=== PATIENT | female | born 1955 | race Caucasian/White ===

== ENCOUNTER 2017-05-26 16:30 | Day surgery (SDC) | payer MEDICARE, OTHER ==
[2017-05-26] VITALS (11 sets, daily range): BP systolic 144–189; BP diastolic 76–93
[~2017-05-26] VITALS: Ht 170.2 cm; Wt 135.2 kg
[~2017-05-26 16:30] MED LIST changes: -DOCU-143 PO; -HYDR-3812 PO; -HYDROmorphone (DILAUDID) 2 MG/ML VIAL ONE; -IOHEXOL 350 MG/ML 100 ML (OMNIPAQUE 350) VIAL IV ONE; -NS 100 ML (IVPB) BAG IV ONE
[2017-05-26] MEDS ORDERED: NS (IVPB) 100 ML ONE (16:41)
[2017-05-26] MEDS ORDERED: PIPERACILLIN/TAZO 4.5 GM VIAL (ZOSYN) IV ONE (16:41)
[2017-05-26] MEDS ORDERED: PIPERACILLIN SODIUM/TAZOBACTAM 4.5 GM in NS (IVPB) 100 ML IV ONE ×2 (17:00→17:15)
[2017-05-26] MEDS ORDERED: proPOfol 200 MG/20 ML (DIPRIVAN) VIAL IV ONE (17:18)
[2017-05-26] MEDS ORDERED: ONDANSETRON 4 MG/2 ML (SDV) Z0FRAN ONE ×2 (17:18→19:06)
[2017-05-26] MEDS ORDERED: SEVOFLURANE (ULTANE) 15 ML INHAL SOLN ONE ×7 (17:18→19:28)
[2017-05-26] MEDS ORDERED: MIDAZOLAM 2 MG/2 ML (VERSED) VIAL ONE (17:20)
[2017-05-26] MEDS ORDERED: fentaNYL INJECTION 250 MCG/5 ML AMP ONE (17:22)
[2017-05-26] MEDS: LACTATED RINGERS 1,000 ML IV PRN ×2 (17:41→18:20)
[2017-05-26] MEDS ORDERED: INFLUENZA TRIvalent 2017-2018 0.5 ML/45 MCG SYR IM ONE (17:45)
[2017-05-26] MEDS ORDERED: BUPIVACAINE 0.5% 30 ML (SENSORCAINE) VIAL ONE (17:55)
[2017-05-26] MEDS ORDERED: LIDOCAINE 1% INJ 20 ML (XYLOCAINE) VIAL ONE (17:56)
[2017-05-26] MEDS ORDERED: SUCCINYLCHOLINE INJ 100 MG/5 ML SYR ONE (18:35)
[2017-05-26] MEDS ORDERED: LIDOCAINE PF 2% 5 ML (XYLOCAINE) VIAL ONE (18:35)
[2017-05-26] MEDS ORDERED: ROCURONIUM 50 MG/5 ML (ZEMURON) VIAL IV ONE (18:35)
[2017-05-26] MEDS ORDERED: morphine INJ 10 MG/ML 1ML (SYR OR VIAL) ONE (19:06)
[2017-05-26] MEDS ORDERED: GLYCOPYRROLATE 0.2 MG/ML (ROBINUL) 2 ML VIAL ONE (19:28)
[2017-05-26] MEDS ORDERED: NEOSTIGMINE (BLOXIVERZ ) 1 MG/1ML 10 ML VIAL ONE (19:28)
[2017-05-26] MEDS ORDERED: LABETALOL HCL 20 MG/4 ML VIAL ONE (19:35)
--- NOTE | 2017-05-26 19:54 | Progress Note-Post Operative ---
Post-Operative Progess Note Surgeon (s)/Teacher Instrumental (s) Surgeon MARILUZ SANCHEZ DO Teacher Instrumental: Dr. Gamino Pre-Operative Diagnosis rlq abdominal pain possible appendicitis, dermoid cyst, incisional hernia Post-Operative Diagnosis torsion right ovary, strangulated incisional hernia, appendicits Procedure & Operative Findings Date of Procedure 05/26/17 Procedure Performed/Findings emergent diagnostic laparoscopy, primary open strangulated hernia repair, appendectomy, partial omentectomy Dr. Yousif- Right salpingo-oophorectomy Anesthesia Type general Estimated Blood Loss Estimated blood loss (mL): 100mL Specimens/Packing Specimens Removed right ovary/tube possible urachus remnant hernia sac appendix omentum MARILUZ SANCHEZ DO May 26, 2017 19:54
[2017-05-26] MEDS ORDERED: morphine INJ 4 MG/ML 1 ML (VIAL/SYRINGE) IVP PRN (20:00)
[2017-05-26] MEDS: LACTATED RINGERS 1,000 ML IV SCH (20:02)
[2017-05-26] MEDS: morphine INJ 10 MG/ML 1ML (SYR OR VIAL) IVP PRN ×2 (20:05→20:16)
[2017-05-26] MEDS ORDERED: ONDANSETRON 4 MG/2 ML (SDV) Z0FRAN IVP PRN (20:15)
[2017-05-26] MEDS ORDERED: HYDROmorphone (DILAUDID) 2 MG/ML VIAL IVP PRN (20:30)
[2017-05-26] MEDS ORDERED: lisINopril 10 MG (PRINIVIL) TAB ONE (22:23)
[2017-05-26] MEDS: ONDANSETRON 4 MG/2 ML (SDV) Z0FRAN IVP PRN (22:41)
[2017-05-26] MEDS: lisINopril 20 MG (ZESTRIL) TAB PO SCH (23:01)
[2017-05-27] VITALS (12 sets, daily range): BP systolic 103–150; BP diastolic 51–82
[2017-05-27] MEDS: PIPERACILLIN SODIUM/TAZOBACTAM 4.5 GM in NS (IVPB) 100 ML IV SCH ×2 (01:09→08:37)
[2017-05-27] MEDS: LACTATED RINGERS 1,000 ML IV SCH ×3 (02:01→23:25)
[2017-05-27] MEDS: HYDROcodone/APAP 5 MG/325 MG (LORTAB) TAB PO PRN ×2 (04:29→20:27)
[2017-05-27] MEDS: ONDANSETRON 4 MG/2 ML (SDV) Z0FRAN IVP PRN (04:29)
[2017-05-27 06:48] LABS: RED BLOOD COUNT 4.61 10^6/uL (4.35-5.85); RED CELL DISTRIBUTION WIDTH 12.7 % (10.0-14.5); WHITE BLOOD COUNT 20.5 10^3/uL (4.3-11.0)
[2017-05-27 07:02] LABS: ALANINE AMINOTRANSFERASE 13 U/L (0-55); ALBUMIN 2.9 GM/DL (3.2-4.5); ANION GAP 8 MMOL/L (5-14); ASPARTATE AMINO TRANSFERASE 15 U/L (5-34); BILIRUBIN,TOTAL 1.8 MG/DL (0.1-1.0); BLOOD UREA NITROGEN 10 MG/DL (7-18); BUN/CREATININE RATIO 13; CALCIUM 8.1 MG/DL (8.5-10.1); CARBON DIOXIDE 28 MMOL/L (21-32); CHLORIDE 102 MMOL/L (98-107); CREATININE SERUM 0.78 MG/DL (0.60-1.30); GFR ESTIMATED > 60; GLUCOSE 163 MG/DL (70-105); LIPASE 16 U/L (8-78); POTASSIUM 3.3 MMOL/L (3.6-5.0); SODIUM 138 MMOL/L (135-145); TOTAL PROTEIN 6.1 GM/DL (6.4-8.2)
--- NOTE | 2017-05-27 08:36 | Progress Note ---
Subjective Date Seen by Provider: May 27, 2017 Time Seen by Provider: 06:10 Subjective/Events-last exam Patient feeling better than yesterday. Pain controlled. Tolerating clear liquids. Denies any n/v fever sweats chills shortness of breath or chest pain. Blood pressure better controlled. WBC slightly down 20.5. T bili 1.8 Objective Exam Vital Signs Date Time Temp Pulse Resp B/P (MAP) Pulse Ox O2 Delivery O2 Flow Rate FiO2 05/27/17 06:00 98.8 80 16 123/62 97 Room Air 05/27/17 04:00 134/74 96 Room Air 05/27/17 03:13 72 14 139/67 97 Nasal Cannula 1.00 05/27/17 02:06 98.6 79 16 138/76 98 Nasal Cannula 2.00 05/27/17 01:09 82 16 144/82 98 Nasal Cannula 3.00 05/27/17 00:00 73 16 147/81 98 Nasal Cannula 3.00 05/26/17 23:18 71 16 144/81 98 Nasal Cannula 4.00 05/26/17 23:00 72 18 144/81 98 Nasal Cannula 4.00 05/26/17 22:30 70 18 148/78 97 Nasal Cannula 4.00 05/26/17 22:19 98.4 75 17 145/76 95 Nasal Cannula 4.00 05/26/17 22:15 68 17 147/81 95 Nasal Cannula 4.00 05/26/17 22:01 95 Nasal Cannula 3.00 05/26/17 22:00 79 17 162/93 96 Nasal Cannula 4.00 05/26/17 21:45 80 17 149/84 96 Nasal Cannula 4.00 05/26/17 21:30 80 17 160/92 96 Nasal Cannula 4.00 05/26/17 21:15 80 17 148/83 94 Nasal Cannula 4.00 05/26/17 21:15 95 Nasal Cannula 3.00 05/26/17 21:05 98.1 78 17 154/88 89 Nasal Cannula 4.00 05/26/17 17:05 98.5 108 18 189/82 97 Room Air Capillary Refill : General Appearance: No Apparent Distress HEENT: PERRL/EOMI, Normal ENT Inspection Neck: Supple Respiratory: No Accessory Muscle Use, No Respiratory Distress Cardiovascular: Regular Rate, Rhythm Gastrointestinal: soft (incisional tenderness, no drainage at this time, no signs of incisional infection.) Extremity: Non Tender Neurologic/Psychiatric: Alert, Oriented x3 Skin: Normal Color, Warm/Dry Lymphatic: No Adenopathy Results Lab Laboratory Tests 05/27/17 05:45: White Blood Count 20.5H, Red Blood Count 4.61, Hemoglobin 14.6, Hematocrit 43, Mean Corpuscular Volume 92, Mean Corpuscular Hemoglobin 32, Mean Corpuscular Hemoglobin Concent 34, Red Cell Distribution Width 12.7, Platelet Count 190, Mean Platelet Volume 11.0H, Sodium Level 138, Potassium Level 3.3L, Chloride Level 102, Carbon Dioxide Level 28, Anion Gap 8, Blood Urea Nitrogen 10, Creatinine 0.78, Estimat Glomerular Filtration Rate > 60, BUN/Creatinine Ratio 13, Glucose Level 163H, Calcium Level 8.1L, Total Bilirubin 1.8H, Aspartate Amino Transf (AST/SGOT) 15, Alanine Aminotransferase (ALT/SGPT) 13, Alkaline Phosphatase 42, Total Protein 6.1L, Albumin 2.9L, Lipase 16 Assessment/Plan Assessment/Plan Assessment/Plan s/p diagnostic laparoscopy right salpingo-oophorectomy, strangulated incisional hernia repair, partial omentectomy, appendectomy wbc coming down slightly will plan just two dose Zosyn postoperative mario barboza repeat labs in am if tolerates clears today will likely advance possibly home tomorrow. Clinical Quality Measures DVT/VTE Risk/Contraindication: Risk Factor Score Per Nursin RFS Level Per Nursing on Admit: 3=High MARILUZ SANCHEZ DO May 27, 2017 08:36
[2017-05-27] MEDS: HYDROCHLOROTHIAZIDE 25 MG (HCTZ) TAB PO SCH (08:38)
[2017-05-27] MEDS ORDERED: INFLUENZA TRIvalent 2017-2018 0.5 ML/45 MCG SYR IM ONE (08:43)
[2017-05-27] MEDS ORDERED: FAMOTIDINE 20 MG (PEPCID) TABLET PO ONE (09:00)
[2017-05-27] MEDS: lisINopril 20 MG (ZESTRIL) TAB PO SCH ×2 (09:32→20:26)
--- NOTE | 2017-05-27 09:36 | Anesthesia-General Post-Op ---
General Patient Condition Mental Status/LOC: Same as Preop Cardiovascular: Satisfactory Nausea/Vomiting: Absent Respiratory: Satisfactory Pain: Controlled Complications: Absent Post Op Complications Complications None Follow Up Care/Instructions Patient Instructions None needed. Anesthesia/Patient Condition Patient Condition Patient is doing well, no complaints, stable vital signs, no apparent adverse anesthesia problems. No complications reported per nursing. FELICIANO GIMENEZ CRNA May 27, 2017 09:36
--- NOTE | 2017-05-27 19:12 | OPERATIVE REPORT ---
DATE OF SERVICE: 05/26/2017 PREOPERATIVE DIAGNOSES: Right lower quadrant abdominal pain, possible appendicitis; dermoid cyst; and incisional hernia, incarcerated. POSTOPERATIVE DIAGNOSES: Torsion of the right ovary, strangulated incisional hernia, and appendicitis. PROCEDURE PERFORMED: Emergent diagnostic laparoscopy, primary open; strangulated hernia repair; appendectomy; and partial omentectomy with Dr. Yousif perform a right salpingo-oophorectomy. ANESTHESIA: General. SURGEON: Mariluz Arenas DO CROWN [employer] BRIDGE TECHNICIAN: Dr. Gamino, who assisted in retraction, dissection and closure. INDICATIONS: The patient is a 62-year-old female, who has been having 2 half days of right lower quadrant abdominal pain. She has been having nausea and vomiting. She has had severe pain. She had a lab work, which demonstrated white count of approximately 23,000, and a CT scan that demonstrated a possible dermoid cyst with possible ovarian torsion, questionable appendicitis and some free fluid in the abdomen, also with an incarcerated possible strangulated hernia. She was explained risks and benefits of procedure and wished to proceed with procedure. Consent was signed in the chart. DESCRIPTION OF PROCEDURE: The patient was taken to the operating suite. She was prepped and draped in sterile fashion. Surgical pause was performed. A 12 mm incision was made just above the umbilicus and taken down through the subcutaneous tissue. The hernia sac was entered and the fingers were able to be placed within the abdomen. A 12 mm balloon trocar was inserted into the abdomen. The balloon was insufflated and scope was inserted. A 5 mm trocar was then placed in the left lower quadrant. A large cystic mass with the right ovary was at midline. It appears to be containing blood with also some blood already within the abdomen, down in the pelvis and in the right gutter. A suprapubic 5 mm trocar was placed as well under direct visualization of the laparoscope. At this time, Dr. Yousif was called for intraoperative consult and performed a right salpingo-oophorectomy. The scope was changed to a 5 mm scope. The hernia was inspected. There was a strangulated omentum present through the hernia. At this time, at the umbilicus, the incision was extended inferiorly and the omentum was able to be reduced, grasped, and elevated out through the incision. A partial omentectomy was performed using the LigaSure removing the strangulated omentum. The hernia sac was then dissected around and also a portion of a possible urachal remnant that was removed as well. This was sent to pathology. We thought, this was a small stone. The hernia sac was dissected off and resected. The abdomen was irrigated with copious amounts of irrigation. The cecum was brought up through the incision. The appendix at the base along with the tip was dilated and inflamed. The base of the appendix was dissected around. An Endo-VEENA 2.5 stapler was then fired across the base of the appendix. LigaSure was used to go across the mesoappendix removing the appendix. At this time again, copious amounts of irrigation was used to irrigate the entire abdomen. The midline defect was then closed using 1-0 looped PDS. The wound was irrigated with copious amounts of irrigation and the skin was stapled. The abdomen was then reinsufflated and again irrigated with copious amounts of irrigation and suctioned. Hemostasis had been achieved. The gallbladder before closing was palpated, which was nice and soft and appeared to have no inflammation and also appeared in this way by laparoscopy. The left ovary had normal appearance. The abdomen was then desufflated, the trocars were removed. The incisions were closed with idalmis. The abdomen was then washed and dried, sterile bandage was applied. The patient tolerated the procedure well without any complications. She was taken to the recovery room in stable condition. Job ID: [id number] DocumentID: [id number] Dictated Date: 05/27/2017 08:45:54 Tactical Deception Plans Officer Date: 05/27/2017 19:11:52 Dictated By: MARILUZ ARENAS DO
--- NOTE | 2017-05-28 00:07 | OPERATIVE REPORT ---
DATE OF SERVICE: 05/27/2017 INTRAOPERATIVE CONSULT AND PROCEDURE REPORT This 62-year-old female was taken to the operating room by general surgeon, Dr. Arenas, for incarcerated hernia repair as well as suspicion for appendicitis and a pelvic mass noted on CT. Once intraoperative, I was consulted by him for evaluation of a pelvic mass, which appeared to be in a torsed ovary. When I presented to the operating room, the patient was in the supine position and adequate laparoscopic trocars were already in place for my dissection. I identified the patient's right infundibulopelvic ligament by untorsing in on it' s pedicle. Once it was identified, it was grasped with the LigaSure and bipolar cautery and transected using the LigaSure. The utero-ovarian ligament was identified as well and taken down. After that, the ovary itself was amputated from the lateral pelvic sidewall. During my dissection, I was careful to stay clear of the proximity of the ureter to the infundibulopelvic ligament. At that point, the remainder of the procedure was performed by Dr. Arenas and his treasury assistant, Dr. Gamino. I was no longer needed for further consultation. The ovary and its surrounding pelvic mass was then removed later in the procedure through the incarcerated hernia repair. Please see Dr. Arenas's note for complete details pertaining to the remainder of the procedure. Job ID: [id number] DocumentID: [id number] Dictated Date: 05/27/2017 10:45:09 Chainstitch Elastic Attacher Date: 05/27/2017 19:06:04 Dictated By: DO CARLEY POLANCO
[2017-05-28] MEDS ORDERED: KCL 20 MEQ TAB (K-DUR) PO SCH (07:00)
[2017-05-28 08:22] LABS: MEAN PLATELET VOLUME 10.8 FL (7.4-10.4); RED BLOOD COUNT 4.29 10^6/uL (4.35-5.85); RED CELL DISTRIBUTION WIDTH 12.7 % (10.0-14.5)
[2017-05-28 08:45] LABS: ALANINE AMINOTRANSFERASE 20 U/L (0-55); ALBUMIN 2.9 GM/DL (3.2-4.5); ANION GAP 8 MMOL/L (5-14); ASPARTATE AMINO TRANSFERASE 22 U/L (5-34); BILIRUBIN,TOTAL 1.1 MG/DL (0.1-1.0); BLOOD UREA NITROGEN 12 MG/DL (7-18); BUN/CREATININE RATIO 17; CALCIUM 8.5 MG/DL (8.5-10.1); CARBON DIOXIDE 29 MMOL/L (21-32); CHLORIDE 104 MMOL/L (98-107); CREATININE SERUM 0.69 MG/DL (0.60-1.30); GFR ESTIMATED > 60; GLUCOSE 85 MG/DL (70-105); SODIUM 141 MMOL/L (135-145); TOTAL PROTEIN 5.8 GM/DL (6.4-8.2)
[2017-05-28 09:30] VITALS: BP 161/79
[2017-05-28] MEDS: HYDROCHLOROTHIAZIDE 25 MG (HCTZ) TAB PO SCH (09:51)
[2017-05-28] MEDS: lisINopril 20 MG (ZESTRIL) TAB PO SCH (09:52)
[2017-05-28] MEDS ORDERED: KCL 20 MEQ TAB (K-DUR) PO NR (10:00)
[2017-05-28] MEDS: HYDROcodone/APAP 5 MG/325 MG (LORTAB) TAB PO PRN (10:06)
[2017-05-28] MEDS ORDERED: HYDR-3812 PO (10:07)
[2017-05-28] MEDS ORDERED: DOCU-143 PO (10:07)
--- NOTE | 2017-05-28 10:09 | Discharge Inst-Simple/Standard ---
Discharge Inst-Standard Discharge Medications New, Converted or Re-Newed RX: RX on Chart Patient Instructions/Follow Up Plan of Care/Instructions/FU: 2 weeks Deepa Activity as Tolerated: No Discharge Diet: Regular Diet Other Inst to Patient Follow up Appt: Make appointment for 2 week. Instructions: No lifting greater than 10 pounds. No strenuous activity. May shower in 24 hours, no tub bath or soaking. Use incentive spirometer at home as directed. No Smoking Skin/Wound Care: May remove bandages. Keep area clean and dry. Symptoms to Report: Appetite Changes, Extremity Discoloration, Numbness/Tingling, Swelling Increased , Bleeding Excessive, Eyesight Changes, Pain Increased, Urine Color Change, Constipation(Persistent), Fever over 101 degree F, Pain/Pressure in chest, Urinating Difficulty, Cough Up/Vomit Blood, Heart Beat Irreg/Pounding, Pain/ Pressure in jaw, Vaginal Bleeding Increase, Cramps in feet or legs, Lightheadedness, Pain/Pressure in shoulder, Diarrhea(Persistent), Memory Changes Suddenly, Questions/Concerns, Weight gain consecutive days, Dizziness/ Fainting, Nausea/Vomiting, Shortness of Breath, Weight gain over 2 pounds If questions or concerns contact your physician Or seek help at emergency department. MARILUZ SANCHEZ DO May 28, 2017 10:08
[2017-05-28] MEDS ORDERED: SIMETHICONE 80 MG (MYLICON) CHEW PO NR (10:15)
[2017-05-28 12:00] VITALS: BP 169/84
--- NOTE | 2017-05-28 14:23 | Progress Note ---
Subjective Date Seen by Provider: May 28, 2017 Time Seen by Provider: 09:52 Subjective/Events-last exam Continues to feel better. Passing flatus. No nausea or emesis. Pain controlled. Ambulating. Denies n/v fever sweats chills shortness of breath or chest pain. Objective Exam Vital Signs Date Time Temp Pulse Resp B/P (MAP) Pulse Ox O2 Delivery O2 Flow Rate FiO2 05/28/17 12:00 98.2 70 18 169/84 97 Room Air 05/28/17 09:30 99.1 49 18 161/79 95 Room Air 05/27/17 23:25 98.3 72 16 103/61 Room Air 05/27/17 20:20 99.2 78 18 150/82 Room Air 05/27/17 15:40 99.3 71 18 127/66 99 Room Air Capillary Refill : General Appearance: No Apparent Distress HEENT: PERRL/EOMI, Normal ENT Inspection Neck: Supple Respiratory: No Accessory Muscle Use, No Respiratory Distress Cardiovascular: Regular Rate, Rhythm Gastrointestinal: soft (incisional tenderness, no drainage at this time, no signs of incisional infection, incisions c/d/i) Extremity: Non Tender Neurologic/Psychiatric: Alert, Oriented x3 Skin: Normal Color, Warm/Dry Lymphatic: No Adenopathy Results Lab Laboratory Tests 05/28/17 08:12: White Blood Count 16.0H, Red Blood Count 4.29L, Hemoglobin 13.4, Hematocrit 40, Mean Corpuscular Volume 93, Mean Corpuscular Hemoglobin 31, Mean Corpuscular Hemoglobin Concent 34, Red Cell Distribution Width 12.7, Platelet Count 202, Mean Platelet Volume 10.8H, Sodium Level 141, Potassium Level 3.0L, Chloride Level 104, Carbon Dioxide Level 29, Anion Gap 8, Blood Urea Nitrogen 12, Creatinine 0.69, Estimat Glomerular Filtration Rate > 60, BUN/Creatinine Ratio 17, Glucose Level 85, Calcium Level 8.5, Total Bilirubin 1.1H, Aspartate Amino Transf (AST/SGOT) 22, Alanine Aminotransferase (ALT/SGPT) 20, Alkaline Phosphatase 43, Total Protein 5.8L, Albumin 2.9L Microbiology 05/26/17 MRSA Screen - Final, Complete MRSA not isolated Assessment/Plan Assessment/Plan Assessment/Plan s/p diagnostic laparoscopy right salpingo-oophorectomy, strangulated incisional hernia repair, partial omentectomy, appendectomy wbc coming down potassium orally replaced okay with dc home today. Final Diagnosis right lower quadrant abdominal pain. s/p diagnostic laparoscopy right salpingo-oophorectomy, strangulated incisional hernia repair, partial omentectomy, appendectomy Clinical Quality Measures DVT/VTE Risk/Contraindication: Risk Factor Score Per Nursin RFS Level Per Nursing on Admit: 3=High MARILUZ SANCHEZ DO May 28, 2017 14:23
== END 2017-05-28 13:35 | disposition home or self-care (01) ==
LOC: UNDOADMIN 16:30 → 4TH 16:30 → SDC 16:30 → WS 21:00 → 4TH 21:00 → WS 21:00 → UNDODISIN 05-28 13:35 → SDC 05-28 13:35 → EDSTATUS 05-29 08:15
PROVIDERS: ATTEND Surgery
DX: N83.511 Torsion of right ovary and ovarian pedicle (principal); D27.0 Benign neoplasm of right ovary; K43.0 Incisional hernia with obstruction, without gangrene; K37 Unspecified appendicitis; I10 Essential (primary) hypertension; E66.01 Morbid (severe) obesity due to excess calories; Z68.42 Body mass index [BMI] 45.0-49.9, adult; Z79.899 Other long term (current) drug therapy; Z23 Encounter for immunization
CPT/HCPCS: 36415; 80053; 83690; 85027; 87081; 88302; 88304; 88305; 88307; 94664

== ENCOUNTER → 2017-05-26 | Outpatient (CLI) | payer MEDICARE, OTHER ==
[~2017-05-26] MED LIST: DOCU-143 PO; HYDR-3812 PO; HYDR25TA4 PO; HYDROmorphone (DILAUDID) 2 MG/ML VIAL ONE; IOHEXOL 350 MG/ML 100 ML (OMNIPAQUE 350) VIAL IV ONE; LISI-552 PO; NS 100 ML (IVPB) BAG IV ONE; OXYC-197 PO
--- NOTE | 2017-05-26 16:54 | Diagnostic Imaging Report ---
PROCEDURE: CT abdomen and pelvis with and without contrast. TECHNIQUE: Precontrast acquisitions were acquired through the abdomen and pelvis. Multiple contiguous axial images were obtained through the abdomen and pelvis after the administration of intravenous contrast. INDICATION: Abdominal pain. Nausea and vomiting. 100 mL of Omnipaque 350 is administered intravenously. FINDINGS: The lung bases appear clear. The liver demonstrates no focal lesion. Minimal amount of perihepatic fluid is seen. The gallbladder demonstrates no calcified stone. The pancreas, the spleen and the adrenal glands appear unremarkable. The kidneys have symmetric enhancement and contrast excretion. There is no hydronephrosis. The abdominal aorta is normal in caliber. No para-aortic significantly enlarged lymph nodes seen. There is moderate amount of free fluid seen in the pelvis. There is a mass containing fat density seen in the upper pelvis measuring 13 x 9.7 x 9.3 cm. It appears to be arising from the right adnexa. The right adnexa demonstrates thickening and surrounding stranding. This is concerning for ovarian torsion. The cecum is displaced laterally and appears to be rotated with the appendix normal in caliber with no significant inflammation seen around it. It is projecting lateral to the cecum. There is no bowel obstruction. There is a prominent supraumbilical ventral hernia with a defect measuring 3.7 x 3 cm. There is a fatty stranding within the hernia and thickening of the omentum and the vascular pedicle directed into the hernia. This is concerning for strangulation. The osseous structures demonstrate mild degenerative changes and vacuum phenomenon in the SI joints. There is bridging syndesmophytes in the lower thoracic spine. Prominent degenerative changes in the lower lumbar spine facet joints are noted. IMPRESSION: 1. 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 The right adnexa is thickened with surrounding stranding concerning for ovarian torsion. 2. Supraumbilical ventral hernia containing omental fat with stranding and thickening of the vascular pedicle in the omentum leading to the hernia is concerning for strangulation. 3. Moderate amount of free fluid in the pelvis. The findings were discussed with Dr. Arenas and Dr. Gamino at time of dictation. Dictated by: Dictated on workstation # [id number]
== END ==
LOC: RAD 14:53
PROVIDERS: ATTEND Nurse Practitioner
DX: D27.0 Benign neoplasm of right ovary (principal); K43.9 Ventral hernia without obstruction or gangrene; R11.10 Vomiting, unspecified
CPT/HCPCS: 74178

== ENCOUNTER 2022-11-04 03:13 | Inpatient (IN) | payer MEDICARE, OTHER ==
[~2022-11-04] VITALS: Ht 170.1 cm; Wt 123.5 kg
[~2022-11-04 03:13] MED LIST changes: +ACHD5005 PO; +DOCU-143 PO; -LISI-552 PO; +LISI20TA26 PO; -OXYC-197 PO; +OXYC1TAB87 PO
[2022-11-04] MEDS ORDERED: ADENOSINE 6 MG/2 ML (ADENOCARD) VIAL IV ONE ×2 (03:26→03:27)
[2022-11-04] MEDS ORDERED: ONDANSETRON 4 MG/2 ML (SDV) Z0FRAN IVP ONE (03:30)
[2022-11-04] MEDS ORDERED: LACTATED RINGERS 1,000 ML IV ONE ×2 (03:30→03:34)
[2022-11-04] MEDS ORDERED: NORMAL SALINE 250 ML ONE (03:32)
[2022-11-04] MEDS ORDERED: AMIODARONE 150 MG/3 ML (CORDARONE) VIAL IV ONE (03:32)
[2022-11-04] MEDS ORDERED: AMIODARONE 450 MG/9 ML (CORDARONE) VIAL IV ONE (03:33)
[2022-11-04 03:37] LABS: BASOPHILS # (AUTO) 0.1 10^3/uL (0.0-0.1); BASOPHILS % (AUTO) 0 % (0-10); EOSINOPHILS # (AUTO) 0.1 10^3/uL (0.0-0.3); EOSINOPHILS % (AUTO) 0 % (0-10); HEMATOCRIT 55 % (35-52); HEMOGLOBIN 19.4 g/dL (11.5-16.0); LYMPHOCYTES # (AUTO) 4.1 10^3/uL (1.0-4.0); LYMPHOCYTES % (AUTO) 22 % (12-44); MEAN CORPUSCULAR HEMOGLOBIN 31 pg (25-34); MEAN CORPUSCULAR HGB CONC 36 g/dL (32-36); MEAN CORPUSCULAR VOLUME 87 fL (80-99); MEAN PLATELET VOLUME 10.3 fL (9.0-12.2); MONOCYTES # (AUTO) 1.4 10^3/uL (0.0-1.0); MONOCYTES % (AUTO) 8 % (0-12); NEUTROPHILS # (AUTO) 12.7 10^3/uL (1.8-7.8); NEUTROPHILS % (AUTO) 69 % (42-75); PLATELET COUNT 293 10^3/uL (130-400); WHITE BLOOD COUNT 18.4 10^3/uL (4.3-11.0)
[2022-11-04] MEDS ORDERED: ENOXAPARIN 80 MG/0.8 ML (LOVENOX) SYR SC ONE (03:45)
[2022-11-04] MEDS ORDERED: ENOXAPARIN 60 MG/0.6 ML (LOVENOX) SYR SC ONE (03:45)
[2022-11-04 03:48] LABS: ALBUMIN 3.6 GM/DL (3.2-4.5); POTASSIUM 4.9 MMOL/L (3.6-5.0)
[2022-11-04] MEDS ORDERED: METOCLOPRAMIDE INJ 10 MG/2 ML (REGLAN) ONE (03:48)
[2022-11-04 03:50] LABS: CALCIUM 9.6 MG/DL (8.5-10.1)
[2022-11-04 03:51] LABS: TOTAL PROTEIN 8.4 GM/DL (6.4-8.2)
[2022-11-04 03:52] LABS: BILIRUBIN,TOTAL 3.3 MG/DL (0.1-1.0)
[2022-11-04 03:55] LABS: CREATININE SERUM 1.19 MG/DL (0.60-1.30)
[2022-11-04 03:57] LABS: MAGNESIUM 2.2 MG/DL (1.6-2.4)
[2022-11-04] MEDS ORDERED: LIDOCAINE UROJET 2% GEL 10 ML PKG TOP ONE (04:00)
[2022-11-04] MEDS ORDERED: dilTIAZem DRIP PRE-MIX 125 ML IV SCH (04:00)
[2022-11-04] MEDS ORDERED: ASPIRIN 81 MG CHEW (CHILDREN'S ASA) PO ONE (04:00)
[2022-11-04] MEDS ORDERED: METOCLOPRAMIDE INJ 10 MG/2 ML (REGLAN) IVP ONE (04:00)
[2022-11-04] MEDS ORDERED: DIGOXIN 0.25 MG/ML (LANOXIN) 2 ML AMP IV ONE (04:00)
[2022-11-04 04:08] LABS: CREATINE KINASE MB 4.3 NG/ML (<6.6)
[2022-11-04 04:10] LABS: FIBRIN DEGRADATION PRODUCTS 3.96 UG/ML (0.00-0.49); INR 1.1 (0.8-1.4); PROTHROMBIN TIME PATIENT 14.9 SEC (12.2-14.7)
[2022-11-04 04:17] LABS: EOSINOPHILS % (MANUAL) 1 %; LYMPHOCYTES % (MANUAL) 21 %; MONOCYTES % (MANUAL) 10 %; NEUTROPHILS % (MANUAL) 68 %; RBC MORPH NORMAL
[2022-11-04] MEDS ORDERED: proPOfol 200 MG/20 ML (DIPRIVAN) VIAL IV ONE (04:32)
--- NOTE | 2022-11-04 04:32 | Consultation-Cardiology ---
HPI-Cardiology Cardiology Consultation: Date of Consultation 11/04/22 Time Seen by a Provider: 16:15 Date of Admission Attending Physician Lashawn Whiting MD Admitting Physician Admitting Physician: Attending Physician: Consulting Physician MYRTLE MORALES MD, MA, FACP, FACC, FSCAI, CCDS physician requesting consult: Dr Cooper HPI: Chief Complaint: Reason for consultation: A Fib w/ RVR and hypotension 67 yo woman with 3 days of intermittent nausea and vomiting and gen malaise and weakness and gen discomfort. Symptoms worse today. Does not specifically report chest pain. Does not report other symptoms Review of Systems-Cardiology Review of Systems Constitutional: As described under HPI Eyes: No vision change Ears/Nose/Throat: No ear discharge, No nasal drainage, No recent hearing loss Respiratory: As described under HPI Cardiovascular: As described under HPI Gastrointestinal: As described under HPI Genitourinary: No dysuria, No hematuria, No urine frequency changes Musculoskeletal: No back pain, No joint pain Skin: No rash, No ulcerations Psychiatric/Neurological: No seizure, No focal weakness, No syncope Hematologic: No bleeding abnormalities [id number] Hx Patient Social History 2nd Hand Smoke Exposure: No Have you traveled recently?: No Immunizations Up To Date Tetanus Booster (TDap): Unknown Date of Pneumonia Vaccine: Apr 23, 2015 Past Medical History PMH As described under Assessment. Family Medical History Family History: Arthritis 19 MOTHER Cardiovascular disease 19 FATHER Cataracts 19 FATHER Dementia 19 FATHER 19 MOTHER Diabetes mellitus 19 FATHER (hypoglycmia) Hypertension 19 MOTHER Allergies and Home Medications Allergies Coded Allergies: No Known Drug Allergies (Unverified , 04/23/16) Patient Home Medication List Home Medication List Reviewed: Yes Docusate Sodium (Colace) 100 Mg Capsule, 100 MG PO BID Prescribed by: MARILUZ SANCHEZ on 05/28/17 1007 Hydrochlorothiazide (Hydrochlorothiazide) 25 Mg Tablet, 25 MG PO DAILY, (Reported) Entered as Reported by: KELLI PALUMBO on 04/23/16 1030 Hydrocodone Bit/Acetaminophen (Lortab 5 Mg Tablet) 1 Each Tablet, 1 TAB PO Q4H PRN Prescribed by: MARILUZ SANCHEZ on 05/28/17 1007 Lisinopril (Lisinopril) 20 Mg Tablet, 20 MG PO BID, (Reported) Entered as Reported by: KELLI PALUMBO on 04/23/16 1030 Physical Exam-Cardiology Physical Exam Vital Signs/I&O 11/04/22 11/04/22 11/04/22 03:21 03:47 04:11 Temp 36.8 Pulse 210 196 174 Resp 14 B/P (MAP) 99/76 (84) 113/89 123/85 Pulse Ox 96 O2 Delivery Room Air Capillary Refill : Less Than 3 Seconds Constitutional: AAO x 3, well-developed, well-nourished, other (appeared unwell and diaphoretic prior to elec cardioversion) HEENT: PERRL, hearing is well preserved; No xanthelasmas are seen Neck: carotid pulses are 2 + bilaterally, with good upstrokes Respiratory: No accessory muscle use; chest expansion is symmetric, chest is bilaterally symmetric, other (fair to good air entry) Cardiovascular: irregularly irregular, S1 and S2, systolic murmur (soft CAMILA cardiac base) Gastrointestinal: No tender; soft; No guarding, No rebound; audible bowel sounds Extremities: No clubbing, No cyanosis, No significant edema Neurologic/Psychiatric: oriented x 3, other (moves all limbs) Skin: No rash on exposed areas, No ulcerations on exposed areas Data Review Labs Laboratory Tests 11/04/22 03:25: White Blood Count 18.4H, Red Blood Count 6.25H, Hemoglobin 19.4H, Hematocrit 55H , Mean Corpuscular Volume 87, Mean Corpuscular Hemoglobin 31, Mean Corpuscular Hemoglobin Concent 36, Red Cell Distribution Width 12.1, Platelet Count 293, Mean Platelet Volume 10.3, Immature Granulocyte % (Auto) 0, Neutrophils (%) (Auto) 69, Lymphocytes (%) (Auto) 22, Monocytes (%) (Auto) 8, Eosinophils (%) (Auto) 0, Basophils (%) (Auto) 0, Neutrophils # (Auto) 12.7H, Lymphocytes # (Auto) 4.1H, Monocytes # (Auto) 1.4H, Eosinophils # (Auto) 0.1, Basophils # (Auto) 0.1, Immature Granulocyte # (Auto) 0.1, Neutrophils % (Manual) 68, Lymphocytes % (Manual) 21, Monocytes % (Manual) 10, Eosinophils % (Manual) 1, Blood Morphology Comment NORMAL, Prothrombin Time 14.9H, INR Comment 1.1, Activated Partial Thromboplast Time 30, D-Dimer 3.96H, Sodium Level 132L, Potassium Level 4.9, Chloride Level 95L, Carbon Dioxide Level 18L, Anion Gap 19H , Blood Urea Nitrogen 25H, Creatinine 1.19, Estimat Glomerular Filtration Rate 51, BUN/Creatinine Ratio 21, Glucose Level 164H, Calcium Level 9.6, Corrected Calcium 9.9, Magnesium Level 2.2, Total Bilirubin 3.3H, Aspartate Amino Transf (AST/SGOT) 52H, Alanine Aminotransferase (ALT/SGPT) 34, Alkaline Phosphatase 58, Total Creatine Kinase 69, Creatine Kinase MB 4.3, Troponin I 0.069H, C-Reactive Protein High Sensitivity 2.06H, B-Type Natriuretic Peptide 73.4, Total Protein 8.4H, Albumin 3.6, Amylase Level 48, Lipase 108H Laboratory Tests 11/04/22 03:25 A/P-Cardiology Assessment/Admission Diagnosis PAF, hemodynamically unstable - greated with iv amio and ext elec cv after discussing with the patient and her son ( Benja) H/o hypertension Leucocytosis and elevated lipase and n/v -? pancreatitis Mildly elevated troponin, suspect type 2 GA due to RVR Discussion and Recomendations * Elec CV (done) * iv amio * iv dilt * Wgt-based enoxaparin * iv beta-david if tolerated * Management of n/v and leucocytosis and abnormal labs is with the Med sv[facility] * Monitor labs * MYRTLE Odell MD FACP [facility] CCDS Nov 04, 2022 04:32
[2022-11-04] MEDS ORDERED: meTOprolol 5 MG/5 ML (LOPRESSOR) VIAL ONE (04:39)
[2022-11-04] MEDS ORDERED: meTOprolol 5 MG/5 ML (LOPRESSOR) VIAL IV ONE (04:45)
[2022-11-04 05:11] LABS: BILIRUBIN,URINE NEGATIVE (NEGATIVE); CLARITY,URINE CLEAR; COLOR,URINE YELLOW; GLUCOSE, URINE (UA) NEGATIVE (NEGATIVE); KETONES,URINE NEGATIVE (NEGATIVE); LEUKOCYTE ESTERASE ,URINE NEGATIVE (NEGATIVE); NITRITE,URINE NEGATIVE (NEGATIVE); PROTEIN,URINE 1+ (NEGATIVE)
[2022-11-04] MEDS ORDERED: CALCIUM CARBONATE 500 MG (TUMS) TAB.CHEW PO PRN (06:00)
[2022-11-04] MEDS ORDERED: LORazepam INJ 2 MG/ML (ATIVAN) VIAL IVP PRN (06:00)
[2022-11-04] MEDS ORDERED: polyethylene glycoL POWDER 17 GM (MIRALAX) PACK PO PRN (06:00)
[2022-11-04] MEDS ORDERED: ACETAMINOPHEN 325 MG TABLET PO PRN (06:00)
[2022-11-04] MEDS ORDERED: diphenhydrAMINE 25 MG TAB (BENADRYL) PO PRN (06:00)
[2022-11-04] MEDS ORDERED: diphenhydrAMINE 50 MG/ML INJ (BENADRYL) IVP PRN (06:00)
[2022-11-04] MEDS ORDERED: LORazepam 0.5 MG (ATIVAN) TABLET PO PRN (06:00)
[2022-11-04] MEDS ORDERED: DexMEDEtomidine 250 ML DRIP 250 ML IV SCH (06:00)
[2022-11-04] MEDS ORDERED: HYDROmorphone 2 MG/ML VIAL (DILAUDID) IV PRN (06:00)
[2022-11-04] MEDS ORDERED: MILK OF MAGNESIA 400 MG/5 ML 30 ML UDC PO PRN (06:00)
[2022-11-04] MEDS ORDERED: MELATONIN 3 MG TABLET PO PRN (06:00)
[2022-11-04] MEDS ORDERED: BISACODYL 10 MG SUPP (DULCOLAX) PR PRN (06:00)
[2022-11-04] MEDS ORDERED: ANTACID SUSP 30 ML UDC (MYLANTA) PO PRN (06:00)
[2022-11-04] MEDS ORDERED: LACTULOSE SYRUP 10GM/15ML (ENULOSE) 30ML UDC PO PRN (06:00)
[2022-11-04] MEDS ORDERED: NS IV 500 ML 500 ML IV PRN (06:00)
[2022-11-04 06:17] LABS: BACTERIA,URINE NEGATIVE /HPF; HYALINE CASTS, URINE 0-2 /LPF
--- NOTE | 2022-11-04 06:20 | Diagnostic Imaging Report ---
INDICATION: 67-year-old female with supra-ventricular tachycardia COMPARISONS: None FINDINGS: Single view of the chest shows the cardiac contour to be normal. There is moderate central venous congestion with few scattered 5 lobe alveolar infiltrates but no confluent consolidations. There is no effusion or pneumothorax. Soft tissues and bony thorax are unremarkable. IMPRESSION: Crmw-zy-onhigyhn congestive heart failure accentuated by the portable technique and low lung volumes and underpenetrated film. Few scattered 5 lobe alveolar infiltrates are seen but no confluent consolidations. If warranted, departmental PA and lateral films of the chest may be of further value as followup. Dictated by: Dictated on workstation # [id number]
[2022-11-04] MEDS: NS IV 1000 ML 1,000 ML IV SCH ×3 (06:24→23:20)
[2022-11-04] MEDS: KCL 20 MEQ TAB (K-DUR) PO SCH (06:27)
[2022-11-04] MEDS: POTASSIUM CL 10MEQ/50ML IVPB 50 ML IV SCH (06:27)
[2022-11-04] MEDS: MAGNESIUM 1 GM/100 ML IVPB 100 ML IV SCH (06:27)
[2022-11-04] MEDS: dilTIAZem DRIP PRE-MIX 125 ML IV SCH (07:00)
[2022-11-04] MEDS: inSUlin ASPART (NovoLOG) 1 UNIT/0.01 ML (CHARGE PER UNIT) SC SCH ×4 (07:07→21:15)
[2022-11-04] MEDS ORDERED: CATHETER FLUSH 10 ML SYR IVP PRN (07:45)
--- NOTE | 2022-11-04 08:40 | Tele-ICU Consult ---
History of Present Illness History of Present Illness Date Seen by Provider: Nov 04, 2022 Time Seen by Provider: 08:39 Date of Admission (Tele-ICU Physician , consultation as per request of PCP Service provided via interactive audio and video telecommunications E-CARE system to a patient admitted to ICU bed in [facility]. Available chart/ vitals / labs / Images reviewed H&P is from ER notes Patient's information available about PMH, Shx, Fhx allergy reviewed inEMR. ROS as per chart and RN report Now in ICU, hemodynamically stable Video assessment done using teleICU camera, rest of exam as per RN Discussed with RN. Hospital course: (11/04) 67F admitted for rapid afib and hypotension, s/p iv amio and cardioversion in ER A/P A -fib , RVR - new onset, was hemodynamically unstable - > s/p iv amio and cardioversion in ER - sinus now - amio gtt - echo ordered -TSH pending - AC with lovenox Leucocytosis - UA neg - cxr neg Elevated lipase and n/v - viral infection - vs GI symptoms were results of A fib ? - to follow ? Met acidosis with AG 19 - possible due to vonit/diarrhea Lines : , (Central Line Necessity Reviewed) Naqvi: 11/04 OG: Nutrition: Analgesia: Anxiety/ delirium VTE Prophylaxis: amisha full Stress Ulcer Prophylaxis: Plans in collaboration with bedside consultants and IM MDs. Discussed with RN to reach out if any questions or concerns A total of 15 minutes of critical care time was devoted to this patient today, required to treat and/or prevent further deterioration of critical care condition ( as above ) . I am remotely monitoring this patient from another state. I am unable to do the bedside exam, and history/physical and pertinent information is taken from other notes in the computer and bedside staff. . Allergies and Home Medications Allergies Coded Allergies: No Known Drug Allergies (Unverified , 04/23/16) Home Medications Docusate Sodium 100 Mg Capsule, 100 MG PO BID Prescribed by: MARILUZ SANCHEZ on 05/28/17 1007 Hydrochlorothiazide 25 Mg Tablet, 25 MG PO DAILY, (Reported) Hydrocodone Bit/Acetaminophen 1 Each Tablet, 1 TAB PO Q4H PRN Prescribed by: MARILUZ SANCHEZ on 05/28/17 1007 Lisinopril 20 Mg Tablet, 20 MG PO BID, (Reported) Past Medical/Social/Family Hx Patient Social History Tobacco Use?: No Smoking Status: Never a Smoker Use of E-Cig and/or Vaping dev: No Substance use?: No Alcohol Use?: Yes Alcohol type: Wine Alcohol Frequency: Rarely Pt stated abuse/neglect: No Immunizations Up To Date Influenza Vaccine Up-to-Date: No; Not Current Tetanus Booster (TDap): Unknown Date of Pneumonia Vaccine: Apr 23, 2015 Current Status status: No status: No Advance Directives: No Communicates: Verbally Primary Language: Cymro Preferred Spoken Language: Cymro Is interpretation needed?: No Implanted or Applied Medical D: Orthopedic hardware Review of Systems Constitutional: see HPI Focused Exam Height, Weight, BMI Height: 5'7.00" Weight: 298lbs. 0.0oz. 135.817046pb; 42.94 BMI Method: Exam Exam Patient acknowledged, consented, and participated in this virtual visit which was conducted using real time audio/video Vital Signs Date Time Temp Pulse Resp B/P (MAP) Pulse Ox O2 Delivery O2 Flow Rate FiO2 11/04/22 07:57 36.5 11/04/22 07:50 Room Air 11/04/22 07:00 65 16 139/75 (98) 97 Room Air 11/04/22 06:45 64 14 95 Room Air 11/04/22 06:30 36.2 62 16 129/73 (91) 94 Room Air 11/04/22 06:15 65 9 132/78 (96) Room Air 11/04/22 06:00 64 14 140/78 (95) 93 Room Air 11/04/22 06:00 Room Air 11/04/22 05:54 75 11/04/22 05:46 62 122/73 (88) 91 Room Air 11/04/22 05:45 Room Air 11/04/22 05:35 75 16 116/81 97 Nasal Cannula 2.00 11/04/22 05:00 99 Nasal Cannula 2.00 11/04/22 05:00 87 16 113/64 (80) 98 OxyMask 6.00 11/04/22 04:50 156 11/04/22 04:29 100 OxyMask 6.00 11/04/22 04:11 174 123/85 11/04/22 04:00 165 9 126/116 (119) 98 Room Air 2.00 11/04/22 04:00 100 OxyMask 6.00 11/04/22 03:47 196 113/89 11/04/22 03:21 36.8 210 14 99/76 (84) 96 Room Air I & O 11/04/22 07:00 Intake Total 2000 ml Output Total 100 ml Balance 1900 ml Height & Weight Height: 5'7.00" Weight: 298lbs. 0.0oz. 135.065470it; 42.94 BMI Method: General Appearance: Other Capillary Refill: Less Than 3 Seconds Results Lab Laboratory Tests 11/04/22 03:25 Assessment/Plan Assessment/Plan 1 BUDDY DELA CRUZ MD Nov 04, 2022 08:40
[2022-11-04] MEDS ORDERED: fentaNYL INJ 100 MCG/2 ML AMP IV ONE (08:49)
[2022-11-04] MEDS ORDERED: MIDAZOLAM 5 MG/5 ML (VERSED) VIAL IJ ONE (08:49)
[2022-11-04 08:54] LABS: TSH (THYROID ANALYZER) 1.74 UIU/ML (0.35-4.94)
[2022-11-04] MEDS: ENOXAPARIN 150 MG/ML (LOVENOX) SYR SQ SCH ×2 (08:57→21:14)
[2022-11-04] MEDS: DOCUSATE SODIUM 100 MG (COLACE) CAP PO SCH ×2 (08:58→21:14)
[2022-11-04] MEDS: SENNOSIDES 8.6 MG (SENOKOT) TAB PO SCH ×2 (08:58→21:14)
--- NOTE | 2022-11-04 10:24 | History & Physical-Hospitalist ---
ARIANA WIGGINS 11/04/22 1024: History of Present Illness HPI/Chief Complaint Patient is a 67 year old female with a history of hypertension who was admitted for Afib w/ RVR. She reports intermittent N/V, malaise, and weakness for the past 3 days at home. Upon arrival she was in afib with a HR of 210 and hypotensive at 99/76. Her labs were remarkable for the following: Troponin1: 0.069, WBC 18.4, Hgb 19.4, AST 52, Lipase 108, D-dimer 3.96. She was admittted and cardiology was consulted who started the patient on amiodarone, diltiazem, metoprolol, and digoxin and did an elective CV. Since the CV and medications she has returned to sinus rhythm, her HR is within normal limits, and her BP has improved. CXR on admission showed mild to moderate pulmonary congestion and scattered alveolar infiltrates w/out consolidation. Her When seen this morning she was awake in bed and her only complaint at that time was fatigue. She has a barboza in place with clear yellow urine present. Source: patient Date Seen 11/04/22 Time Seen by a Provider: 08:00 Attending Physician Lashawn Whiting MD PCP Admitting Physician: Maggy Patricia DO Attending Physician: Maggy Patricia DO Referring Physician Date of Admission Nov 04, 2022 at 05:32 Home Medications & Allergies Home Medications Reviewed patient Home Medication Reconciliation performed by pharmacy medication reconciliations photographic reproduction technician and/or nursing. Patients Allergies have been reviewed. Allergies Allergies Coded Allergies No Known Drug Allergies (Unverified04/23/16) Past Hhlrtxp-Ibtnny-Gluekt Hx Patient Social History Tobacco Use?: No Smoking Status: Never a Smoker Use of E-Cig and/or Vaping dev: No Substance use?: No Alcohol Use?: Yes Alcohol type: Wine Alcohol Frequency: Rarely Pt feels they are or have been: No Immunizations Up To Date Tetanus Booster (TDap): Unknown Date of Pneumonia Vaccine: Apr 23, 2015 Seasonal Allergies Seasonal Allergies: No (some) Current Status status: No status: No Advance Directives: No Communicates: Verbally Primary Language: Zimbabwean Preferred Spoken Language: Zimbabwean Is interpretation needed?: No Implanted or Applied Medical D: Orthopedic hardware Past Medical History Hypertension Arthritis Blood Disorders: No Family Medical History Arthritis 19 MOTHER Cardiovascular disease 19 FATHER Cataracts 19 FATHER Dementia 19 FATHER 19 MOTHER Diabetes mellitus 19 FATHER (hypoglycmia) Hypertension 19 MOTHER Heart Disease, Diabetes, Hypertension, Other Conditions/Hx Review of Systems Constitutional: No fever; malaise EENTM: No hearing loss, No vision loss Respiratory: No cough, No short of breath Cardiovascular: No chest pain, No palpitations Gastrointestinal: No abdominal pain; other (N/V has resolved since admission) Genitourinary: No dysuria, No hematuria Musculoskeletal: no symptoms reported Skin: no symptoms reported Psychiatric/Neurological: No Symptoms Reported Physical Exam Physical Exam Vital Signs Vital Signs - First Documented 11/04/22 03:21 Temp 36.8 Pulse 210 Resp 14 B/P (MAP) 99/76 (84) Pulse Ox 96 O2 Delivery Room Air Capillary Refill : Less Than 3 Seconds Height, Weight, BMI Height: 5'7.00" Weight: 298lbs. 0.0oz. 135.174850zh; 42.94 BMI Method: General Appearance: No Apparent Distress, WD/WN Eyes: Bilateral Eye PERRL, Bilateral Eye EOMI HEENT: PERRL/EOMI, Moist Mucous Membranes Neck: Non Tender, Supple Respiratory: Chest Non Tender, Lungs Clear, Normal Breath Sounds, No Accessory Muscle Use, No Respiratory Distress Cardiovascular: Regular Rate, Rhythm, No Murmur, Normal Peripheral Pulses Gastrointestinal: Normal Bowel Sounds, Non Tender, Soft Extremity: Normal Capillary Refill, Non Tender, No Calf Tenderness, No Pedal Edema Neurologic/Psychiatric: Alert, Oriented x3, No Motor/Sensory Deficits Skin: Normal Color, Warm/Dry Lymphatic: No Adenopathy Results Results/Procedures Labs Laboratory Tests 11/04/22 03:25 Patient resulted labs reviewed. Assessment/Plan Admission Diagnosis Afib w/ RVR Assessment and Plan 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 with RVR -Sinus rhythm currently S/P elective CV and IV amiodarone, Digoxin, metoprolol, and diltiazem. -Therapeutic Lovenox 130mg IV BID. -Cardiology consulted and recommendations are appreciated Elevated Troponin -Per cardiology, thought to be Type 2 NSTEMI second to RVR. HTN -Will consider restarting home medications (lisinopril 20mg PO BID & HCTZ 25 mg Q4 PRN). Leukocytosis, elevated lipase -WBC elevated at 18.4. Thought to be an acute stress response. No consolidation on CXR. Patient is tolerating RA and physical exam was unremarkable. Elevated Lipase -Lipase 108. When paired with leukocytosis could indicate pancreatitits? abd exam normal however and lipase elevation is mild, so unlikely. will monitor. Metabolic Acidosis -AG 19. Likely secondary to N/V. Will monitor post IVF and resolvement of afib w/ rvr Polycythemia -Hgb 19.4 on admission. Likely due to dehydration given N/V the last few days. DVT Proph: Lovenox & SCDs Diet: will increase diet as tolerated MAGGY PATRICIA DO 11/05/22 0452: Past Waelplf-Chczac-Epgkov Hx Patient Social History Marrital Status: single Employed/Student: retired Smoking Status: Former Smoker Past Medical History Hypertension Family Medical History Arthritis 19 MOTHER Cardiovascular disease 19 FATHER Cataracts 19 FATHER Dementia 19 FATHER 19 MOTHER Diabetes mellitus 19 FATHER (hypoglycmia) Hypertension 19 MOTHER Review of Systems Constitutional: see HPI Gastrointestinal: nausea, vomiting Physical Exam Physical Exam General Appearance: No Apparent Distress, Chronically ill, Obese Respiratory: Lungs Clear, Normal Breath Sounds Cardiovascular: Regular Rate, Rhythm Neurologic/Psychiatric: Alert, Oriented x3, No Motor/Sensory Deficits, Normal Mood/Affect Assessment/Plan Admission Diagnosis AF RVR HTN N/V Elevated troponin Elevated d-dimer Admission Status: Inpatient Order (span 2 midnights) Reason for Inpatient Admission: af rvr w/elevated trpoponin Supervisory-Addendum Brief Verification & Attestation Participated in pt care: history, MDM, physical Personally performed: exam, history, MDM, supervision of care Care discussed with: Medical Student Procedures: n/a Results interpretation: Verified all documentation Verification and Attestation of Medical Student E/M Service A medical student performed and documented this service in my presence. I reviewed and verified all information documented by the medical student and made modifications to such information, when appropriate. I personally performed the physical exam and medical decision making. Maggy Patricia, Nov 05, 2022,04:52 ARIANA WIGGINS Nov 04, 2022 10:24 MAGGY PATRICIA DO Nov 05, 2022 04:52
[2022-11-04] MEDS: AMIODARONE INJECTION 450 MG in NORMAL SALINE 250 ML IV SCH ×2 (12:42→12:46)
[2022-11-04 13:59] VITALS: BP 116/81
[2022-11-04] MEDS: CATHETER FLUSH 10 ML SYR IVP SCH ×2 (14:03→21:14)
[2022-11-04] MEDS: ONDANSETRON 4 MG/2 ML (SDV) Z0FRAN IV PRN (14:03)
[2022-11-04] MEDS ORDERED: RT-ALBUTEROL SULF 2.5 MG/3 ML PRE-MIX VIAL INH PRN (14:15)
--- NOTE | 2022-11-04 15:22 | Diagnostic Imaging Report ---
INDICATION: Abdominal pain TECHNIQUE: Multiple real-time caraballo scale sonographic images of the abdomen. CORRELATION STUDY: None FINDINGS: LIVER: Normal echotexture within the visualized portions of the liver. There is normal, hepatopedal direction of flow within the main portal vein. Liver size normal at 17 cm GALLBLADDER: Borderline gallbladder wall thickening at 0.4 cm. No shadowing gallstones. COMMON BILE DUCT: Not visualized, largely obscured by overlying bowel gas. Overt bile duct dilatation however is not suggested. PANCREAS: Obscured by overlying bowel gas. SPLEEN: Normal in size, 10.9 cm. ABDOMINAL AORTA: Unremarkable. INFERIOR VENA CAVA: Limited in visualization. RIGHT KIDNEY: 11.6 x 5 x 5 cm. Unremarkable. LEFT KIDNEY: 10 x 5.3 x 5.1 cm. Unremarkable. OTHER: No significant right upper quadrant ascites. Examination is limited and compromised by patient's increased body habitus, overlying bowel gas as well as actively vomiting during this examination. IMPRESSION: 1. Limited abdominal ultrasound imaging demonstrates no acute abnormality. Dictated by: Dictated on workstation # [id number]
[2022-11-04 16:04] LABS: BASOPHILS % (AUTO) 0 % (0-10); EOSINOPHILS % (AUTO) 0 % (0-10); HEMATOCRIT 48 % (35-52); HEMOGLOBIN 16.5 g/dL (11.5-16.0); LYMPHOCYTES # (AUTO) 1.9 X 10^3 (1.0-4.0); LYMPHOCYTES % (AUTO) 12 % (12-44); MEAN CORPUSCULAR HEMOGLOBIN 31 pg (25-34); MEAN CORPUSCULAR HGB CONC 35 g/dL (32-36); MEAN CORPUSCULAR VOLUME 89 fL (80-99); MONOCYTES # (AUTO) 1.2 X 10^3 (0.0-1.0); MONOCYTES % (AUTO) 7 % (0-12); NEUTROPHILS # (AUTO) 12.8 X 10^3 (1.8-7.8); NEUTROPHILS % (AUTO) 80 % (42-75); PLATELET COUNT 228 10^3/uL (130-400)
[2022-11-04 16:15] LABS: POTASSIUM 3.4 MMOL/L (3.6-5.0)
[2022-11-04 16:16] LABS: CALCIUM 8.4 MG/DL (8.5-10.1)
[2022-11-04 16:17] LABS: TOTAL PROTEIN 5.9 GM/DL (6.4-8.2)
[2022-11-04 16:19] LABS: BILIRUBIN,TOTAL 2.6 MG/DL (0.1-1.0)
[2022-11-04 16:21] LABS: CREATININE SERUM 0.77 MG/DL (0.60-1.30)
[2022-11-04] MEDS: METOCLOPRAMIDE INJ 10 MG/2 ML (REGLAN) IVP PRN ×2 (17:20→23:01)
--- NOTE | 2022-11-04 17:29 | History & Physical-Surgical ---
History of Present Illness History of Present Illness Patient Consulted On(shivani/time) 11/04/22 17:23 Date Seen by Provider: Nov 04, 2022 Time Seen by Provider: 17:24 History of Present Illness This is a 67y F who presented with 3 days of nausea and vomiting as well as generalized weakness and malaise admitted for Afib w/ RVR. On arrival she was in afib with tachycardia, 210, and hypotension, 99/76. Labs showed elevated troponin, d-dimer and she was suspected to have type 2 NSTEMI. Cardioversion was performed and she is being managed by cardiology. Labs also remarkable for elevated WBC 18.4, AST 52 and lipase 108. Abdominal U/S demonstrated no acute abnormality though did have borderline gallbladder wall thickening at 0.4 cm, no shadowing gallstones. It was noted that patient was not fully NPO prior to u/s and performing scan was limited by patient actively vomiting. Today she reports she started to feel poorly with nausea and vomiting after eating out in [place] on Thursday (10/31). She has intermittently had nausea and vomiting since, worsened by eating. Reports feeling like food gets stuck in her throat when she has tried to eat ice starting yesterday. Last BM was 10/31 and she does not feel she is passing much flatus. Denies CP, SOB, abdominal pain or bloating, sick contacts. CONSULT requested by Dr. Ojeda 67 year old female with 3 days n/v. Over that time continued to have increased weakness and fatigue. Not having any abdominal pain. Was in afib and had cardioversion. Has continued to have nausea and emesis. Began after eating in [place] on Thursday. Feels like things are getting stuck. Passing some but not much flatus. Not having any bloating. U/s unremarkable. Allergies and Home Medications Allergies Coded Allergies: No Known Drug Allergies (Unverified , 04/23/16) Patient Home Medication List Home Medication List Reviewed: Yes No Active Prescriptions or Reported Meds Past Nccsjsm-Iijnfn-Pjjhzk Hx Patient Social History Smoking Status: Never a Smoker 2nd Hand Smoke Exposure: No Recent Hopitalizations: No Alcohol Use?: Yes Have you traveled recently?: No Immunizations Up To Date Tetanus Booster (TDap): Unknown Date of Pneumonia Vaccine: Apr 23, 2015 Seasonal Allergies Seasonal Allergies: No (some) Surgeries History of Surgeries: Yes (left TKR, cyst removed from tailbone, ) Surgeries: Abdominal (hernia), Orthopedic Respiratory History of Respiratory Disorde: No (recent sleep study-normal) Cardiovascular History of Cardiac Disorders: Yes Cardiac Disorders: Hypertension Neurological History of Neurological Disord: No Genitourinary History of Genitourinary Disor: No Gastrointestinal History of Gastrointestinal Di: No Musculoskeletal History of Musculoskeletal Dis: Yes Musculoskeletal Disorders: Arthritis Endocrine History of Endocrine Disorders: No HEENT History of HEENT Disorders: No Cancer History of Cancer: No Psychosocial History of Psychiatric Problem: No Integumentary History of Skin or Integumenta: No Blood Transfusions History of Blood Disorders: No Reviewed Nursing Assessment Reviewed/Agree w Nursing PMH: Yes Family Medical History Significant Family History: Heart Disease, Diabetes, Hypertension Family Medial History: Arthritis 19 MOTHER Cardiovascular disease 19 FATHER Cataracts 19 FATHER Dementia 19 FATHER 19 MOTHER Diabetes mellitus 19 FATHER (hypoglycmia) Hypertension 19 MOTHER Review of Systems-General Constitutional: No dizziness, No fever; malaise, weakness EENTM: No hearing loss, No blurred vision, No double vision, No vision loss Respiratory: No cough, No short of breath Cardiovascular: No chest pain, No edema Gastrointestinal: No abdominal pain; nausea, vomiting Genitourinary: No frequency, No pain Musculoskeletal: No gout, No neck pain Skin: No change in color, No lesions Psychiatric/Neurological: Denies Anxiety, Denies Headache All Other Systems Reviewed Negative Unless Noted: Yes (Negative excepted noted.) Physical Exam-General Problems Physical Exam Vital Signs Vital Signs - First Documented 11/04/22 11/04/22 03:21 13:59 Temp 36.8 Pulse 210 Resp 14 B/P (MAP) 99/76 (84) Pulse Ox 96 O2 Delivery Room Air FiO2 28 Capillary Refill : Less Than 3 Seconds General Appearance: WD/WN, no apparent distress (laying in bed appears fatigued) HEENT: PERRL/EOMI, pharynx normal Neck: non-tender, full range of motion Respiratory: chest non-tender, no respiratory distress, no accessory muscle use Cardiovascular: normal peripheral pulses, no edema Peripheral Pulses: 2+ Radial Pulses (R), 2+ Radial Pulses (L) Gastrointestinal: non tender, soft Rectal: deferred Back: no CVA tenderness, no vertebral tenderness Extremities: non-tender, no pedal edema Neurologic/Psychiatric: alert, normal mood/affect, oriented x 3 Skin: normal color, warm/dry Lymphatic: no adenopathy Data Review Labs Laboratory Tests 11/04/22 03:25: White Blood Count 18.4H, Red Blood Count 6.25H, Hemoglobin 19.4H, Hematocrit 55H , Mean Corpuscular Volume 87, Mean Corpuscular Hemoglobin 31, Mean Corpuscular Hemoglobin Concent 36, Red Cell Distribution Width 12.1, Platelet Count 293, Mean Platelet Volume 10.3, Immature Granulocyte % (Auto) 0, Neutrophils (%) (Auto) 69, Lymphocytes (%) (Auto) 22, Monocytes (%) (Auto) 8, Eosinophils (%) (Auto) 0, Basophils (%) (Auto) 0, Neutrophils # (Auto) 12.7H, Lymphocytes # (Auto) 4.1H, Monocytes # (Auto) 1.4H, Eosinophils # (Auto) 0.1, Basophils # (Auto) 0.1, Immature Granulocyte # (Auto) 0.1, Neutrophils % (Manual) 68, Lymphocytes % (Manual) 21, Monocytes % (Manual) 10, Eosinophils % (Manual) 1, Blood Morphology Comment NORMAL, Prothrombin Time 14.9H, INR Comment 1.1, Activated Partial Thromboplast Time 30, D-Dimer 3.96H, Sodium Level 132L, Potassium Level 4.9, Chloride Level 95L, Carbon Dioxide Level 18L, Anion Gap 19H , Blood Urea Nitrogen 25H, Creatinine 1.19, Estimat Glomerular Filtration Rate 51, BUN/Creatinine Ratio 21, Glucose Level 164H, Calcium Level 9.6, Corrected Calcium 9.9, Magnesium Level 2.2, Total Bilirubin 3.3H, Aspartate Amino Transf (AST/SGOT) 52H, Alanine Aminotransferase (ALT/SGPT) 34, Alkaline Phosphatase 58, Total Creatine Kinase 69, Creatine Kinase MB 4.3, Myoglobin 304.4H, Troponin I 0.069H, C-Reactive Protein High Sensitivity 2.06H, B-Type Natriuretic Peptide 73.4, Total Protein 8.4H, Albumin 3.6, Amylase Level 48, Lipase 108H, TSH [place] Testing 1.74 11/04/22 05:05: Urine Color YELLOW, Urine Clarity CLEAR, Urine pH 6.0, Urine Specific [place] <=1.005, Urine Protein 1+H, Urine Glucose (UA) NEGATIVE, Urine Ketones NEGATIVE, Urine Nitrite NEGATIVE, Urine Bilirubin NEGATIVE, Urine Urobilinogen 2.0, Urine Leukocyte Esterase NEGATIVE, Urine RBC (Auto) 2+H, Urine RBC NONE, Urine WBC NONE, Urine Crystals NONE, Urine Bacteria NEGATIVE, Urine Casts PRESENT, Urine Hyaline Casts 0-2H, Urine Mucus NEGATIVE, Urine Culture Indicated NO 11/04/22 06:57: Glucometer 111H 11/04/22 10:51: Glucometer 102 11/04/22 15:19: Glucometer 114H 11/04/22 15:50: White Blood Count 16.0H, Red Blood Count 5.37H, Hemoglobin 16.5H, Hematocrit 48, Mean Corpuscular Volume 89, Mean Corpuscular Hemoglobin 31, Mean Corpuscular Hemoglobin Concent 35, Red Cell Distribution Width 12.5, Platelet Count 228, Mean Platelet Volume 10.0, Immature Granulocyte % (Auto) 0, Neutrophils (%) (Auto) 80H, Lymphocytes (%) (Auto) 12, Monocytes (%) (Auto) 7, Eosinophils (%) (Auto) 0, Basophils (%) (Auto) 0, Neutrophils # (Auto) 12.8H, Lymphocytes # (Auto) 1.9, Monocytes # (Auto) 1.2H, Eosinophils # (Auto) 0.0, Basophils # (Auto) 0.0, Immature Granulocyte # (Auto) 0.0, Sodium Level 135, Potassium Level 3.4L, Chloride Level 99, Carbon Dioxide Level 24, Anion Gap 12, Blood Urea Nitrogen 23H, Creatinine 0.77, Estimat Glomerular Filtration Rate 86, BUN/Creatinine Ratio 30, Glucose Level 108H, Calcium Level 8.4L, Corrected Calcium 9.2, Total Bilirubin 2.6H, Aspartate Amino Transf (AST/SGOT) 88H, Alanine Aminotransferase (ALT/SGPT) 31, Alkaline Phosphatase 46, Total Protein 5.9L, Albumin 3.0L, Lipase 118H Assessment/Plan Assessment/Plan Admission Diagonsis Nausea/vomiting Afib w/RVR Admission Status: Inpatient Order (span 2 midnights) Reason for Inpatient Admission: Nausea/vomiting Afib w/RVR Assessment/Plan Nausea/vomiting, Malaise Leukocytosis Elevated lipase, AST Elevated bilirubin- likely 2/2 vomiting/nausea Afib w/RVR Elevated troponin- suspected NSTEMI type 2 HTN Abdominal u/s without acute findings, borderline GB wall thickening at 0.4cm and no stones - not likely to be source n/v Lipase only mildly elevated, not likely pancreatitis given no abdominal pain Continue to monitor labs as hydration continues Cardiology managing Repeat labs in am Supervisory-Addendum Brief Verification & Attestation Participated in pt care: history, MDM, physical Personally performed: exam, history, MDM, supervision of care Care discussed with: Medical Student Procedures: n/a Results interpretation: Verified all documentation Verification and Attestation of Medical Student E/M Service A medical student performed and documented this service in my presence. I reviewed and verified all information documented by the medical student and made modifications to such information, when appropriate. I personally performed the physical exam and medical decision making. Mariluz Arenas, Nov 04, 2022,20:55 CAROLYNN ISAACS Nov 04, 2022 17:29 MARILUZ ARENAS DO Nov 04, 2022 20:55
--- NOTE | 2022-11-04 21:08 | OPERATIVE REPORT ---
DATE OF SERVICE: 11/04/2022 PREOPERATIVE DIAGNOSIS: Atrial fibrillation with a very rapid ventricular response, uncontrolled with medications and associated with hypotension. POSTOPERATIVE DIAGNOSIS: Sinus rhythm. PROCEDURE: External electrical cardioversion. Before carrying out the procedure, we spoke with the patient and her son (Dr. Yousif) and obtained consent. The procedure was done because the patient was exhibiting atrial fibrillation that was hemodynamically unstable. The emergency room physician provided conscious sedation. External electrical cardioversion was carried out using 150 joule synchronized biphasic shock, which restored sinus rhythm and the patient tolerated the procedure well. Job ID: [id number] DocumentID: [id number] Dictated Date: 11/04/2022 13:17:57 [employer] Date: 11/04/2022 21:06:00 Dictated By: MYRTLE MORALES MD; RAMESH; FACP; KANCHANC; CARLEY
[2022-11-05] MEDS: ONDANSETRON 4 MG/2 ML (SDV) Z0FRAN IV PRN ×2 (04:00→12:55)
[2022-11-05 05:09] LABS: BASOPHILS % (AUTO) 0 % (0-10); EOSINOPHILS % (AUTO) 0 % (0-10); HEMATOCRIT 45 % (35-52); HEMOGLOBIN 15.8 g/dL (11.5-16.0); LYMPHOCYTES # (AUTO) 1.8 10^3/uL (1.0-4.0); LYMPHOCYTES % (AUTO) 14 % (12-44); MEAN CORPUSCULAR HEMOGLOBIN 31 pg (25-34); MEAN CORPUSCULAR HGB CONC 35 g/dL (32-36); MEAN CORPUSCULAR VOLUME 89 fL (80-99); MEAN PLATELET VOLUME 10.3 fL (9.0-12.2); MONOCYTES % (AUTO) 8 % (0-12); NEUTROPHILS # (AUTO) 9.9 10^3/uL (1.8-7.8); NEUTROPHILS % (AUTO) 77 % (42-75); PLATELET COUNT 220 10^3/uL (130-400); WHITE BLOOD COUNT 12.8 10^3/uL (4.3-11.0)
[2022-11-05] MEDS: METOCLOPRAMIDE INJ 10 MG/2 ML (REGLAN) IVP PRN ×3 (05:21→19:59)
[2022-11-05 05:28] LABS: ALBUMIN 2.9 GM/DL (3.2-4.5); POTASSIUM 3.5 MMOL/L (3.6-5.0)
[2022-11-05 05:29] LABS: CALCIUM 8.1 MG/DL (8.5-10.1)
[2022-11-05 05:30] LABS: TOTAL PROTEIN 5.6 GM/DL (6.4-8.2)
[2022-11-05 05:33] LABS: PHOSPHORUS 3.3 MG/DL (2.3-4.7)
[2022-11-05 05:34] LABS: CREATININE SERUM 0.72 MG/DL (0.60-1.30)
[2022-11-05 05:36] LABS: MAGNESIUM 1.9 MG/DL (1.6-2.4)
[2022-11-05] MEDS: POTASSIUM CL 10MEQ/50ML IVPB 50 ML IV SCH ×5 (05:49→08:53)
[2022-11-05] MEDS: dilTIAZem DRIP PRE-MIX 125 ML IV SCH (05:55)
[2022-11-05] MEDS: inSUlin ASPART (NovoLOG) 1 UNIT/0.01 ML (CHARGE PER UNIT) SC SCH ×2 (05:56→10:33)
[2022-11-05] MEDS: MAGNESIUM 1 GM/100 ML IVPB 100 ML IV SCH ×2 (05:56→06:45)
[2022-11-05] MEDS: KCL 20 MEQ TAB (K-DUR) PO SCH (05:56)
[2022-11-05] MEDS: CATHETER FLUSH 10 ML SYR IVP SCH ×3 (05:58→22:45)
[2022-11-05] MEDS ORDERED: MAGNESIUM 1 GM/100 ML IVPB 100 ML IV ONE (06:00)
--- NOTE | 2022-11-05 07:18 | Progress Note - Surgery ---
FAUSTO WELSH 11/05/22 0718: Subjective Date Seen by a Provider: Nov 05, 2022 Time Seen by a Provider: 06:50 Subjective/Events-last exam Patient says she is feeling better today. She still has the feeling that things are getting stuck in her throat but that is improving. Her nausea is improving, she is still vomiting, her last episode was 30 minutes prior to me being in the room. She claims she is having no pain. She has a barboza catheter placed and has no complaints. She believes her last BM was this past thursday. She has no urge to have a BM and is having no flatus. Review of Systems General: Fatigue, Malaise HEENT: No Head Aches, No Visual Changes Pulmonary: No Dyspnea, No Cough Cardiovascular: No: Chest Pain, Palpitations Gastrointestinal: Nausea (improved), Vomiting, Constipation; No: Abdominal Pain Genitourinary: No Hematuria; Other (barboza catheter in place, no complaints) Musculoskeletal: No: shoulder pain, back pain Neurological: No: Weakness, Numbness, Confusion Objective Exam Vital Signs Date Time Temp Pulse Resp B/P (MAP) Pulse Ox O2 Delivery O2 Flow Rate FiO2 11/05/22 06:00 64 18 168/89 (115) 94 Room Air 11/05/22 05:55 61 11/05/22 05:00 73 15 167/79 (121) 93 11/05/22 04:50 Room Air 11/05/22 04:00 36.2 72 16 178/86 (116) 93 Room Air 11/05/22 03:00 77 16 186/75 (111) 94 11/05/22 02:00 78 16 172/71 (102) 92 Room Air 11/05/22 01:00 72 11/05/22 01:00 76 15 174/80 (98) 92 11/05/22 00:00 36.9 68 16 166/78 (111) 92 11/05/22 00:00 Room Air 11/04/22 23:00 77 15 173/87 (120) 93 11/04/22 22:30 84 16 92 11/04/22 22:00 78 17 175/86 (114) 92 Room Air 11/04/22 21:30 75 16 91 11/04/22 21:00 67 16 170/82 (108) 92 11/04/22 20:40 Room Air 11/04/22 20:30 81 17 160/87 (116) 92 11/04/22 20:00 89 14 170/87 (110) 93 11/04/22 19:45 37.0 11/04/22 19:30 77 16 176/74 (110) 92 11/04/22 19:14 Room Air 21 11/04/22 19:00 77 11/04/22 19:00 77 16 160/83 (108) 91 Room Air 11/04/22 18:00 92 11 153/92 (112) 94 Room Air 11/04/22 17:00 85 15 163/79 (107) 93 Room Air 11/04/22 16:00 Room Air 11/04/22 16:00 75 19 164/79 (107) 91 Room Air 11/04/22 15:53 36.7 11/04/22 15:52 36.7 11/04/22 15:00 73 18 165/77 (106) 92 Room Air 11/04/22 14:00 75 20 154/93 (113) 94 Room Air 11/04/22 13:59 75 97 28 11/04/22 13:00 66 16 148/74 (98) 93 Room Air 11/04/22 12:29 73 11/04/22 12:05 36.2 11/04/22 12:00 71 13 150/80 (103) 93 Room Air 11/04/22 12:00 Room Air 11/04/22 11:00 73 15 146/70 (95) 96 Room Air 11/04/22 10:00 73 24 125/95 (105) 96 Room Air 11/04/22 09:00 67 11 139/80 (99) 98 Room Air 11/04/22 08:00 69 16 140/75 (96) 97 Room Air 11/04/22 07:57 36.5 11/04/22 07:50 Room Air I & O 11/05/22 07:00 Intake Total 2868 ml Output Total 1225 ml Balance 1643 ml Capillary Refill : Less Than 3 Seconds General Appearance: No Apparent Distress, Obese HEENT: PERRL/EOMI, Moist Mucous Membranes Neck: Non Tender, Supple Respiratory: Lungs Clear, Normal Breath Sounds, No Accessory Muscle Use, No Respiratory Distress Cardiovascular: Regular Rate, Rhythm, Normal Peripheral Pulses Peripheral Pulses: 2+ Radial Pulses (R), 2+ Radial Pulses (L) Gastrointestinal: non tender, soft Extremity: Non Tender, No Calf Tenderness Neurologic/Psychiatric: Alert, Oriented x3 Skin: Normal Color, Warm/Dry Lymphatic: No Adenopathy Results Lab Laboratory Tests 11/04/22 10:51: Glucometer 102 11/04/22 15:19: Glucometer 114H 11/04/22 15:50: White Blood Count 16.0H, Red Blood Count 5.37H, Hemoglobin 16.5H, Hematocrit 48, Mean Corpuscular Volume 89, Mean Corpuscular Hemoglobin 31, Mean Corpuscular Hemoglobin Concent 35, Red Cell Distribution Width 12.5, Platelet Count 228, Mean Platelet Volume 10.0, Immature Granulocyte % (Auto) 0, Neutrophils (%) (Auto) 80H, Lymphocytes (%) (Auto) 12, Monocytes (%) (Auto) 7, Eosinophils (%) (Auto) 0, Basophils (%) (Auto) 0, Neutrophils # (Auto) 12.8H, Lymphocytes # (Auto) 1.9, Monocytes # (Auto) 1.2H, Eosinophils # (Auto) 0.0, Basophils # (Auto) 0.0, Immature Granulocyte # (Auto) 0.0, Sodium Level 135, Potassium Level 3.4L, Chloride Level 99, Carbon Dioxide Level 24, Anion Gap 12, Blood Urea Nitrogen 23H, Creatinine 0.77, Estimat Glomerular Filtration Rate 86, BUN/Cre atinine Ratio 30, Glucose Level 108H, Calcium Level 8.4L, Corrected Calcium 9.2, Total Bilirubin 2.6H, Aspartate Amino Transf (AST/SGOT) 88H, Alanine Aminotransferase (ALT/SGPT) 31, Alkaline Phosphatase 46, Total Protein 5.9L, Albumin 3.0L, Lipase 118H 11/04/22 20:17: Glucometer 115H 11/05/22 04:47: White Blood Count 12.8H, Red Blood Count 5.09, Hemoglobin 15.8, Hematocrit 45, Mean Corpuscular Volume 89, Mean Corpuscular Hemoglobin 31, Mean Corpuscular Hemoglobin Concent 35, Red Cell Distribution Width 12.4, Platelet Count 220, Mean Platelet Volume 10.3, Immature Granulocyte % (Auto) 0, Neutrophils (%) (Au to) 77H, Lymphocytes (%) (Auto) 14, Monocytes (%) (Auto) 8, Eosinophils (%) (Auto) 0, Basophils (%) (Auto) 0, Neutrophils # (Auto) 9.9H, Lymphocytes # (Auto) 1.8, Monocytes # (Auto) 1.0, Eosinophils # (Auto) 0.0, Basophils # (Auto) 0.0, Immature Granulocyte # (Auto) 0.1, Sodium Level 137, Potassium Level 3.5L, Chloride Level 103, Carbon Dioxide Level 23, Anion Gap 11, Blood Urea Nitrogen 22H, Creatinine 0.72, Estimat Glomerular Filtration Rate 93, BUN/Creatinine Ratio 31, Glucose Level 106H, Calcium Level 8.1L, Corrected Calcium 9.0, Phosphorus Level 3.3, Magnesium Level 1.9, Total Bilirubin 2.0H, Aspartate Amino Transf (AST/SGOT) 65H, Alanine Aminotransferase (ALT/SGPT) 21, Alkaline Phosphatase 44, Total Protein 5.6L, Albumin 2.9L, Lipase 100H Assessment/Plan Assessment/Plan Assessment/Plan Nausea/vomiting, Malaise Leukocytosis Elevated lipase, AST Elevated bilirubin- likely 2/2 vomiting/nausea Afib w/RVR Elevated troponin- suspected NSTEMI type 2 HTN Abdominal u/s without acute findings, borderline GB wall thickening at 0.4cm and no stones - not likely to be source n/v Zofran and reglan for nausea MoM for constipation Lipase only mildly elevated, not likely pancreatitis given no abdominal pain Advance diet as tolerated due to improving nausea Continue to monitor labs as hydration continues Cardiology managing Repeat labs in am MARILUZ ARENAS DO 11/05/221953: Subjective Subjective/Events-last exam Feeling better today. Still with nausea and vomiting. Feels like gets something stuck in esophagus at times. No abdominal or chest pain. Leukocytosis and bili improving. Denies fever sweats chills shortness of breath or chest pain at this time. Objective Exam General Appearance: No Apparent Distress, Obese HEENT: PERRL/EOMI, Normal ENT Inspection Neck: Non Tender, Supple Respiratory: Chest Non Tender, No Accessory Muscle Use, No Respiratory Distress Cardiovascular: Regular Rate, Rhythm, No JVD Gastrointestinal: non tender, soft Extremity: Non Tender, No Calf Tenderness Neurologic/Psychiatric: Alert, Oriented x3 Skin: Normal Color, Warm/Dry Lymphatic: No Adenopathy Assessment/Plan Assessment/Plan Assessment/Plan Nausea/vomiting, Malaise Leukocytosis Elevated lipase, AST Elevated bilirubin- likely 2/2 vomiting/nausea Afib w/RVR Elevated troponin- suspected NSTEMI type 2 HTN Abdominal u/s without acute findings, borderline GB wall thickening at 0.4cm and no stones - not likely to be source n/v Zofran and reglan for nausea MoM for constipation Lipase only mildly elevated, not likely pancreatitis given no abdominal pain Advance diet as tolerated due to improving nausea Continue to monitor labs as hydration continues Cardiology managing Repeat labs in am Chest x ray reviewed adn will get CT chest with constrast and with elevated bili/lipase and nausea/vomiting will get ct abd/pelvis c as well to further evaluate to see if can find cause of symptoms. Supervisory-Addendum Brief Verification & Attestation Participated in pt care: history, MDM, physical Personally performed: exam, history, MDM, supervision of care Care discussed with: Medical Student Procedures: n/a Results interpretation: Verified all documentation Verification and Attestation of Medical Student E/M Service A medical student performed and documented this service in my presence. I reviewed and verified all information documented by the medical student and made modifications to such information, when appropriate. I personally performed the physical exam and medical decision making. Mariluz Arenas, Nov 05, 2022,19:54 FAUSTO WELSH Nov 05, 2022 07:18 MARILUZ ARENAS DO Nov 05, 2022 19:54
[2022-11-05] MEDS: ONDANSETRON 4 MG (ZOFRAN) ORAL DISSOLVE TAB PO PRN ×3 (07:49→21:22)
[2022-11-05] MEDS: ENOXAPARIN 150 MG/ML (LOVENOX) SYR SQ SCH (07:49)
[2022-11-05] MEDS: NS IV 1000 ML 1,000 ML IV SCH ×3 (07:51→22:50)
--- NOTE | 2022-11-05 08:58 | Tele-ICU Progress Note ---
Subjective Date Seen by a Provider: Nov 05, 2022 Subjective/Events-last exam This virtual visit was conducted using real time audio/video. Thank you for asking us to see this patient for critical care services due to Afib/RVR, NSTEMI. Elio vaz in ER. Recent events: nauseated overnight. PE: VSS. HR 80, NSR. O2 sat 92% on RA. HEENT: No obvious masses, adenopathy or JVD. Chest: clear to auscultation. CV: RRR S1 S2 No murmur or added sounds. Abd: Non-tender. Bowel sounds Y. : Unremarkable. Naqvi Y. [employer]ED [employer]/psychiatric: Grossly intact. No obvious focal findings. Extremities: Trace edema. Capillary refill < 3 seconds. Skin: unremarkable. Results: Elevated WCC 12.8, decreased, BG 106. Lipase 100, decreased. CXR: Congested, imprved. Available chart/ vitals / labs / images reviewed. Video assessment done using teleICU camera, rest of exam as per RN. A/P: Critical Care: critically ill patient. Cont. oni., SSI, PO amiod. Replace K. Discussed with RN Pushpa. Asked RN to reach out to eICU if any questions or concerns later. Time spent with patient/coordination of care with other health professionals (mins): 15 Sepsis Event Evaluation Height, Weight, BMI Height: 5'7.00" Weight: 298lbs. 0.0oz. 135.616723lh; 42.94 BMI Method: Exam Exam Patient acknowledged, consented, and participated in this virtual visit which was conducted using real time audio/video Vital Signs Date Time Temp Pulse Resp B/P (MAP) Pulse Ox O2 Delivery O2 Flow Rate FiO2 11/05/22 08:00 76 15 160/74 (102) 92 Room Air 11/05/22 07:40 Room Air 11/05/22 07:38 74 11/05/22 07:00 77 16 171/80 (110) 91 Room Air 11/05/22 06:00 64 18 168/89 (115) 94 Room Air 11/05/22 05:55 61 11/05/22 05:00 73 15 167/79 (121) 93 11/05/22 04:50 Room Air 11/05/22 04:00 36.2 72 16 178/86 (116) 93 Room Air 11/05/22 03:00 77 16 186/75 (111) 94 11/05/22 02:00 78 16 172/71 (102) 92 Room Air 11/05/22 01:00 72 11/05/22 01:00 76 15 174/80 (98) 92 11/05/22 00:00 36.9 68 16 166/78 (111) 92 11/05/22 00:00 Room Air 11/04/22 23:00 77 15 173/87 (120) 93 11/04/22 22:30 84 16 92 11/04/22 22:00 78 17 175/86 (114) 92 Room Air 11/04/22 21:30 75 16 91 11/04/22 21:00 67 16 170/82 (108) 92 11/04/22 20:40 Room Air 11/04/22 20:30 81 17 160/87 (116) 92 11/04/22 20:00 89 14 170/87 (110) 93 11/04/22 19:45 37.0 11/04/22 19:30 77 16 176/74 (110) 92 11/04/22 19:14 Room Air 21 11/04/22 19:00 77 11/04/22 19:00 77 16 160/83 (108) 91 Room Air 11/04/22 18:00 92 11 153/92 (112) 94 Room Air 11/04/22 17:00 85 15 163/79 (107) 93 Room Air 11/04/22 16:00 Room Air 11/04/22 16:00 75 19 164/79 (107) 91 Room Air 11/04/22 15:53 36.7 11/04/22 15:52 36.7 11/04/22 15:00 73 18 165/77 (106) 92 Room Air 11/04/22 14:00 75 20 154/93 (113) 94 Room Air 11/04/22 13:59 75 97 28 11/04/22 13:00 66 16 148/74 (98) 93 Room Air 11/04/22 12:29 73 11/04/22 12:05 36.2 11/04/22 12:00 71 13 150/80 (103) 93 Room Air 11/04/22 12:00 Room Air 11/04/22 11:00 73 15 146/70 (95) 96 Room Air 11/04/22 10:00 73 24 125/95 (105) 96 Room Air 11/04/22 09:00 67 11 139/80 (99) 98 Room Air I & O 11/05/22 07:00 Intake Total 2868 ml Output Total 1225 ml Balance 1643 ml Height & Weight Height: 5'7.00" Weight: 298lbs. 0.0oz. 135.779023tj; 42.94 BMI Method: General Appearance: No Apparent Distress, Obese HEENT: PERRL/EOMI, Moist Mucous Membranes Neck: Non Tender, Supple Respiratory: Lungs Clear, Normal Breath Sounds, No Accessory Muscle Use, No Respiratory Distress Cardiovascular: Regular Rate, Rhythm, Normal Peripheral Pulses Capillary Refill: Less Than 3 Seconds Peripheral Pulses: 2+ Radial Pulses (R), 2+ Radial Pulses (L) Gastrointestinal: non tender, soft Extremity: Non Tender, No Calf Tenderness Neurologic/Psychiatric: Alert, Oriented x3 Skin: Normal Color, Warm/Dry Lymphatic: No Adenopathy Results Lab Laboratory Tests 11/04/22 03:25 11/04/22 15:50 11/05/22 04:47 Assessment/Plan Assessment/Plan See free text. Critical Care: Critically Ill Patient MESHA CANDELARIO MD Nov 05, 2022 08:58
--- NOTE | 2022-11-05 09:04 | Diagnostic Imaging Report ---
INDICATION: Hypoxia COMPARISON: 11/04/2022 and 04/23/2016 TECHNIQUE: Single radiograph of the chest dated 11/05/2022. FINDINGS: The cardiac silhouette is enlarged. Mild central pulmonary vascular congestion. There is prominence of the right suprahilar location, which is increased since 2016. Interval improvement of previously noted patchy opacities within the lungs bilaterally. No new focal pulmonary opacity. No significant pleural effusion. No pneumothorax. No acute osseous abnormality. IMPRESSION: Increased prominence of the right suprahilar location/superior mediastinum. This of uncertain etiology. This could relate to tortuosity versus aneurysm of the ascending thoracic aorta. Alternatively, adenopathy could be considered. A CT of the chest, preferably with contrast is recommended for further evaluation. Persistent cardiomegaly with slightly improved central pulmonary vascular congestion. Slightly improved bilateral pulmonary opacities, likely related to improving edema versus infiltrate. Dictated by: Dictated on workstation # [id number]
[2022-11-05] MEDS: DOCUSATE SODIUM 100 MG (COLACE) CAP PO SCH ×2 (09:19→21:46)
[2022-11-05] MEDS: SENNOSIDES 8.6 MG (SENOKOT) TAB PO SCH ×2 (09:19→21:46)
[2022-11-05] MEDS: AMIODARONE 200 MG (CORDARONE) TAB PO SCH ×2 (09:24→21:39)
[2022-11-05] MEDS ORDERED: amLODIPine 5 MG (NORVASC) TAB PO NR ×2 (11:30→19:30)
[2022-11-05] MEDS ORDERED: SCOPOLAMINE 1.5 MG (TRANSDERM-SCOP) PATCH TD NR (11:30)
[2022-11-05 12:00] VITALS: BP 189/84
--- NOTE | 2022-11-05 13:21 | Progress Note - Hospitalist ---
ARIANA WIGGINS 11/05/22 1320: Subjective HPI/CC On Admission Date Seen by Provider: Nov 05, 2022 Time Seen by Provider: 08:00 Patient is a 67 year old female with a history of hypertension who was admitted for Afib w/ RVR. She reports intermittent N/V, malaise, and weakness for the past 3 days at home. Upon arrival she was in afib with a HR of 210 and hypotensive at 99/76. Her labs were remarkable for the following: Troponin1: 0.069, WBC 18.4, Hgb 19.4, AST 52, Lipase 108, D-dimer 3.96. She was admittted and cardiology was consulted who started the patient on amiodarone, diltiazem, metoprolol, and digoxin and did an elective CV. Since the CV and medications she has returned to sinus rhythm, her HR is within normal limits, and her BP has improved. CXR on admission showed mild to moderate pulmonary congestion and scattered alveolar infiltrates w/out consolidation. Her When seen this morning she was awake in bed and her only complaint at that time was fatigue. She has a barboza in place with clear yellow urine present. Subjective/Events-last exam Patient was awake and oreinted lying in bed when seen this morning. She has remained in sinus rhythm since elective CV yesterday but has had continued Nausea and vomiting despite zofran and reglan. This has been ongoing since eating dinner Thursday night. He last BM was 10/31. Surgery was consulted yesterday who saw her and was not markedly concerned for obstruction, pancreatitis, or need for intervention. abd ultrasound yesterday was unremarkable for acute findings although could not adequetly visualize the pancreas due to bowel gas obstructing view. Pt. denies LH, dizziness, CP, palpitations, AOB, abd pain, dysuria, hematuria, numbness/weakness of arms or legs. Review of Systems General: No Chills; Fatigue HEENT: No Visual Changes Pulmonary: No Dyspnea, No Cough Cardiovascular: No: Chest Pain, Palpitations Gastrointestinal: Nausea, Vomiting, Constipation; No: Abdominal Pain Genitourinary: No Dysuria; Hematuria Neurological: No: Weakness, Numbness Objective Exam Vital Signs Vital Signs Date Time Temp Pulse Resp B/P (MAP) Pulse Ox O2 Delivery O2 Flow Rate FiO2 11/05/22 12:00 78 12 189/84 (119) 94 Room Air 11/05/22 08:00 36.6 11/04/22 19:14 21 11/04/22 06:15 Capillary Refill : Less Than 3 Seconds General Appearance: No Apparent Distress, WD/WN, Obese HEENT: PERRL/EOMI, Pharynx Normal Neck: Non Tender, Supple Respiratory: Chest Non Tender, Lungs Clear, Normal Breath Sounds, No Accessory Muscle Use Cardiovascular: Regular Rate, Rhythm, No Murmur, Normal Peripheral Pulses Gastrointestinal: Normal Bowel Sounds, No Organomegaly, Non Tender, Soft Extremity: Normal Capillary Refill, Normal Inspection, Non Tender, No Calf Tenderness, No Pedal Edema Neurologic/Psychiatric: Alert, Oriented x3, No Motor/Sensory Deficits, Normal Mood/Affect Skin: Normal Color, Warm/Dry Lymphatic: No Adenopathy Results/Procedures Lab Laboratory Tests 11/04/22 15:50 11/05/22 04:47 Patient resulted labs reviewed. Imaging: Reviewed Imaging Films, Reviewed Imaging Report Radiology NAME: MACEY CRESPO [facility] REC#: [id number] PT STATUS: ADM IN : 1955 PHYSICIAN: MAGGY PATRICIA DO ADMIT DATE: 11/04/22/ICU Signed Date of Exam:11/04/22 US ABDOMEN COMPLETE [id number] INDICATION: Abdominal pain TECHNIQUE: Multiple real-time caraballo scale sonographic images of the abdomen. CORRELATION STUDY: None FINDINGS: LIVER: Normal echotexture within the visualized portions of the liver. There is normal, hepatopedal direction of flow within the main portal vein. Liver size normal at 17 cm GALLBLADDER: Borderline gallbladder wall thickening at 0.4 cm. No shadowing gallstones. COMMON BILE DUCT: Not visualized, largely obscured by overlying bowel gas. Overt bile duct dilatation however is not suggested. PANCREAS: Obscured by overlying bowel gas. SPLEEN: Normal in size, 10.9 cm. ABDOMINAL AORTA: Unremarkable. INFERIOR VENA CAVA: Limited in visualization. RIGHT KIDNEY: 11.6 x 5 x 5 cm. Unremarkable. LEFT KIDNEY: 10 x 5.3 x 5.1 cm. Unremarkable. OTHER: No significant right upper quadrant ascites. Examination is limited and compromised by patient's increased body habitus, overlying bowel gas as well as actively vomiting during this examination. IMPRESSION: 1. Limited abdominal ultrasound imaging demonstrates no acute abnormality. Dictated by: Dictated on workstation # [id number] Dict: 11/04/22 1456 Trans: 11/04/22 165 DO [id number] Interpreted by: MARICEL GRAHAM DO Electronically signed by: MARICEL GRAHAM DO 11/04/22 1654 NAME: MACEY CRESPO REC#: [id number] PT STATUS: ADM IN : 1955 PHYSICIAN: MAGGY PATRICIA DO ADMIT DATE: 11/04/22/ICU Signed Date of Exam:11/05/22 CHEST 1 VIEW, AP/PA ONLY INDICATION: Hypoxia COMPARISON: 11/04/2022 and 04/23/2016 TECHNIQUE: Single radiograph of the chest dated 11/05/2022. FINDINGS: The cardiac silhouette is enlarged. Mild central pulmonary vascular congestion. There is prominence of the right suprahilar location, which is increased since 2016. Interval improvement of previously noted patchy opacities within the lungs bilaterally. No new focal pulmonary opacity. No significant pleural effusion. No pneumothorax. No acute osseous abnormality. IMPRESSION: Increased prominence of the right suprahilar location/superior mediastinum. This of uncertain etiology. This could relate to tortuosity versus aneurysm of the ascending thoracic aorta. Alternatively, adenopathy could be considered. A CT of the chest, preferably with contrast is recommended for further evaluation. Persistent cardiomegaly with slightly improved central pulmonary vascular congestion. Slightly improved bilateral pulmonary opacities, likely related to improving edema versus infiltrate. Dictated by: Dictated on workstation # [id number] Dict: 11/05/22 08 Trans: 11/05/22 1206 CVB [id number] Interpreted by: JANET BLOOM MD Electronically signed by: JANET BLOOM MD 11/05/22 1206 Assessment/Plan Assessment and Plan Assess & Plan/Chief Complaint 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 with RVR -Sinus rhythm currently S/P elective CV and IV amiodarone, Digoxin, metoprolol, and diltiazem. -Currently receiving amiodarone 400mg PO BID. Therapeutic Lovenox 130mg IV BID. -Cardiology consulted and recommendations are appreciated Elevated Troponin -Per cardiology, thought to be Type 2 NSTEMI second to RVR. HTN -(11/05) Will consider restarting home medications (lisinopril 20mg PO BID & HCTZ 25mg Q4 PRN) due to Systolic 170's Leukocytosis, elevated lipase -(11/04): WBC elevated at 18.4. Thought to be an acute stress response. No consolidation on CXR. Patient is tolerating RA and physical exam was unremarkable. -(11/05) WBC improved to 12.8 w/out abx. Acute stress reponse seems most likely . Nausea/Vomiting -Gastritis vs. viral GI vs pancreatitis vs obstruction -Viral GI seems most likely at this time given lack of abd pain, particularly on exam. Zofran and Reglan not adequately covering. Will start scopalamine patch. IVF. Symptomatic treatment and monitor. Elevated Lipase -(11/04):Lipase trending down. When paired with leukocytosis could indicate pancreatitits? -(11/05): ultrasound yesterday inconclusive. abd exam continues to be unremarkable. Leukocytosis improving. Could consider Abd CT although feels like may be Viral GI bug Metabolic Acidosis -(11/04): AG 19. Likely secondary to N/V. Will monitor post IVF and resolvement of afib w/ rvr -(11/05): AG 11. Improved at this time. Polycythemia -(11/04): Hgb 19.4 on admission. Likely due to dehydration given N/V the last f ew days. -(11/05): Hgb 15.8 after IVF confirming likely dehydration upon admission as cause. DVT Proph: Lovenox & SCDs Diet: will advance diet as tolerated MAGGY PATRICIA DO 11/06/22 0534: Supervisory-Addendum Brief Verification & Attestation Participated in pt care: history, MDM, physical Personally performed: exam, history, MDM, supervision of care Care discussed with: Medical Student Procedures: n/a Results interpretation: Verified all documentation Verification and Attestation of Medical Student E/M Service A medical student performed and documented this service in my presence. I reviewed and verified all information documented by the medical student and made modifications to such information, when appropriate. I personally performed the physical exam and medical decision making. Maggy Patricia Nov 06, 2022,05:34 ARIANA WIGGINS Nov 05, 2022 13:20 MAGGY PATRICIA DO Nov 06, 2022 05:34
--- NOTE | 2022-11-05 16:02 | Occ Therapy Progress Note ---
Therapy Progress Note OTR recommends ST for patient report of difficulty completing full swallow and something is stuck in her throat. C/o nausea and vomiting and unable to dislodge pressure MARCO A RAINEY OT Nov 05, 2022 16:02
--- NOTE | 2022-11-05 16:03 | Occupational Therapy Eval ---
OT Evaluation-General/PLF Medical Diagnosis Admission Date Nov 04, 2022 at 05:32 Medical Diagnosis: a fib, RVR Onset Date: Nov 04, 2022 Therapy Diagnosis Therapy Diagnosis: weakness, N/V Height/Weight Height (Feet): 5 Height (Inches): 7.00 Weight (Pounds): 298 Weight (Ounces): 0.0 Precautions Precautions/Isolations: Fall Prevention, Standard Precautions Weight Bear Status Weight Bearing Restriction: Full Weight Bearing Referral Referral Reason: Activity Tolerance, Self Care, Evaluation/Treatment, Strengthening/ROM Medical History Pertinent Medical History: Atrial Fib, HTN, OA Current History Patient is a 67 year old female with a history of hypertension who was admitted for Afib w/ RVR. She reports intermittent N/V, malaise, and weakness for the past 3 days at home. Upon arrival she was in afib with a HR of 210 and hypotensive Reviewed History: Yes Social History Home: Single Level Current Living Status: Alone Entry Into Home: Stairs With Railing Steps Into Home: 3 Steps Inside Home: 13 (basement uses in emergancy only) occasionally watches grandchildren, youngest 18 months and others are elementary age ADL-Prior Level of Function SCALE: Activities may be completed with or without assistive devices. 3-Bwsafbweee-iragrvt completes the activity by him/herself with no assistance from a helper. 5-Set-up or Clean-up Assistance-helper sets up or cleans up; patient completes activity. Jackson assists only prior to or following the activity. 4-Supervision or Touching Assistance-helper provides verbal cues and/or touching/steadying and/or contact guard assistance as patient completes activity. Assistance may be provided throughout the activity or intermittently. 3-Partial/Moderate Assistance-helper does LESS THAN HALF the effort. Jackson lifts, holds or supports trunk or limbs, but provides less than half the effort. 2-Substantial/Maximal Assistance-helper does MORE THAN HALF the effort. Jackson lifts or holds trunk or limbs and provides more than half the effort. 5-Uhvcqcpnj-jmjlzu does ALL the effort. Patient does none of the effort to complete the activity. Or, the assistance of 2 or more helpers is required for the patient to complete the activity. If activity was not attempted, code reason: 7-Patient Refused. 9-Not Applicable-not attempted and the patient did not perform the activity before the current illness, exacerbation or injury. 10-Not Attempted due to Environmental Limitations-(lack of equipment, weather restraints, etc.). 88-Not Attempted due to Medical Conditions or Safety Concerns. Functional Cognition: Independent DME/Equipment: Grab Bars, Shower, Shower Hose [employer], Toilet/Riser Drive Self: Yes OT Current Status Subjective Reclined [id number] in bed, agrees to OT Pain Numeric Pain Scale: 4 Location Body Site: Abdomen Pain Description: Cramping Mental Status/Objective Patient Orientation: Person, Place, Time, Situation Attachments: Naqvi Catheter, IV Current Glasses/Contacts: Yes Upper Extremity ROM BUE ROM WFLS Upper Extremity Strength +4/5 MMT BUEs ADL-Treatment ADL-Current Recommend ST d/t patient report of pressure like feeling in thorat and discomfort w/./ swallow, patient reports inability to dislodge obstacle from throat or decrease pressure. Drinks water w/o notable concerns Eating (QC): 88 (REC ST) Oral Hygiene (QC): 5 Shower/Bathe Self (QC): 7 (not feeling llike it today) Upper Body Dressing (QC): 4 Lower Body Dressing (QC): 4 On/Off Footwear (QC): 4 Toileting Hygiene (QC): 4 Fatigues quickly and required several rest periods Education OT Patient Education: Correct positioning, Energy conservation, Exercise program, Modified ADL techniques, Progress toward Goal/Update tx plan, Purpose of tx/functional activities, Reviewed precautions, Rehab process, Safety issues, Transfer techniques, Use of adapted equipment Teaching Recipient: Patient Teaching Methods: Demonstration, Discussion Response to Teaching: Reinforcement Needed OT Carpet Binder Goals Carpet Binder Goals Eating (QC): 6 Oral Hygiene (QC): 6 Toileting Hygiene (QC): 6 Shower/Bathe Self (QC): 6 Upper Body Dressing (QC): 6 Lower Body Dressing (QC): 6 On/Off Footwear (QC): 6 1=Demonstrate adherence to instructed precautions during ADL tasks. 2=Patient will verbalize/demonstrate understanding of assistive devices/modifications for ADL. 3=Patient will improve strength/tolerance for activity to enable patient to perform ADL's. OT Education/Plan Problem List/Assessment Assessment: Decreased Activ Tolerance, Impaired Self-Care Skills Discharge Recommendations Plan/Recommendations: Continue POC Treatment Plan/Plan of Care Treatment,Training & Education: Yes Patient would benefit from OT for education, treatment and training to promote independence in ADL's, mobility, safety and/or upper extremity function for ADL's. Plan of Care: ADL Retraining, Functional Mobility, Group Exercise/Act as Ind, UE Funct Exercise/Act Treatment Duration: Nov 15, 2022 Frequency: 3 times per week (3-5 times per week) Estimated Hrs Per Day: .25 hour per day Agreement: Yes Rehab Potential: Fair Time Start Time: 13:50 Stop Time: 14:15 DATE: Nov 05, 2022 Total Time Billed (hr/min): 25 Billed Treatment Time EVM, ADL 25 min MARCO A RAINEY OT Nov 05, 2022 16:03
--- NOTE | 2022-11-05 16:04 | Physical Therapy Progress Note ---
Therapy Progress Note Attempted to see patient for PT evaluation. Patient politely refused as she states she is still very nauseous. Will attempt PT evaluation again tomorrow. LISSETH GRANADOS PT Nov 05, 2022 16:04
[2022-11-05 16:17] VITALS: BP 196/94
--- NOTE | 2022-11-05 16:54 | Progress Note - Cardiology ---
Cardiology SOAP Progress Note Subjective: Notes a feeling of dysphagia for several days Nausea has improved but not resolved No focal weakness No cp No palp or syncope No shortness of breath at rest Gen weakness Objective: I&O/Vital Signs 11/05/22 11/05/22 11/05/22 11/05/22 04:50 05:00 05:55 06:00 Pulse 73 61 64 Resp 15 18 B/P (MAP) 167/79 (121) 168/89 (115) Pulse Ox 93 94 O2 Delivery Room Air Room Air 11/05/22 11/05/22 11/05/22 11/05/22 07:00 07:38 07:40 08:00 Pulse 77 74 76 Resp 16 15 B/P (MAP) 171/80 (110) 160/74 (102) Pulse Ox 91 92 O2 Delivery Room Air Room Air Room Air 11/05/22 11/05/22 11/05/22 11/05/22 08:00 09:00 10:00 11:00 Temp 36.6 Pulse 78 64 78 Resp 15 16 17 B/P (MAP) 166/80 (108) 165/76 (105) 169/83 (111) Pulse Ox 92 94 93 O2 Delivery Room Air Room Air Room Air Room Air 11/05/22 11/05/22 11/05/22 11/05/22 12:00 12:00 13:29 16:17 Temp 37.2 Pulse 78 78 77 77 Resp 12 12 17 B/P (MAP) 189/84 (119) 189/84 (119) 196/94 (128) Pulse Ox 94 94 92 O2 Delivery Room Air Room Air Room Air 11/05/22 00:00 Intake Total 2409 ml Output Total 725 ml Balance 1684 ml Weight (Pounds): 298 Weight (Ounces): 0.0 Weight (Calculated Kilograms): 135.671891 Constitutional: AAO x 3, well-developed, well-nourished, other (appeared unwell and diaphoretic prior to elec cardioversion) Respiratory: No accessory muscle use; chest expansion is symmetric, chest is bilaterally symmetric, other (fair to good air entry) Cardiovascular: irregularly irregular, S1 and S2, systolic murmur (soft CAMILA cardiac base) Gastrointestional: No tender; soft; No guarding, No rebound; audible bowel sounds Extremities: No clubbing, No cyanosis, No significant edema Neurologic/Psychiatric: oriented x 3, other (moves all limbs) Skin: No rash on exposed areas, No ulcerations on exposed areas Results/Procedures: Labs Laboratory Tests 11/04/22 20:17: Glucometer 115H 11/05/22 04:47: White Blood Count 12.8H, Red Blood Count 5.09, Hemoglobin 15.8, Hematocrit 45, Mean Corpuscular Volume 89, Mean Corpuscular Hemoglobin 31, Mean Corpuscular Hemoglobin Concent 35, Red Cell Distribution Width 12.4, Platelet Count 220, Mean Platelet Volume 10.3, Immature Granulocyte % (Auto) 0, Neutrophils (%) (Auto) 77H, Lymphocytes (%) (Auto) 14, Monocytes (%) (Auto) 8, Eosinophils (%) (Auto) 0, Basophils (%) (Auto) 0, Neutrophils # (Auto) 9.9H, Lymphocytes # (Auto) 1.8, Monocytes # (Auto) 1.0, Eosinophils # (Auto) 0.0, Basophils # (Auto) 0.0, Immature Granulocyte # (Auto) 0.1, Sodium Level 137, Potassium Level 3.5L, Chloride Level 103, Carbon Dioxide Level 23, Anion Gap 11, Blood Urea Nitrogen 22H, Creatinine 0.72, Estimat Glomerular Filtration Rate 93, BUN/Creatinine Ratio 31, Glucose Level 106H, Calcium Level 8.1L, Corrected Calcium 9.0, Phosphorus Level 3.3, Magnesium Level 1.9, Total Bilirubin 2.0H, Aspartate Amino Transf (AST/SGOT) 65H, Alanine Aminotransferase (ALT/SGPT) 21, Alkaline Phosphatase 44, Total Protein 5.6L, Albumin 2.9L, Lipase 100H 11/05/22 10:31: Glucometer 111H Microbiology 11/04/22 MRSA Screen - Final, Complete MRSA not isolated Laboratory Tests 11/04/22 03:25 11/04/22 15:50 11/05/22 04:47 A/P: Assessment: PAF, hemodynamically unstable - greated with iv amio and ext elec cv after discussing with the patient and her son ( Anhdm) Leucocytosis, elevated lipase and bilirubin, n/v and dysphagia - indicate GI issues, etiology undetermined, [facility] Mildly elevated troponin, type 2 IN due to RVR Hypertension with hypertensive CVD (LVH) - ECG: NSR, LVH - Echo on 11/04/22: LVEF 55-60%, mod conc LVH, grade 1 diastolic dysfunction, moderately dilated LA, PASP could not be determined Plan: * Elec CV (done) * Change iv amio to oral amio * D/c iv dilt * Oral beta-david and amlodipine for control of bp * Change enoxaparin to oral apixaban * Management of n/v and leucocytosis and abnormal labs is with the [facility] * Monitor labs * I discussed her CV issues with her and with her son MYRTLE Redding MD FACP FAC CCDS Nov 05, 2022 16:54
[2022-11-05] MEDS ORDERED: meTOproloL SUCCINATE 50 MG (TOPROL XL) TAB PO NR (17:15)
[2022-11-05] MEDS ORDERED: NITROGLYCERIN 2% OINT 1 GM UNIT DOSE PACKET TOP PRN (19:30)
[2022-11-05] MEDS ORDERED: cloNIDine 0.1 MG (CATAPRES) TAB PO PRN (20:00)
[2022-11-05] MEDS ORDERED: IOHEXOL 350 MG/ML 100 ML (OMNIPAQUE 350) VIAL IV ONE (20:00)
[2022-11-05] MEDS ORDERED: NS 100 ML (IVPB) BAG IV ONE (20:00)
[2022-11-05] MEDS ORDERED: HOLD METFORMIN - RECEIVED CONTRAST 20 ML VIAL IV SCH (20:00)
[2022-11-05 20:06] VITALS: BP 191/87
[2022-11-05] MEDS: APIXABAN 5 MG (ELIQUIS) TABLET PO SCH (21:38)
--- NOTE | 2022-11-05 22:05 | Diagnostic Imaging Report ---
EXAMINATION: CT chest, abdomen and pelvis with intravenous contrast. TECHNIQUE: Multiple contiguous axial images were obtained through the chest, abdomen and pelvis after the uneventful administration of intravenous contrast. All CT scans use one or more of the following dose optimizing techniques: automated exposure control, MA and/or KvP adjustment based on patient size and exam type or iterative reconstruction. HISTORY: Abnormal chest radiograph, possible lung mass. COMPARISON: None available. FINDINGS: There is no edema or pneumonia. There are small bilateral pleural effusions and overlying atelectasis. No pneumothorax. No suspicious nodule. There is no axillary or supraclavicular lymphadenopathy. There is no mediastinal lymphadenopathy. There is a skin associated cyst in the right chest wall. The esophagus is dilated. Heart size is normal. There are mild coronary artery calcifications. No pericardial effusion. Aorta is normal in caliber. The liver is normal without focal lesion. There is no biliary ductal dilation. Gallbladder is normal. Pancreas is normal. Spleen is normal. Adrenal glands are normal. The kidneys are normal. There is no hydronephrosis. Bladder is decompressed by Naqvi catheter. There is a bowel containing ventral abdominal hernia. There is a second bowel containing hernia more inferiorly. The stomach and esophagus are distended in the proximal small bowel are distended. There is a transition in the lower hernia in keeping with an obstruction. Small amount of free fluid is trapped within the hernia sac. No free air. No abdominal or pelvic lymphadenopathy. Aorta is normal in caliber without aneurysm. There is no suspicious osseus lesion. IMPRESSION: 1. Small bowel obstruction with a transition point in a lower abdominal ventral hernia. 2. No acute abnormality in the chest. Dictated by: Dictated on workstation # [id number]
[2022-11-05 22:45] VITALS: BP 173/85
[2022-11-05] MEDS: hydrALAZINE (APESOLINE) 20 MG/ML VIAL IV PRN (22:49)
[2022-11-06] VITALS (8 sets, daily range): BP systolic 127–174; BP diastolic 60–83
[2022-11-06] MEDS: ONDANSETRON 4 MG/2 ML (SDV) Z0FRAN IV PRN (01:17)
[2022-11-06] MEDS: ONDANSETRON 4 MG (ZOFRAN) ORAL DISSOLVE TAB PO PRN (04:35)
[2022-11-06] MEDS: hydrALAZINE (APESOLINE) 20 MG/ML VIAL IV PRN (04:35)
[2022-11-06] MEDS: ENALAPRILAT 2.5 MG/2 ML (VASOTEC) VIAL IV SCH ×3 (05:35→18:15)
[2022-11-06] MEDS: CATHETER FLUSH 10 ML SYR IVP SCH ×3 (06:03→20:48)
[2022-11-06] MEDS: NS IV 1000 ML 1,000 ML IV SCH ×2 (06:03→14:05)
--- NOTE | 2022-11-06 07:23 | Progress Note - Surgery ---
FAUSTO WELSH 11/06/22722: Subjective Date Seen by a Provider: Nov 06, 2022 Time Seen by a Provider: 07:05 Subjective/Events-last exam Patient says she is feeling a little better today. Her nausea is about the same as yesterday, she feels the amount she is vomiting is decreasing. We advanced to liquid diet yesterday and she said that went okay sometimes and bad at other times. She does not endorse any abdominal pain. She ambulated with PT yesterday, got tired quickly and stopped. She has not had a BM, but she claims she has been passing gas. Barboza catheter in place. Review of Systems General: No Chills, No Night Sweats; Fatigue, Malaise HEENT: No Head Aches; Dysphasia Pulmonary: No Dyspnea, No Cough Cardiovascular: No: Chest Pain, Lt Headedness Gastrointestinal: Nausea, Vomiting, Constipation Genitourinary: No Dysuria, No Frequency; Other (barboza in place draining yellow urine) Musculoskeletal: back pain (chronic) Neurological: No: Change in speech, Confusion Objective Exam Vital Signs Date Time Temp Pulse Resp B/P (MAP) Pulse Ox O2 Delivery O2 Flow Rate FiO2 11/06/22 06:35 73 127/72 (90) 11/06/22 05:35 89 157/82 (107) 11/06/22 04:28 36.9 83 16 174/78 (110) 95 Room Air 11/06/22 01:00 70 11/06/22 00:00 37.1 70 18 143/83 (103) 93 Room Air 11/05/22 22:45 173/85 (114) 11/05/22 20:06 37.2 73 17 191/87 (121) 93 Room Air 11/05/22 20:00 92 Room Air 11/05/22 19:00 75 11/05/22 16:17 37.2 77 17 196/94 (128) 92 Room Air 11/05/22 13:29 77 11/05/22 12:00 78 12 189/84 (119) 94 Room Air 11/05/22 12:00 78 12 189/84 (119) 94 Room Air 11/05/22 11:00 78 17 169/83 (111) 93 Room Air 11/05/22 10:00 64 16 165/76 (105) 94 Room Air 11/05/22 09:00 78 15 166/80 (108) 92 Room Air 11/05/22 08:00 36.6 Room Air 11/05/22 08:00 76 15 160/74 (102) 92 Room Air 11/05/22 07:40 Room Air 11/05/22 07:38 74 I & O 11/06/22 07:00 Intake Total 4665 ml Output Total 925 ml Balance 3740 ml Capillary Refill : Less Than 3 Seconds General Appearance: No Apparent Distress, Obese HEENT: PERRL/EOMI, Pharynx Normal Neck: Non Tender, Supple Respiratory: No Accessory Muscle Use, No Respiratory Distress Cardiovascular: Regular Rate, Rhythm, Normal Peripheral Pulses Peripheral Pulses: 2+ Radial Pulses (R), 2+ Radial Pulses (L) Gastrointestinal: non tender, soft, hernia (supraumbilical, not able to reduce, no pain, no erythema, no discoloration) Extremity: Non Tender, No Calf Tenderness, Pedal Edema (2+ b/l) Neurologic/Psychiatric: Alert, Oriented x3 Skin: Normal Color, Warm/Dry Lymphatic: No Adenopathy Results Lab Laboratory Tests 11/05/22 10:31: Glucometer 111H Microbiology 11/04/22 MRSA Screen - Final, Complete MRSA not isolated Assessment/Plan Assessment/Plan Assessment/Plan Nausea/vomiting, Malaise SBO Ventral hernia Leukocytosis Elevated lipase, AST Elevated bilirubin- likely 2/2 vomiting/nausea Afib w/RVR Elevated troponin- suspected NSTEMI type 2 HTN Abdominal u/s without acute findings, borderline GB wall thickening at 0.4cm and no stones - not likely to be source n/v Zofran and reglan for nausea MoM for constipation Lipase only mildly elevated, not likely pancreatitis given no abdominal pain Keep patient NPO NG tube for gastric decompression Order small bowel study Continue to monitor labs as hydration continues Cardiology managing Repeat labs in am Chest x ray reviewed adn will get CT chest with constrast and with elevated bili/lipase and nausea/vomiting will get ct abd/pelvis c as well to further evaluate to see if can find cause of symptoms CT abdomen showed SBO with transition point at the site of a ventral hernia MARILUZ SANCHEZ DO 11/06/22 1113: Subjective Subjective/Events-last exam Feeling better today. Nausea same. NG tube placed this morning, 3 L out when placed. No abdominal pain. Passing a little flatus. Tolerating NG tube. Denies fever sweats chills shortness of breath or chest pain at this time. Had ct scan consistent with small bowel obstruction in ventral hernia. Objective Exam General Appearance: No Apparent Distress, Obese HEENT: PERRL/EOMI, Normal ENT Inspection, Other (NG tube) Neck: Non Tender, Supple Respiratory: Chest Non Tender, No Accessory Muscle Use Cardiovascular: Regular Rate, Rhythm, No JVD Gastrointestinal: non tender, soft, hernia (supraumbilical, not able to reduce, no pain, no erythema, no discoloration) Extremity: Non Tender, No Calf Tenderness, Pedal Edema (2+ b/l) Neurologic/Psychiatric: Alert, Oriented x3 Skin: Normal Color, Warm/Dry Lymphatic: No Adenopathy Assessment/Plan Assessment/Plan Assessment/Plan Nausea/vomiting, Malaise SBO Ventral hernia Leukocytosis Elevated lipase, AST Elevated bilirubin- likely 2/2 vomiting/nausea Afib w/RVR Elevated troponin- suspected NSTEMI type 2 HTN Anticoagulation Abdominal u/s without acute findings, borderline GB wall thickening at 0.4cm and no stones - not likely to be source n/v Zofran and reglan for nausea MoM for constipation Lipase only mildly elevated, not likely pancreatitis given no abdominal pain Keep patient NPO NG tube for gastric decompression Order small bowel follow through study Continue to monitor labs as hydration continues Cardiology managing Repeat labs in am Ct abd/pelvis c showed SBO with transition point at the site of a ventral hernia- ng tube place and get sbft Supervisory-Addendum Brief Verification & Attestation Participated in pt care: history, MDM, physical Personally performed: exam, history, MDM, supervision of care Care discussed with: Medical Student Procedures: n/a Results interpretation: Verified all documentation Verification and Attestation of Medical Student E/M Service A medical student performed and documented this service in my presence. I reviewed and verified all information documented by the medical student and made modifications to such information, when appropriate. I personally performed the physical exam and medical decision making. Mariluz Sanchez, Nov 06, 2022,11:12 FAUSTO WELSH Nov 06, 2022 07:23 MARILUZ SANCHEZ DO Nov 06, 2022 11:13
[2022-11-06 08:41] LABS: BASOPHILS % (AUTO) 0 % (0-10); EOSINOPHILS # (AUTO) 0.1 10^3/uL (0.0-0.3); EOSINOPHILS % (AUTO) 0 % (0-10); HEMATOCRIT 47 % (35-52); HEMOGLOBIN 16.3 g/dL (11.5-16.0); LYMPHOCYTES # (AUTO) 0.9 10^3/uL (1.0-4.0); LYMPHOCYTES % (AUTO) 5 % (12-44); MEAN CORPUSCULAR HEMOGLOBIN 31 pg (25-34); MEAN CORPUSCULAR HGB CONC 35 g/dL (32-36); MEAN CORPUSCULAR VOLUME 89 fL (80-99); MONOCYTES # (AUTO) 2.2 10^3/uL (0.0-1.0); MONOCYTES % (AUTO) 13 % (0-12); NEUTROPHILS # (AUTO) 13.6 10^3/uL (1.8-7.8); NEUTROPHILS % (AUTO) 81 % (42-75); PLATELET COUNT 223 10^3/uL (130-400); WHITE BLOOD COUNT 16.8 10^3/uL (4.3-11.0)
--- NOTE | 2022-11-06 08:54 | Diagnostic Imaging Report ---
Indication: NG tube placement Portable chest 3:47 AM NG tube enters the stomach. Heart size and pulmonary vascularity are normal. Lungs are clear. There are no effusions or pneumothoraces. IMPRESSION: No acute abnormalities in the chest Dictated by: Dictated on workstation # [id number]
[2022-11-06 08:57] LABS: ALBUMIN 2.9 GM/DL (3.2-4.5); POTASSIUM 3.6 MMOL/L (3.6-5.0)
[2022-11-06 08:59] LABS: CALCIUM 8.1 MG/DL (8.5-10.1)
[2022-11-06 09:00] LABS: TOTAL PROTEIN 5.7 GM/DL (6.4-8.2)
[2022-11-06] MEDS ORDERED: amLODIPine 5 MG (NORVASC) TAB PO SCH ×2 (09:00)
[2022-11-06 09:02] LABS: BAND NEUTROPHILS 3 %; BASOPHILS % (MANUAL) 0 %; BILIRUBIN,TOTAL 1.7 MG/DL (0.1-1.0); EOSINOPHILS % (MANUAL) 0 %; LYMPHOCYTES % (MANUAL) 3 %; MONOCYTES % (MANUAL) 13 %; NEUTROPHILS % (MANUAL) 81 %; RBC MORPH NORMAL
[2022-11-06 09:03] LABS: CREATININE SERUM 0.78 MG/DL (0.60-1.30)
[2022-11-06 09:06] LABS: MAGNESIUM 2.1 MG/DL (1.6-2.4)
[2022-11-06] MEDS: DOCUSATE SODIUM 100 MG (COLACE) CAP PO SCH ×2 (09:12→21:54)
[2022-11-06] MEDS: AMIODARONE 200 MG (CORDARONE) TAB PO SCH ×2 (09:12→20:47)
[2022-11-06] MEDS: SENNOSIDES 8.6 MG (SENOKOT) TAB PO SCH ×2 (09:12→21:54)
[2022-11-06] MEDS: amLODIPine 10 MG (NORVASC) TAB PO SCH (09:12)
[2022-11-06] MEDS: meTOproloL SUCCINATE 50 MG (TOPROL XL) TAB PO SCH (09:13)
[2022-11-06] MEDS: APIXABAN 5 MG (ELIQUIS) TABLET PO SCH ×2 (09:44→20:47)
[2022-11-06] MEDS ORDERED: DIATRIZOATE MEGLUM/SODIUM 37% 120 ML (GASTROGRAFIN) NG ONE ×2 (09:45→15:45)
--- NOTE | 2022-11-06 10:29 | Progress Note - Hospitalist ---
ARIANA WIGGINS 11/06/22 1029: Subjective HPI/CC On Admission Date Seen by Provider: Nov 06, 2022 Time Seen by Provider: 08:15 Patient is a 67 year old female with a history of hypertension who was admitted for Afib w/ RVR. She reports intermittent N/V, malaise, and weakness for the past 3 days at home. Upon arrival she was in afib with a HR of 210 and hypotensive at 99/76. Her labs were remarkable for the following: Troponin1: 0.069, WBC 18.4, Hgb 19.4, AST 52, Lipase 108, D-dimer 3.96. She was admittted and cardiology was consulted who started the patient on amiodarone, diltiazem, metoprolol, and digoxin and did an elective CV. Since the CV and medications she has returned to sinus rhythm, her HR is within normal limits, and her BP has improved. CXR on admission showed mild to moderate pulmonary congestion and scattered alveolar infiltrates w/out consolidation. Her When seen this morning she was awake in bed and her only complaint at that time was fatigue. She has a barboza in place with clear yellow urine present. Subjective/Events-last exam Patient was awake lying in bed when seen this morning. Yesteray she continued to have Nausea and vomiting and hat a CT abd/pelvis which showed a SBo and a lower abdominal ventral hernia w/ bowels present. An NG tube was placed for GI suction and patient has had an improvement in Symptoms since it's placement. She denies N/V this morning. She is being seen by Dr. Sanchez who has ordered small bowel study for today with the possibility of going to the OR, which patient is agreeable to if need be. She denies LH, CP, palpitations, N/V, abd pain at this time. She has a barboza catheter in place. She was able to get up this morning for nursing to change her sheets. Review of Systems General: No Chills HEENT: No Visual Changes Pulmonary: No Dyspnea, No Cough, No Pleuritic Chest Pain Cardiovascular: No: Chest Pain, Palpitations Gastrointestinal: Nausea (improved since NG placement), Vomiting (Improed since NG placement) Genitourinary: No Dysuria, No Hematuria Neurological: No: Weakness, Numbness Objective Exam Vital Signs Vital Signs Date Time Temp Pulse Resp B/P (MAP) Pulse Ox O2 Delivery O2 Flow Rate FiO2 11/06/22 07:45 78 11/06/22 07:39 36.6 18 141/63 (89) 93 Room Air 11/04/22 19:14 21 11/04/22 06:15 Capillary Refill : Less Than 3 Seconds General Appearance: No Apparent Distress, WD/WN, Obese HEENT: Pharynx Normal, Moist Mucous Membranes Neck: Non Tender, Supple Respiratory: Chest Non Tender, Lungs Clear, Normal Breath Sounds, No Accessory Muscle Use, No Respiratory Distress Cardiovascular: Regular Rate, Rhythm, No Edema, No Murmur, Normal Peripheral Pulses Gastrointestinal: Non Tender, Soft, Abnormal Bowel Sounds (slightly diminished); No Distended; Hernia (small ventral hernia appreciated on exam. ); No Rebound, No Tenderness Extremity: Normal Capillary Refill, Non Tender, No Calf Tenderness, No Pedal Edema Neurologic/Psychiatric: Alert, Oriented x3, No Motor/Sensory Deficits, Normal Mood/Affect Skin: Normal Color, Warm/Dry Lymphatic: No Adenopathy Results/Procedures Lab Laboratory Tests 11/06/22 08:33 Patient resulted labs reviewed. Imaging: Reviewed Imaging Films, Reviewed Imaging Report Radiology NAME: MACEY CRESPO [facility] REC#: [id number] PT STATUS: ADM IN : 1955 PHYSICIAN: MARILUZ SANCHEZ DO ADMIT DATE: 11/04/22 Signed Date of Exam:11/05/22 CT CHEST/ABDOMEN/PELVIS W EXAMINATION: CT chest, abdomen and pelvis with intravenous contrast. TECHNIQUE: Multiple contiguous axial images were obtained through the chest, abdomen and pelvis after the uneventful administration of intravenous contrast. All CT scans use one or more of the following dose optimizing techniques: automated exposure control, MA and/or KvP adjustment based on patient size and exam type or iterative reconstruction. HISTORY: Abnormal chest radiograph, possible lung mass. COMPARISON: None available. FINDINGS: There is no edema or pneumonia. There are small bilateral pleural effusions and overlying atelectasis. No pneumothorax. No suspicious nodule. There is no axillary or supraclavicular lymphadenopathy. There is no mediastinal lymphadenopathy. There is a skin associated cyst in the right chest wall. The esophagus is dilated. Heart size is normal. There are mild coronary artery calcifications. No pericardial effusion. Aorta is normal in caliber. The liver is normal without focal lesion. There is no biliary ductal dilation. Gallbladder is normal. Pancreas is normal. Spleen is normal. Adrenal glands are normal. The kidneys are normal. There is no hydronephrosis. Bladder is decompressed by Barboza catheter. There is a bowel containing ventral abdominal hernia. There is a second bowel containing hernia more inferiorly. The stomach and esophagus are distended in the proximal small bowel are distended. There is a transition in the lower hernia in keeping with an obstruction. Small amount of free fluid is trapped within the hernia sac. No free air. No abdominal or pelvic lymphadenopathy. Aorta is normal in caliber without aneurysm. There is no suspicious osseus lesion. IMPRESSION: 1. Small bowel obstruction with a transition point in a lower abdominal ventral hernia. 2. No acute abnormality in the chest. Dictated by: Dictated on workstation # [id number] Dict: 11/05/222117 Trans: 11/05/222218 PJE [id number] Interpreted by: LISSETH AL MD Electronically signed by: LISSETH AL MD 11/05/221 Assessment/Plan Assessment and Plan Assess & Plan/Chief Complaint 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 with RVR -Sinus rhythm currently S/P elective CV and IV amiodarone, Digoxin, metoprolol, and diltiazem. -Currently receiving amiodarone 400mg PO BID. Therapeutic Lovenox 130mg IV BID. Metprolol 50mg PO QD. -Cardiology consulted and recommendations are appreciated Elevated Troponin -Per cardiology, thought to be Type 2 NSTEMI second to RVR. SBO -SBO and lower abd ventral hernia with bowel present identified on Ct yes terday. NG tube in place. Bowel rest. Management per surgery. HTN -(11/05) Amlodipine 10mg PO QD, enalapril 2.5mg IV Q6, Hydralazine 10mg Q4 PRN for systolic >160 Leukocytosis, elevated lipase -(/): WBC elevated at 18.4. Thought to be an acute stress response. No consolidation on CXR. Patient is tolerating RA and physical exam was unremarkable. -(11/05) WBC improved to 12.8 w/out abx. Acute stress reponse seems most likely. -(11/06) WBC 16.8. CXR unremarkable today. Elevated Lipase -(11/04):Lipase trending down. When paired with leukocytosis could indicate pancreatitits? -(11/05): ultrasound yesterday inconclusive. abd exam continues to be unremarkable. Leukocytosis improving. Could consider Abd CT although feels like may be Viral GI bug Metabolic Acidosis -(11/04): AG 19. Likely secondary to N/V. Will monitor post IVF and resolvement of afib w/ rvr -(11/05): AG 11. Improved at this time. Polycythemia -(11/04): Hgb 19.4 on admission. Likely due to dehydration given N/V the last few days. -(11/05): Hgb 15.8 after IVF confirming likely dehydration upon admission as cause. DVT Proph: Lovenox & SCDs Diet: will advance diet as tolerated MAGGY PATRICIA DO 11/07/22 0504: Supervisory-Addendum Brief Verification & Attestation Participated in pt care: history, MDM, physical Personally performed: exam, history, MDM, supervision of care Care discussed with: Medical Student Procedures: n/a Results interpretation: Verified all documentation Verification and Attestation of Medical Student E/M Service A medical student performed and documented this service in my presence. I reviewed and verified all information documented by the medical student and made modifications to such information, when appropriate. I personally performed the physical exam and medical decision making. Maggy Patricia, Nov 07, 2022,05:04 ARIANA WIGGINS Nov 06, 2022 10:29 MAGGY PATRICIA DO Nov 07, 2022 05:04
--- NOTE | 2022-11-06 10:57 | Physical Therapy Progress Note ---
Therapy Progress Note Patient to have surgery on this date per RN. PT visited with patient and both agreed to begin in a.m. MARILEE PARR PT Nov 06, 2022 10:57
--- NOTE | 2022-11-06 15:18 | Occupational Ther Daily Note ---
OT Current Status-Daily Note Subjective NG tube placed agreeable to session Mental Status/Objective Patient Orientation: Person, Place, Time, Situation Attachments: Naqvi Catheter, IV, NG Tube ADL-Treatment Therapy Code Descriptions/Definitions Functional [place] Measure: 0=Not Assessed/NA 4=Minimal Assistance 1=Total Assistance 5=Supervision or Setup 2=Maximal Assistance 6=Modified [place] 3=Moderate Assistance 7=Complete IndependenceSCALE: Activities may be completed with or without assistive devices. 1-Ljasdledot-atakrwk completes the activity by him/herself with no assistance from a helper. 5-Set-up or Clean-up Assistance-helper sets up or cleans up; patient completes activity. [place] assists only prior to or following the activity. 4-Supervision or Touching Assistance-helper provides verbal cues and/or touching/steadying and/or contact guard assistance as patient completes activity. Assistance may be provided throughout the activity or intermittently. 3-Partial/Moderate Assistance-helper does LESS THAN HALF the effort. [place] lifts, holds or supports trunk or limbs, but provides less than half the effort. 2-Substantial/Maximal Assistance-helper does MORE THAN HALF the effort. [place] lifts or holds trunk or limbs and provides more than half the effort. 3-Pxgznbllz-yintvl does ALL the effort. Patient does none of the effort to complete the activity. Or, the assistance of 2 or more helpers is required for the patient to complete the activity. If activity was not attempted, code reason: 7-Patient Refused. 9-Not Applicable-not attempted and the patient did not perform the activity before the current illness, exacerbation or injury. 10-Not Attempted due to Environmental Limitations-(lack of equipment, weather restraints, etc.). 88-Not Attempted due to Medical Conditions or Safety Concerns. Eating (QC): 88 Oral Hygiene (QC): 88 Shower/Bathe Self (QC): 7 Upper Body Dressing (QC): 7 Lower Body Dressing (QC): 7 On/Off Footwear: 7 Toileting Hygiene (QC): 7 Toilet Transfer (QC): 7 Other Treatment Dynamic balance and functional reach in siting. Sit/stands and reposition in bed, side laying on right side Education OT Patient Education: Correct positioning, Energy conservation, Exercise program, Safety issues Teaching Recipient: Patient Response to Teaching: Reinforcement Needed OT [facility] Goals [facility] Goals Eating (QC): 6 Oral Hygiene (QC): 6 Toileting Hygiene (QC): 6 Shower/Bathe Self (QC): 6 Upper Body Dressing (QC): 6 Lower Body Dressing (QC): 6 On/Off Footwear (QC): 6 1=Demonstrate adherence to instructed precautions during ADL tasks. 2=Patient will verbalize/demonstrate understanding of assistive devices/modifications for ADL. 3=Patient will improve strength/tolerance for activity to enable patient to perform ADL's. OT Education/Plan Problem List/Assessment Assessment: Decreased Activ Tolerance, Impaired Self-Care Skills Discharge Recommendations Plan/Recommendations: Continue POC Treatment Plan/Plan of Care Patient would benefit from OT for education, treatment and training to promote independence in ADL's, mobility, safety and/or upper extremity function for ADL's. Plan of Care: ADL Retraining, Functional Mobility, Group Exercise/Act as Ind, UE Funct Exercise/Act Treatment Duration: Nov 15, 2022 Frequency: 3 times per week (3-5 times per week) Estimated Hrs Per Day: .25 hour per day Agreement: Yes Rehab Potential: Fair Time Start Time: 14:15 Stop Time: 14:30 DATE: Nov 06, 2022 Total Time Billed (hr/min): 15 Billed Treatment Time FA 15 min MARCO A RAINEY OT Nov 06, 2022 15:18
--- NOTE | 2022-11-06 17:13 | Diagnostic Imaging Report ---
INDICATION: Bowel obstruction. Through the indwelling nasogastric catheter, water-soluble Gastrografin 120 mL and 120 mL water were administered with serial overhead radiographs performed. FINDINGS: Preliminary radiographs showed some mild nonspecific dilatation of air-containing small bowel in the mid abdomen. With contrast administration, there was rapid advancement through the stomach, duodenum, and into the proximal jejunum. At 1 hour, the contrast had reached probably the mid jejunal level. At 2 hours, contrast was still within dilated jejunal segments. At 3 hours, there was contrast within some nondilated distal small bowel loops, and at 5 hours, contrast had reached the nondistended colon. IMPRESSION: Proximally, there was some delayed transit through some dilated small bowel; however, no complete obstruction with contrast reaching the colon 5 hours after administration. No extravasation. Findings suggest a partial obstruction. Dictated by: Dictated on workstation # [id number]
--- NOTE | 2022-11-06 18:21 | Progress Note - Cardiology ---
Cardiology SOAP Progress Note Subjective: Has been diagnosed with SBO and treated with NGT. Feels much better now Less nausea, less dysphagia feeling No cp or palp or syncope No focal weakness Objective: I&O/Vital Signs 11/06/22 11/06/22 11/06/22 11/06/22 06:35 07:39 07:45 08:00 Temp 36.6 Pulse 73 67 78 Resp 18 B/P (MAP) 127/72 (90) 141/63 (89) Pulse Ox 93 O2 Delivery Room Air Room Air 11/06/22 11/06/22 11/06/22 14:02 14:52 15:00 Temp 36.9 36.9 Pulse 76 57 67 Resp 18 18 B/P (MAP) 130/60 (83) 130/60 (83) Pulse Ox 93 93 O2 Delivery Room Air Room Air 11/06/22 00:00 Intake Total 3240 ml Output Total 450 ml Balance 2790 ml Weight (Pounds): 298 Weight (Ounces): 0.0 Weight (Calculated Kilograms): 135.172266 Constitutional: AAO x 3, well-developed, well-nourished, other (appeared unwell and diaphoretic prior to elec cardioversion) Respiratory: No accessory muscle use; chest expansion is symmetric, chest is bilaterally symmetric, other (fair to good air entry) Cardiovascular: irregularly irregular, S1 and S2, systolic murmur (soft [place] cardiac base) Gastrointestional: No tender; soft; No guarding, No rebound; audible bowel sounds Extremities: No clubbing, No cyanosis, No significant edema Neurologic/Psychiatric: oriented x 3, other (moves all limbs) Skin: No rash on exposed areas, No ulcerations on exposed areas Results/Procedures: Labs Laboratory Tests 11/06/22 08:33: White Blood Count 16.8H, Red Blood Count 5.24H, Hemoglobin 16.3H, Hematocrit 47, Mean Corpuscular Volume 89, Mean Corpuscular Hemoglobin 31, Mean Corpuscular Hemoglobin Concent 35, Red Cell Distribution Width 12.6, Platelet Count 223, Mean Platelet Volume 10.0, Immature Granulocyte % (Auto) 0, Neutrophils (%) (Auto) 81H, Lymphocytes (%) (Auto) 5L, Monocytes (%) (Auto) 13H, Eosinophils (%) (Auto) 0, Basophils (%) (Auto) 0, Neutrophils # (Auto) 13.6H, Lymphocytes # (Auto) 0.9L, Monocytes # (Auto) 2.2H, Eosinophils # (Auto) 0.1, Basophils # (Auto) 0.0, Immature Granulocyte # (Auto) 0.1, Neutrophils % (Manual) 81, Lymphocytes % (Manual) 3, Monocytes % (Manual) 13, Eosinophils % (Manual) 0, Basophils % (Manual) 0, Band Neutrophils 3, Blood Morphology Comment NORMAL, Sodium Level 137, Potassium Level 3.6, Chloride Level 104, Carbon Dioxide Level 22, Anion Gap 11, Blood Urea Nitrogen 21H, Creatinine 0.78, Estimat Glomerular Filtration Rate 84, BUN/Creatinine Ratio 27, Glucose Level 119H, Calcium Level 8.1L, Corrected Calcium 9.0, Magnesium Level 2.1, Total Bilirubin 1.7H, Aspartate Amino Transf (AST/SGOT) 29, Alanine Aminotransferase (ALT/SGPT) 19, Alkaline Phosphatase 43, Total Protein 5.7L, Albumin 2.9L Microbiology 11/04/22 MRSA Screen - Final, Complete MRSA not isolated Laboratory Tests 11/05/22 04:47 11/06/22 08:33 A/P: Assessment: PAF, hemodynamically unstable at presentation - treated with iv amio and ext elec cv and she is since maintaining NSR SBO - managed by Med and Surg svces Mildly elevated troponin, type 2 MS due to RVR Hypertension with hypertensive CVD (LVH) - ECG: NSR, LVH - Echo on 11/04/22: LVEF 55-60%, mod conc LVH, grade 1 diastolic dysfunction, moderately dilated LA, PASP could not be determined Plan: * Oral beta-david and amlodipine for control of bp; oral amio for rhythm maintenance * Oral apixaban for stroke prophylaxis * Management of n/v and leucocytosis and abnormal labs is with the Med svce * Monitor labs MYRTLE MORALES MD [facility] Nov 06, 2022 18:21
[2022-11-07] VITALS (9 sets, daily range): BP systolic 111–141; BP diastolic 56–78
[2022-11-07] MEDS: ENALAPRILAT 2.5 MG/2 ML (VASOTEC) VIAL IV SCH ×4 (00:42→18:35)
[2022-11-07] MEDS: NS IV 1000 ML 1,000 ML IV SCH ×3 (00:45→14:11)
[2022-11-07 06:21] LABS: BASOPHILS % (AUTO) 0 % (0-10); EOSINOPHILS # (AUTO) 0.2 10^3/uL (0.0-0.3); EOSINOPHILS % (AUTO) 2 % (0-10); HEMATOCRIT 44 % (35-52); HEMOGLOBIN 15.2 g/dL (11.5-16.0); LYMPHOCYTES # (AUTO) 1.8 10^3/uL (1.0-4.0); LYMPHOCYTES % (AUTO) 20 % (12-44); MEAN CORPUSCULAR HEMOGLOBIN 31 pg (25-34); MEAN CORPUSCULAR HGB CONC 34 g/dL (32-36); MEAN CORPUSCULAR VOLUME 90 fL (80-99); MEAN PLATELET VOLUME 10.6 fL (9.0-12.2); MONOCYTES # (AUTO) 1.3 10^3/uL (0.0-1.0); MONOCYTES % (AUTO) 15 % (0-12); NEUTROPHILS # (AUTO) 5.7 10^3/uL (1.8-7.8); NEUTROPHILS % (AUTO) 63 % (42-75); PLATELET COUNT 200 10^3/uL (130-400)
[2022-11-07] MEDS: CATHETER FLUSH 10 ML SYR IVP SCH ×3 (06:31→22:14)
[2022-11-07 06:43] LABS: ALBUMIN 2.6 GM/DL (3.2-4.5); CALCIUM 8.2 MG/DL (8.5-10.1); CREATININE SERUM 0.7 MG/DL (0.60-1.30); MAGNESIUM 1.9 MG/DL (1.6-2.4); POTASSIUM 3.3 MMOL/L (3.6-5.0); TOTAL PROTEIN 5.4 GM/DL (6.4-8.2)
--- NOTE | 2022-11-07 07:39 | Progress Note - Surgery ---
FAUSTO WELSH 11/07/22 0739: Subjective Date Seen by a Provider: Nov 07, 2022 Time Seen by a Provider: 07:25 Subjective/Events-last exam Patient is feeling much better today. She is not experiencing any nausea or abdominal pain. She is ambulating more, mainly to use the restroom. She has had four BMs since the NG tube was placed. She is feeling hungry and is ready to try to eat. Review of Systems General: No Chills, No Night Sweats HEENT: No Head Aches; Sore Throat (from NG tube) Pulmonary: No Dyspnea, No Cough Cardiovascular: No: Chest Pain, Palpitations Gastrointestinal: No: Nausea, Vomiting, Abdominal Pain Genitourinary: Other (barboza in, no complaints) Musculoskeletal: No: neck pain, back pain Neurological: No: Weakness, Numbness Objective Exam Vital Signs Date Time Temp Pulse Resp B/P (MAP) Pulse Ox O2 Delivery O2 Flow Rate FiO2 11/07/22 03:54 36.6 66 16 120/76 (91) 96 Room Air 11/07/22 01:00 70 11/07/22 00:08 37.0 71 16 130/75 (93) 96 Room Air 11/06/22 20:45 95 Room Air 11/06/22 19:59 36.7 60 18 145/74 (97) 95 Room Air 11/06/22 19:00 80 11/06/22 15:00 36.9 67 18 130/60 (83) 93 Room Air 11/06/22 14:52 36.9 57 18 130/60 (83) 93 Room Air 11/06/22 14:02 76 11/06/22 08:00 Room Air 11/06/22 07:45 78 11/06/22 07:39 36.6 67 18 141/63 (89) 93 Room Air I & O 11/07/22 07:00 Intake Total 0 ml Output Total 6330 ml Balance -6330 ml Capillary Refill : Less Than 3 Seconds General Appearance: No Apparent Distress, Obese HEENT: PERRL/EOMI, Moist Mucous Membranes Neck: Non Tender, Supple Respiratory: Lungs Clear, Normal Breath Sounds, No Accessory Muscle Use, No Respiratory Distress Cardiovascular: Regular Rate, Rhythm, No Murmur, Normal Peripheral Pulses Peripheral Pulses: 2+ Radial Pulses (R), 2+ Radial Pulses (L) Gastrointestinal: non tender, soft, hernia (supraumbilical, no tenderness or erythema, non-reducible) Extremity: Normal Capillary Refill, No Calf Tenderness, Pedal Edema Neurologic/Psychiatric: Alert, Oriented x3 Skin: Normal Color, Warm/Dry Lymphatic: No Adenopathy Results Lab Laboratory Tests 11/06/22 08:33: White Blood Count 16.8H, Red Blood Count 5.24H, Hemoglobin 16.3H, Hematocrit 47, Mean Corpuscular Volume 89, Mean Corpuscular Hemoglobin 31, Mean Corpuscular Hemoglobin Concent 35, Red Cell Distribution Width 12.6, Platelet Count 223, Mean Platelet Volume 10.0, Immature Granulocyte % (Auto) 0, Neutrophils (%) (Auto) 81H, Lymphocytes (%) (Auto) 5L, Monocytes (%) (Auto) 13H, Eosinophils (%) (Auto) 0, Basophils (%) (Auto) 0, Neutrophils # (Auto) 13.6H, Lymphocytes # (Auto) 0.9L, Monocytes # (Auto) 2.2H, Eosinophils # (Auto) 0.1, Basophils # (Auto) 0.0, Immature Granulocyte # (Auto) 0.1, Neutrophils % (Manual) 81, Lymphocytes % (Manual) 3, Monocytes % (Manual) 13, Eosinophils % (Manual) 0, Basophils % (Manual) 0, Band Neutrophils 3, Blood Morphology Comment NORMAL, Sodium Level 137, Potassium Level 3.6, Chloride Level 104, Carbon Dioxide Level 22, Anion Gap 11, Blood Urea Nitrogen 21H, Creatinine 0.78, Estimat Glomerular Filtration Rate 84, BUN/Creatinine Ratio 27, Glucose Level 119H, Calcium Level 8.1L, Corrected Calcium 9.0, Magnesium Level 2.1, Total Bilirubin 1.7H, Asp artate Amino Transf (AST/SGOT) 29, Alanine Aminotransferase (ALT/SGPT) 19, Alkaline Phosphatase 43, Total Protein 5.7L, Albumin 2.9L 11/07/22 05:41: White Blood Count 9.0, Red Blood Count 4.89, Hemoglobin 15.2, Hematocrit 44, Mean Corpuscular Volume 90, Mean Corpuscular Hemoglobin 31, Mean Corpuscular Hemoglobin Concent 34, Red Cell Distribution Width 12.8, Platelet Count 200, Mean Platelet Volume 10.6, Immature Granulocyte % (Auto) 0, Neutrophils (%) (Auto) 63, Lymphocytes (%) (Auto) 20, Monocytes (%) (Auto) 15H, Eosinophils (%) (Auto) 2, Basophils (%) (Auto) 0, Neutrophils # (Auto) 5.7, Lymphocytes # (Auto) 1.8, Monocytes # (Auto) 1.3H, Eosinophils # (Auto) 0.2, Basophils # (Auto) 0.0, Immature Granulocyte # (Auto) 0.0, Sodium Level 140, Potassium Level 3.3L, Chloride Level 106, Carbon Dioxide Level 25, Anion Gap 9, Blood Urea Nitrogen 19H, Creatinine 0.70, Estimat Glomerular Filtration Rate 96, BUN/Creatinine Ratio 27, Glucose Level 93, Calcium Level 8.2L, Corrected Calcium 9.3, Magnesium Level 1.9, Total Bilirubin 1.0, Aspartate Amino Transf (AST/SGOT) 25, Alanine Aminotransferase (ALT/SGPT) 19, Alkaline Phosphatase 36L, Total Protein 5.4L, Albumin 2.6L Microbiology 11/04/22 MRSA Screen - Final, Complete MRSA not isolated Assessment/Plan Assessment/Plan Assessment/Plan Nausea/vomiting, Malaise Partial SBO Ventral hernia Leukocytosis- improved Elevated lipase, AST- improved Elevated bilirubin- improved, likely 2/2 vomiting/nausea Afib w/RVR Elevated troponin- suspected NSTEMI type 2 HTN Anticoagulation Abdominal u/s without acute findings, borderline GB wall thickening at 0.4cm and no stones - not likely to be source n/v Zofran and reglan for nausea MoM for constipation Lipase only mildly elevated, not likely pancreatitis given no abdominal pain Advance diet to liquids NG tube for gastric decompression Continue to monitor labs as hydration continues Cardiology managing Repeat labs in am Ct abd/pelvis c showed SBO with transition point at the site of a ventral hernia Small bowel follow through showed partial obstruction MARILUZ ARENAS DO 11/07/222124: Subjective Subjective/Events-last exam Feeling better today. Ng tube in place. Having flatus and bowel movements. Small bowel follow through reviewed and suggestive of partial obstruction. Contrast did make it to colon at 5 hrous. Wanting NG out and food. D Labs improving. Deneis n/v fever sweats chills shortness of breath or chest pain. Objective Exam General Appearance: No Apparent Distress, Obese, Other (ng) HEENT: PERRL/EOMI, Moist Mucous Membranes Neck: Non Tender, Supple Respiratory: Chest Non Tender, No Accessory Muscle Use, No Respiratory Distress Cardiovascular: Regular Rate, Rhythm, No JVD Gastrointestinal: non tender, soft, hernia (supraumbilical, no tenderness or erythema, non-reducible) Extremity: Normal Capillary Refill, Pedal Edema Neurologic/Psychiatric: Alert, Oriented x3 Skin: Normal Color, Warm/Dry Lymphatic: No Adenopathy Assessment/Plan Assessment/Plan Assessment/Plan Nausea/vomiting, Malaise Partial SBO Ventral hernia Leukocytosis- improved Elevated lipase, AST- improved Elevated bilirubin- improved, likely 2/2 vomiting/nausea Afib w/RVR Elevated troponin- suspected NSTEMI type 2 HTN Anticoagulation Abdominal u/s without acute findings, borderline GB wall thickening at 0.4cm and no stones - not likely to be source n/v Zofran and reglan for nausea MoM for constipation Lipase only mildly elevated, not likely pancreatitis given no abdominal pain Advance diet to liquids NG tube for gastric decompression Continue to monitor labs as hydration continues Cardiology managing Repeat labs in am Ct abd/pelvis c showed SBO with transition point at the site of a ventral hernia Small bowel follow through showed partial obstruction now with bowel function pull ng tube and start on clears Supervisory-Addendum Brief Verification & Attestation Participated in pt care: history, MDM, physical Personally performed: exam, history, MDM, supervision of care Care discussed with: Medical Student Procedures: n/a Results interpretation: Verified all documentation Verification and Attestation of Medical Student E/M Service A medical student performed and documented this service in my presence. I reviewed and verified all information documented by the medical student and made modifications to such information, when appropriate. I personally performed the physical exam and medical decision making. Mariluz Arenas, Nov 07, 2022,21:32 FAUSTO WELSH Nov 07, 2022 07:39 MARILUZ ARENAS DO Nov 07, 2022 21:25
[2022-11-07] MEDS: meTOproloL SUCCINATE 50 MG (TOPROL XL) TAB PO SCH (08:47)
[2022-11-07] MEDS: amLODIPine 10 MG (NORVASC) TAB PO SCH (08:47)
[2022-11-07] MEDS: APIXABAN 5 MG (ELIQUIS) TABLET PO SCH ×2 (08:47→20:54)
[2022-11-07] MEDS: DOCUSATE SODIUM 100 MG (COLACE) CAP PO SCH ×2 (08:47→20:54)
[2022-11-07] MEDS: AMIODARONE 200 MG (CORDARONE) TAB PO SCH ×2 (08:47→20:54)
[2022-11-07] MEDS: SENNOSIDES 8.6 MG (SENOKOT) TAB PO SCH ×2 (08:49→20:54)
--- NOTE | 2022-11-07 10:25 | Progress Note - Hospitalist ---
ARIANA WIGGINS 11/07/22 1025: Subjective HPI/CC On Admission Date Seen by Provider: Nov 07, 2022 Time Seen by Provider: 09:15 Patient is a 67 year old female with a history of hypertension who was admitted for Afib w/ RVR. She reports intermittent N/V, malaise, and weakness for the past 3 days at home. Upon arrival she was in afib with a HR of 210 and hypotensive at 99/76. Her labs were remarkable for the following: Troponin1: 0.069, WBC 18.4, Hgb 19.4, AST 52, Lipase 108, D-dimer 3.96. She was admittted and cardiology was consulted who started the patient on amiodarone, diltiazem, metoprolol, and digoxin and did an elective CV. Since the CV and medications she has returned to sinus rhythm, her HR is within normal limits, and her BP has improved. CXR on admission showed mild to moderate pulmonary congestion and scattered alveolar infiltrates w/out consolidation. Her When seen this morning she was awake in bed and her only complaint at that time was fatigue. She has a barboza in place with clear yellow urine present. Subjective/Events-last exam Patient was awake sitting up in bed when seen this morning. She had a small bowel study yesterday which revealed pt had a partial SBO rather than complete. She has since had 4 BM's and has been passing gas. She had a NG tube yesterday which suctioned 5.4L gastric fluids. Her NG tube has since been removed and patient reports feeling much better. She has been seen by surgery who is allowing her to try a liquid diet today. She still has barboza catheter in place with clear yellow urine present. She denies LH, CP, SOB, abd pain, N/V. Review of Systems General: No Chills HEENT: No Head Aches, No Visual Changes Pulmonary: No Dyspnea, No Cough Cardiovascular: No: Chest Pain, Palpitations Gastrointestinal: No: Nausea, Vomiting, Abdominal Pain Genitourinary: No Dysuria, No Hematuria Neurological: No: Weakness, Numbness Objective Exam Vital Signs Vital Signs Date Time Temp Pulse Resp B/P (MAP) Pulse Ox O2 Delivery O2 Flow Rate FiO2 11/07/22 08:00 36.0 62 16 141/65 (90) 95 Room Air 11/04/22 19:14 21 4/4/23 06:15 Capillary Refill : Less Than 3 Seconds General Appearance: No Apparent Distress, WD/WN, Obese HEENT: PERRL/EOMI, Pharynx Normal, Moist Mucous Membranes Neck: Non Tender, Supple Respiratory: Lungs Clear, Normal Breath Sounds, No Accessory Muscle Use, No Respiratory Distress Cardiovascular: Regular Rate, Rhythm, No Murmur, Normal Peripheral Pulses Gastrointestinal: Normal Bowel Sounds, Non Tender, Soft, Hernia Extremity: Normal Capillary Refill, Non Tender, No Calf Tenderness Neurologic/Psychiatric: Alert, Oriented x3, No Motor/Sensory Deficits Skin: Normal Color, Warm/Dry Lymphatic: No Adenopathy Results/Procedures Lab Laboratory Tests 11/07/22 05:41 Patient resulted labs reviewed. Imaging: Reviewed Imaging Films, Reviewed Imaging Report Radiology NAME: MACEY CRESPO [facility] REC#: [id number] PT STATUS: ADM IN : 1955 PHYSICIAN: MARILUZ SANCHEZ DO ADMIT DATE: 11/04/22 Signed Date of Exam:11/06/22 SMALL BOWEL STUDY ONLY INDICATION: Bowel obstruction. Through the indwelling nasogastric catheter, water-soluble Gastrografin 120 mL and 120 mL water were administered with serial overhead radiographs performed. FINDINGS: Preliminary radiographs showed some mild nonspecific dilatation of air-containing small bowel in the mid abdomen. With contrast administration, there was rapid advancement through the stomach, duodenum, and into the proximal jejunum. At 1 hour, the contrast had reached probably the mid jejunal level. At 2 hours, contrast was still within dilated jejunal segments. At 3 hours, there was contrast within some nondilated distal small bowel loops, and at 5 hours, contrast had reached the nondistended colon. IMPRESSION: Proximally, there was some delayed transit through some dilated small bowel; however, no complete obstruction with contrast reaching the colon 5 hours after administration. No extravasation. Findings suggest a partial obstruction. Dictated by: Dictated on workstation # [id number] Dict: 11/06/22 1700 Trans: 11/06/22 172 [id number] Interpreted by: JOSE SANCHES Electronically signed by: JOSE SANCHES 11/06/22 172 Assessment/Plan Assessment and Plan Assess & Plan/Chief Complaint 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 with RVR -Sinus rhythm currently S/P elective CV and IV amiodarone, Digoxin, metoprolol, and diltiazem. -Currently receiving amiodarone 400mg PO BID. Therapeutic Lovenox 130mg IV BID. Metprolol 50mg PO QD. -Cardiology consulted and recommendations are appreciated Elevated Troponin -Per cardiology, thought to be Type 2 NSTEMI second to RVR. Partial SBO -(11/06) SBO and lower abd ventral hernia with bowel present identified on Ct yesterday. NG tube in place. Bowel rest. Management per surgery. -(11/07) small bowel study revealed partial occlusion. Passing BM's. NG tube removed. Trial liquid diet per surgery. HTN -(11/05) Amlodipine 10mg PO QD, enalapril 2.5mg IV Q6, Hydralazine 10mg Q4 PRN for systolic >160 -(11/07) appear well controlled on above regimen. will monitor. Leukocytosis, elevated lipase -(11/04): WBC elevated at 18.4. Thought to be an acute stress response. No co nsolidation on CXR. Patient is tolerating RA and physical exam was unremarkable. -(11/05) WBC improved to 12.8 w/out abx. Acute stress reponse seems most likely. -(11/06) WBC 16.8. CXR unremarkable today. -(11/07) WBC 9. Resolved. Elevated Lipase -(11/04):Lipase trending down. When paired with leukocytosis could indicate pancreatitits? -(11/05): ultrasound yesterday inconclusive. abd exam continues to be unremarkable. Leukocytosis improving. Could consider Abd CT although feels like may be Viral GI bug Metabolic Acidosis -(11/04): AG 19. Likely secondary to N/V. Will monitor post IVF and resolvement of afib w/ rvr -(11/05): AG 11. resolved. Polycythemia -(11/04): Hgb 19.4 on admission. Likely due to dehydration given N/V the last few days. -(11/05): Hgb 15.8 after IVF confirming likely dehydration upon admission as cause. DVT Proph: Lovenox & SCDs Diet: will advance diet as tolerated MAGGY PATRICIA DO 11/08/22 5100: Supervisory-Addendum Brief Verification & Attestation Participated in pt care: history, MDM, physical Personally performed: exam, history, MDM, supervision of care Care discussed with: Medical Student Procedures: n/a Results interpretation: Verified all documentation Verification and Attestation of Medical Student E/M Service A medical student performed and documented this service in my presence. I reviewed and verified all information documented by the medical student and made modifications to such information, when appropriate. I personally performed the physical exam and medical decision making. Maggy Patricia, Nov 08, 2022,06:23 ARIANA WIGGINS Nov 07, 2022 10:25 MAGGY PATRICIA DO Nov 08, 2022 06:23
--- NOTE | 2022-11-07 10:43 | Physical Therapy Evaluation ---
PT Evaluation-General Medical Diagnosis Admission Date Nov 04, 2022 at 05:32 Medical Diagnosis: a fib, RVR Onset Date: Nov 04, 2022 Therapy Diagnosis Therapy Diagnosis: debility Height/Weight Height (Feet): 5 Height (Inches): 7.00 Weight (Pounds): 298 Weight (Ounces): 0.0 Precautions Precautions/Isolations: Standard Precautions Referral Physician: Rusty Reason for Referral: Evaluation/Treatment Medical History Pertinent Medical History: Atrial Fib, HTN, OA Current History ER secondary to malaise and N/V x 3 days Reviewed History: Yes Social History Home: Single Level Current Living Status: Alone Entry Into Home: Stairs With Railing PT Steps Into Home: 3 PT Steps Inside Home: 13 (basement uses in emergancy only) Prior Prior Level of Function SCALE: Activities may be completed with or without assistive devices. 4-[place]fs[place] completes the activity by him/herself with no assistance from a helper. 5-Set-up or Clean-up Assistance-helper sets up or cleans up; patient completes activity. [place] assists only prior to or following the activity. 4-Supervision or Touching Assistance-helper provides verbal cues and/or touching/steadying and/or contact guard assistance as patient completes activity. Assistance may be provided throughout the activity or intermittently. 3-Partial/Moderate Assistance-helper does LESS THAN HALF the effort. [place] lifts, holds or supports trunk or limbs, but provides less than half the effort. 2-Substantial/Maximal Assistance-helper does MORE THAN HALF the effort. [place] lifts or holds trunk or limbs and provides more than half the effort. 3-Rqtxppttc-ldqlbl does ALL the effort. Patient does none of the effort to complete the activity. Or, the assistance of 2 or more helpers is required for the patient to complete the activity. If activity was not attempted, code reason: 7-Patient Refused. 9-Not Applicable-not attempted and the patient did not perform the activity before the current illness, exacerbation or injury. 10-Not Attempted due to Environmental Limitations-(lack of equipment, weather restraints, etc.). 88-Not Attempted due to Medical Conditions or Safety Concerns. Bed Mobility: 6 Transfers (B,C,W/C): 6 Gait: 6 Stairs: 6 Indoor Mobility (Ambulation): Independent Stairs: Independent Prior Devices Use: None PT Evaluation-Current Subjective Patient agrees to PT. Objective Patient Orientation: Normal For Age ROM/Strength ROM Lower Extremities bilateral LE WFL Strength Lower Extremities 4/5 grossly bilateral LE all planes Integumentary/Posture Integumentary refer to nursing notes Bowel Incontinence: No Bladder Incontinence: No Neuromuscular (Tone, Coordination, Reflexes) grossly intact Sensory Vision: Functional Hearing: Functional Transfers Lying to Sitting/Side of Bed(Q: 6 Sit to Stand (QC): 6 Chair/Pmh-ko-Fugdg Xfer(QC): 6 Gait Mode of Locomotion: Walk Anticipated Mode of Locomotion: Walk Walk 10 feet (QC): 6 Walk 50 ft with 2 Turns(QC): 6 Walk 150 ft (QC): 6 Distance: 300' Gait Assistive Device: FWW Comments/Gait Description safe and functional with no deviation Balance Sitting Static: Normal Sitting Dynamic: Normal Standing Static: Normal Standing Dynamic: Normal Assessment/Needs Patient is currently at independent OF with all gross motor skills and does require skilled PT intervention at this time. Rehab Potential: Fair PT Plan Treatment/Plan Treatment Plan: Discontinue PT, goals met Treatment Duration: Nov 07, 2022 Frequency: 1 time per week Estimated Hrs Per Day: .25 hour per day Patient and/or Family Agrees t: Yes Time Time In: 920 Time Out: 930 DATE: Nov 07, 2022 Total Billed Treatment Time: 10 Total Billed Treatment 1 visit EVModC 10 min MARILEE PARR PT Nov 07, 2022 10:43
--- NOTE | 2022-11-07 10:45 | Occupational Ther Daily Note ---
OT Current Status-Daily Note Subjective Feeling better, up in recliner drinking broth ADL-Treatment Therapy Code Descriptions/Definitions Functional [place] Measure: 0=Not Assessed/NA 4=Minimal Assistance 1=Total Assistance 5=Supervision or Setup 2=Maximal Assistance 6=Modified [place] 3=Moderate Assistance 7=Complete IndependenceSCALE: Activities may be completed with or without assistive devices. 3-Ofpcngygjr-bqxuqmz completes the activity by him/herself with no assistance from a helper. 5-Set-up or Clean-up Assistance-helper sets up or cleans up; patient completes activity. [place] assists only prior to or following the activity. 4-Supervision or Touching Assistance-helper provides verbal cues and/or touching/steadying and/or contact guard assistance as patient completes activity. Assistance may be provided throughout the activity or intermittently. 3-Partial/Moderate Assistance-helper does LESS THAN HALF the effort. [place] lifts, holds or supports trunk or limbs, but provides less than half the effort. 2-Substantial/Maximal Assistance-helper does MORE THAN HALF the effort. [place] lifts or holds trunk or limbs and provides more than half the effort. 4-Prehyomsx-vhwwva does ALL the effort. Patient does none of the effort to complete the activity. Or, the assistance of 2 or more helpers is required for the patient to complete the activity. If activity was not attempted, code reason: 7-Patient Refused. 9-Not Applicable-not attempted and the patient did not perform the activity before the current illness, exacerbation or injury. 10-Not Attempted due to Environmental Limitations-(lack of equipment, weather restraints, etc.). 88-Not Attempted due to Medical Conditions or Safety Concerns. Eating (QC): 5 Oral Hygiene (QC): 6 Shower/Bathe Self (QC): 4 Upper Body Dressing (QC): 6 Lower Body Dressing (QC): 6 On/Off Footwear: 6 Toileting Hygiene (QC): 6 Toilet Transfer (QC): 6 Education OT Patient Education: Energy conservation Teaching Recipient: Patient Teaching Methods: Demonstration, Discussion Response to Teaching: Reinforcement Needed OT Punch Out Crew Member Goals Punch Out Crew Member Goals Eating (QC): 6 Oral Hygiene (QC): 6 Toileting Hygiene (QC): 6 Shower/Bathe Self (QC): 6 Upper Body Dressing (QC): 6 Lower Body Dressing (QC): 6 On/Off Footwear (QC): 6 1=Demonstrate adherence to instructed precautions during ADL tasks. 2=Patient will verbalize/demonstrate understanding of assistive devices/modifications for ADL. 3=Patient will improve strength/tolerance for activity to enable patient to perform ADL's. OT Education/Plan Problem List/Assessment Assessment: Impaired Self-Care Skills Discharge Recommendations Plan/Recommendations: Continue POC Treatment Plan/Plan of Care Patient would benefit from OT for education, treatment and training to promote independence in ADL's, mobility, safety and/or upper extremity function for ADL's. Plan of Care: ADL Retraining, Functional Mobility, Group Exercise/Act as Ind, UE Funct Exercise/Act Treatment Duration: Nov 15, 2022 Frequency: 3 times per week (3-5 times per week) Estimated Hrs Per Day: .25 hour per day Agreement: Yes Rehab Potential: Fair Time Start Time: 10:00 Stop Time: 10:16 DATE: Nov 07, 2022 Total Time Billed (hr/min): 16 Billed Treatment Time ADL 16 min MARCO A RAINEY OT Nov 07, 2022 10:45
--- NOTE | 2022-11-07 13:15 | Progress Note - Cardiology ---
Cardiology SOAP Progress Note Subjective: Feels much better No dysphagia or n/v today No cp or palp or syncope or shortness of breath Malaise and weakness are improving No focal weakness Objective: I&O/Vital Signs 11/07/22 11/07/22 11/07/22 11/07/22 03:54 07:00 08:00 12:00 Temp 36.6 36.0 36.2 Pulse 66 72 62 104 Resp 16 16 21 B/P (MAP) 120/76 (91) 141/65 (90) 134/78 (96) Pulse Ox 96 95 92 O2 Delivery Room Air Room Air Nasal Cannula O2 Flow Rate 7.00 11/07/22 12:45 Temp 36.2 Pulse 63 Resp 21 B/P (MAP) 134/78 (96) Pulse Ox 92 O2 Delivery Room Air 11/06/22 23:59 Intake Total 0 ml Output Total 5330 ml Balance -5330 ml Weight (Pounds): 298 Weight (Ounces): 0.0 Weight (Calculated Kilograms): 135.954023 Constitutional: AAO x 3, well-developed, well-nourished, other (appeared unwell and diaphoretic prior to elec cardioversion) Respiratory: No accessory muscle use; chest expansion is symmetric, chest is bilaterally symmetric, other (fair to good air entry) Cardiovascular: irregularly irregular, S1 and S2, systolic murmur (soft [place] cardiac base) Gastrointestional: No tender; soft; No guarding, No rebound; audible bowel sounds Extremities: No clubbing, No cyanosis, No significant edema Neurologic/Psychiatric: oriented x 3, other (moves all limbs) Skin: No rash on exposed areas, No ulcerations on exposed areas Results/Procedures: Labs Laboratory Tests 11/07/22 05:41: White Blood Count 9.0, Red Blood Count 4.89, Hemoglobin 15.2, Hematocrit 44, Mean Corpuscular Volume 90, Mean Corpuscular Hemoglobin 31, Mean Corpuscular Hemoglobin Concent 34, Red Cell Distribution Width 12.8, Platelet Count 200, Mean Platelet Volume 10.6, Immature Granulocyte % (Auto) 0, Neutrophils (%) (Auto) 63, Lymphocytes (%) (Auto) 20, Monocytes (%) (Auto) 15H, Eosinophils (%) (Auto) 2, Basophils (%) (Auto) 0, Neutrophils # (Auto) 5.7, Lymphocytes # (Auto) 1.8, Monocytes # (Auto) 1.3H, Eosinophils # (Auto) 0.2, Basophils # (Auto) 0.0, Immature Granulocyte # (Auto) 0.0, Sodium Level 140, Potassium Level 3.3L, Chloride Level 106, Carbon Dioxide Level 25, Anion Gap 9, Blood Urea Nitrogen 19H, Creatinine 0.70, Estimat Glomerular Filtration Rate 96, BUN/Creatinine Ratio 27, Glucose Level 93, Calcium Level 8.2L, Corrected Calcium 9.3, Magnesium Level 1.9, Total Bilirubin 1.0, Aspartate Amino Transf (AST/SGOT) 25, Alanine Aminotransferase (ALT/SGPT) 19, Alkaline Phosphatase 36L, Total Protein 5.4L, Albumin 2.6L Microbiology 11/04/22 MRSA Screen - Final, Complete MRSA not isolated Laboratory Tests 11/06/22 08:33 11/07/22 05:41 A/P: Assessment: PAF, hemodynamically unstable at presentation - emergency treatment with iv amio and ext elec cv; she is since maintaining NSR SBO - managed by Med and Surg svces Mildly elevated troponin, type 2 PR due to RVR Hypertension with hypertensive CVD (LVH) - ECG: NSR, LVH - Echo on 11/04/22: LVEF 55-60%, mod conc LVH, grade 1 diastolic dysfunction, moderately dilated LA, PASP could not be determined Hypokalemia on 11/07/22 Plan: * Oral beta-david and amlodipine for control of bp; oral amio for rhythm maintenance * Oral apixaban for stroke prophylaxis * Replenish K * Monitor labs * Ok for d/c from cardiac standpoint * F/u at our office in 2 weeks MYRTLE MORALES MD FACP FAC CCDS Nov 07, 2022 13:15
[2022-11-07] MEDS ORDERED: KCL 20 MEQ TAB (K-DUR) PO NR (13:30)
[2022-11-08] VITALS (8 sets, daily range): BP systolic 117–157; BP diastolic 57–76
[2022-11-08] MEDS: ENALAPRILAT 2.5 MG/2 ML (VASOTEC) VIAL IV SCH ×5 (00:53→23:49)
[2022-11-08 06:10] LABS: BASOPHILS % (AUTO) 0 % (0-10); EOSINOPHILS # (AUTO) 0.3 10^3/uL (0.0-0.3); EOSINOPHILS % (AUTO) 4 % (0-10); HEMATOCRIT 43 % (35-52); LYMPHOCYTES # (AUTO) 2.5 10^3/uL (1.0-4.0); LYMPHOCYTES % (AUTO) 28 % (12-44); MEAN CORPUSCULAR HEMOGLOBIN 31 pg (25-34); MEAN CORPUSCULAR HGB CONC 35 g/dL (32-36); MEAN CORPUSCULAR VOLUME 89 fL (80-99); MEAN PLATELET VOLUME 10.5 fL (9.0-12.2); MONOCYTES # (AUTO) 1.1 10^3/uL (0.0-1.0); MONOCYTES % (AUTO) 13 % (0-12); NEUTROPHILS # (AUTO) 4.8 10^3/uL (1.8-7.8); NEUTROPHILS % (AUTO) 55 % (42-75); PLATELET COUNT 205 10^3/uL (130-400); WHITE BLOOD COUNT 8.7 10^3/uL (4.3-11.0)
[2022-11-08] MEDS: CATHETER FLUSH 10 ML SYR IVP SCH ×3 (06:11→20:13)
[2022-11-08 06:25] LABS: ALBUMIN 2.6 GM/DL (3.2-4.5); POTASSIUM 3.4 MMOL/L (3.6-5.0)
[2022-11-08 06:27] LABS: CALCIUM 7.9 MG/DL (8.5-10.1)
[2022-11-08 06:28] LABS: TOTAL PROTEIN 5.1 GM/DL (6.4-8.2)
[2022-11-08 06:30] LABS: BILIRUBIN,TOTAL 0.9 MG/DL (0.1-1.0)
[2022-11-08 06:31] LABS: CREATININE SERUM 0.67 MG/DL (0.60-1.30)
[2022-11-08 06:34] LABS: MAGNESIUM 1.8 MG/DL (1.6-2.4)
--- NOTE | 2022-11-08 07:29 | Progress Note - Surgery ---
FAUSTO WELSH 11/08/22 0729: Subjective Date Seen by a Provider: Nov 08, 2022 Time Seen by a Provider: 07:10 Subjective/Events-last exam Patient is doing better today. Her nausea has markedly improved even after taking the NG tube out. She had multiple BMs yesterday and has been passing gas this morning. She is ambulating in the halls multiple times a day, voiding with no difficulty. She has no pain. Tolerated clear diet well yesterday. Review of Systems General: No Chills, No Night Sweats HEENT: No Head Aches, No Dysphasia Pulmonary: No Dyspnea, No Cough Cardiovascular: No: Chest Pain, Lt Headedness Gastrointestinal: Nausea (improved); No: Vomiting, Abdominal Pain Genitourinary: No Dysuria, No Frequency Musculoskeletal: No: shoulder pain, back pain Neurological: No: Change in speech, Confusion Objective Exam Vital Signs Date Time Temp Pulse Resp B/P (MAP) Pulse Ox O2 Delivery O2 Flow Rate FiO2 11/08/22 06:10 58 117/73 (88) 11/08/22 03:48 36.4 61 16 120/57 (78) 94 Room Air 11/08/22 01:00 60 11/08/22 00:59 60 120/72 (88) 11/07/22 23:52 36.6 61 16 111/56 (74) 96 Room Air 11/07/22 20:00 Room Air 11/07/22 19:55 37.1 64 18 141/67 (91) 95 Room Air 11/07/22 19:16 36.4 64 96 21 11/07/22 19:15 Room Air 21 11/07/22 19:00 63 11/07/22 15:29 36.4 64 18 137/65 (89) 96 Room Air 11/07/22 13:00 69 11/07/22 12:45 36.2 63 21 134/78 (96) 92 Room Air 11/07/22 12:00 36.2 104 21 134/78 (96) 92 Nasal Cannula 7.00 11/07/22 08:00 36.0 62 16 141/65 (90) 95 Room Air 11/07/22 08:00 Room Air I & O 11/08/22 07:00 Intake Total 1700 ml Output Total 250 ml Balance 1450 ml Capillary Refill : Less Than 3 Seconds General Appearance: No Apparent Distress, Obese HEENT: PERRL/EOMI, Moist Mucous Membranes Neck: Non Tender, Supple Respiratory: Lungs Clear, Normal Breath Sounds, No Accessory Muscle Use, No Respiratory Distress Cardiovascular: Normal Peripheral Pulses, Bradycardia Peripheral Pulses: 2+ Radial Pulses (R), 2+ Radial Pulses (L) Gastrointestinal: non tender, soft, hernia (supraumbilical, no tenderness or erythema, non-reducible) Extremity: Normal Capillary Refill, Non Tender, No Calf Tenderness, Pedal Edema Neurologic/Psychiatric: Alert, Oriented x3 Skin: Normal Color, Warm/Dry Lymphatic: No Adenopathy Results Lab Laboratory Tests 11/08/22 05:48: White Blood Count 8.7, Red Blood Count 4.80, Hemoglobin 15.0, Hematocrit 43, Mean Corpuscular Volume 89, Mean Corpuscular Hemoglobin 31, Mean Corpuscular Hemoglobin Concent 35, Red Cell Distribution Width 12.6, Platelet Count 205, Mean Platelet Volume 10.5, Immature Granulocyte % (Auto) 0, Neutrophils (%) (Auto) 55, Lymphocytes (%) (Auto) 28, Monocytes (%) (Auto) 13H, Eosinophils (%) (Auto) 4, Basophils (%) (Auto) 0, Neutrophils # (Auto) 4.8, Lymphocytes # (Auto) 2.5, Monocytes # (Auto) 1.1H, Eosinophils # (Auto) 0.3, Basophils # (Auto) 0.0, Immature Granulocyte # (Auto) 0.0, Sodium Level 139, Potassium Level 3.4L, Chloride Level 105, Carbon Dioxide Level 26, Anion Gap 8, Blood Urea Nitrogen 12, Creatinine 0.67, Estimat Glomerular Filtration Rate 97, BUN/Creatinine Ratio 18, Glucose Level 107H, Calcium Level 7.9L, Corrected Calcium 9.0, Magnesium Level 1.8, Total Bilirubin 0.9, Aspartate Amino Transf (AST/SGOT) 28, Alanine Aminotransferase (ALT/SGPT) 27, Alkaline Phosphatase 41, Total Protein 5.1L, Albumin 2.6L Microbiology 11/04/22 MRSA Screen - Final, Complete MRSA not isolated Assessment/Plan Assessment/Plan Assessment/Plan Nausea/vomiting, Malaise Partial SBO Ventral hernia Leukocytosis- resolved Elevated lipase, AST- improved Elevated bilirubin- improved, likely 2/2 vomiting/nausea Afib w/RVR Elevated troponin- suspected NSTEMI type 2 HTN Anticoagulation Abdominal u/s without acute findings, borderline GB wall thickening at 0.4cm and no stones - not likely to be source n/v Zofran and reglan for nausea MoM for constipation Lipase only mildly elevated, not likely pancreatitis given no abdominal pain Tolerated clears well, Advance diet to pureed Discontinue NG tube, will place again if needed Continue to monitor labs as hydration continues Cardiology managing Repeat labs in am Ct abd/pelvis c showed SBO with transition point at the site of a ventral hernia Small bowel follow through showed partial obstruction now with bowel function MARILUZ ARENAS DO 11/08/22 1312: Subjective Subjective/Events-last exam Wanting food. Tolerating clears. Flatus and bm. No pain. Denies n/v fever sweats chills shortness of breath or chest pain. Objective Exam General Appearance: No Apparent Distress, Obese HEENT: PERRL/EOMI, Moist Mucous Membranes Neck: Non Tender, Supple Respiratory: Chest Non Tender, No Accessory Muscle Use, No Respiratory Distress Cardiovascular: Regular Rate, Rhythm, No JVD Gastrointestinal: non tender, soft, hernia (supraumbilical, no tenderness or erythema, non-reducible) Extremity: Normal Capillary Refill, Non Tender, Pedal Edema Neurologic/Psychiatric: Alert, Oriented x3 Skin: Normal Color, Warm/Dry Lymphatic: No Adenopathy Assessment/Plan Assessment/Plan Assessment/Plan Nausea/vomiting, Malaise Partial SBO Ventral hernia Leukocytosis- resolved Elevated lipase, AST- improved Elevated bilirubin- improved, likely 2/2 vomiting/nausea Afib w/RVR Elevated troponin- suspected NSTEMI type 2 HTN Anticoagulation Abdominal u/s without acute findings, borderline GB wall thickening at 0.4cm and no stones - not likely to be source n/v Zofran and reglan for nausea MoM for constipation Lipase only mildly elevated, not likely pancreatitis given no abdominal pain Tolerated clears well, Advance diet Cardiology managing Ct abd/pelvis c showed SBO with transition point at the site of a ventral hernia Small bowel follow through showed partial obstruction now with bowel function Advance diet, home soon. Supervisory-Addendum Brief Verification & Attestation Participated in pt care: history, MDM, physical Personally performed: exam, history, MDM, supervision of care Care discussed with: Medical Student Procedures: n/a Results interpretation: Verified all documentation Verification and Attestation of Medical Student E/M Service A medical student performed and documented this service in my presence. I reviewed and verified all information documented by the medical student and made modifications to such information, when appropriate. I personally performed the physical exam and medical decision making. Mariluz Arenas, Nov 08, 2022,13:12 FAUSTO WELSH Nov 08, 2022 07:29 MARILUZ ARENAS DO Nov 08, 2022 13:12
--- NOTE | 2022-11-08 07:40 | ED General ---
General Chief Complaint: Abdominal/GI Problems Stated Complaint: ATRIAL FIBRILLATION W/RAPID VENTRICULAR RESPONSE Nursing Triage Note: PT TO ED IN WC WITH SON WITH C/O N/V BEGINNING THURSDAY NIGHT. PT REPORTS DIZZINESS TONIGHT. SON REPORTS THEY THOUGHT PT HAD FOOD POISONING BECAUSE N/V BEGAN AFTER EATING AT A [employer]. PT WEAK, DIAPHORETIC, DIZZY, NAUSEOUS UPON ARRIVAL. Nursing Sepsis Screen: No Definite Risk Source of Information: Patient, Other (SON) History of Present Illness Date Seen by Provider: Nov 04, 2022 Time Seen by Provider: 03:17 Initial Comments PT ARRIVES VIA POV FROM HOME WITH SON PT STATES SHE STARTED FEELING ILL ON THURSDAY NIGHT 10/31/22 WITH: -NAUSEA/VOMITING -GENERALIZED ABDOMINAL PAIN/CRAMPING -SWEATS -GENERALIZED WEAKNESS -DIZZINESS THOUGHT SHE MIGHT HAVE FOOD POISONING --ATE AT A [employer] IN [place] ON THURSDAY NIGHT, AND BEGAN GETTING SICK LATER THAT EVENING NO DIARRHEA. NORMAL BM 10/31/22 URINATING NORMALLY FELT A LITTLE BIT BETTER ON THURSDAY AND THURSDAY, BUT STILL WITH SYMPTOMS--JUST NOT BACK SYMPTOMS WORSE TONIGHT. NO CHEST PAIN SOME SHORTNESS OF BREATH. NO PALPITATIONS NO HISTORY OF SIMILAR PT HAS HISTORY OF HTN AND KIDNEY STONES SHE HAS HAD PRIOR APPENDECTOMY, HERNIA REPAIR, OVARIAN TORSION / RIGHT OOPHORECTOMY, CATARACT SURGERY, PILONIDAL CYST, BILATERAL KNEE REPLACEMENT. PCP: DR. TORRES, [facility] Allergies and Home Medications Allergies Coded Allergies: No Known Drug Allergies (Unverified , 04/23/16) Patient Home Medication List Home Medication List Reviewed: Yes No Active Prescriptions or Reported Meds Review of Systems Review of Systems Constitutional: see HPI, diaphoresis, dizziness, malaise, weakness EENTM: no symptoms reported Respiratory: see HPI, short of breath Cardiovascular: no symptoms reported; No chest pain, No palpitations, No syncope Gastrointestinal: see HPI, abdominal pain; No diarrhea; loss of appetite, nausea, vomiting Genitourinary: no symptoms reported Musculoskeletal: no symptoms reported Skin: no symptoms reported Psychiatric/Neurological: No Symptoms Reported Hematologic/Lymphatic: No Symptoms Reported Immunological/Allergic: no symptoms reported Past Glfyukf-Wsufnl-Abccfu Hx Patient Social History Tobacco Use?: No Smoking Status: Former Smoker Use of E-Cig and/or Vaping dev: No Substance use?: No Alcohol Use?: Yes Alcohol type: Wine Alcohol Frequency: Rarely Pt feels they are or have been: No Immunizations Up To Date Tetanus Booster (TDap): Unknown Influenza Vaccine Up-to-Date: No; Not Current Seasonal Allergies Seasonal Allergies: No (some) Past Medical History Surgeries: Yes (SEE BELOW) Abdominal, Appendectomy, Eye Surgery, Joint Replacement, Oophorectomy, Orthopedic, Tubal Ligation Respiratory: No (recent sleep study-normal) Cardiac: Yes Hypertension Neurological: No 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) 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: 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 Genitourinary: Yes Kidney Stones Gastrointestinal: Yes (S/P HERNIA REPAIR AND APPENDECTOMY) Abdominal Hernia Musculoskeletal: Yes (BILATERAL KNEE REPLACEMENT) Arthritis Endocrine: No HEENT: Yes Cataract Cancer: No Psychosocial: No Integumentary: Yes (PILONIDAL CYST) Blood Disorders: No Family Medical History Arthritis 19 MOTHER Cardiovascular disease 19 FATHER Cataracts 19 FATHER Dementia 19 FATHER 19 MOTHER Diabetes mellitus 19 FATHER (hypoglycmia) Hypertension 19 MOTHER Heart Disease, Diabetes, Hypertension PAST SURGICAL HISTORY: -CATARACT SURGERY -BILATERAL KNEE REPLACEMENT -PILONIDAL CYST -BILATERAL TUBAL LIGATION -SURGERY 05/2017: ---APPENDECTOMY ---RIGHT OOPHORECTOMY FOR OVARIAN TORSION AND DERMOID CYST ---INCARCERATED HERNIA REPAIR Physical Exam Vital Signs Vital Signs - First Documented 11/04/22 03:21 Temp 36.8 Pulse 210 Resp 14 B/P (MAP) 99/76 (84) Pulse Ox 96 O2 Delivery Room Air Capillary Refill : Less Than 3 Seconds Height, Weight, BMI Height: 5'7.00" Weight: 298lbs. 0.0oz. 135.706103tv; 42.44 BMI Method: General Appearance: Moderate Distress, Obese, Other (VERY LETHARGIC, PALE, PROFUSELY DIAPHORETIC, SLIGHTLY DYSPNEIC ) HEENT: PERRL/EOMI Neck: Normal Inspection Respiratory: Normal Breath Sounds; No Rales, No Rhonci, No Wheezing; Other (SLIGHTLY DYSPNEIC) Cardiovascular: Tachycardia Gastrointestinal: Soft, Tenderness (MILD DIFFUSE TENDERNESS) Back: No CVA Tenderness Extremity: No Pedal Edema Neurologic/Psychiatric: Alert, Oriented x3, No Motor/Sensory Deficits, housefellow II-XII Norm as Tested Skin: Cool, Diaphoresis (PROFUSELY DIAPHORETIC) Procedures/Interventions Patient Education: Explained Benefits, Explained Risks, Pt. Ack. Understanding Agreement on procedure with pt: No Breath Sounds per Auscultation: Clear Heart Sounds per Auscultation: Irregular Airway Exam: Mouth opens >2 fingers SEE NURSING NOTES FOR DETAILS Additional Procedures: cardioversion/defib Progress SEE NURSING NOTES FOR DETAILS Progress/Results/Core Measures Suspected Sepsis Infection Criteria Present: None Sepsis Screen: No Definite Risk SIRS Temperature: Pulse: 55 Respiratory Rate: 18 Blood Pressure 126 /70 Mean: 88 Laboratory Tests 11/04/22 03:25: INR Comment 1.1 Results/Orders Lab Results Laboratory Tests Test 11/04/22 03:25 11/04/22 05:05 Range/Units White Blood Count 18.4 H 4.3-11.0 10^3/uL Red Blood Count 6.25 H 3.80-5.11 10^6/uL Hemoglobin 19.4 H 11.5-16.0 g/dL Hematocrit 55 H 35-52 % Mean Corpuscular Volume 87 80-99 fL Mean Corpuscular Hemoglobin 31 25-34 pg Mean Corpuscular Hemoglobin Concent 36 32-36 g/dL Red Cell Distribution Width 12.1 10.0-14.5 % Platelet Count 293 130-400 10^3/uL Mean Platelet Volume 10.3 9.0-12.2 fL Immature Granulocyte % (Auto) 0 % Neutrophils (%) (Auto) 69 42-75 % Lymphocytes (%) (Auto) 22 12-44 % Monocytes (%) (Auto) 8 0-12 % Eosinophils (%) (Auto) 0 0-10 % Basophils (%) (Auto) 0 0-10 % Neutrophils # (Auto) 12.7 H 1.8-7.8 10^3/uL Lymphocytes # (Auto) 4.1 H 1.0-4.0 10^3/uL Monocytes # (Auto) 1.4 H 0.0-1.0 10^3/uL Eosinophils # (Auto) 0.1 0.0-0.3 10^3/uL Basophils # (Auto) 0.1 0.0-0.1 10^3/uL Immature Granulocyte # (Auto) 0.1 0.0-0.1 10^3/uL Neutrophils % (Manual) 68 % Lymphocytes % (Manual) 21 % Monocytes % (Manual) 10 % Eosinophils % (Manual) 1 % Blood Morphology Comment NORMAL Prothrombin Time 14.9 H 12.2-14.7 SEC INR Comment 1.1 0.8-1.4 Activated Partial Thromboplast Time 30 24-35 SEC D-Dimer 3.96 H 0.00-0.49 UG/ML Sodium Level 132 L 135-145 MMOL/L Potassium Level 4.9 3.6-5.0 MMOL/L Chloride Level 95 L 98-107 MMOL/L Carbon Dioxide Level 18 L 21-32 MMOL/L Anion Gap 19 H 5-14 MMOL/L Blood Urea Nitrogen 25 H 7-18 MG/DL Creatinine 1.19 0.60-1.30 MG/DL Estimat Glomerular Filtration Rate 51 BUN/Creatinine Ratio 21 Glucose Level 164 H 70-105 MG/DL Calcium Level 9.6 8.5-10.1 MG/DL Corrected Calcium 9.9 8.5-10.1 MG/DL Magnesium Level 2.2 1.6-2.4 MG/DL Total Bilirubin 3.3 H 0.1-1.0 MG/DL Aspartate Amino Transf (AST/SGOT) 52 H 5-34 U/L Alanine Aminotransferase (ALT/SGPT) 34 0-55 U/L Alkaline Phosphatase 58 40-136 U/L Total Creatine Kinase 69 29-168 U/L Creatine Kinase MB 4.3 <6.6 NG/ML Myoglobin 304.4 H 10.0-92.0 NG/ML Troponin I 0.069 H <0.028 NG/ML C-Reactive Protein High Sensitivity 2.06 H 0.00-0.50 MG/DL B-Type Natriuretic Peptide 73.4 <100.0 PG/ML Total Protein 8.4 H 6.4-8.2 GM/DL Albumin 3.6 3.2-4.5 GM/DL Amylase Level 48 25-125 U/L Lipase 108 H 8-78 U/L TSH [place] Testing 1.74 0.35-4.94 UIU/ML Urine Color YELLOW Urine Clarity CLEAR Urine pH 6.0 5-9 Urine Specific Webb <=1.005 1.016-1.022 Urine Protein 1+ H NEGATIVE Urine Glucose (UA) NEGATIVE NEGATIVE Urine Ketones NEGATIVE NEGATIVE Urine Nitrite NEGATIVE NEGATIVE Urine Bilirubin NEGATIVE NEGATIVE Urine Urobilinogen 2.0 < = 1.0 MG/DL Urine Leukocyte Esterase NEGATIVE NEGATIVE Urine RBC (Auto) 2+ H NEGATIVE Urine RBC NONE /HPF Urine WBC NONE /HPF Urine Crystals NONE /LPF Urine Bacteria NEGATIVE /HPF Urine Casts PRESENT /LPF Urine Hyaline Casts 0-2 H /LPF Urine Mucus NEGATIVE /LPF Urine Culture Indicated NO My Orders Orders - DANIEL NOBLE DO Ed Iv/Invasive Line Start (11/04/22 03:18) Ekg Tracing (11/04/22 03:18) Monitor-Rhythm Ecg Trace Only (11/04/22 03:18) Amylase (11/04/22 03:18) Cbc With Automated Diff (11/04/22 03:18) Comprehensive Metabolic Panel (11/04/22 03:18) Creatine Kinase (11/04/22 03:18) Creatine Kinase Mb (11/04/22 03:18) Hs C Reactive Protein (11/04/22 03:18) Lipase (11/04/22 03:18) Magnesium (11/04/22 03:18) Ua Culture If Indicated (11/04/22 03:18) Troponin I [place]ran (11/04/22 03:18) Ed Iv/Invasive Line Start (11/04/22 03:18) Lactated Ringers (Lr 1000 Ml Iv Solution (11/04/22 03:30) Ondansetron Injection (Zofran Injectio (11/04/22 03:30) Adenosine Injection (Adenocard Injection (11/04/22 03:26) Adenosine Injection (Adenocard Injection (11/04/22 03:27) Amiodarone For Bolus (Cordarone Bolus) (11/04/22 03:32) Normal Saline (Ns (Mears Bag)) (11/04/22 03:32) Amiodarone Injection (Cordarone Injectio (11/04/22 03:33) Lactated Ringers (Lr 1000 Ml Iv Solution (11/04/22 03:34) Manual Differential (11/04/22 03:25) Bnp Zachery (11/04/22 03:43) Fibrin Degradation Products (11/04/22 03:43) Protime With Inr (11/04/22 03:43) Partial Thromboplastin Time (11/04/22 03:43) Thyroid Analyzer (11/04/22 03:43) Myoglobin Serum (11/04/22 03:43) Enoxaparin Injection (Lovenox Injection) (11/04/22 03:45) Enoxaparin Injection (Lovenox Injection) (11/04/22 03:45) Chest 1 View, Ap/Pa Only (11/04/22 03:46) Aspirin Chewable Tablet (Baby Aspirin Ch (11/04/22 04:00) Metoclopramide Injection (Reglan Injecti (11/04/22 04:00) Metoclopramide Injection (Reglan Injecti (11/04/22 03:48) Digoxin Injection (Lanoxin Injection) (11/04/22 04:00) Diltiazem Drip Pre-Mix (Cardizem Drip Pr (11/04/22 04:00) Catheter(Urinary) Insert & Ass 03,15 (11/04/22 04:00) Lidocaine 2% (Urojet) (Xylocaine Urojet) (11/04/22 04:00) Propofol Injection (Diprivan Injection) (11/04/22 04:32) Metoprolol Tartrate Injection (Lopressor (11/04/22 04:45) Metoprolol Tartrate Injection (Lopressor (11/04/22 04:39) Metoprolol Succinate (Xl) Tab (Toprol Xl (11/04/22 04:45) Ed Admission (Communication) (11/04/22 04:48) Vital Signs/I&O 11/04/22 11/04/22 11/04/22 11/04/22 03:21 03:47 04:00 04:00 Temp 36.8 Pulse 210 196 165 Resp 14 9 B/P (MAP) 99/76 (84) 113/89 126/116 (119) Pulse Ox 96 100 98 O2 Delivery Room Air OxyMask Room Air O2 Flow Rate 6.00 2.00 11/04/22 11/04/22 11/04/22 11/04/22 04:11 04:29 04:50 05:00 Pulse 174 156 87 Resp 16 B/P (MAP) 123/85 113/64 (80) Pulse Ox 100 98 O2 Delivery OxyMask OxyMask O2 Flow Rate 6.00 6.00 11/04/22 05:00 Pulse Ox 99 O2 Delivery Nasal Cannula O2 Flow Rate 2.00 Capillary Refill : Less Than 3 Seconds Blood Pressure Mean: 88 Point of Care Testing Finger Stick Blood Glucose: 111 Blood Glucose Action Taken: see mar, Lab glucose utilized Progress Note : Progress Note ON ARRIVAL, PT NOTED TO HAVE HR OF 220'S--SVT NOTED ON MONITOR. BP IN 90'S SYSTOLIC ON ARRIVAL. GIVEN: -IV FLUIDS -ASPIRIN -ZOFRAN -REGLAN -LOVENOX -ADENOSINE X 2 DOSES--NO IMPROVEMENT -AMIODARONE BOLUS AND DRIP--RATE DOWN TO 170-'S-180'S, STILL AFIB/RVR -DIGOXIN--NO IMPROVEMENT -CARDIZEM DRIP--NO IMPROVEMENT -ALSO GIVEN FENTANYL AND VERSED FOR CARDIOVERSION BP DROPPED LOW [address] MORALES ARRIVED AND PT CARDIOVERTED X 1 ATTEMPT TO NORMAL SINUS RHYTHM, RATE AROUND 100 BP UP TO >100 SYSTOLIC. VITALS STABLE AT TIME OF ADMIT. PT WILL LIKELY NEED CT CHEST ANGIOGRAM WITH ABDOMEN AND PELVIS, WILL DEFER TO ATTENDING PHYSICIAN AND NUMERICAL CONTROL OPERATOR WHEN PT IS MORE STABLE FROM CARDIAC STANDPOINT. DISCUSSED TEST RESULTS, NEED FOR ADMIT AND PT AND SON ( DR. CRESPO ) AGREE TO PLAN REVIEWED PRIOR RECORDS, ADMITS/H&P'S/CONSULTS/DISCHARGE SUMMARIES, TESTS/PROCEDURES. ECG Initial ECG Impression Date: Nov 04, 2022 Initial ECG Impression Time: 03:27 Initial ECG Rate: 205 Initial ECG Rhythm: SVT (POSSIBLE AFIB/RVR) Initial ECG Intervals OH--N/A QRS 234 QT/QTC 213/314 Initial ECG Comparisson: No Previous ECG Available EKG : EKG Time: 03:31 Rate: 138 Rhythm: A Fib/Flutter (WITH RVR) Intervals OH--N/A QRS 77 QT/QTC 225/306 ECG Impression: Nonspecific Changes Comment EKG #3 AT 0338--RATE 166, AFIB/RVR, NON-SPECIFIC ST SEGMENTS. OH--N/A QRS 96 QT/QTC 242/333 EKG #4 AT 0433--RATE 106, SINUS RHYTHM, WITH PREMATURE ATRIAL BEATS, NON- SPECIFIC ST SEGMENTS [place] 148 QRS 118 QT/QTC 335/397 EKG #5 AT 0436--RATE 110, SINUS TACH, NON-SPECIFIC ST SEGMENTS [place] 112 QRS 91 QT/QTC 342/407 ALL INTERPRETED BY ME Diagnostic Imaging Comments CXR--CHF, PENDING RADIOLOGIST REVIEW Reviewed: Reviewed by Me Critical Care Note Critical Care Start Time: 03:17 Stop Time: 05:30 Total Time (minutes) 133 Progress SEE NURSING NOTES FOR DETAILS. Departure Communication (Admissions) 0349--SPOKE WITH DR. MORALES, RECOMMENDATIONS NOTED, HE WILL BE IN TO SEE PT 0418--DR. MORALES HERE. 0440--SPOKE WITH DR. PATRICIA, HOSPITALIST FOR [facility], ACCEPTS PT FOR ADMIT. Impression Primary Impression: Atrial fibrillation with rapid ventricular response Additional Impressions: Nausea and vomiting Abdominal pain Cardiogenic shock Elevated troponin Leukocytosis Dehydration MILDLY ELEVATED LIPASE Hyperglycemia Disposition: ADMITTED INPATIENT Condition: Stable Admissions Decision to Admit Reason: Admit from ER (General) Decision to Admit/Date: Nov 04, 2022 Time/Decision to Admit Time: 04:40 Departure-Patient Inst. Referrals: MARTHA TORRES MD (PCP) Primary Care Physician Scripts No Active Prescriptions or Reported Meds DANIEL NOBLE DO Nov 08, 2022 07:40
[2022-11-08] MEDS: amLODIPine 10 MG (NORVASC) TAB PO SCH (08:20)
[2022-11-08] MEDS: APIXABAN 5 MG (ELIQUIS) TABLET PO SCH ×2 (08:20→20:13)
[2022-11-08] MEDS: DOCUSATE SODIUM 100 MG (COLACE) CAP PO SCH ×2 (08:20→20:13)
[2022-11-08] MEDS: SENNOSIDES 8.6 MG (SENOKOT) TAB PO SCH ×2 (08:20→20:13)
[2022-11-08] MEDS: AMIODARONE 200 MG (CORDARONE) TAB PO SCH ×2 (08:20→20:13)
[2022-11-08] MEDS: meTOproloL SUCCINATE 50 MG (TOPROL XL) TAB PO SCH (08:57)
--- NOTE | 2022-11-08 09:14 | Cardiology Progress Note ---
Subjective Date Seen by Provider: Nov 08, 2022 Time Seen by Provider: 09:10 Subjective/Events-last exam Patient was seen at bedside, sitting comfortably, feeling better. No new complaint. No chest pain. Review of Systems General: No Chills, No Night Sweats, No Fatigue, No Malaise, No Appetite, No Other HEENT: No Head Aches, No Visual Changes, No Eye Pain, No Ear Pain, No Dysphasia, No Sinus Congestion, No Post Nasal Drip, No Sore Throat, No Other Pulmonary: No Dyspnea, No Cough, No Pleuritic Chest Pain, No Other Cardiovascular: No: Chest Pain, Palpitations, Orthopnea, Paroxysmal Noc. Dyspnea, Edema, Lt Headedness, Other Objective-Cardiology Exam Last Set of Vital Signs Vital Signs 11/07/22 11/08/22 11/08/22 19:16 07:33 07:56 Temp 36.4 Pulse 55 Resp 18 B/P (MAP) 126/70 (88) Pulse Ox 97 O2 Delivery Room Air O2 Flow Rate 7.00 FiO2 21 I&O Intake and Output 11/08/22 00:00 Intake Total 1500 ml Output Total 1250 ml Balance 250 ml Intake Oral 1500 ml Output Urine Total 650 ml Gastric Drainage Total 600 ml # Voids 4 # Bowel Movements 2 General: Alert, Oriented X3, Cooperative HEENT: Atraumatic, PERRLA Neck: Supple, No JVD, No Thyromegaly Lungs: Clear to Auscultation, Normal Air Movement Heart: Regular Rate, Normal S1, Normal S2, No Murmurs Abdomen: Normal Bowel Sounds, Soft, No Tenderness, No Hepatosplenomegaly, No Masses Extremities: No Clubbing, No Cyanosis, No Edema, Normal Pulses, No Tenderness/Swelling Skin: No Rashes, No Breakdown, No Significant Lesion Neuro: Normal Gait, Normal Speech, Strength at 5/5 X4 Ext, Normal Tone, Sens ation Intact Psych/Mental Status: Mental Status NL, Mood NL Results Lab Laboratory Tests 11/08/22 05:48 A/P-Cardiology Admission Diagnosis Paroxysmal atrial fibrillation Type II myocardial infarction Small bowel obstruction Hypokalemia Assessment/Plan Paroxysmal atrial fibrillation, currently in sinus rhythm Underwent electrical cardioversion and loaded with amiodarone Currently in sinus bradycardia, hold metoprolol Continue on amiodarone and monitor CHADVASC score 2, maintained on Eliquis Small bowel obstruction, improving, tolerating liquid diet Managed by Dr. Arenas, continue to monitor Mild elevation in troponin, probably type II myocardial infarction secondary to tachycardia Underlying coronary artery disease cannot be excluded, consider stress test as an outpatient Hypertension with hypertensive heart disease Had LVH on EKG 2D echo was done on November 04, 2022 with ejection fraction 55 to 60%, moderate LVH, grade 1 diastolic dysfunction, dilated left atrium, PA pressure could not be evaluated Hypokalemia, persistent, being replaced Chronic pedal edema, using compression socks as an outpatient. MIA RAMIREZ MD Nov 08, 2022 09:14
[2022-11-08] MEDS ORDERED: KCL 20 MEQ TAB (K-DUR) PO NR (09:30)
[2022-11-08] MEDS ORDERED: SCOPOLAMINE PATCH REMOVAL TP ONE (11:30)
--- NOTE | 2022-11-08 12:37 | Progress Note - Hospitalist ---
Subjective HPI/CC On Admission Date Seen by Provider: Nov 08, 2022 Time Seen by Provider: 11:00 Patient is a 67 year old female with a history of hypertension who was admitted for Afib w/ RVR. She reports intermittent N/V, malaise, and weakness for the past 3 days at home. Upon arrival she was in afib with a HR of 210 and hypotensive at 99/76. Her labs were remarkable for the following: Troponin1: 0.069, WBC 18.4, Hgb 19.4, AST 52, Lipase 108, D-dimer 3.96. She was admittted and cardiology was consulted who started the patient on amiodarone, diltiazem, metoprolol, and digoxin and did an elective CV. Since the CV and medications she has returned to sinus rhythm, her HR is within normal limits, and her BP has improved. CXR on admission showed mild to moderate pulmonary congestion and scattered alveolar infiltrates w/out consolidation. Her When seen this morning she was awake in bed and her only complaint at that time was fatigue. She has a barboza in place with clear yellow urine present. Subjective/Events-last exam Much improved No falls Eating regular diet for lunch Family at bedside Review of Systems General: Fatigue, Malaise Objective Exam Vital Signs Vital Signs Date Time Temp Pulse Resp B/P (MAP) Pulse Ox O2 Delivery O2 Flow Rate FiO2 11/08/22 19:57 67 11/08/22 19:28 36.3 16 157/76 (103) 97 Room Air 11/08/22 09:12 0.00 11/07/22 19:16 21 Capillary Refill : Less Than 3 Seconds General Appearance: No Apparent Distress, WD/WN, Chronically ill Respiratory: Lungs Clear, Normal Breath Sounds Cardiovascular: Regular Rate, Rhythm Neurologic/Psychiatric: Alert, Oriented x3 Results/Procedures Lab Laboratory Tests 11/08/22 05:48 Patient resulted labs reviewed. Imaging: Reviewed Imaging Films, Reviewed Imaging Report Assessment/Plan Assessment and Plan Assess & Plan/Chief Complaint Assessment: New onset AF HTN OOC Partial SBO due to hernia HTN Plan: Advanced diet Critical Care Critically Ill Patient PATRICIADORA PADILLAFernando HAMMOND Nov 08, 2022 12:37
[2022-11-09 04:00] VITALS: BP 124/76
[2022-11-09 05:18] LABS: BASOPHILS % (AUTO) 1 % (0-10); EOSINOPHILS # (AUTO) 0.2 10^3/uL (0.0-0.3); EOSINOPHILS % (AUTO) 3 % (0-10); HEMATOCRIT 44 % (35-52); HEMOGLOBIN 15.3 g/dL (11.5-16.0); LYMPHOCYTES # (AUTO) 2.6 10^3/uL (1.0-4.0); LYMPHOCYTES % (AUTO) 33 % (12-44); MEAN CORPUSCULAR HEMOGLOBIN 31 pg (25-34); MEAN CORPUSCULAR HGB CONC 35 g/dL (32-36); MEAN CORPUSCULAR VOLUME 90 fL (80-99); MEAN PLATELET VOLUME 10.2 fL (9.0-12.2); MONOCYTES # (AUTO) 0.9 10^3/uL (0.0-1.0); MONOCYTES % (AUTO) 12 % (0-12); NEUTROPHILS # (AUTO) 4.1 10^3/uL (1.8-7.8); NEUTROPHILS % (AUTO) 52 % (42-75); PLATELET COUNT 204 10^3/uL (130-400); WHITE BLOOD COUNT 7.9 10^3/uL (4.3-11.0)
[2022-11-09 05:39] LABS: ALBUMIN 2.6 GM/DL (3.2-4.5); BILIRUBIN,TOTAL 0.7 MG/DL (0.1-1.0); CALCIUM 8.1 MG/DL (8.5-10.1); CREATININE SERUM 0.67 MG/DL (0.60-1.30); MAGNESIUM 1.7 MG/DL (1.6-2.4); POTASSIUM 3.8 MMOL/L (3.6-5.0); TOTAL PROTEIN 5.3 GM/DL (6.4-8.2)
[2022-11-09] MEDS: ENALAPRILAT 2.5 MG/2 ML (VASOTEC) VIAL IV SCH (06:19)
[2022-11-09] MEDS: CATHETER FLUSH 10 ML SYR IVP SCH (06:26)
--- NOTE | 2022-11-09 07:37 | Progress Note - Surgery ---
MONTSENIRALIDESIRE Ashby 11/09/22 0737: Subjective Date Seen by a Provider: Nov 09, 2022 Time Seen by a Provider: 07:20 Subjective/Events-last exam Pt is resting comfortably in bed. Pt states that she feels good today and reports no pain. Tolerated diet without issue and has been able to ambulate without issue. Continues to void, no BM today but does note lots of flatus.Notes multiple BMs yesterday. Pt has no complaints at this time and states that she would like to go home today if possible. Pt denies nausea, vomiting, CP, SOB, abd pain, chills, hematuria, dysuria, and cough. Review of Systems General: No Chills, No Night Sweats HEENT: No Head Aches, No Eye Pain Pulmonary: No Dyspnea, No Cough Cardiovascular: No: Chest Pain, Lt Headedness Gastrointestinal: No: Nausea, Vomiting, Abdominal Pain Genitourinary: No Dysuria, No Hematuria Musculoskeletal: No: neck pain, shoulder pain Neurological: No: Weakness, Numbness Objective Exam Vital Signs Date Time Temp Pulse Resp B/P (MAP) Pulse Ox O2 Delivery O2 Flow Rate FiO2 11/09/22 04:00 36.0 63 16 124/76 (92) 95 Room Air 11/09/22 01:19 64 11/08/22 23:49 36.0 60 16 130/72 (91) 97 Room Air 11/08/22 20:00 Room Air 11/08/22 19:57 67 11/08/22 19:28 36.3 63 16 157/76 (103) 97 Room Air 11/08/22 15:55 36.9 95 16 143/71 (95) 97 Room Air 11/08/22 13:00 63 11/08/22 11:05 36.6 58 16 129/66 (87) 97 Room Air 11/08/22 09:12 97 Room Air 0.00 11/08/22 07:56 97 Room Air 7.00 11/08/22 07:33 36.4 55 18 126/70 (88) 97 Room Air I & O 11/09/22 07:00 Intake Total 2050 ml Balance 2050 ml Capillary Refill : Less Than 3 Seconds General Appearance: No Apparent Distress, WD/WN HEENT: PERRL/EOMI, Moist Mucous Membranes Neck: Non Tender, Supple Respiratory: Lungs Clear, Normal Breath Sounds, No Accessory Muscle Use, No Respiratory Distress Cardiovascular: Regular Rate, Rhythm, No Gallop, No Murmur Peripheral Pulses: 2+ Radial Pulses (R), 2+ Radial Pulses (L) Gastrointestinal: non tender, soft, hernia (supraumbilical, no tenderness or erythema, non-reducible) Extremity: No Calf Tenderness, Pedal Edema (chronic) Neurologic/Psychiatric: Alert, Oriented x3 Skin: Normal Color, Warm/Dry Lymphatic: No Adenopathy Results Lab Laboratory Tests 11/09/22 05:03: White Blood Count 7.9, Red Blood Count 4.94, Hemoglobin 15.3, Hematocrit 44, Mean Corpuscular Volume 90, Mean Corpuscular Hemoglobin 31, Mean Corpuscular Hemoglobin Concent 35, Red Cell Distribution Width 12.5, Platelet Count 204, Mean Platelet Volume 10.2, Immature Granulocyte % (Auto) 1, Neutrophils (%) (Auto) 52, Lymphocytes (%) (Auto) 33, Monocytes (%) (Auto) 12, Eosinophils (%) (Auto) 3, Basophils (%) (Auto) 1, Neutrophils # (Auto) 4.1, Lymphocytes # (Auto) 2.6, Monocytes # (Auto) 0.9, Eosinophils # (Auto) 0.2, Basophils # (Auto) 0.0, Immature Granulocyte # (Auto) 0.0, Sodium Level 139, Potassium Level 3.8, Chloride Level 106, Carbon Dioxide Level 24, Anion Gap 9, Blood Urea Nitrogen 9, Creatinine 0.67, Estimat Glomerular Filtration Rate 97, BUN/Creatinine Ratio 13, Glucose Level 100, Calcium Level 8.1L, Corrected Calcium 9.2, Magnesium Level 1.7, Total Bilirubin 0.7, Aspartate Amino Transf (AST/SGOT) 33, Alanine Aminotransferase (ALT/SGPT) 32, Alkaline Phosphatase 46, Total Protein 5.3L, Albumin 2.6L Microbiology 11/04/22 MRSA Screen - Final, Complete MRSA not isolated Assessment/Plan Assessment/Plan Assessment/Plan Nausea/vomiting, Malaise Partial SBO Ventral hernia Leukocytosis- resolved Elevated lipase, AST- improved Elevated bilirubin- improved, likely 2/2 vomiting/nausea Afib w/RVR Elevated troponin- suspected NSTEMI type 2 HTN Anticoagulation Abdominal u/s without acute findings, borderline GB wall thickening at 0.4cm and no stones - not likely to be source n/v Lipase was only mildly elevated, not likely pancreatitis given no abdominal pain Cardiology managing afib with RvR Ct abd/pelvis c showed SBO with transition point at the site of a ventral hernia Small bowel follow through showed partial obstruction, now with bowel function Pt tolerated regular diet without issue and continues to have flatus. Abd soft, non-tender, and without distension on exam. No surgical indications at this time. Will defer to cardiology and medicine regarding when to DC Continue anti-emetics prn MARILUZ ARENAS DO 11/09/22 4024: Subjective Subjective/Events-last exam Feeling well. Having bowel function. No abdominal pain. No n/v. Tolerating diet. Denies n/v fever sweats chills shortness of breath or chest pain. Objective Exam General Appearance: No Apparent Distress, Obese HEENT: PERRL/EOMI, Normal ENT Inspection Neck: Non Tender, Supple Respiratory: Chest Non Tender, No Accessory Muscle Use, No Respiratory Distress Cardiovascular: Regular Rate, Rhythm, No JVD Gastrointestinal: non tender, soft, hernia (incisionall, no tenderness or erythema, non-reducible) Extremity: No Calf Tenderness, Pedal Edema (chronic) Neurologic/Psychiatric: Alert, Oriented x3 Skin: Normal Color, Warm/Dry Lymphatic: No Adenopathy Assessment/Plan Assessment/Plan Assessment/Plan Nausea/vomiting, Malaise Partial SBO Ventral Incisional hernia Leukocytosis- resolved Elevated lipase, AST- improved Elevated bilirubin- improved, likely 2/2 vomiting/nausea Afib w/RVR Elevated troponin- suspected NSTEMI type 2 HTN Anticoagulation Abdominal u/s without acute findings, borderline GB wall thickening at 0.4cm and no stones - not likely to be source n/v Lipase was only mildly elevated, not likely pancreatitis given no abdominal pain Cardiology managing afib with RvR Ct abd/pelvis c showed SBO with transition point at the site of a ventral hernia Small bowel follow through showed partial obstruction, now with bowel function Pt tolerated regular diet without issue and continues to have flatus. Abd soft, non-tender, and without distension on exam. No surgical indications at this time. Will defer to cardiology and medicine regarding when to DC Supervisory-Addendum Brief Verification & Attestation Participated in pt care: history, MDM, physical Personally performed: exam, history, MDM, supervision of care Care discussed with: Medical Student Procedures: n/a Results interpretation: Verified all documentation Verification and Attestation of Medical Student E/M Service A medical student performed and documented this service in my presence. I reviewed and verified all information documented by the medical student and made modifications to such information, when appropriate. I personally performed the physical exam and medical decision making. Mariluz Arenas, Nov 09, 2022,22:54 DESIRE KIMBLE Nov 09, 2022 07:37 MARILUZ ARENAS DO Nov 09, 2022 22:54
[2022-11-09 07:51] VITALS: BP 152/72
[2022-11-09] MEDS: amLODIPine 10 MG (NORVASC) TAB PO SCH (08:11)
[2022-11-09] MEDS: AMIODARONE 200 MG (CORDARONE) TAB PO SCH (08:11)
[2022-11-09] MEDS: APIXABAN 5 MG (ELIQUIS) TABLET PO SCH (08:12)
[2022-11-09] MEDS: SENNOSIDES 8.6 MG (SENOKOT) TAB PO SCH (08:12)
[2022-11-09] MEDS: DOCUSATE SODIUM 100 MG (COLACE) CAP PO SCH (08:12)
[2022-11-09] MEDS ORDERED: LOSARTAN 50 MG (COZAAR) TAB PO SCH (09:00)
[2022-11-09] MEDS ORDERED: AMIO200T65 PO (09:41)
[2022-11-09] MEDS ORDERED: APIX5TAB PO (09:41)
[2022-11-09] MEDS ORDERED: LOSA50TA63 PO (09:41)
[2022-11-09] MEDS ORDERED: AMLO-251 PO (09:41)
--- NOTE | 2022-11-09 09:44 | Discharge Summary ---
Discharge Summary Hospital Course Was the Problem List Reviewed?: Yes Problems/Dx: (1) Atrial fibrillation with rapid ventricular response (2) Elevated troponin Status: Acute (3) Incisional hernia Qualifiers: Qualified Codes: K43.2 - Incisional hernia without obstruction or gangrene (4) Nausea and vomiting Status: Acute (5) Abdominal pain Status: Acute (6) Leukocytosis Status: Acute (7) Dehydration Status: Acute Hospital Course Date of Admission: Nov 04, 2022 at 05:32 Admission Diagnosis : Family Physician/Provider: Lashawn Whiting MD Date of Discharge: 11/09/22 Discharge Diagnosis: [ ] Hospital Course: Lengthy course after she presented to the ER with severe refractory AF RVR requiring Amio and Cardizem infusions then required cardioversion under Dr Aly's supervision. ABd pain and N/V occurred requiring general surgery consult and CT revealed incisional hernia obstruction so that was managed conservatively and ultimately advanced diet and AF remained stable and was DC in improved condition. Labs and Pending Lab Test: Laboratory Tests 11/09/22 05:03: White Blood Count 7.9, Red Blood Count 4.94, Hemoglobin 15.3, Hematocrit 44, Me an Corpuscular Volume 90, Mean Corpuscular Hemoglobin 31, Mean Corpuscular Hemoglobin Concent 35, Red Cell Distribution Width 12.5, Platelet Count 204, Mean Platelet Volume 10.2, Immature Granulocyte % (Auto) 1, Neutrophils (%) (Auto) 52, Lymphocytes (%) (Auto) 33, Monocytes (%) (Auto) 12, Eosinophils (%) (Auto) 3, Basophils (%) (Auto) 1, Neutrophils # (Auto) 4.1, Lymphocytes # (Auto) 2.6, Monocytes # (Auto) 0.9, Eosinophils # (Auto) 0.2, Basophils # (Auto) 0.0, Immature Granulocyte # (Auto) 0.0, Sodium Level 139, Potassium Level 3.8, Chloride Level 106, Carbon Dioxide Level 24, Anion Gap 9, Blood Urea Nitrogen 9, Creatinine 0.67, Estimat Glomerular Filtration Rate 97, BUN/Creatinine Ratio 13, Glucose Level 100, Calcium Level 8.1L, Corrected Calcium 9.2, Magnesium Level 1.7, Total Bilirubin 0.7, Aspartate Amino Transf (AST/SGOT) 33, Alanine Aminotransferase (ALT/SGPT) 32, Alkaline Phosphatase 46, Total Protein 5.3L, Albumin 2.6L Microbiology 11/04/22 MRSA Screen - Final, Complete MRSA not isolated Home Meds Active Losartan Potassium 50 Mg Tablet 50 Mg PO DAILY Amlodipine Besylate 10 Mg Tablet 10 Mg PO DAILY Amiodarone HCl 200 Mg Tablet 400 Mg PO BID Eliquis (Apixaban) 5 Mg Tablet 5 Mg PO BID Assessment/Pt Instructions PCP this week Discharge Planning: <30 minutes discharge planning Discharge Instructions Discharge Diet: No Restrictions Discharge Physical Examination Vital Signs Vital Signs Date Time Temp Pulse Resp B/P (MAP) Pulse Ox O2 Delivery O2 Flow Rate FiO2 11/09/22 08:00 63 11/09/22 08:00 Room Air 11/09/22 07:51 36.4 20 152/72 (98) 95 11/08/22 09:12 0.00 11/07/22 19:16 21 General Appearance: No Apparent Distress, WD/WN Allergies: Coded Allergies: No Known Drug Allergies (Unverified , 04/23/16) Discharge Summary Date of Admission Nov 04, 2022 at 05:32 Date of Discharge Discharge Date: Nov 09, 2022 Admission Diagnosis AF RVR HTN N/V Elevated troponin Elevated d-dimer Discharge Diagnosis Assessment: New onset AF HTN OOC Partial SBO due to hernia HTN Plan: Advanced diet MISHA PATRICIA DO Nov 09, 2022 09:44
--- NOTE | 2022-11-09 10:16 | Cardiology Progress Note ---
Subjective Date Seen by Provider: Nov 09, 2022 Time Seen by Provider: 10:15 Subjective/Events-last exam Patient was seen at bedside, sitting comfortably Asking to go home No new complaint Review of Systems General: No Chills, No Night Sweats, No Fatigue, No Malaise, No Appetite, No Other HEENT: No Head Aches, No Visual Changes, No Eye Pain, No Ear Pain, No Dysphasia, No Sinus Congestion, No Post Nasal Drip, No Sore Throat, No Other Pulmonary: No Dyspnea, No Cough, No Pleuritic Chest Pain, No Other Cardiovascular: Edema; No: Chest Pain, Palpitations, Orthopnea, Paroxysmal Noc. Dyspnea, Lt Headedness, Other Objective-Cardiology Exam Last Set of Vital Signs Vital Signs 11/07/22 11/08/22 11/09/22 11/09/22 19:16 09:12 07:51 08:00 Temp 36.4 Pulse 63 Resp 20 B/P (MAP) 152/72 (98) Pulse Ox 95 O2 Delivery Room Air O2 Flow Rate 0.00 FiO2 21 I&O Intake and Output 11/09/22 00:00 Intake Total 1850 ml Balance 1850 ml Intake Oral 1850 ml # Voids 8 General: Alert, Oriented X3, Cooperative HEENT: Atraumatic, PERRLA Neck: Supple, No JVD, No Thyromegaly Lungs: Clear to Auscultation, Normal Air Movement Heart: Regular Rate, Normal S1, Normal S2, No Murmurs Abdomen: Normal Bowel Sounds, Soft, No Tenderness, No Hepatosplenomegaly, No Masses Extremities: No Clubbing, No Cyanosis, Normal Pulses, No Tenderness/Swelling, Other (Pedal edema) Skin: No Rashes, No Breakdown, No Significant Lesion Neuro: Normal Gait, Normal Speech, Strength at 5/5 X4 Ext, Normal Tone, Sensation Intact Psych/Mental Status: Mental Status NL, Mood NL Results Lab Laboratory Tests 11/09/22 05:03 A/P-Cardiology Admission Diagnosis Paroxysmal atrial fibrillation Type II myocardial infarction Small bowel obstruction Hypokalemia Assessment/Plan Paroxysmal atrial fibrillation, currently in sinus rhythm Underwent electrical cardioversion and loaded with amiodarone Currently in sinus bradycardia, hold metoprolol Continue on amiodarone loading oral dose. Educated about the dose of amiodarone CHADVASC score 2, maintained on Eliquis Small bowel obstruction, improving, tolerating liquid diet Managed by Dr. Arenas, continue to monitor Mild elevation in troponin, probably type II myocardial infarction secondary to tachycardia Underlying coronary artery disease cannot be excluded, consider stress test as an outpatient Hypertension with hypertensive heart disease Had LVH on EKG 2D echo was done on November 04, 2022 with ejection fraction 55 to 60%, moderate LVH, grade 1 diastolic dysfunction, dilated left atrium, PA pressure could not be evaluated Intolerant to beta-david due to bradycardia, adding losartan 50 mg daily and monitor Hypokalemia, persistent, being replaced Monitor potassium Chronic pedal edema, using compression socks as an outpatient. MIA RAMIREZ MD Nov 09, 2022 10:16
[2022-11-09 11:50] VITALS: BP 161/81
[2022-11-09 12:52] VITALS: BP 161/81
== END 2022-11-09 12:50 | disposition home or self-care (01) | DRG 281 ==
LOC: EDUNIT# 03:13 → ER 03:15 → ICU 05:32 → 4TH 11-05 12:58
PROVIDERS: ADMIT Internal Medicine; ATTEND Internal Medicine
PROC: 5A2204Z Restoration of Cardiac Rhythm, Single (ICD-10-PCS; principal; 2022-11-04)
PROC: 0D9670Z Drainage of Stomach with Drainage Device, Via Natural or Artificial Opening (ICD-10-PCS; 2022-11-06)
DX: I48.0 Paroxysmal atrial fibrillation (principal); I21.A1 Myocardial infarction type 2; E87.20 Acidosis, unspecified; K43.0 Incisional hernia with obstruction, without gangrene; I11.9 Hypertensive heart disease without heart failure; R73.9 Hyperglycemia, unspecified; R00.1 Bradycardia, unspecified; E86.0 Dehydration; D75.1 Secondary polycythemia; K59.00 Constipation, unspecified; E87.6 Hypokalemia; M19.90 Unspecified osteoarthritis, unspecified site; I95.9 Hypotension, unspecified; D72.829 Elevated white blood cell count, unspecified; Z87.891 Personal history of nicotine dependence; R53.81 Other malaise; R53.1 Weakness
CPT/HCPCS: 36415; 51702; 71045; 71260; 74177; 74250; 76700; 80053; 81000; 82150; 82550; 82553; 82947; 83690; 83735; 83874; 83880; 84100; 84443; 84484; 85007; 85025; 85027; 85379; 85610; 85730; 86141; 87081; 93005; 93041; 93306; 94760

== ENCOUNTER → 2022-12-04 | Outpatient (CLI) | payer MEDICARE, OTHER ==
[~2022-12-04] MED LIST changes: +AMIO200T65 PO; +AMLO-251 PO; +APIX5TAB PO; +LOSA50TA63 PO
[2022-12-04 08:31] LABS: HEMATOCRIT 41 % (35-52); HEMOGLOBIN 14.1 g/dL (11.5-16.0); MEAN CORPUSCULAR HEMOGLOBIN 31 pg (25-34); MEAN CORPUSCULAR HGB CONC 35 g/dL (32-36); MEAN CORPUSCULAR VOLUME 90 fL (80-99); PLATELET COUNT 346 10^3/uL (130-400); WHITE BLOOD COUNT 7.9 10^3/uL (4.3-11.0)
[2022-12-04 08:48] LABS: ALBUMIN 2.9 GM/DL (3.2-4.5); POTASSIUM 3.7 MMOL/L (3.6-5.0)
[2022-12-04 08:50] LABS: TOTAL PROTEIN 6.7 GM/DL (6.4-8.2)
[2022-12-04 08:52] LABS: BILIRUBIN,TOTAL 0.7 MG/DL (0.1-1.0)
[2022-12-04 08:54] LABS: CREATININE SERUM 0.87 MG/DL (0.60-1.30)
[2022-12-04 08:57] LABS: MAGNESIUM 1.8 MG/DL (1.6-2.4)
== END ==
LOC: LAB 08:19
PROVIDERS: ATTEND Internal Medicine Cardiovascular Disease
DX: I48.0 Paroxysmal atrial fibrillation (principal); I10 Essential (primary) hypertension; G47.33 Obstructive sleep apnea (adult) (pediatric)
CPT/HCPCS: 36415; 80053; 80061; 83735; 84443; 85027

== ENCOUNTER → 2022-12-16 | Outpatient (CLI) | payer MEDICARE, OTHER ==
[~2022-12-16] VITALS: Ht 170 cm; Wt 120.0 kg
[~2022-12-16] MED LIST changes: +CATHETER FLUSH 10 ML SYR IVP PRN; +REGADENOSON 0.4 MG/5 ML SYR (LEXISCAN) IV ONE
[2022-12-16 09:11] VITALS: BP 168/92
--- NOTE | 2022-12-17 11:04 | STRESS TEST ---
DATE OF SERVICE: 12/16/2022 RESTING AND POST REGADENOSON TECHNETIUM-99M TETROFOSMIN SPECT CT IMAGING ORDERING PHYSICIAN: Dr. Aly. PRIMARY PHYSICIAN: Dr. Javier. CLINICAL DIAGNOSIS: Paroxysmal atrial fibrillation. Baseline images were carried out after injection of 10.62 mCi of technetium-99m tetrofosmin. This was followed by 0.4 mg regadenoson and 30.7 mCi of technetium-99m tetrofosmin for stress imaging. The electrocardiogram showed sinus rhythm at baseline. There was a subtle, nonspecific ST-T abnormality. The electrocardiogram did not change significantly with the regadenoson infusion. Gated images show normal global left ventricular systolic function with normal regional wall motion. Left ventricular ejection fraction is calculated to be 71%. CONCLUSIONS: 1. No evidence of any significant myocardial ischemia or infarction on this study. 2. Normal regional wall motion. 3. Normal global left ventricular systolic function with a calculated ejection fraction of 71%. Job ID: [id number] DocumentID: [id number] Dictated Date: 12/17/2022 09:26:24 [employer] Clerk Date: 12/17/2022 11:02:00 Dictated By: MYRTLE ALY MD; MA; FACP; FACC;
== END ==
LOC: CARD 07:18
PROVIDERS: ATTEND Internal Medicine Cardiovascular Disease
DX: I48.0 Paroxysmal atrial fibrillation (principal)
CPT/HCPCS: 78452; 93017; A9502

== ENCOUNTER 2023-03-25 19:51 | Inpatient (IN) | payer MEDICARE, OTHER ==
[~2023-03-25] VITALS: Ht 170.1 cm; Wt 128.0 kg
[~2023-03-25 19:51] MED LIST changes: -CATHETER FLUSH 10 ML SYR IVP PRN; -REGADENOSON 0.4 MG/5 ML SYR (LEXISCAN) IV ONE
[2023-03-25] MEDS ORDERED: NS IV 1000 ML 1,000 ML IV STA ×2 (20:09→23:11)
--- NOTE | 2023-03-25 20:09 | ED Abdominal Pain ---
General Chief Complaint: Abdominal/GI Problems Stated Complaint: ABD PAIN/VOMITING Nursing Triage Note: PT TO ED WITH C/O UPPER ABD PAIN SINCE SHE WOKE UP THIS AFTERNOON, STARTED VOMITING AROUND 1730 Source of Information: Patient, Family (son) Exam Limitations: No Limitations History of Present Illness Date Seen by Provider: Mar 25, 2023 Time Seen by Provider: 20:00 Initial Comments Mrs. YOUSIF is a 68-year-old female who presents to the emergency department with a chief complaint of upper, diffuse abdominal pain onset around 430/5:00 PM after taking a nap. She states the pain was sudden in onset, it is sharp and severe. She subsequently developed nausea and vomiting. She has known large ventral hernias, and has previously had small bowel obstruction due to the hernias that were resolved by NG tube. She denies any recent fevers or chills. She has not had shortness of breath or productive cough. She has not really taken anything for the pain. She has been having normal bowel movements. Movement makes the pain worse but the pain is also spontaneous in nature as well. She has a history of hypertension. She is not a diabetic. Timing/Duration: 4-6 Hours Severity/Quality: Severe, Aching Location: Generalized Abdomen Radiation: No Radiation Activities at Onset: Other (just up from a nap) Associated Symptoms: Nausea/Vomiting Allergies and Home Medications Allergies Coded Allergies: No Known Drug Allergies (Unverified , 04/23/16) Patient Home Medication List Home Medication List Reviewed: Yes Docusate Sodium (Docusate Sodium) 100 Mg Capsule, 200 MG PO Q48H, (Reported) Entered as Reported by: DANNY GARCÍA on 03/26/23 1108 Last Action: Reviewed Discontinued Medications Amiodarone HCl (Amiodarone HCl) 200 Mg Tablet, 400 MG PO BID Discontinued Reason: No Longer Taking Prescribed by: MISHA PATRICIA on 11/09/22940 Last Action: Discontinued Amlodipine Besylate (Amlodipine Besylate) 10 Mg Tablet, 10 MG PO DAILY Discontinued Reason: No Longer Taking Prescribed by: MISHA PATRICIA on 11/09/22940 Last Action: Discontinued Apixaban (Eliquis) 5 Mg Tablet, 5 MG PO BID Discontinued Reason: No Longer Taking Prescribed by: MISHA PATRICIA on 11/09/22940 Last Action: Discontinued Apixaban (Eliquis) 5 Mg Tablet, 5 MG PO DAILY, (Reported) Discontinued Reason: No Longer Taking Entered as Reported by: DANNY GARCÍA on 03/26/23 1108 Last Action: Discontinued Losartan Potassium (Losartan Potassium) 50 Mg Tablet, 50 MG PO DAILY Discontinued Reason: No Longer Taking Prescribed by: MISHA PATRICIA on 11/09/22 0941 Last Action: Discontinued Review of Systems Review of Systems Constitutional: see HPI EENTM: No Symptoms Reported Respiratory: No Symptoms Reported Cardiovascular: No Symptoms Reported Gastrointestinal: Abdominal Pain, Nausea, Vomiting Genitourinary: No Symptoms Reported Musculoskeletal: no symptoms reported Skin: no symptoms reported Psychiatric/Neurological: Anxiety (anxious with belly pain) All Other Systems Reviewed Negative Unless Noted: Yes Past Lweqorl-Hmhjlg-Xwevqb Hx Patient Social History Tobacco Use?: No Substance use?: No Alcohol Use?: No Immunizations Up To Date Tetanus Booster (TDap): Unknown Seasonal Allergies Seasonal Allergies: No (some) Past Medical History Surgery/Hospitalization HX: hernia repair/appendectomy bilat knee replacement AFIB Surgeries: Yes (SEE BELOW) Abdominal, Appendectomy, Eye Surgery, Joint Replacement, Oophorectomy, Orthopedic, Tubal Ligation Respiratory: No (recent sleep study-normal) Cardiac: Yes Hypertension Neurological: No 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) B[employer]LE [employer]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 History: Menopausal Genitourinary: Yes Kidney Stones Gastrointestinal: Yes (S/P HERNIA REPAIR AND APPENDECTOMY) Abdominal Hernia Musculoskeletal: Yes (BILATERAL KNEE REPLACEMENT) Arthritis Endocrine: No HEENT: Yes Cataract Cancer: No Psychosocial: No Integumentary: Yes (PILONIDAL CYST) Blood Disorders: No Family Medical History Arthritis 19 MOTHER Cardiovascular disease 19 FATHER Cataracts 19 FATHER Dementia 19 FATHER 19 MOTHER Diabetes mellitus 19 FATHER (hypoglycmia) Hypertension 19 MOTHER Heart Disease, Diabetes, Hypertension PAST SURGICAL HISTORY: -CATARACT SURGERY -BILATERAL KNEE REPLACEMENT -PILONIDAL CYST -BILATERAL TUBAL LIGATION -SURGERY 05/2017: ---APPENDECTOMY ---RIGHT OOPHORECTOMY FOR OVARIAN TORSION AND DERMOID CYST ---INCARCERATED HERNIA REPAIR Physical Exam Vital Signs Vital Signs - First Documented 03/25/23 20:01 Temp 36.4 Pulse 62 Resp 18 B/P (MAP) 222/117 (152) Pulse Ox 98 Capillary Refill : Height/Weight/BMI Height: 5'7.00" Weight: 298lbs. 0.0oz. 135.388136lt; 40.00 BMI Method: General Appearance: WD/WN, moderate distress, obese HEENT: PERRL/EOMI Neck: full range of motion Respiratory: lungs clear, normal breath sounds, no respiratory distress, no accessory muscle use Cardiovascular: regular rate, rhythm Peripheral Pulses: 2+ Radial Pulses (R), 2+ Radial Pulses (L) Gastrointestinal: non tender, guarding, tenderness (Right mid abdomen, palpable ventral hernia - very indurate. quiet bowel sounds with occasional tinkling sounds, no rushes) Extremities: normal range of motion, non-tender, normal inspection, pedal edema (1+ bilateral) Neurologic/Psychiatric: alert, normal mood/affect, oriented x 3 Skin: normal color, warm/dry Focused Exam Lactic Acid Level Laboratory Tests Test 03/25/23 23:42 Lactic Acid Level 2.59 MMOL/L (0.50-2.00) *H Procedures/Interventions Patient Education: Explained Benefits, Explained Risks, Pt. Ack. Understanding Breath Sounds per Auscultation: Clear Heart Sounds per Auscultation: Irregular Airway Exam: Mouth opens >2 fingers Progress/Results/Core Measures Results/Orders Lab Results Laboratory Tests Test 03/25/23 20:07 03/25/23 23:42 Range/Units White Blood Count 12.7 H 4.3-11.0 10^3/uL Red Blood Count 5.65 H 3.80-5.11 10^6/uL Hemoglobin 17.2 H 11.5-16.0 g/dL Hematocrit 50 35-52 % Mean Corpuscular Volume 88 80-99 fL Mean Corpuscular Hemoglobin 30 25-34 pg Mean Corpuscular Hemoglobin Concent 35 32-36 g/dL Red Cell Distribution Width 11.9 10.0-14.5 % Platelet Count 226 130-400 10^3/uL Mean Platelet Volume 10.5 9.0-12.2 fL Immature Granulocyte % (Auto) 0 % Neutrophils (%) (Auto) 71 42-75 % Lymphocytes (%) (Auto) 24 12-44 % Monocytes (%) (Auto) 4 0-12 % Eosinophils (%) (Auto) 1 0-10 % Basophils (%) (Auto) 1 0-10 % Neutrophils # (Auto) 9.0 H 1.8-7.8 10^3/uL Lymphocytes # (Auto) 3.0 1.0-4.0 10^3/uL Monocytes # (Auto) 0.6 0.0-1.0 10^3/uL Eosinophils # (Auto) 0.1 0.0-0.3 10^3/uL Basophils # (Auto) 0.1 0.0-0.1 10^3/uL Immature Granulocyte # (Auto) 0.0 0.0-0.1 10^3/uL Sodium Level 142 135-145 MMOL/L Potassium Level 3.5 L 3.6-5.0 MMOL/L Chloride Level 104 98-107 MMOL/L Carbon Dioxide Level 24 21-32 MMOL/L Anion Gap 14 5-14 MMOL/L Blood Urea Nitrogen 16 7-18 MG/DL Creatinine 0.93 0.60-1.30 MG/DL Estimat Glomerular Filtration Rate 68 BUN/Creatinine Ratio 17 Glucose Level 168 H 70-105 MG/DL Calcium Level 9.7 8.5-10.1 MG/DL Corrected Calcium 9.7 8.5-10.1 MG/DL Total Bilirubin 0.8 0.1-1.0 MG/DL Aspartate Amino Transf (AST/SGOT) 26 5-34 U/L Alanine Aminotransferase (ALT/SGPT) 21 0-55 U/L Alkaline Phosphatase 64 40-136 U/L Total Protein 7.9 6.4-8.2 GM/DL Albumin 4.0 3.2-4.5 GM/DL Lactic Acid Level 2.59 *H 0.50-2.00 MMOL/L My Orders Orders - CARMELA BLANC MD Comprehensive Metabolic Panel (03/25/23 20:09) Cbc With Automated Diff (03/25/23 20:09) Morphine Injection (Morphine Injection (03/25/23 20:15) Ondansetron Injection (Ondansetron Inj (03/25/23 20:15) Ns Iv 1000 Ml (Ns Iv 1000 Ml) (03/25/23 20:09) Ondansetron Injection (Ondansetron Inj (03/25/23 20:10) Morphine Injection (Morphine Injection (03/25/23 20:10) Ns Iv 1000 Ml (Ns Iv 1000 Ml) (03/25/23 20:10) Ct Abdomen/Pelvis W (03/25/23 20:22) Morphine Injection (Morphine Injection (03/25/23 20:30) Ns Iv 500 Ml (Ns Iv 500 Ml) (03/25/23 21:00) Promethazine Injection (Phenergan Injec (03/25/23 21:00) Fentanyl Injection (Fentanyl Injection (03/25/23 21:55) Hydralazine Injection (Hydralazine Injec (03/25/23 22:00) Iohexol Injection (Omnipaque 350 Mg/Ml 1 (03/25/23 22:15) Ns (Ivpb) 100 Ml (Sodium Chloride 0.9% 1 (03/25/23 22:15) Hydromorphone Injection (Hydromorphone (03/25/23 23:00) Lactic Acid Analyzer (03/25/23 23:11) Ns (Ivpb) 250 Ml (S... W/Nicardipine Inj (03/25/23 23:15) Ns Iv 1000 Ml (Ns Iv 1000 Ml) (03/25/23 23:11) Normal Saline ([place]) 250 Ml (Ns 250 Ml (03/25/23 23:20) Medications Given in ED Vital Signs/I&O 03/25/23 03/25/23 03/26/23 03/26/23 20:01 23:40 00:10 00:40 Temp 36.4 Pulse 62 Resp 18 B/P (MAP) 222/117 (152) 208/94 195/102 167/117 Pulse Ox 98 03/26/23 03/26/23 00:40 00:40 Temp 36.9 B/P (MAP) Pulse Ox 92 O2 Delivery Room Air Room Air Blood Pressure Mean: 152 Progress Progress Note : Time: 23:16 Progress Note Patient seen and evaluated by me. Evaluation today includes physical exam, CBC, Chem-12, lactic acid, CT abdomen and pelvis with IV contrast. Pertinent physical exam findings well-developed well-nourished obese female in moderate distress due to anterior abdominal pain. Her vital signs reveal significant hypertension with a blood pressure in the 200s over 130s. She is not tachycardic, she is not hypoxic. She is afebrile. Heart is regular, lungs are clear. Abdomen is diffusely tender in the upper quadrants and over a ventral hernia that is just to the right and inferior of the umbilicus. It is quite tender. Hyperactive bowel sounds are present. Differential diagnosis based on history and physical exam, incarcerated ventral hernia, small bowel obstruction, hypertensive urgency versus emergency Labs and imaging independently reviewed and interpreted by me. Her CBC is reviewed and shows a total white blood count of 12.7 with no significant left shift. Hemoglobin is 17.2 hematocrit of 50. Platelet count of 226. Chem-12 is remarkable only for glucose of 168 otherwise normal. Lactic acid is elevated at 2.59. CT scan of the abdomen and pelvis shows 2 large ventral hernias. Radiologic interpretation confirms small bowel obstruction. Case was discussed with Dr. Sanchez at the request of Dr. Yousif the patient's son. Dr. Sanchez stated to place an NG tube for gastric decompression, keep the patient n.p.o., pain medications and nausea medications and he will evaluate her in the morning. Patient is provided multiple doses of IV pain medications. None of these were successful in bringing her blood pressure down. I discussed the case with Dr. Patricia who requested a nicardipine drip. This was started initially at a very low dose 2.5 mg as I did not want to overshoot bringing her blood pressure down with the pain medications on board. We ended up titrating upwards to 10 mg before she was placed in the ICU. The lactic acid was slightly elevated at 2.59 however I do not believe she has ischemic bowel. CT does not show any secondary findings of this. I believe the lactic is elevated more likely due to her dehydrated state from vomiting. Diagnostic Imaging Diagonstic Imaging: CT Comments [facility], [place] NAME: MACEY YOUSIF [facility] REC#: [id number] PT STATUS: ADM IN : 1955 PHYSICIAN: CARMELA BLANC MD ADMIT DATE: 03/26/23/ICU Signed Date of Exam:03/25/23 CT ABDOMEN/PELVIS W PROCEDURE: CT abdomen and pelvis with contrast. TECHNIQUE: Multiple contiguous axial images were obtained through the abdomen and pelvis after administration of intravenous contrast. Auto Exposure Controls were utilized during the CT exam to meet ALARA standards for radiation dose reduction. All CT scans use one or more of the following dose optimizing techniques: automated exposure control, MA and/or KvP adjustment based on patient size and exam type or iterative reconstruction. INDICATION: Abdominal pain, vomiting Study compared with exam 11/05/2022. Ventral supra and infraumbilical abdominal hernia is again identified. There is a proximal to mid small bowel mild dilatation with differential air-fluid levels and there appears to be a transition associated with the inferior hernia sac along its left lateral wall. There is some stranding of the subtending small bowel mesentery near the transition and some congestion which may reflect a component of mild mesenteric venous outflow impingement. Trace amount of fluid within the hernia sac. Superior-inferior components of the hernia showed both small and large bowel. The magnitude of the herniated bowel is unchanged from prior. No new abdominal wall defect. Lung bases clear. Liver, spleen, adrenals, pancreas, gallbladder and unobstructed kidneys unremarkable. IMPRESSION: Redemonstration ventral supra and infraumbilical abdominal wall hernias. The left lateral component of the caudal hernia appears to be the site of transition with at least partial small bowel obstruction. Subjacent mesenteric stranding and congestion may reflect some venous outflow impingement. No pneumatosis. No free air. No perforation. No visible arterial or venous thrombus. No other acute appearing abnormality. I agree with the preliminary. Dictated by: Dictated on workstation # [id number] Dict: 03/26/23 0750 Trans: 03/26/[address] [facility] [id number] Interpreted by: JOSE SANCHES Electronically signed by: JOSE SANCHES 03/26/23 1107 Departure Communication (Admissions) Time/Spoke to Admitting Phy: 23:[address] Sanchez Time/Spoke to Consulting Phy: 23:[address] Rusty stratton, ICU Impression Primary Impression: Abdominal pain Qualified Codes: R10.84 - Generalized abdominal pain Additional Impressions: Hypertensive urgency Small bowel obstruction Disposition: ADMITTED INPATIENT Condition: Critical Admissions Decision to Admit Reason: Admit from ER (General) Decision to Admit/Date: Mar 25, 2023 Time/Decision to Admit Time: 23:16 Departure-Patient Inst. Referrals: MARTHA TORRES MD (PCP/Family) Primary Care Physician Copy Copies To 1: MARTHA TORRES MD Copies To 2: MARILUZ SANCHEZ KATHRYN M MD Mar 25, 2023 20:09
[2023-03-25] MEDS ORDERED: ONDANSETRON INJECTION 4 MG/2 ML (SDV) ONE (20:10)
[2023-03-25] MEDS ORDERED: NS IV 1000 ML 1,000 ML ONE (20:10)
[2023-03-25] MEDS ORDERED: morphine INJ 4 MG/ML 1 ML (VIAL/SYRINGE) ONE (20:10)
[2023-03-25] MEDS ORDERED: morphine INJ 4 MG/ML 1 ML (VIAL/SYRINGE) IVP ONE ×2 (20:15→20:30)
[2023-03-25] MEDS ORDERED: ONDANSETRON INJECTION 4 MG/2 ML (SDV) IVP ONE (20:15)
[2023-03-25 20:29] LABS: BASOPHILS # (AUTO) 0.1 10^3/uL (0.0-0.1); BASOPHILS % (AUTO) 1 % (0-10); EOSINOPHILS # (AUTO) 0.1 10^3/uL (0.0-0.3); EOSINOPHILS % (AUTO) 1 % (0-10); HEMATOCRIT 50 % (35-52); HEMOGLOBIN 17.2 g/dL (11.5-16.0); LYMPHOCYTES % (AUTO) 24 % (12-44); MEAN CORPUSCULAR HEMOGLOBIN 30 pg (25-34); MEAN CORPUSCULAR HGB CONC 35 g/dL (32-36); MEAN CORPUSCULAR VOLUME 88 fL (80-99); MEAN PLATELET VOLUME 10.5 fL (9.0-12.2); MONOCYTES # (AUTO) 0.6 10^3/uL (0.0-1.0); MONOCYTES % (AUTO) 4 % (0-12); NEUTROPHILS % (AUTO) 71 % (42-75); PLATELET COUNT 226 10^3/uL (130-400); WHITE BLOOD COUNT 12.7 10^3/uL (4.3-11.0)
[2023-03-25 20:33] LABS: POTASSIUM 3.5 MMOL/L (3.6-5.0)
[2023-03-25 20:34] LABS: CALCIUM 9.7 MG/DL (8.5-10.1)
[2023-03-25 20:35] LABS: TOTAL PROTEIN 7.9 GM/DL (6.4-8.2)
[2023-03-25 20:37] LABS: BILIRUBIN,TOTAL 0.8 MG/DL (0.1-1.0)
[2023-03-25 20:38] LABS: CREATININE SERUM 0.93 MG/DL (0.60-1.30)
[2023-03-25] MEDS ORDERED: NS IV 500 ML 500 ML IV SCH (21:00)
[2023-03-25] MEDS ORDERED: PROMETHAZINE INJ 25 MG/ML VIAL IVP ONE (21:00)
[2023-03-25] MEDS ORDERED: fentaNYL INJECTION 100 MCG/2 ML VIAL IVP STA (21:55)
[2023-03-25] MEDS ORDERED: hydrALAZINE INJECTION 20 MG/ML VIAL IV ONE (22:00)
[2023-03-25] MEDS ORDERED: IOHEXOL 350 MG/ML 100 ML (OMNIPAQUE 350) VIAL IV ONE (22:15)
[2023-03-25] MEDS ORDERED: NS 100 ML (IVPB) BAG IV ONE (22:15)
[2023-03-25] MEDS ORDERED: HYDROmorphone INJECTION 2 MG/ML VIAL IV ONE (23:00)
[2023-03-25] MEDS ORDERED: niCARdipine IV PYXIS DRIP KIT = 50 MG X 2 VIALS ONE ×2 (23:17→23:29)
[2023-03-25] MEDS ORDERED: NORMAL SALINE (EXCEL) 250 ML 250 ML ONE (23:20)
[2023-03-25] MEDS: niCARdipine INJECTION 50 MG in NS (IVPB) 250 ML 230 ML IV SCH (23:40)
--- NOTE | 2023-03-26 01:53 | Tele-ICU Progress Note ---
Subjective Date Seen by a Provider: Mar 26, 2023 Subjective/Events-last exam This virtual visit was conducted using real time audio/video. Thank you for asking us to see this patient for critical care services due to SBO and hypertensive urgency (230/140). PE: VSS. Improving BP 207/89. O2 sat 97$ on 2 LPM HEENT: No obvious masses, adenopathy or JVD. Chest: clear to auscultation. CV: RRR S1 S2 No murmur or added sounds. Abd: tender. Bowel sounds Y. : Unremarkable. Naqvi N. EDITING INTERN/psychiatric: Grossly intact. No obvious focal findings. Extremities: 1+ edema. Capillary refill < 3 seconds. Skin: unremarkable. Results: Elevated WCC 12.7, Hb 17.2. Decreased K 3.5. Available chart/ vitals / labs / images reviewed. Video assessment done using teleICU camera, rest of exam as per RN. A/P: Critical Care: critically ill patient. Cont. IVF cardene. Discussed with VLADIMIR Melendez and ER MD Dr. Gooden. Asked RN to reach out to eICU if any questions or concerns later. Time spent with patient/coordination of care with other health professionals (mins): 22 Sepsis Event Evaluation Height, Weight, BMI Height: 5'7.00" Weight: 298lbs. 0.0oz. 135.487078fh; 40.00 BMI Method: Focused Exam Lactate Level 03/25/23 23:42: Lactic Acid Level 2.59*H Lactic Acid Level Laboratory Tests Test 03/25/23 23:42 Lactic Acid Level 2.59 MMOL/L (0.50-2.00) *H Exam Exam Patient acknowledged, consented, and participated in this virtual visit which was conducted using real time audio/video Vital Signs Date Time Temp Pulse Resp B/P (MAP) Pulse Ox O2 Delivery O2 Flow Rate FiO2 03/25/23 23:40 208/94 03/25/23 20:01 36.4 62 18 222/117 (152) 98 I & O 03/26/23 07:00 Intake Total 1000 ml Balance 1000 ml Height & Weight Height: 5'7.00" Weight: 298lbs. 0.0oz. 135.817020fq; 40.00 BMI Method: General Appearance: Anxious (See free text), Obese Peripheral Pulses: 2+ Radial Pulses (R), 2+ Radial Pulses (L) Gastrointestinal: non tender, guarding, tenderness (Right mid abdomen, palpable ventral hernia - very indurate. quiet bowel sounds with occasional tinkling sounds, no rushes) Results Lab Laboratory Tests 03/25/23 20:07 Assessment/Plan Assessment/Plan See free text Critical Care: Critically Ill Patient MESHA CANDELARIO MD Mar 26, 2023 01:53
[2023-03-26] MEDS ORDERED: ONDANSETRON INJECTION 4 MG/2 ML (SDV) IV PRN (02:15)
[2023-03-26] MEDS ORDERED: NS IV 500 ML 500 ML IV PRN (02:30)
[2023-03-26 02:33] VITALS: BP 222/117
[2023-03-26] MEDS: niCARdipine INJECTION 50 MG in NS (IVPB) 250 ML 230 ML IV SCH ×5 (02:43→18:55)
[2023-03-26] MEDS: NS IV 1000 ML 1,000 ML IV SCH ×3 (02:43→18:39)
[2023-03-26] MEDS ORDERED: LABETALOL 5 mg/ml 4 ML SINGLE DOSE SYRINGE IV PRN (03:30)
[2023-03-26] MEDS: morphine INJ 4 MG/ML 1 ML (VIAL/SYRINGE) IV PRN ×7 (03:57→23:11)
[2023-03-26 05:27] LABS: ALBUMIN 3.8 GM/DL (3.2-4.5)
[2023-03-26 05:28] LABS: CALCIUM 8.7 MG/DL (8.5-10.1)
[2023-03-26 05:30] LABS: TOTAL PROTEIN 7.5 GM/DL (6.4-8.2)
[2023-03-26 05:31] LABS: BILIRUBIN,TOTAL 0.8 MG/DL (0.1-1.0)
[2023-03-26 05:33] LABS: CREATININE SERUM 0.83 MG/DL (0.60-1.30); PHOSPHORUS 2.3 MG/DL (2.3-4.7)
[2023-03-26 05:36] LABS: MAGNESIUM 1.6 MG/DL (1.6-2.4)
[2023-03-26] MEDS ORDERED: niCARdipine IV PYXIS DRIP KIT = 50 MG X 2 VIALS ONE (05:45)
[2023-03-26] MEDS ORDERED: NORMAL SALINE (EXCEL) 250 ML 250 ML ONE (05:50)
[2023-03-26] MEDS: POTASSIUM CL 10MEQ/50ML IVPB 50 ML IV SCH ×10 (06:01→15:35)
[2023-03-26] MEDS: MAGNESIUM 1 GM/100 ML IVPB 100 ML IV SCH ×4 (06:03→13:31)
[2023-03-26] MEDS: POTASSIUM CHLORIDE 20 MEQ TABLET PO SCH (06:03)
[2023-03-26 06:11] LABS: BASOPHILS % (AUTO) 0 % (0-10); EOSINOPHILS % (AUTO) 0 % (0-10); HEMATOCRIT 50 % (35-52); HEMOGLOBIN 17.4 g/dL (11.5-16.0); LYMPHOCYTES # (AUTO) 0.8 10^3/uL (1.0-4.0); LYMPHOCYTES % (AUTO) 6 % (12-44); MEAN CORPUSCULAR HEMOGLOBIN 31 pg (25-34); MEAN CORPUSCULAR HGB CONC 35 g/dL (32-36); MEAN CORPUSCULAR VOLUME 90 fL (80-99); MEAN PLATELET VOLUME 10.4 fL (9.0-12.2); MONOCYTES # (AUTO) 0.4 10^3/uL (0.0-1.0); MONOCYTES % (AUTO) 3 % (0-12); NEUTROPHILS % (AUTO) 91 % (42-75); PLATELET COUNT 206 10^3/uL (130-400); WHITE BLOOD COUNT 14.3 10^3/uL (4.3-11.0)
[2023-03-26 06:43] LABS: BAND NEUTROPHILS 1 %; LYMPHOCYTES % (MANUAL) 2 %; MONOCYTES % (MANUAL) 3 %; NEUTROPHILS % (MANUAL) 94 %
[2023-03-26 06:44] LABS: RBC MORPH NORMAL
--- NOTE | 2023-03-26 07:36 | Consultation - Surgery ---
RODERICK HERNANDEZ 03/26/23 0736: History of Present Illness History of Present Illness Patient Consulted On(shivani/time) 03/26/23 07:25 Time Seen by Provider: 07:00 History of Present Illness Nena is a 68yo F who presented to the ED yesterday with 10/10 abdominal pain located the abdominal upper quadrants and epigastric regions. She states that it never goes away completely and currently is a 7/10. She was unable to describe the pain but denies radiations. She had non-bloody emesis 3-4x yesterday. Last bowel movement was ' a lot' and soft on Saturday 03/24. PT was admitted to ICU due to hypertensive episdoes that were refractory to nicardepine. Small bowel study was performed in november 2022 showing mildly delayed transit. Pt has hx of ovarian torsion & afib and PSH of hernia repair, appendectomy, & oophorectomy which, according to the ED were performed at the same time by Dr. Ross May 2017. Pt denies CP,SOB, fever Allergies and Home Medications Allergies Coded Allergies: No Known Drug Allergies (Unverified , 04/23/16) Patient Home Medication List Home Medication List Reviewed: No Docusate Sodium (Docusate Sodium) 100 Mg Capsule, 200 MG PO Q48H, (Reported) Entered as Reported by: DANNY GARCÍA on 03/26/231107 Last Action: Reviewed Discontinued Medications Amiodarone HCl (Amiodarone HCl) 200 Mg Tablet, 400 MG PO BID Discontinued Reason: No Longer Taking Prescribed by: MISHA PATRICIA on 11/09/22940 Last Action: Discontinued Amlodipine Besylate (Amlodipine Besylate) 10 Mg Tablet, 10 MG PO DAILY Discontinued Reason: No Longer Taking Prescribed by: MISHA PATRICIA on 11/09/22940 Last Action: Discontinued Apixaban (Eliquis) 5 Mg Tablet, 5 MG PO BID Discontinued Reason: No Longer Taking Prescribed by: MISHA PATRICIA on 11/09/22940 Last Action: Discontinued Apixaban (Eliquis) 5 Mg Tablet, 5 MG PO DAILY, (Reported) Discontinued Reason: No Longer Taking Entered as Reported by: DANNY GARCÍA on 03/26/231107 Last Action: Discontinued Losartan Potassium (Losartan Potassium) 50 Mg Tablet, 50 MG PO DAILY Discontinued Reason: No Longer Taking Prescribed by: MISHA PATRICIA on 11/09/22 0941 Last Action: Discontinued Past Cihgrqy-Dfixol-Thdakf Hx Patient Social History Smoking Status: Never a Smoker 2nd Hand Smoke Exposure: No Recent Hopitalizations: No Alcohol Use?: No Immunizations Up To Date Tetanus Booster (TDap): Unknown Date of Pneumonia Vaccine: Apr 23, 2015 Seasonal Allergies Seasonal Allergies: No (some) Surgeries History of Surgeries: Yes (SEE BELOW) Surgeries: Abdominal (hernia repair), Appendectomy, Eye Surgery, Joint Replacement (both knees), Oophorectomy, Orthopedic, Tubal Ligation Respiratory History of Respiratory Disorde: No (recent sleep study-normal) Cardiovascular History of Cardiac Disorders: Yes Cardiac Disorders: 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, Hypertension Neurological History of Neurological Disord: No Reproductive System Hx 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) [employer] 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[employer]IC History: Menopausal Genitourinary History of Genitourinary Disor: Yes Genitourinary Disorders: Kidney Stones Gastrointestinal History of Gastrointestinal Di: Yes (S/P HERNIA REPAIR AND APPENDECTOMY) Gastrointestinal Disorders: Abdominal Hernia Musculoskeletal History of Musculoskeletal Dis: Yes (BILATERAL KNEE REPLACEMENT) Musculoskeletal Disorders: Arthritis Endocrine History of Endocrine Disorders: No HEENT History of HEENT Disorders: Yes HEENT Disorders: Cataract Cancer History of Cancer: No Psychosocial History of Psychiatric Problem: No Integumentary History of Skin or Integumenta: Yes (PILONIDAL CYST) Blood Transfusions History of Blood Disorders: No Family Medical History Significant Family History: Heart Disease, Diabetes, Hypertension Family Medial History: Arthritis 19 MOTHER Cardiovascular disease 19 FATHER Cataracts 19 FATHER Dementia 19 FATHER 19 MOTHER Diabetes mellitus 19 FATHER (hypoglycmia) Hypertension 19 MOTHER Review of Systems-General Constitutional: No chills, No diaphoresis EENTM: No hearing loss, No ear pain Respiratory: No cough, No dyspnea on exertion Cardiovascular: No chest pain, No syncope Gastrointestinal: abdominal pain; No diarrhea, No hematemesis; vomiting Genitourinary: No dysuria; incontinence Musculoskeletal: No back pain, No gout Skin: No change in color, No change in hair/nails Psychiatric/Neurological: Denies Anxiety, Denies Depressed Physical Exam-General Problems Physical Exam Vital Signs Vital Signs - First Documented 03/25/23 03/26/23 20:01 02:33 Temp 36.4 Pulse 62 Resp 18 B/P (MAP) 222/117 (152) Pulse Ox 98 FiO2 21 Capillary Refill : General Appearance: WD/WN, no apparent distress HEENT: PERRL/EOMI, normal ENT inspection Neck: non-tender, full range of motion, supple Respiratory: chest non-tender, no respiratory distress, no accessory muscle use Cardiovascular: normal peripheral pulses, no gallop, no JVD Peripheral Pulses: 2+ Radial Pulses (R), 2+ Radial Pulses (L) Gastrointestinal: soft; No distended, No guarding, No rebound; tenderness (RUQ, LUQ, epigastric region) Rectal: deferred Back: no CVA tenderness, no vertebral tenderness Extremities: normal range of motion, non-tender, normal inspection Neurologic/Psychiatric: alert, normal mood/affect, oriented x 3 Skin: normal color, warm/dry Lymphatic: no adenopathy Data Review Labs Laboratory Tests 03/25/23 20:07: White Blood Count 12.7H, Red Blood Count 5.65H, Hemoglobin 17.2H, Hematocrit 50, Mean Corpuscular Volume 88, Mean Corpuscular Hemoglobin 30, Mean Corpuscular Hemoglobin Concent 35, Red Cell Distribution Width 11.9, Platelet Count 226, Mean Platelet Volume 10.5, Immature Granulocyte % (Auto) 0, Neutrophils (%) (Auto) 71, Lymphocytes (%) (Auto) 24, Monocytes (%) (Auto) 4, Eosinophils (%) (Auto) 1, Basophils (%) (Auto) 1, Neutrophils # (Auto) 9.0H, Lymphocytes # (Auto) 3.0, Monocytes # (Auto) 0.6, Eosinophils # (Auto) 0.1, Basophils # (Auto) 0.1, Immature Granulocyte # (Auto) 0.0, Sodium Level 142, Potassium Level 3.5L, Chloride Level 104, Carbon Dioxide Level 24, Anion Gap 14, Blood Urea Nitrogen 16, Creatinine 0.93, Estimat Glomerular Filtration Rate 68, BUN/Creatinine Ratio 17, Glucose Level 168H, Calcium Level 9.7, Corrected Calcium 9.7, Total Bilirubin 0.8, Aspartate Amino Transf (AST/SGOT) 26, Alanine Aminotransferase (ALT/SGPT) 21, Alkaline Phosphatase 64, Total Protein 7.9, Albumin 4.0 03/25/23 23:42: Lactic Acid Level 2.59*H 03/26/23 05:07: White Blood Count 14.3H, Red Blood Count 5.59H, Hemoglobin 17.4H, Hematocrit 50, Mean Corpuscular Volume 90, Mean Corpuscular Hemoglobin 31, Mean Corpuscular Hemoglobin Concent 35, Red Cell Distribution Width 12.1, Platelet Count 206, Delilah n Platelet Volume 10.4, Immature Granulocyte % (Auto) 0, Neutrophils (%) (Auto) 91H, Lymphocytes (%) (Auto) 6L, Monocytes (%) (Auto) 3, Eosinophils (%) (Auto) 0, Basophils (%) (Auto) 0, Neutrophils # (Auto) 13.0H, Lymphocytes # (Auto) 0.8L , Monocytes # (Auto) 0.4, Eosinophils # (Auto) 0.0, Basophils # (Auto) 0.0, Immature Granulocyte # (Auto) 0.1, Sodium Level 139, Potassium Level 3.0L, Chloride Level 105, Carbon Dioxide Level 18L, Anion Gap 16H, Blood Urea Nitrogen 12, Creatinine 0.83, Estimat Glomerular Filtration Rate 78, BUN/Creatinine Ratio 14, Glucose Level 235H, Calcium Level 8.7, Corrected Calcium 8.9, Total Bilirubin 0.8, Aspartate Amino Transf (AST/SGOT) 24, Alanine Aminotransferase (ALT/SGPT) 20, Alkaline Phosphatase 57, Total Protein 7.5, Albumin 3.8, Lactic Acid Level 4.48*H, Neutrophils % (Manual) 94, Lymphocytes % (Manual) 2, Monocytes % (Manual) 3, Band Neutrophils 1, Blood Morphology Comment NORMAL, Phosphorus Level 2.3, Magnesium Level 1.6 Assessment/Plan Assessment/Plan Assessment/Plan hx of abdominal surgeries hx of afib hypertensive urgency abdominal pain repeat lactic acid monitor BP pain control CT abdomen, thorax and pelvis IV fluids NPO NG tube MARILUZ SANCHEZ DO 03/26/231935: History of Present Illness History of Present Illness Date Seen by Provider: Mar 26, 2023 History of Present Illness CC: SBO, HTN urgency. Patient is a 68 year old female who woke up from [facility] [facility] with upper abdominal pain. This continued to worsen to where it was 10/10 pain. No radiation of pain. Was having episodes of nausea and vomiting and went to ED for further evaluation. Patient with known incisional hernias and has had episode of SBO previously that improved with conservative management She is passing some flatus, but not as much as she thought she should. Blood pressure elevated. Had CT scan Redemonstration ventral supra and infraumbilical abdominal wall hernias. The left lateral component of the caudal hernia appears to be the site of transition with at least partial small bowel obstruction. Subjacent mesenteric stranding and congestion may reflect some venous outflow impingement. No pneumatosis. No free air. No perforation. No visible arterial or venous thrombus. abd/pelvis: Allergies and Home Medications Allergies Coded Allergies: No Known Drug Allergies (Unverified , 04/23/16) Patient Home Medication List Home Medication List Reviewed: Yes Docusate Sodium (Docusate Sodium) 100 Mg Capsule, 200 MG PO Q48H, (Reported) Entered as Reported by: DANNY GARCÍA on 03/26/231107 Last Action: Reviewed Discontinued Medications Amiodarone HCl (Amiodarone HCl) 200 Mg Tablet, 400 MG PO BID Discontinued Reason: No Longer Taking Prescribed by: MISHA PATRICIA on 11/09/22940 Last Action: Discontinued Amlodipine Besylate (Amlodipine Besylate) 10 Mg Tablet, 10 MG PO DAILY Discontinued Reason: No Longer Taking Prescribed by: MISHA PATRICIA on 11/09/22940 Last Action: Discontinued Apixaban (Eliquis) 5 Mg Tablet, 5 MG PO BID Discontinued Reason: No Longer Taking Prescribed by: MISHA PATRICIA on 11/09/22940 Last Action: Discontinued Apixaban (Eliquis) 5 Mg Tablet, 5 MG PO DAILY, (Reported) Discontinued Reason: No Longer Taking Entered as Reported by: DANNY GARCÍA on 03/26/231107 Last Action: Discontinued Losartan Potassium (Losartan Potassium) 50 Mg Tablet, 50 MG PO DAILY Discontinued Reason: No Longer Taking Prescribed by: MISHA PATRICIA on 11/09/22940 Last Action: Discontinued Past Syeendh-Ipsjty-Ratbpt Hx Reviewed Nursing Assessment Reviewed/Agree w Nursing PMH: Yes Family Medical History Significant Family History: No Pertinent Family Hx Family Medial History: Arthritis 19 MOTHER Cardiovascular disease 19 FATHER Cataracts 19 FATHER Dementia 19 FATHER 19 MOTHER Diabetes mellitus 19 FATHER (hypoglycmia) Hypertension 19 MOTHER Review of Systems-General Constitutional: No chills, No diaphoresis EENTM: No hearing loss, No ear pain Respiratory: No cough, No dyspnea on exertion Cardiovascular: No chest pain, No syncope Gastrointestinal: abdominal pain; No hematemesis; nausea, vomiting Genitourinary: No decreased output, No discharge Musculoskeletal: No back pain, No gout Skin: No change in color, No change in hair/nails Psychiatric/Neurological: Denies Anxiety, Denies Depressed All Other Systems Reviewed Negative Unless Noted: Yes (Negative excepted noted.) Physical Exam-General Problems Physical Exam General Appearance: WD/WN, no apparent distress, other (ng tube) HEENT: PERRL/EOMI, normal ENT inspection Neck: non-tender, supple Respiratory: chest non-tender, no respiratory distress, no accessory muscle use Cardiovascular: regular rate, rhythm, no gallop, no JVD Gastrointestinal: soft; No rebound; tenderness (upper portion of abdomen, can palpate hernias, can not reduce, mild tenderness on exam.) Rectal: deferred Back: no CVA tenderness, no vertebral tenderness Extremities: non-tender, normal inspection Neurologic/Psychiatric: alert, normal mood/affect, oriented x 3 Skin: normal color, warm/dry Lymphatic: no adenopathy Assessment/Plan Assessment/Plan Assessment/Plan small bowel obstruction upper abdominal pain hypertensive urgency incisional hernia x 2 incarcerated [facility] anticoagulation hx afib. Patient with ct scan findings as listed as above. After ng tube placed her nausea and emesis has improved. She still has some pain and requiring pain medication. Based on CT I feel the hernias are causing the small bowel obstruction. Slight concern for ischemia, but based on current exam do not feel present at this time. With her on anticoagulation, will wait till off anticoagulation and will consider doing diagnostic laparoscopy tomorrow with all other indicated procedures with possible hernia repairs. NPO Iv hydration NG tube Follow urine output. Repeat labs in am. Pain control. Supervisory-Addendum Brief Verification & Attestation Participated in pt care: history, MDM, physical Personally performed: exam, history, MDM, supervision of care Care discussed with: Medical Student Procedures: n/a Results interpretation: Verified all documentation Verification and Attestation of Medical Student E/M Service A medical student performed and documented this service in my presence. I revi ewed and verified all information documented by the medical student and made modifications to such information, when appropriate. I personally performed the physical exam and medical decision making. Mariluz Sanchez, Mar 26, 2023,19:47 RODERICK HERNANDEZ Mar 26, 2023 07:36 MARILUZ SANCHEZ DO Mar 26, 2023 19:36
--- NOTE | 2023-03-26 08:02 | Diagnostic Imaging Report ---
PROCEDURE: CT abdomen and pelvis with contrast. TECHNIQUE: Multiple contiguous axial images were obtained through the abdomen and pelvis after administration of intravenous contrast. Auto Exposure Controls were utilized during the CT exam to meet ALARA standards for radiation dose reduction. All CT scans use one or more of the following dose optimizing techniques: automated exposure control, MA and/or KvP adjustment based on patient size and exam type or iterative reconstruction. INDICATION: Abdominal pain, vomiting Study compared with exam 11/05/2022. Ventral supra and infraumbilical abdominal hernia is again identified. There is a proximal to mid small bowel mild dilatation with differential air-fluid levels and there appears to be a transition associated with the inferior hernia sac along its left lateral wall. There is some stranding of the subtending small bowel mesentery near the transition and some congestion which may reflect a component of mild mesenteric venous outflow impingement. Trace amount of fluid within the hernia sac. Superior-inferior components of the hernia showed both small and large bowel. The magnitude of the herniated bowel is unchanged from prior. No new abdominal wall defect. Lung bases clear. Liver, spleen, adrenals, pancreas, gallbladder and unobstructed kidneys unremarkable. IMPRESSION: Redemonstration ventral supra and infraumbilical abdominal wall hernias. The left lateral component of the caudal hernia appears to be the site of transition with at least partial small bowel obstruction. Subjacent mesenteric stranding and congestion may reflect some venous outflow impingement. No pneumatosis. No free air. No perforation. No visible arterial or venous thrombus. No other acute appearing abnormality. I agree with the preliminary. Dictated by: Dictated on workstation # [id number]
[2023-03-26] MEDS ORDERED: NS IV 500 ML 500 ML IV ONE ×2 (08:15→18:30)
[2023-03-26] MEDS: PANTOPRAZOLE INJECTION 40 MG VIAL IV SCH (10:22)
--- NOTE | 2023-03-26 10:38 | Tele-ICU Progress Note ---
Subjective Date Seen by a Provider: Mar 26, 2023 Time Seen by a Provider: 10:37 Subjective/Events-last exam (Tele-ICU Physician , Progress Note ) Service provided via interactive audio and video telecommunications E-CARE system to a patient admitted to ICU bed in [facility]. Patient is seen today due to persistent need of ICU care Available chart/ vitals / labs / Images reviewed Video assessment done using teleICU camera, rest of exam as per RN Discussed with RN Events overnight : Afebrile hemodynamically stable Respiratory - ra I/O = Drips: ns 100 , cardene gtt Pressors- no Hospital course: 03/26- 68yo F- dx SBO, Hypertensive Urgency- cardene gtt A/P SBO, ventral supra and infraumbilical abdominal wall hernias. - as per sx -pain control Hypertensive Urgency - cardene gtt PAF - rate controlled , intermittent a fib ( amio po KAIAKO KURA TUARUA ) - eliquis KAIAKO KURA TUARUA - on hold Lines : midline Right 03/26 , (Central Line Necessity Reviewed) Naqvi: PW OG: Nutrition: NPO Analgesia: morphine Anxiety/ delirium VTE Prophylaxis: SCD , eliquis on hold Stress Ulcer Prophylaxis: ppi Plans in collaboration with bedside consultants and IM MDs. Discussed with RN to reach out if any questions or concerns Case and care daily discussed on multidisciplinary rounds ( RN, PharmD, Fence Erector Supervisor , Respiratory Therapy, cue worker ) A total of 25 minutes of critical care time was devoted to this patient today, required to treat and/or prevent further deterioration of critical care condition ( as above ) . I am remotely monitoring this patient from another state. I am unable to do the bedside exam, and history/physical and pertinent information is taken from other notes in the computer and bedside staff. Sepsis Event Evaluation Height, Weight, BMI Height: 5'7.00" Weight: 298lbs. 0.0oz. 135.998162cx; 43.72 BMI Method: Focused Exam Lactate Level 03/25/23 23:42: Lactic Acid Level 2.59*H 03/26/23 05:07: Lactic Acid Level 4.48*H 03/26/23 07:22: Lactic Acid Level 5.25*H Lactic Acid Level Laboratory Tests Test 03/26/23 07:22 Lactic Acid Level 5.25 MMOL/L (0.50-2.00) *H Exam Exam Patient acknowledged, consented, and participated in this virtual visit which was conducted using real time audio/video Vital Signs Date Time Temp Pulse Resp B/P (MAP) Pulse Ox O2 Delivery O2 Flow Rate FiO2 03/26/23 09:36 177/82 03/26/23 08:00 36.4 03/26/23 07:00 96 03/26/23 06:18 177/82 03/26/23 06:00 93 21 178/82 (114) 93 Room Air 03/26/23 05:48 160/80 03/26/23 05:00 97 18 167/83 (111) 93 Room Air 03/26/23 04:00 92 Room Air 03/26/23 04:00 92 21 180/89 (119) 93 Room Air 03/26/23 03:59 36.3 03/26/23 03:00 97 18 169/92 (117) 94 Room Air 03/26/23 02:33 36.4 64 98 21 03/26/23 02:30 193/84 03/26/23 02:30 84 18 193/84 (120) 93 Room Air 03/26/23 02:00 80 18 201/101 (134) 93 Room Air 03/26/23 01:45 190/100 03/26/23 01:30 80 22 197/97 (130) 93 Room Air 03/26/23 01:15 72 22 198/109 (138) 92 Room Air 03/26/23 01:00 73 18 195/102 (133) 94 Room Air 03/26/23 00:59 80 03/26/23 00:45 82 18 167/117 (134) 94 Room Air 03/26/23 00:40 92 Room Air 03/26/23 00:40 36.9 Room Air 03/26/23 00:40 167/117 03/26/23 00:10 195/102 03/25/23 23:40 208/94 03/25/23 20:01 36.4 62 18 222/117 (152) 98 I & O 03/26/23 07:00 Intake Total 1250 ml Balance 1250 ml Height & Weight Height: 5'7.00" Weight: 298lbs. 0.0oz. [id number]; 43.72 BMI Method: General Appearance: Anxious (See free text), Obese Peripheral Pulses: 2+ Radial Pulses (R), 2+ Radial Pulses (L) Gastrointestinal: soft; No distended, No guarding, No rebound; tenderness (RUQ, LUQ, epigastric region) Results Lab Laboratory Tests 03/25/23 20:07 03/26/23 05:07 Assessment/Plan Assessment/Plan 1 BUDDY DELA CRUZ MD Mar 26, 2023 10:38
[2023-03-26] MEDS ORDERED: APIX5TAB PO (11:08)
[2023-03-26] MEDS ORDERED: DOCU100C37 PO (11:08)
[2023-03-26 11:09] LABS: COLOR,URINE YELLOW
[2023-03-26 11:10] LABS: BACTERIA,URINE FEW /HPF; BILIRUBIN,URINE NEGATIVE (NEGATIVE); CLARITY,URINE CLEAR; GLUCOSE, URINE (UA) 2+ (NEGATIVE); KETONES,URINE 1+ (NEGATIVE); LEUKOCYTE ESTERASE ,URINE NEGATIVE (NEGATIVE); NITRITE,URINE NEGATIVE (NEGATIVE); PROTEIN,URINE 1+ (NEGATIVE)
--- NOTE | 2023-03-26 12:49 | Consultation - Hospitalist ---
ANTHONY BARNES 03/26/23 1249: HPI History of Present Illness: HPI/Chief Complaint CC: Abdominal/GI problems HPI: 68-year-old female presented to the ED yesterday w/ complaint of severe abdominal pain. Has a history of Afib, ovarian torsion, abdominal surgeries, and oophorectomy. She was sent to the ICU for HTN urgency. The pain is located in her upper quadrants and epigastric region & describes it as a 7/10. Denies radiation of pain. States she has back pain from laying down. She had vomited 3- 4x yesterday and reported no blood. Last BM was on Thursday and reported no blood. She is currently getting pain medication which has helped a bit. Cu rrently on NG tube and NPO status. Denies chest pain, cough, SOB, nausea, chills, fever. Source: patient, RN/MD Exam Limitations: clinical condition Date Seen 03/26/23 Attending Physician Lashawn Whiting MD PCP Admitting Physician: Terry Arenas DO Attending Physician: Terry Arenas DO Referring Physician Date of Admission Mar 26, 2023 at 00:40 Home Medications & Allergies Home Medications Reviewed patient Home Medication Reconciliation performed by pharmacy medication reconciliations electrician technician and/or nursing. Patients Allergies have been reviewed. Allergies Allergies Coded Allergies No Known Drug Allergies (Unverified04/23/16) Past Gesxzvv-Uztyep-Bsirte Hx Patient Social History Tobacco Use?: No Smoking Status: Never a Smoker Use of E-Cig and/or Vaping dev: No Substance use?: No Alcohol Use?: No Pt feels they are or have been: No Immunizations Up To Date Tetanus Booster (TDap): Unknown Date of Pneumonia Vaccine: Apr 23, 2015 Seasonal Allergies Seasonal Allergies: No (some) Current Status status: No status: No Advance Directives: No Communicates: Verbally Primary Language: Georgian Preferred Spoken Language: Georgian Is interpretation needed?: No Implanted or Applied Medical D: Orthopedic hardware Past Medical History Surgeries: Abdominal (hernia repair), Appendectomy, Eye Surgery, Joint Replacement (both knees), Oophorectomy, Orthopedic, Tubal Ligation 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, 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 Stones Abdominal Hernia Arthritis Cataract Blood Disorders: No Family Medical History Arthritis 19 MOTHER Cardiovascular disease 19 FATHER Cataracts 19 FATHER Dementia 19 FATHER 19 MOTHER Diabetes mellitus 19 FATHER (hypoglycmia) Hypertension 19 MOTHER Heart Disease, Diabetes, Hypertension PAST SURGICAL HISTORY: -CATARACT SURGERY -BILATERAL KNEE REPLACEMENT -PILONIDAL CYST -BILATERAL TUBAL LIGATION -SURGERY 05/2017: ---APPENDECTOMY ---RIGHT OOPHORECTOMY FOR OVARIAN TORSION AND DERMOID CYST ---INCARCERATED HERNIA REPAIR Review of Systems Constitutional: see HPI Respiratory: see HPI Cardiovascular: No chest pain, No syncope Gastrointestinal: abdominal pain, vomiting Genitourinary: no symptoms reported Musculoskeletal: back pain (From laying down ) Physical Exam Physical Exam Vital Signs Vital Signs - First Documented 03/25/23 03/26/23 20:01 02:33 Temp 36.4 Pulse 62 Resp 18 B/P (MAP) 222/117 (152) Pulse Ox 98 FiO2 21 Capillary Refill : Height, Weight, BMI Height: 5'7.00" Weight: 298lbs. 0.0oz. 135.977701ku; 43.72 BMI Method: General Appearance: Anxious (See free text), Mild Distress, Obese Eyes: Bilateral Eye Normal Inspection, Bilateral Eye PERRL HEENT: PERRL/EOMI Respiratory: Lungs Clear, No Accessory Muscle Use, No Respiratory Distress Cardiovascular: Regular Rate, Rhythm, No Edema, No Gallop, No Murmur, Normal Peripheral Pulses Gastrointestinal: Tenderness (RUQ, LUQ, Epigastric) Neurologic/Psychiatric: Alert, Oriented x3, Normal Mood/Affect Skin: Normal Color, Warm/Dry Results Results/Procedures Labs Laboratory Tests 03/25/23 20:07 03/26/23 05:07 Patient resulted labs reviewed. Assessment/Plan Assessment and Plan Assess & Plan/Chief Complaint Assessment: HTN urgency on IV nicardipine Abdominal pain Possible SBO due to incarcerated hernia Hypokalemia on potassium chloride History of abdominal surgeries History of Afib Plan: Monitor BP in ICU Continue IVF Recheck lactic acid Sugery consult NPO Continue NG tube Pain management Critical Care Critically Ill Patient MAGGY PATRICIA 03/27/23 0437: HPI History of Present Illness: HPI/Chief Complaint Chief complaint: Hypertensive urgency with SBO possible incarcerated hernia HPI: This is a 68-year-old female clinic patient of [facility] who presented to the ER with abdominal pain and was found to have a possible incarcerated hernia so NG tube was placed and due to the hypertensive urgency and unable to tolerate p.o. she was placed on a Cardene drip. Currently she is doing a little better but having a lot more abdominal pain. General surgery managing. Source: patient, RN/MD, old records Exam Limitations: clinical condition Past Joiaemy-Pduuid-Yrtlwl Hx Patient Social History Marrital Status: single Employed/Student: retired Smoking Status: Former Smoker Past Medical History Surgeries: Abdominal High Cholesterol, Hypertension Family Medical History Arthritis 19 MOTHER Cardiovascular disease 19 FATHER Cataracts 19 FATHER Dementia 19 FATHER 19 MOTHER Diabetes mellitus 19 FATHER (hypoglycmia) Hypertension 19 MOTHER Review of Systems Constitutional: see HPI, malaise, weakness Gastrointestinal: abdominal pain, vomiting Physical Exam Physical Exam General Appearance: WD/WN, Anxious (See free text), Chronically ill, Mild Distress, Obese Respiratory: Lungs Clear, Normal Breath Sounds Cardiovascular: Regular Rate, Rhythm Neurologic/Psychiatric: Alert, Oriented x3 Assessment/Plan Assessment and Plan Assess & Plan/Chief Complaint Assessment: Hypertensive emergency SBO due to possible incarcerated hernia Obesity Plan: ICU Cardene drip General surgery management Supervisory-Addendum Brief Verification & Attestation Participated in pt care: history, MDM, physical Personally performed: exam, history, MDM, supervision of care Care discussed with: Medical Student Procedures: n/a Results interpretation: Verified all documentation Verification and Attestation of Medical Student E/M Service A medical student performed and documented this service in my presence. I re viewed and verified all information documented by the medical student and made modifications to such information, when appropriate. I personally performed the physical exam and medical decision making. Maggy Patricia Mar 27, 2023,04:35 ANTHONY BARNES Mar 26, 2023 12:49 MAGGY PATRICIA DO Mar 27, 2023 04:37
[2023-03-26 14:44] LABS: POTASSIUM 3.4 MMOL/L (3.6-5.0)
[2023-03-26 14:45] LABS: CALCIUM 8.5 MG/DL (8.5-10.1)
[2023-03-26 14:49] LABS: CREATININE SERUM 0.76 MG/DL (0.60-1.30)
[2023-03-26 14:51] LABS: MAGNESIUM 2.7 MG/DL (1.6-2.4)
[2023-03-26] MEDS ORDERED: HYDROmorphone INJECTION 2 MG/ML VIAL ONE (18:24)
[2023-03-26] MEDS ORDERED: HYDROmorphone INJECTION 2 MG/ML VIAL IV ONE (18:30)
[2023-03-27] VITALS (7 sets, daily range): BP systolic 146–180; BP diastolic 79–97
[2023-03-27] MEDS: niCARdipine INJECTION 50 MG in NS (IVPB) 250 ML 230 ML IV SCH ×2 (00:39→08:42)
[2023-03-27] MEDS: morphine INJ 4 MG/ML 1 ML (VIAL/SYRINGE) IV PRN ×5 (01:01→22:09)
[2023-03-27] MEDS: NS IV 1000 ML 1,000 ML IV SCH ×3 (02:27→22:09)
[2023-03-27 02:38] LABS: BASOPHILS % (AUTO) 0 % (0-10); EOSINOPHILS % (AUTO) 0 % (0-10); HEMATOCRIT 46 % (35-52); HEMOGLOBIN 15.7 g/dL (11.5-16.0); LYMPHOCYTES # (AUTO) 1.4 10^3/uL (1.0-4.0); LYMPHOCYTES % (AUTO) 6 % (12-44); MEAN CORPUSCULAR HEMOGLOBIN 31 pg (25-34); MEAN CORPUSCULAR HGB CONC 34 g/dL (32-36); MEAN CORPUSCULAR VOLUME 90 fL (80-99); MEAN PLATELET VOLUME 9.9 fL (9.0-12.2); MONOCYTES # (AUTO) 1.9 10^3/uL (0.0-1.0); MONOCYTES % (AUTO) 8 % (0-12); NEUTROPHILS # (AUTO) 20.6 10^3/uL (1.8-7.8); NEUTROPHILS % (AUTO) 86 % (42-75); PLATELET COUNT 216 10^3/uL (130-400)
[2023-03-27 02:47] LABS: ALBUMIN 3.1 GM/DL (3.2-4.5); POTASSIUM 3.6 MMOL/L (3.6-5.0)
[2023-03-27 02:48] LABS: CALCIUM 8.1 MG/DL (8.5-10.1)
[2023-03-27 02:49] LABS: TOTAL PROTEIN 6.1 GM/DL (6.4-8.2)
[2023-03-27 02:51] LABS: BILIRUBIN,TOTAL 1.2 MG/DL (0.1-1.0)
[2023-03-27 02:52] LABS: PHOSPHORUS 2.1 MG/DL (2.3-4.7)
[2023-03-27 02:53] LABS: CREATININE SERUM 0.68 MG/DL (0.60-1.30)
[2023-03-27 02:54] LABS: LYMPHOCYTES % (MANUAL) 6 %; MONOCYTES % (MANUAL) 6 %; NEUTROPHILS % (MANUAL) 88 %
[2023-03-27 02:55] LABS: MAGNESIUM 2.2 MG/DL (1.6-2.4)
[2023-03-27] MEDS: MAGNESIUM 1 GM/100 ML IVPB 100 ML IV SCH (05:31)
[2023-03-27] MEDS: POTASSIUM CL 10MEQ/50ML IVPB 50 ML IV SCH ×5 (05:31→10:12)
[2023-03-27] MEDS: POTASSIUM CHLORIDE 20 MEQ TABLET PO SCH (05:31)
--- NOTE | 2023-03-27 07:50 | Tele-ICU Progress Note ---
Subjective Date Seen by a Provider: Mar 27, 2023 Time Seen by a Provider: 07:49 Subjective/Events-last exam (Tele-ICU Physician , Progress Note ) Service provided via interactive audio and video telecommunications E-CARE system to a patient admitted to ICU bed in [facility]. Patient is seen today due to persistent need of ICU care Available chart/ vitals / labs / Images reviewed Video assessment done using teleICU camera, rest of exam as per RN Discussed with RN Events overnight : Afebrile hemodynamically stable Respiratory - ra I/O =++ Drips: ns 125 , cardene gtt Pressors- no Hospital course: 03/26- 68yo F- dx SBO, Hypertensive Urgency- cardene gtt A/P SBO, ventral supra and infraumbilical abdominal wall hernias. 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 Discussed with RN to reach out if any questions or concerns Case and care daily discussed on multidisciplinary rounds ( RN, PharmD, Manager Management , Respiratory Therapy, fabric worker leader ) A total of 25 minutes of critical care time was devoted to this patient today, required to treat and/or prevent further deterioration of critical care condit ion ( as above ) . I am remotely monitoring this patient from another state. I am unable to do the bedside exam, and history/physical and pertinent information is taken from other notes in the computer and bedside staff. Sepsis Event Evaluation Height, Weight, BMI Height: 5'7.00" Weight: 298lbs. 0.0oz. 135.847982iq; 43.72 BMI Method: Focused Exam Lactate Level 03/26/23 05:07: Lactic Acid Level 4.48*H 03/26/23 07:22: Lactic Acid Level 5.25*H 03/26/23 14:26: Lactic Acid Level 2.40*H Exam Exam Patient acknowledged, consented, and participated in this virtual visit which wa s conducted using real time audio/video Vital Signs Date Time Temp Pulse Resp B/P (MAP) Pulse Ox O2 Delivery O2 Flow Rate FiO2 03/27/23 06:03 36.7 97 14 163/79 (107) 94 Room Air 03/27/23 06:00 92 23 163/79 (107) 94 Room Air 03/27/23 05:00 92 19 160/75 (103) 94 Room Air 03/27/23 04:41 96 Nasal Cannula 2.00 03/27/23 04:00 92 14 147/67 (93) 94 Room Air 03/27/23 03:50 36.4 03/27/23 03:00 92 12 163/84 (110) 94 Room Air 03/27/23 02:00 93 15 144/81 (102) 94 Room Air 03/27/23 01:16 149/79 03/27/23 01:00 96 14 161/79 (106) 95 Room Air 03/27/23 01:00 92 03/27/23 00:39 139/63 03/27/23 00:00 92 14 146/73 (97) 94 Room Air 03/27/23 00:00 36.9 03/26/23 23:53 96 Nasal Cannula 2.00 03/26/23 23:00 88 19 162/81 (108) 93 Room Air 03/26/23 22:00 93 155/78 (103) 95 Room Air 03/26/23 21:00 92 16 158/73 (101) 94 Room Air 03/26/23 20:06 36.3 03/26/23 20:00 96 16 165/81 (109) 94 Room Air 03/26/23 19:59 96 Nasal Cannula 2.00 03/26/23 19:26 120/75 03/26/23 19:00 98 38 170/85 (113) 95 Room Air 03/26/23 19:00 94 03/26/23 18:55 120/75 03/26/23 18:00 88 18 120/75 (90) 94 Room Air 03/26/23 17:00 933 17 156/71 (99) 93 Room Air 03/26/23 16:10 96 Nasal Cannula 2.00 03/26/23 16:00 86 11 167/76 (106) 95 Room Air 03/26/23 15:00 91 16 154/77 (102) 95 Room Air 03/26/23 14:41 94 Nasal Cannula 2.00 03/26/23 14:00 93 22 147/80 (102) 92 Room Air 03/26/23 13:00 92 23 158/76 (103) 91 Room Air 03/26/23 13:00 94 03/26/23 12:35 95 Room Air 03/26/23 12:35 160/76 03/26/23 12:00 36.7 03/26/23 12:00 99 17 143/67 (92) 91 Room Air 03/26/23 11:59 160/76 03/26/23 11:00 92 21 160/76 (104) 91 Room Air 03/26/23 10:39 177/82 03/26/23 10:00 91 18 120/66 (84) 92 Room Air 03/26/23 09:36 177/82 03/26/23 09:00 82 20 166/83 (110) 93 Room Air 03/26/23 08:00 36.4 03/26/23 08:00 96 22 168/87 (114) 94 Room Air I & O 03/27/23 07:00 Intake Total 4050 ml Output Total 2095 ml Balance 1955 ml Height & Weight Height: 5'7.00" Weight: 298lbs. 0.0oz. 135.476052rb; 43.72 BMI Method: General Appearance: WD/WN, Anxious (See free text), Chronically ill, Mild Distress, Obese HEENT: PERRL/EOMI Respiratory: Lungs Clear, Normal Breath Sounds Cardiovascular: Regular Rate, Rhythm Capillary Refill: Less Than 3 Seconds Peripheral Pulses: 2+ Radial Pulses (R), 2+ Radial Pulses (L) Gastrointestinal: non tender, guarding, tenderness (Right mid abdomen, palpable ventral hernia - very indurate. quiet bowel sounds with occasional tinkling sounds, no rushes) Neurologic/Psychiatric: Alert, Oriented x3 Skin: Normal Color, Warm/Dry Results Lab Laboratory Tests 03/25/23 20:07 03/26/23 05:07 03/26/23 14:26 03/27/23 02:30 Assessment/Plan Assessment/Plan 1 BUDDY DELA CRUZ MD Mar 27, 2023 07:50
[2023-03-27] MEDS: CEFEPIME INJECTION 1,000 MG in NS (IVPB) 50 ML 50 ML IV SCH ×2 (08:16→14:57)
[2023-03-27] MEDS: PANTOPRAZOLE INJECTION 40 MG VIAL IV SCH (08:17)
[2023-03-27] MEDS ORDERED: LIDOCAINE 1% w/EPI 1:100,000 20 ML VIAL ONE (10:28)
--- NOTE | 2023-03-27 10:33 | Progress Note - Surgery ---
RODERICK HERNANDEZ 03/27/23 1033: Subjective Date Seen by a Provider: Mar 27, 2023 Time Seen by a Provider: 10:32 Subjective/Events-last exam Ms. Yousif is had more pain last night and WBC count increased from 14.3 to 24. She describes her abdomen as feeling like it is closing in. Her abdomen is more distended than yesterday and feels hard possibly at the sites of her ventral hernias. Morphine was increased to 4mg q2H. Pt was unable to get comfortable. No bowel movements. Surgery likely later today. Pt denies CP, SOB,N/V, dysuria Review of Systems General: No Chills, No Night Sweats HEENT: No Head Aches, No Visual Changes Pulmonary: No Dyspnea, No Cough Cardiovascular: No: Chest Pain, Lt Headedness Gastrointestinal: Abdominal Pain (especially in epigastric region ); No: Vomiting, Diarrhea Genitourinary: No Dysuria, No Frequency Musculoskeletal: No: neck pain, shoulder pain Neurological: No: Numbness, Change in speech Focused Exam Lactate Level 03/26/23 05:07: Lactic Acid Level 4.48*H 03/26/23 07:22: Lactic Acid Level 5.25*H 03/26/23 14:26: Lactic Acid Level 2.40*H Objective Exam Vital Signs Date Time Temp Pulse Resp B/P (MAP) Pulse Ox O2 Delivery O2 Flow Rate FiO2 03/27/23 09:13 171/82 03/27/23 09:00 97 23 171/82 (111) 89 Room Air 03/27/23 08:44 Room Air 0.00 03/27/23 08:42 155/73 03/27/23 08:39 94 Nasal Cannula 2.00 03/27/23 08:00 93 16 155/73 (92) 93 Room Air 03/27/23 08:00 96 Nasal Cannula 2.00 03/27/23 07:53 37.0 03/27/23 07:00 92 03/27/23 07:00 92 29 168/82 (111) 94 Room Air 03/27/23 06:03 36.7 97 14 163/79 (107) 94 Room Air 03/27/23 06:00 92 23 163/79 (107) 94 Room Air 03/27/23 05:00 92 19 160/75 (103) 94 Room Air 03/27/23 04:41 96 Nasal Cannula 2.00 03/27/23 04:00 92 14 147/67 (93) 94 Room Air 03/27/23 03:50 36.4 03/27/23 03:00 92 12 163/84 (110) 94 Room Air 03/27/23 02:00 93 15 144/81 (102) 94 Room Air 03/27/23 01:16 149/79 03/27/23 01:00 96 14 161/79 (106) 95 Room Air 03/27/23 01:00 92 03/27/23 00:39 139/63 03/27/23 00:00 92 14 146/73 (97) 94 Room Air 03/27/23 00:00 36.9 03/26/23 23:53 96 Nasal Cannula 2.00 03/26/23 23:00 88 19 162/81 (108) 93 Room Air 03/26/23 22:00 93 155/78 (103) 95 Room Air 03/26/23 21:00 92 16 158/73 (101) 94 Room Air 03/26/23 20:06 36.3 03/26/23 20:00 96 16 165/81 (109) 94 Room Air 03/26/23 19:59 96 Nasal Cannula 2.00 03/26/23 19:26 120/75 03/26/23 19:00 98 38 170/85 (113) 95 Room Air 03/26/23 19:00 94 03/26/23 18:55 120/75 03/26/23 18:00 88 18 120/75 (90) 94 Room Air 03/26/23 17:00 933 17 156/71 (99) 93 Room Air 03/26/23 16:10 96 Nasal Cannula 2.00 03/26/23 16:00 86 11 167/76 (106) 95 Room Air 03/26/23 15:00 91 16 154/77 (102) 95 Room Air 03/26/23 14:41 94 Nasal Cannula 2.00 03/26/23 14:00 93 22 147/80 (102) 92 Room Air 03/26/23 13:00 92 23 158/76 (103) 91 Room Air 03/26/23 13:00 94 03/26/23 12:35 95 Room Air 03/26/23 12:35 160/76 03/26/23 12:00 36.7 03/26/23 12:00 99 17 143/67 (92) 91 Room Air 03/26/23 11:59 160/76 03/26/23 11:00 92 21 160/76 (104) 91 Room Air 03/26/23 10:39 177/82 I & O 03/27/23 07:00 Intake Total 4050 ml Output Total 2095 ml Balance 1955 ml Capillary Refill : Less Than 3 Seconds General Appearance: WD/WN, Anxious, Chronically ill, Mild Distress, Obese HEENT: PERRL/EOMI, TMs Normal Neck: Non Tender, Supple Respiratory: Lungs Clear, Normal Breath Sounds Cardiovascular: Regular Rate, Rhythm; No No Edema (legs very swollen - she says this is normal for her 2+ pitting edema) Peripheral Pulses: 2+ Radial Pulses (R), 2+ Radial Pulses (L) Gastrointestinal: distended (diffuse), guarding, tenderness (Right mid abdomen, palpable ventral hernia - very indurate. ) Extremity: Normal Capillary Refill, No Calf Tenderness, Pedal Edema (2+, very swollen) Neurologic/Psychiatric: Alert, Oriented x3 Skin: Normal Color, Warm/Dry Lymphatic: No Adenopathy Results Lab Laboratory Tests 03/26/23 10:50: Urine Color YELLOW, Urine Clarity CLEAR, Urine pH 6.0, Urine Specific Himrod 1.015L, Urine Protein 1+H, Urine Glucose (UA) 2+H, Urine Ketones 1+H, Urine Nitrite NEGATIVE, Urine Bilirubin NEGATIVE, Urine Urobilinogen 0.2, Urine Leukocyte Esterase NEGATIVE, Urine RBC (Auto) 2+H, Urine RBC 2-5H, Urine WBC NONE, Urine Squamous Epithelial Cells 2-5, Urine Crystals NONE, Urine Bacteria FEWH, Urine Casts NONE, Urine Mucus NEGATIVE, Urine Culture Indicated NO 03/26/23 12:02: Glucometer 200H 03/26/23 14:26: Sodium Level 140, Potassium Level 3.4L, Chloride Level 109H, Carbon Dioxide Level 22, Anion Gap 9, Blood Urea Nitrogen 12, Creatinine 0.76, Estimat Glomerular Filtration Rate 86, BUN/Creatinine Ratio 16, Glucose Level 177H, Lactic Acid Level 2.40*H, Calcium Level 8.5, Magnesium Level 2.7H 03/26/23 17:57: Glucometer 133H 03/27/23 00:12: Glucometer 146H 03/27/23 02:30: White Blood Count 24.0H, Red Blood Count 5.06, Hemoglobin 15.7, Hematocrit 46, Mean Corpuscular Volume 90, Mean Corpuscular Hemoglobin 31, Mean Corpuscular Hemoglobin Concent 34, Red Cell Distribution Width 12.7, Platelet Count 216, Mean Platelet Volume 9.9, Immature Granulocyte % (Auto) 1, Neutrophils (%) (Auto) 86H, Lymphocytes (%) (Auto) 6L, Monocytes (%) (Auto) 8, Eosinophils (%) (Auto) 0, Basophils (%) (Auto) 0, Neutrophils # (Auto) 20.6H, Lymphocytes # (Auto) 1.4, Monocytes # (Auto) 1.9H, Eosinophils # (Auto) 0.0, Basophils # (Auto) 0.0, Immature Granulocyte # (Auto) 0.1, Neutrophils % (Manual) 88, Lymphocytes % (Manual) 6, Monocytes % (Manual) 6, Sodium Level 140, Potassium Level 3.6, Chloride Level 111H, Carbon Dioxide Level 22, Anion Gap 7, Blood Urea Nitrogen 13, Creatinine 0.68, Estimat Glomerular Filtration Rate 96, BUN/Creatinine Ratio 19, Glucose Level 156H, Calcium Level 8.1L, Corrected Calcium 8.8, Phosphorus Level 2.1L, Magnesium Level 2.2, Total Bilirubin 1.2H, Aspartate Amino Transf (AST/SGOT) 15, Alanine Aminotransferase (ALT/SGPT) 14, Alkaline Phosphatase 41, Total Protein 6.1L, Albumin 3.1L Microbiology 03/26/23 MRSA Screen - Final, Complete MRSA not isolated Assessment/Plan Assessment/Plan Assessment/Plan small bowel obstruction upper abdominal pain hypertensive urgency incisional hernia x 2 incarcerated senior care anticoagulation hx afib. Prepare for surgery - diagnostic laparoscopy with all other indicated procedures with possible hernia repairs. Pain control NPO IV hydration NG tube Follow urine output. Repeat labs in am. TERRY ARENAS DO 03/27/23 1549: Subjective Subjective/Events-last exam Nena is having more pain. More severe and now extreme tenderness over area of incision. Not having any nausea at this time but has ng tube in and is npo. Her wbc is up to 24k. Denies fever sweats chills shortness of breath or chest pain. Objective Exam General Appearance: Anxious, Chronically ill, Mild Distress, Obese HEENT: PERRL/EOMI, Normal ENT Inspection Neck: Non Tender, Supple Respiratory: Chest Non Tender, No Accessory Muscle Use, No Respiratory Distress Cardiovascular: Regular Rate, Rhythm, No JVD Gastrointestinal: distended (diffuse), guarding, tenderness (peritoneal) Extremity: Normal Capillary Refill, Pedal Edema (2+, very swollen) Neurologic/Psychiatric: Alert, Oriented x3 Skin: Normal Color, Warm/Dry Lymphatic: No Adenopathy Assessment/Plan Assessment/Plan Assessment/Plan small bowel obstruction upper abdominal pain hypertensive urgency incisional hernia x 2 incarcerated senior care anticoagulation hx afib. possible ischemic bowel Her abdominal exam has worsened and increase of wbc. I feel she may have ischemic bowel with her incisional hernia we discussed risks and benefits of - diagnostic laparoscopy with all other indicated procedures with possible hernia repairs. she understands and wishes to proceed. Pain control NPO IV hydration NG tube start abx accurate urine output. Repeat labs in am. Supervisory-Addendum Brief Verification & Attestation Participated in pt care: history, MDM, physical Personally performed: exam, history, MDM, supervision of care Care discussed with: Medical Student Procedures: n/a Results interpretation: Verified all documentation Verification and Attestation of Medical Student E/M Service A medical student performed and documented this service in my presence. I reviewed and verified all information documented by the medical student and made modifications to such information, when appropriate. I personally performed the physical exam and medical decision making. Terry Arenas, Mar 27, 2023,11:49 RODERICK HERNANDEZ Mar 27, 2023 10:33 TERRY ARENAS DO Mar 27, 2023 15:49
--- NOTE | 2023-03-27 10:33 | Progress Note - Hospitalist ---
ANTHONY BARNES 03/27/23 1033: Subjective HPI/CC On Admission Date Seen by Provider: Mar 27, 2023 Time Seen by Provider: 08:40 Chief complaint: Hypertensive urgency with SBO possible incarcerated hernia Subjective/Events-last exam Patient is doing a lot better than yesterday, she was not moaning in pain and was alert. Still having upper abdominal pain and epigastric pain. Describes her abdomen as feeling 'tight' and rates the pain as a 4/10. Has been receiving pain medication which is helping. Has had no BM or gas. Being managed by surgery and is waiting to hear if they will do a lap or fix the blockage. Reported no fever, chills, nausea, vomiting. Review of Systems General: No Chills, No Night Sweats; Fatigue; No Malaise, No Appetite, No Other HEENT: No Head Aches, No Visual Changes, No Eye Pain, No Ear Pain, No Dysphasia, No Sinus Congestion, No Post Nasal Drip, No Sore Throat, No Other Pulmonary: No Dyspnea, No Cough, No Pleuritic Chest Pain, No Other Cardiovascular: Lt Headedness; No: Chest Pain, Palpitations, Orthopnea, Paroxysmal Noc. Dyspnea, Edema, Other Gastrointestinal: Abdominal Pain; No: Nausea, Vomiting, Diarrhea, Constipation, Melena, Hematochezia, Other Genitourinary: No Dysuria, No Frequency, No Incontinence, No Hematuria, No Retention, No Other Musculoskeletal: back pain (From laying down); No: other, neck pain, shoulder pain, arm pain, hand pain, leg pain, foot pain Neurological: No: Weakness, Numbness, Incoordination, Change in speech, Confusion, Seizures, Other Focused Exam Lactate Level 03/26/23 05:07: Lactic Acid Level 4.48*H 03/26/23 07:22: Lactic Acid Level 5.25*H 03/26/23 14:26: Lactic Acid Level 2.40*H Objective Exam Vital Signs Vital Signs Date Time Temp Pulse Resp B/P (MAP) Pulse Ox O2 Delivery O2 Flow Rate FiO2 03/27/23 10:00 98 24 170/78 (108) 90 Room Air 03/27/23 08:44 0.00 03/27/23 07:53 37.0 03/26/23 02:33 21 Capillary Refill : Less Than 3 Seconds General Appearance: WD/WN, Mild Distress HEENT: PERRL/EOMI, Pharynx Normal, Moist Mucous Membranes Respiratory: Chest Non Tender, Lungs Clear, Normal Breath Sounds, No Accessory Muscle Use, No Respiratory Distress Cardiovascular: Regular Rate, Rhythm, No Gallop, No Murmur, Normal Peripheral Pulses Gastrointestinal: Abnormal Bowel Sounds (Hypoactive), Distended, Tenderness Extremity: Normal Capillary Refill Neurologic/Psychiatric: Alert, Oriented x3, Normal Mood/Affect Skin: Normal Color, Warm/Dry Results/Procedures Lab Laboratory Tests 03/26/23 14:26 03/27/23 02:30 Patient resulted labs reviewed. Assessment/Plan Assessment and Plan Assess & Plan/Chief Complaint Assessment: HTN urgency on Cardene drip Abdominal pain Possible SBO due to incarcerated hernia Hypokalemia History of abdominal surgeries History of Afib Plan: General surgery management Having surgery today Continue IVF NPO Continue NG tube Pain management Critical Care: Critically Ill Patient MAGGY PATRICIA DO 03/27/232041: Subjective Subjective/Events-last exam Patient operating room Still on Cardene drip We will monitor closely Objective Exam General Appearance: No Apparent Distress, WD/WN, Chronically ill Respiratory: Lungs Clear, Normal Breath Sounds Cardiovascular: Regular Rate, Rhythm Assessment/Plan Assessment and Plan Assess & Plan/Chief Complaint Appreciate general surgery Maintain on Cardene drip Supportive care Supervisory-Addendum Brief Verification & Attestation Participated in pt care: history, MDM, physical Personally performed: exam, history, MDM, supervision of care Care discussed with: Medical Student Procedures: n/a Results interpretation: Verified all documentation Verification and Attestation of Medical Student E/M Service A medical student performed and documented this service in my presence. I reviewed and verified all information documented by the medical student and made modifications to such information, when appropriate. I personally performed the physical exam and medical decision making. Maggy Patricia Mar 27, 2023,20:42 ANTHONY BARNES Mar 27, 2023 10:33 MAGGY PATRICIA DO Mar 27, 2023 20:42
[2023-03-27] MEDS ORDERED: GLYCOPYRROLATE INJ 0.2 MG/ML 2 ML VIAL ONE (10:39)
[2023-03-27] MEDS ORDERED: proPOfol INJECTION 200 MG/20 ML VIAL IV ONE (10:39)
[2023-03-27] MEDS ORDERED: ONDANSETRON INJECTION 4 MG/2 ML (SDV) ONE (10:39)
[2023-03-27] MEDS ORDERED: LIDOCAINE PF 2% 5 ML VIAL ONE (10:39)
[2023-03-27] MEDS ORDERED: fentaNYL INJECTION 100 MCG/2 ML VIAL ONE ×2 (10:39→13:46)
[2023-03-27] MEDS ORDERED: ROCURONIUM 50 MG/5 ML VIAL IV ONE ×2 (10:39→11:58)
[2023-03-27] MEDS ORDERED: NEOSTIGMINE 1 MG/1ML 10 ML VIAL ONE (10:40)
[2023-03-27] MEDS: LACTATED RINGERS 1,000 ML 1,000 ML IV PRN ×2 (10:56→13:56)
[2023-03-27] MEDS ORDERED: SUCCINYLCHOLINE INJ 20 MG/1 ML 10 ML VIAL ONE (11:12)
[2023-03-27] MEDS ORDERED: ceFAZolin INJECTION 2,000 MG ONE (11:15)
[2023-03-27] MEDS ORDERED: NS (IVPB) 50 ML 50 ML ONE (11:16)
[2023-03-27] MEDS ORDERED: ceFAZolin INJECTION 2,000 MG in NS (IVPB) 50 ML 50 ML IV ONE (11:30)
[2023-03-27] MEDS ORDERED: LIDOCAINE 1% w/EPI 1:100,000 20 ML VIAL INJ ONE (11:34)
[2023-03-27] MEDS ORDERED: SUGAMMADEX 500 MG/5 ML VIAL (BRIDION) IV ONE (13:01)
[2023-03-27] MEDS ORDERED: ISOFLURANE (FORANE) 15 ML/15 MIN INHALATION ONE ×2 (13:04→13:48)
[2023-03-27] MEDS ORDERED: dexAMETHasone INJ 10 MG/ML 1 ML VIAL ONE (13:04)
[2023-03-27] MEDS ORDERED: HYDROmorphone INJECTION 2 MG/ML VIAL ONE (13:09)
--- NOTE | 2023-03-27 13:29 | Progress Note-Post Operative ---
Post-Operative Progess Note Surgeon (s)/Penciller (s) Surgeon MARILUZ SANCHEZ DO Penciller: Dr. Gamino to assist in retraction dissection and closure Pre-Operative Diagnosis incarcerated hernia, possible ischemia Post-Operative Diagnosis incisional strangulated hernia, ischemic small bowel Procedure & Operative Findings Date of Procedure 03/27/23 Procedure Performed/Findings diagnostic laparoscopy to open with small bowel resection, bilateral component separation with incisional hernia 15 cm defect, partial omentectomy Anesthesia Type general Estimated Blood Loss Estimated blood loss (mL): 200 mL Specimens/Packing Specimens Removed small bowel MARILUZ SANCHEZ DO Mar 27, 2023 13:29
--- NOTE | 2023-03-27 13:43 | Anesthesia-General Post-Op ---
General Patient Condition Mental Status/LOC: Same as Preop Cardiovascular: Satisfactory Nausea/Vomiting: Absent Respiratory: Satisfactory Pain: Controlled Complications: Absent Post Op Complications Complications None Follow Up Care/Instructions Patient Instructions None needed. Anesthesia/Patient Condition Patient Condition Patient is doing well, no complaints, stable vital signs, no apparent adverse anesthesia problems. No complications reported per nursing. MARCE BOSS CRNA Mar 27, 2023 13:43
[2023-03-27] MEDS ORDERED: fentaNYL INJECTION 100 MCG/2 ML VIAL IVP ONE (13:45)
[2023-03-27] MEDS ORDERED: ONDANSETRON INJECTION 4 MG/2 ML (SDV) IVP PRN (13:45)
[2023-03-27] MEDS: metroNIDAZOLE 500MG/100ML IVPB 100 ML IV SCH ×2 (16:45→23:54)
[2023-03-27] MEDS ORDERED: RT-ALBUTEROL SULF 2.5 MG/3 ML PRE-MIX VIAL INH PRN (17:00)
[2023-03-27] MEDS: ceFAZolin INJECTION 2,000 MG in NS (IVPB) 50 ML 50 ML IV SCH (19:30)
[2023-03-27] MEDS: RT-ALBUTEROL SULF 2.5 MG/3 ML PRE-MIX VIAL INH SCH (20:03)
--- NOTE | 2023-03-28 02:06 | OPERATIVE REPORT ---
DATE OF SERVICE: 03/27/2023 PREOPERATIVE DIAGNOSIS: Incarcerated hernia, possible ischemic bowel. POSTOPERATIVE DIAGNOSES: Incisional and strangulated hernia, ischemic small bowel. SURGEON: Mariluz Arenas DO LACTATION CONSULTANT: Jluis Gamino DO. Stevenson, assisted in retraction, dissection, and closure. ANESTHESIA: General. ESTIMATED BLOOD LOSS: 200 mL COMPLICATIONS: None. PROCEDURE: Diagnostic laparoscopy to open with small bowel resection, bilateral component separation with incisional hernia 15 cm defect, partial omentectomy. INDICATIONS: The patient is a 68-year-old female who presented with a small-bowel obstruction. She had 2 incarcerated hernias. She is on long-term anticoagulation. The patient was admitted for small-bowel obstruction and today her abdominal exam worsened and concern for ischemic bowel present. She was discussed risks and benefits of diagnostic laparoscopy and all indicated procedures. We also discussed hernia repair. She understands and wishes to proceed. Consent was signed in chart. DESCRIPTION OF PROCEDURE: The patient was taken to the operating suite. She was prepped and draped in sterile fashion. Timeout was performed. Local anesthetic was infiltrated in the left upper quadrant. An 11 blade scalpel was used to make a small skin incision. Cautery was used to dissect down through the subcutaneous and the anterior fascia was scored. The muscle was divided and the posterior sheath was then entered. Pneumoperitoneum was achieved. [ ] trocar was inserted. A 5 mm trocar was placed in the left lateral quadrant. The abdomen was then inspected noting ischemic small bowel present. Adhesions to the abdominal wall were then began to be taken down. These were taken down with LigaSure and then got to the point where everything was significantly stuck. I therefore made a midline incision and began reducing the hernia contents and guide into the abdomen. Adhesions were taken down. There was a small bowel that was into an inferior hernia, which were all reduced. The small bowel was then ran, the [ ] portion was ischemic due to strangulation of the hernia and the small bowel [ ] in the distal portion of [ ] was dissected around and VEENA stapler was fired across the ileum and the LigaSure was then used to divide the mesentery. A algb-ve-ujjl anastomosis was created. The mesenteric defect was closed with 3-0 Vicryls. A crotch stitch was also placed with 3-0 Vicryl of the anastomosis. This had a good blood supply and also had a patent lumen. The [ ] was then continually dissected free. At this point, due to the size of hernia defect, which was 15 cm in length anterior to the fascia dissected laterally. This was dissected out for the external oblique was able to be released. This had to be done on both sides. Further, we could do a tension-free closure of the abdominal wall. Once this was released bilaterally, the abdomen was then irrigated with copious amounts of irrigation and suctioned [ ] noting no other pathology. The abdominal fascia was then closed using 1-0 looped PDS. A piece of 8 x 10 inch Phasix mesh was then placed over the top of the onlay using 3-0 Vicryls to pack it in place. After this was performed, the abdomen was then interpreted again and demonstrated adequate closure. The abdomen was desufflated. Trocars were then removed. Prior to closure of the abdomen, part of the mesentery had some ischemic changes, so we transected the abdomen as well using LigaSure. After the mesh was tacked in place through a stab incision on the right lower quadrant, a 19 Brock drain was placed over the mesh in the subcutaneous field. The skin was then closed with idalmis. The fascial defect at the 12 mm trocar site in the left upper quadrant was then closed using 0 Vicryl in [id number]-il-[id number] fashion. Incisions were closed with idalmis. Skin was then washed and dried. Sterile bandages were applied. The patient tolerated the procedure well without any complications, taken to recovery room in stable condition. Job ID: [id number] DocumentID: [id number] Dictated Date: 03/27/2023 15:43:58 Doping Supervisor Date: 03/28/2023 00:24:00 Dictated By: MARILUZ ARENAS DO
[2023-03-28] MEDS: ceFAZolin INJECTION 2,000 MG in NS (IVPB) 50 ML 50 ML IV SCH ×3 (03:46→19:46)
[2023-03-28 03:54] LABS: BASOPHILS % (AUTO) 0 % (0-10); EOSINOPHILS % (AUTO) 0 % (0-10); HEMATOCRIT 41 % (35-52); HEMOGLOBIN 13.9 g/dL (11.5-16.0); LYMPHOCYTES # (AUTO) 1.1 10^3/uL (1.0-4.0); LYMPHOCYTES % (AUTO) 5 % (12-44); MEAN CORPUSCULAR HEMOGLOBIN 31 pg (25-34); MEAN CORPUSCULAR HGB CONC 34 g/dL (32-36); MEAN CORPUSCULAR VOLUME 91 fL (80-99); MONOCYTES # (AUTO) 1.5 10^3/uL (0.0-1.0); MONOCYTES % (AUTO) 7 % (0-12); NEUTROPHILS # (AUTO) 19.1 10^3/uL (1.8-7.8); NEUTROPHILS % (AUTO) 88 % (42-75); PLATELET COUNT 171 10^3/uL (130-400); WHITE BLOOD COUNT 21.8 10^3/uL (4.3-11.0)
[2023-03-28 04:03] LABS: ALBUMIN 2.7 GM/DL (3.2-4.5); POTASSIUM 3.8 MMOL/L (3.6-5.0)
[2023-03-28 04:04] LABS: CALCIUM 8.4 MG/DL (8.5-10.1)
[2023-03-28 04:06] LABS: TOTAL PROTEIN 5.4 GM/DL (6.4-8.2)
[2023-03-28 04:07] LABS: BILIRUBIN,TOTAL 1.1 MG/DL (0.1-1.0)
[2023-03-28 04:09] LABS: CREATININE SERUM 0.7 MG/DL (0.60-1.30); PHOSPHORUS 1.6 MG/DL (2.3-4.7)
[2023-03-28 04:12] LABS: MAGNESIUM 1.9 MG/DL (1.6-2.4)
[2023-03-28] MEDS: morphine INJ 4 MG/ML 1 ML (VIAL/SYRINGE) IV PRN (05:35)
[2023-03-28] MEDS: POTASSIUM CL 10MEQ/50ML IVPB 50 ML IV SCH ×2 (05:36→06:00)
[2023-03-28] MEDS: NS IV 1000 ML 1,000 ML IV SCH ×3 (05:41→19:54)
[2023-03-28] MEDS: POTASSIUM CHLORIDE 20 MEQ TABLET PO SCH (06:00)
[2023-03-28] MEDS: MAGNESIUM 1 GM/100 ML IVPB 100 ML IV SCH (06:00)
--- NOTE | 2023-03-28 06:24 | Progress Note - Hospitalist ---
Subjective HPI/CC On Admission Date Seen by Provider: Mar 28, 2023 Time Seen by Provider: 11:00 Chief complaint: Hypertensive urgency with SBO possible incarcerated hernia Subjective/Events-last exam Patient doing dramatically better Pain is much improved since open surgery management for bowel obstruction for ischemic bowel Patient doing a lot better Labs stable Blood pressure improved off Cardene drip Review of Systems Gastrointestinal: Abdominal Pain Focused Exam Lactate Level 03/26/23 05:07: Lactic Acid Level 4.48*H 03/26/23 07:22: Lactic Acid Level 5.25*H 03/26/23 14:26: Lactic Acid Level 2.40*H Objective Exam Vital Signs Vital Signs Date Time Temp Pulse Resp B/P (MAP) Pulse Ox O2 Delivery O2 Flow Rate FiO2 03/28/23 14:00 88 12 154/76 (97) 91 Room Air 03/28/23 12:00 36.5 03/28/23 12:00 2.00 03/27/23 16:16 21 Capillary Refill : Less Than 3 SecondsLess Than 3 Seconds General Appearance: No Apparent Distress, WD/WN, Chronically ill, Obese Respiratory: Lungs Clear, Normal Breath Sounds Cardiovascular: Regular Rate, Rhythm Results/Procedures Lab Laboratory Tests 03/28/23 03:45 Patient resulted labs reviewed. Assessment/Plan Assessment and Plan Assess & Plan/Chief Complaint Assessment: HTN urgency placed on Cardene drip on admit now discontinued Abdominal pain due to SBO due to incarcerated hernia with ischemic bowel Hypokalemia History of abdominal surgeries History of Afib Noncompliance with blood pressure meds Plan: General surgery management appreciated Maintain ICU Continue IVF NPO except ice chips Pain management Critical Care Critically Ill Patient MISHA PATRICIA DO Mar 28, 2023 06:24
[2023-03-28] MEDS: RT-ALBUTEROL SULF 2.5 MG/3 ML PRE-MIX VIAL INH SCH ×2 (07:25→19:54)
--- NOTE | 2023-03-28 07:32 | Progress Note - Surgery ---
RODERICK HERNANDEZ 03/28/23 0732: Subjective Date Seen by a Provider: Mar 28, 2023 Time Seen by a Provider: 07:15 Subjective/Events-last exam Nena looks aware and alert than yesterday. She states she is feeling much better. She endorses only incisional pain. Her pain is controlled and is 1/10 with regular pain meds. Scant bleeding from incisional site, but looks clean and healing well. She had 25ml of bloody fluid from drain last night and has ~15ml of blood drainage this morning. Nothing out of NG tube overnight. Urine output is good at 0.72. No bowel movements or urge to go yet. She has a slight headache for which she was given a towel on her head. She had some confusion overnight because she thought she was alone, but called the nurse and was able to reorient herself. Used IS last night. Pt denies CP, SOB, N/V, vision changes, dizziness Review of Systems General: No Chills, No Night Sweats HEENT: Head Aches; No Visual Changes, No Eye Pain Pulmonary: No Dyspnea, No Cough Cardiovascular: Edema (LE BL 1+); No: Chest Pain, Palpitations Gastrointestinal: Abdominal Pain (incisional); No: Nausea, Vomiting Genitourinary: No Dysuria, No Incontinence Musculoskeletal: No: neck pain, shoulder pain Neurological: Confusion; No: Weakness, Numbness Focused Exam Lactate Level 03/26/23 05:07: Lactic Acid Level 4.48*H 03/26/23 07:22: Lactic Acid Level 5.25*H 03/26/23 14:26: Lactic Acid Level 2.40*H Objective Exam Vital Signs Date Time Temp Pulse Resp B/P (MAP) Pulse Ox O2 Delivery O2 Flow Rate FiO2 03/28/23 07:00 88 03/28/23 06:00 96 26 161/83 (109) 94 Room Air 03/28/23 05:00 90 26 92 Room Air 03/28/23 04:34 96 Nasal Cannula 2.00 03/28/23 04:00 89 20 93 Room Air 03/28/23 03:00 94 15 141/73 (95) 93 Room Air 03/28/23 02:00 91 16 145/74 (97) 93 Room Air 03/28/23 01:00 94 03/28/23 01:00 96 16 154/77 (102) 94 Room Air 03/28/23 00:00 95 16 121/72 (88) 94 Room Air 03/27/23 23:24 96 Nasal Cannula 2.00 03/27/23 23:00 97 16 136/70 (92) 94 Room Air 03/27/23 22:00 94 16 134/69 (90) 94 Room Air 03/27/23 21:00 99 15 142/69 (93) 95 Room Air 03/27/23 20:04 93 Nasal Cannula 2.00 03/27/23 20:00 93 16 136/67 (90) 94 Room Air 03/27/23 19:53 96 Nasal Cannula 2.00 03/27/23 19:00 92 14 132/71 (91) 95 Room Air 03/27/23 19:00 94 03/27/23 18:00 92 13 157/83 (107) 94 Room Air 03/27/23 17:00 91 10 166/77 (106) 94 Room Air 03/27/23 16:16 36.3 96 96 21 03/27/23 16:00 96 Nasal Cannula 1.00 03/27/23 16:00 93 18 159/85 (109) 94 Room Air 03/27/23 15:00 96 14 96 Room Air 03/27/23 14:45 104 15 180/97 (124) 95 Room Air 03/27/23 14:25 OxyMask 3.00 03/27/23 14:25 96 Nasal Cannula 2.00 03/27/23 14:20 36.3 20 149/79 (102) 94 OxyMask 3.00 03/27/23 14:15 98 23 150/90 (110) 90 Room Air 03/27/23 14:10 OxyMask 3.00 03/27/23 14:10 20 149/79 (102) 93 OxyMask 3.00 03/27/23 14:00 20 148/89 (108) 95 OxyMask 3.00 03/27/23 14:00 OxyMask 3.00 03/27/23 13:50 20 166/95 (118) 94 OxyMask 4.00 03/27/23 13:45 OxyMask 6.00 03/27/23 13:40 20 175/84 (114) 96 OxyMask 6.00 03/27/23 13:30 OxyMask 6.00 03/27/23 13:30 36.3 20 146/85 (105) 94 OxyMask 6.00 03/27/23 10:00 98 24 170/78 (108) 90 Room Air 03/27/23 09:13 171/82 03/27/23 09:00 97 23 171/82 (111) 89 Room Air 03/27/23 08:44 Room Air 0.00 03/27/23 08:42 155/73 03/27/23 08:39 94 Nasal Cannula 2.00 03/27/23 08:00 93 16 155/73 (92) 93 Room Air 03/27/23 08:00 96 Nasal Cannula 2.00 03/27/23 07:53 37.0 I & O 03/28/23 06:59 Intake Total 1572 ml Output Total 2375 ml Balance -803 ml Capillary Refill : Less Than 3 SecondsLess Than 3 Seconds General Appearance: No Apparent Distress, WD/WN, Chronically ill HEENT: PERRL/EOMI, Normal ENT Inspection Neck: Non Tender, Supple Respiratory: Lungs Clear, Normal Breath Sounds Cardiovascular: Regular Rate, Rhythm Peripheral Pulses: 2+ Radial Pulses (R), 2+ Radial Pulses (L) Gastrointestinal: soft; No distended, No rebound; tenderness (mild incisional tenderness) Extremity: Normal Capillary Refill, Pedal Edema (1+, swollen) Neurologic/Psychiatric: Alert, Oriented x3 Skin: Normal Color, Warm/Dry Lymphatic: No Adenopathy Results Lab Laboratory Tests 03/27/23 14:44: Glucometer 153H 03/27/23 18:53: Glucometer 151H 03/28/23 03:45: White Blood Count 21.8H, Red Blood Count 4.50, Hemoglobin 13.9, Hematocrit 41, Mean Corpuscular Volume 91, Mean Corpuscular Hemoglobin 31, Mean Corpuscular Hemoglobin Concent 34, Red Cell Distribution Width 13.0, Platelet Count 171, Mean Platelet Volume 10.0, Immature Granulocyte % (Auto) 1, Neutrophils (%) (Au to) 88H, Lymphocytes (%) (Auto) 5L, Monocytes (%) (Auto) 7, Eosinophils (%) (Auto) 0, Basophils (%) (Auto) 0, Neutrophils # (Auto) 19.1H, Lymphocytes # (Auto) 1.1, Monocytes # (Auto) 1.5H, Eosinophils # (Auto) 0.0, Basophils # (Auto) 0.0, Immature Granulocyte # (Auto) 0.1, Sodium Level 143, Potassium Level 3.8, Chloride Level 112H, Carbon Dioxide Level 24, Anion Gap 7, Blood Urea Nitrogen 16, Creatinine 0.70, Estimat Glomerular Filtration Rate 95, BUN/Creatinine Ratio 23, Glucose Level 154H, Calcium Level 8.4L, Corrected Calcium 9.4, Phosphorus Level 1.6L, Magnesium Level 1.9, Total Bilirubin 1.1H, Aspartate Amino Transf (AST/SGOT) 13, Alanine Aminotransferase (ALT/SGPT) 12, Alkaline Phosphatase 38L, Total Protein 5.4L, Albumin 2.7L Microbiology 03/26/23 MRSA Screen - Final, Complete MRSA not isolated Assessment/Plan Assessment/Plan Assessment/Plan S/P diagnostic laparoscopy to open with small bowel resection, bilateral component separation with incisional hernia 15 cm defect, partial omentectomy small bowel obstruction upper abdominal pain hypertensive urgency incisional hernia x 2 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 ischemic bowel headache Pain control clear liquids as tolerated IV hydration NG tube IV abx IS SCDs for DVT prophylaxis Ambulation as tolerated renal ultrasound due to hx of htn urgency accurate urine output. Repeat labs in am. MARILUZ ARENAS DO 03/28/23 1306: Subjective Subjective/Events-last exam Pain controlled. No nausea or emesis. Ng tube in place. Arturo serosang. NPO Using IS some. Denies n/v fever sweats chills shortness of breath or chest pain. Objective Exam General Appearance: No Apparent Distress, WD/WN, Chronically ill HEENT: PERRL/EOMI, Normal ENT Inspection Neck: Non Tender, Supple Respiratory: Chest Non Tender, No Accessory Muscle Use, No Respiratory Distress Cardiovascular: Regular Rate, Rhythm, No JVD Gastrointestinal: soft, tenderness (mild incisional tenderness), other (ARTURO serosang) Extremity: Non Tender, Pedal Edema (1+, swollen) Neurologic/Psychiatric: Alert, Oriented x3 Skin: Normal Color, Warm/Dry Lymphatic: No Adenopathy Assessment/Plan Assessment/Plan Assessment/Plan S/P diagnostic laparoscopy to open with small bowel resection, bilateral component separation with incisional hernia 15 cm defect, partial omentectomy small bowel obstruction upper abdominal pain hypertensive urgency incisional hernia x 2 strangulated nursing home anticoagulation hx afib. ischemic bowel headache Pain control clear liquids as tolerated IV hydration NG tube IV abx IS SCDs for DVT prophylaxis Ambulation as tolerated renal ultrasound due to hx of htn urgency accurate urine output. Repeat labs in am. Supervisory-Addendum Brief Verification & Attestation Participated in pt care: history, MDM, physical Personally performed: exam, history, MDM, supervision of care Care discussed with: Medical Student Procedures: n/a Results interpretation: Verified all documentation Verification and Attestation of Medical Student E/M Service A medical student performed and documented this service in my presence. I reviewed and verified all information documented by the medical student and made modifications to such information, when appropriate. I personally performed the physical exam and medical decision making. Mariluz Arenas, Mar 28, 2023,13:05 RODERICK HERNANDEZ Mar 28, 2023 07:32 MARILUZ ARENAS DO Mar 28, 2023 13:06
[2023-03-28] MEDS: PANTOPRAZOLE INJECTION 40 MG VIAL IV SCH (08:12)
[2023-03-28] MEDS: metroNIDAZOLE 500MG/100ML IVPB 100 ML IV SCH ×3 (08:12→23:30)
[2023-03-28] MEDS ORDERED: DRON400T6 PO (09:58)
[2023-03-28] MEDS ORDERED: AMLO-251 PO (09:59)
[2023-03-28] MEDS ORDERED: LOSA50TA63 PO (09:59)
[2023-03-28] MEDS ORDERED: APIX5TAB PO (10:00)
--- NOTE | 2023-03-28 10:45 | Tele-ICU Progress Note ---
Subjective Date Seen by a Provider: Mar 28, 2023 Time Seen by a Provider: 10:45 Subjective/Events-last exam (Tele-ICU Physician , Progress Note ) Service provided via interactive audio and video telecommunications E-CARE system to a patient admitted to ICU bed in [facility]. Patient is seen today due to persistent need of ICU care Available chart/ vitals / labs / Images reviewed Video assessment done using teleICU camera, rest of exam as per RN Discussed with RN Events overnight : Afebrile hemodynamically stable Respiratory - ra I/O =++ Drips: ns 125 , cardene gtt Pressors- no Hospital course: 03/26- 68yo F- dx SBO, Hypertensive Urgency- cardene gtt 03/27-S/P diagnostic laparoscopy to open with small bowel resection, bilateral component separation with incisional hernia 15 cm defect, partial omentectomy A/P SBO, ventral supra and infraumbilical abdominal wall hernias. 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 Discussed with RN to reach out if any questions or concerns Case and care daily discussed on multidisciplinary rounds ( RN, PharmD, Flatbed Press Operator , Respiratory Therapy, duralumin metalworker ) A total of 20 minutes of critical care time was devoted to this patient today, required to treat and/or prevent further deterioration of critical care condition ( as above ) . I am remotely monitoring this patient from another state. I am unable to do the bedside exam, and history/physical and pertinent information is taken from other notes in the computer and bedside staff. Sepsis Event Evaluation Height, Weight, BMI Height: 5'7.00" Weight: 298lbs. 0.0oz. 135.764977dz; 43.72 BMI Method: Focused Exam Lactate Level 03/26/23 05:07: Lactic Acid Level 4.48*H 03/26/23 07:22: Lactic Acid Level 5.25*H 03/26/23 14:26: Lactic Acid Level 2.40*H Exam Exam Patient acknowledged, consented, and participated in this virtual visit which was conducted using real time audio/video Vital Signs Date Time Temp Pulse Resp B/P (MAP) Pulse Ox O2 Delivery O2 Flow Rate FiO2 03/28/23 10:00 90 16 144/72 (93) 94 Room Air 03/28/23 09:00 87 16 206/107 (140) 93 Room Air 03/28/23 08:00 99 24 94 Room Air 03/28/23 08:00 96 Nasal Cannula 2.00 03/28/23 07:41 36.1 03/28/23 07:26 96 Nasal Cannula 2.00 03/28/23 07:00 87 24 92 Room Air 03/28/23 07:00 88 03/28/23 06:00 96 26 161/83 (109) 94 Room Air 03/28/23 05:00 90 26 92 Room Air 03/28/23 04:34 96 Nasal Cannula 2.00 03/28/23 04:00 89 20 93 Room Air 03/28/23 03:00 94 15 141/73 (95) 93 Room Air 03/28/23 02:00 91 16 145/74 (97) 93 Room Air 03/28/23 01:00 94 03/28/23 01:00 96 16 154/77 (102) 94 Room Air 03/28/23 00:00 95 16 121/72 (88) 94 Room Air 03/27/23 23:24 96 Nasal Cannula 2.00 03/27/23 23:00 97 16 136/70 (92) 94 Room Air 03/27/23 22:00 94 16 134/69 (90) 94 Room Air 03/27/23 21:00 99 15 142/69 (93) 95 Room Air 03/27/23 20:04 93 Nasal Cannula 2.00 03/27/23 20:00 93 16 136/67 (90) 94 Room Air 03/27/23 19:53 96 Nasal Cannula 2.00 03/27/23 19:00 92 14 132/71 (91) 95 Room Air 03/27/23 19:00 94 03/27/23 18:00 92 13 157/83 (107) 94 Room Air 03/27/23 17:00 91 10 166/77 (106) 94 Room Air 03/27/23 16:16 36.3 96 96 21 03/27/23 16:00 96 Nasal Cannula 1.00 03/27/23 16:00 93 18 159/85 (109) 94 Room Air 03/27/23 15:00 96 14 96 Room Air 03/27/23 14:45 104 15 180/97 (124) 95 Room Air 03/27/23 14:25 OxyMask 3.00 03/27/23 14:25 96 Nasal Cannula 2.00 03/27/23 14:20 36.3 20 149/79 (102) 94 OxyMask 3.00 03/27/23 14:15 98 23 150/90 (110) 90 Room Air 03/27/23 14:10 OxyMask 3.00 03/27/23 14:10 20 149/79 (102) 93 OxyMask 3.00 03/27/23 14:00 20 148/89 (108) 95 OxyMask 3.00 03/27/23 14:00 OxyMask 3.00 03/27/23 13:50 20 166/95 (118) 94 OxyMask 4.00 03/27/23 13:45 OxyMask 6.00 03/27/23 13:40 20 175/84 (114) 96 OxyMask 6.00 03/27/23 13:30 OxyMask 6.00 03/27/23 13:30 36.3 20 146/85 (105) 94 OxyMask 6.00 I & O 03/28/23 07:00 Intake Total 1572 ml Output Total 2375 ml Balance -803 ml Height & Weight Height: 5'7.00" Weight: 298lbs. 0.0oz. 135.765316zz; 43.72 BMI Method: General Appearance: No Apparent Distress, WD/WN, Chronically ill HEENT: PERRL/EOMI, Normal ENT Inspection Neck: Non Tender, Supple Respiratory: Lungs Clear, Normal Breath Sounds Cardiovascular: Regular Rate, Rhythm Capillary Refill: Less Than 3 Seconds Peripheral Pulses: 2+ Radial Pulses (R), 2+ Radial Pulses (L) Gastrointestinal: soft; No distended, No rebound; tenderness (mild incisional tenderness) Extremity: Normal Capillary Refill, Pedal Edema (1+, swollen) Neurologic/Psychiatric: Alert, Oriented x3 Skin: Normal Color, Warm/Dry Lymphatic: No Adenopathy Results Lab Laboratory Tests 03/26/23 14:26 03/27/23 02:30 03/28/23 03:45 Assessment/Plan Assessment/Plan 1 BUDDY DELA CRUZ MD Mar 28, 2023 10:45
[2023-03-28] MEDS: niCARdipine INJECTION 50 MG in NS (IVPB) 250 ML 230 ML IV SCH (13:31)
[2023-03-29] MEDS: niCARdipine INJECTION 50 MG in NS (IVPB) 250 ML 230 ML IV SCH ×2 (00:28→10:37)
[2023-03-29] MEDS: ceFAZolin INJECTION 2,000 MG in NS (IVPB) 50 ML 50 ML IV SCH ×3 (03:05→18:42)
[2023-03-29 04:54] LABS: BASOPHILS % (AUTO) 0 % (0-10); EOSINOPHILS % (AUTO) 0 % (0-10); HEMATOCRIT 41 % (35-52); HEMOGLOBIN 13.5 g/dL (11.5-16.0); LYMPHOCYTES # (AUTO) 1.3 10^3/uL (1.0-4.0); LYMPHOCYTES % (AUTO) 7 % (12-44); MEAN CORPUSCULAR HEMOGLOBIN 31 pg (25-34); MEAN CORPUSCULAR HGB CONC 33 g/dL (32-36); MEAN CORPUSCULAR VOLUME 93 fL (80-99); MEAN PLATELET VOLUME 10.8 fL (9.0-12.2); MONOCYTES # (AUTO) 1.1 10^3/uL (0.0-1.0); MONOCYTES % (AUTO) 6 % (0-12); NEUTROPHILS % (AUTO) 86 % (42-75); PLATELET COUNT 162 10^3/uL (130-400); WHITE BLOOD COUNT 18.5 10^3/uL (4.3-11.0)
[2023-03-29 05:09] LABS: ALBUMIN 2.6 GM/DL (3.2-4.5); POTASSIUM 3.6 MMOL/L (3.6-5.0)
[2023-03-29 05:11] LABS: CALCIUM 8.5 MG/DL (8.5-10.1)
[2023-03-29 05:12] LABS: TOTAL PROTEIN 5.5 GM/DL (6.4-8.2)
[2023-03-29 05:14] LABS: BILIRUBIN,TOTAL 0.6 MG/DL (0.1-1.0)
[2023-03-29 05:15] LABS: PHOSPHORUS 2.1 MG/DL (2.3-4.7)
[2023-03-29 05:16] LABS: CREATININE SERUM 0.68 MG/DL (0.60-1.30)
[2023-03-29 05:18] LABS: MAGNESIUM 1.9 MG/DL (1.6-2.4)
[2023-03-29] MEDS: POTASSIUM CL 10MEQ/50ML IVPB 50 ML IV SCH ×4 (05:33→07:59)
[2023-03-29] MEDS: MAGNESIUM 1 GM/100 ML IVPB 100 ML IV SCH (05:33)
[2023-03-29] MEDS: POTASSIUM CHLORIDE 20 MEQ TABLET PO SCH (05:33)
[2023-03-29] MEDS: NS IV 1000 ML 1,000 ML IV SCH (05:43)
--- NOTE | 2023-03-29 06:25 | Progress Note - Hospitalist ---
Subjective HPI/CC On Admission Date Seen by Provider: Mar 29, 2023 Time Seen by Provider: 11:00 Chief complaint: Hypertensive urgency with SBO possible incarcerated hernia Subjective/Events-last exam Patient doing much better Blood pressure still elevated Will move to fourth floor Noncompliant with blood pressure medications at home most of the time Review of Systems General: Fatigue, Malaise Gastrointestinal: Abdominal Pain Focused Exam Lactate Level Objective Exam Vital Signs Vital Signs Date Time Temp Pulse Resp B/P (MAP) Pulse Ox O2 Delivery O2 Flow Rate FiO2 03/29/23 12:32 67 03/29/23 12:00 36.8 03/29/23 12:00 20 108/94 (99) Room Air 03/29/23 10:00 95 03/29/23 08:41 2.00 03/27/23 16:16 21 Capillary Refill : Less Than 3 SecondsLess Than 3 Seconds General Appearance: No Apparent Distress, WD/WN, Chronically ill Respiratory: Lungs Clear, Normal Breath Sounds Cardiovascular: Regular Rate, Rhythm Neurologic/Psychiatric: Alert, Oriented x3 Results/Procedures Lab Laboratory Tests 03/29/23 04:35 Patient resulted labs reviewed. Assessment/Plan Assessment and Plan Assess & Plan/Chief Complaint Assessment: HTN urgency placed on Cardene drip on admit now discontinued and moved to fourth floor Abdominal pain due to SBO due to incarcerated hernia with ischemic bowel status post open procedure doing much better NG tube DC Hypokalemia History of abdominal surgeries History of Afib Noncompliance with blood pressure meds Plan: General surgery management appreciated Transfer to fourth floor Continue IVF Clear liquid diet Pain management Critical Care Critically Ill Patient MISHA PATRICIA DO Mar 29, 2023 06:25
--- NOTE | 2023-03-29 07:15 | Progress Note - Surgery ---
RODERICK HERNANDEZ 03/29/23 0715: Subjective Date Seen by a Provider: Mar 29, 2023 Time Seen by a Provider: 07:00 Subjective/Events-last exam Nena had a good night. No confusion and pain is controlled. Mild incisional pain. Incisions are clean and dry - healing well. 20ml of bloody serous fluid out of ANDREA drain. Nothing out of NG tube. No bowel movements or flatus yet. Pt is tolerating ice chips. Per nurse she had some hypertensive episodes in 180s. Pt denies SOB, CP, no N/V Review of Systems General: No Chills, No Night Sweats HEENT: No Head Aches, No Eye Pain Pulmonary: No Dyspnea, No Cough Cardiovascular: No: Chest Pain, Palpitations Gastrointestinal: Abdominal Pain (mild incisional); No: Nausea, Vomiting Genitourinary: No Dysuria, No Frequency Musculoskeletal: No: neck pain, shoulder pain Neurological: No: Weakness, Numbness, Change in speech Focused Exam Lactate Level 03/26/23 07:22: Lactic Acid Level 5.25*H 03/26/23 14:26: Lactic Acid Level 2.40*H Objective Exam Vital Signs Date Time Temp Pulse Resp B/P (MAP) Pulse Ox O2 Delivery O2 Flow Rate FiO2 03/29/23 06:00 75 18 160/76 (104) 93 Room Air 03/29/23 05:00 81 15 162/76 (104) 93 Room Air 03/29/23 04:12 36.9 03/29/23 04:00 96 Nasal Cannula 2.00 03/29/23 04:00 78 15 150/81 (104) 92 Room Air 03/29/23 03:00 77 16 163/72 (102) 93 Room Air 03/29/23 02:00 80 17 159/79 (105) 92 Room Air 03/29/23 01:07 74 03/29/23 01:00 74 14 156/86 (109) 90 Room Air 03/29/23 00:00 36.6 03/29/23 00:00 79 12 168/86 (113) 92 Room Air 03/28/23 23:59 96 Nasal Cannula 2.00 03/28/23 23:00 80 10 165/87 (113) 92 Room Air 03/28/23 22:00 81 12 169/83 (111) 93 Room Air 03/28/23 21:00 82 10 177/87 (117) 94 Room Air 03/28/23 20:00 77 18 165/84 (111) 99 Room Air 03/28/23 20:00 96 Nasal Cannula 2.00 03/28/23 19:54 92 Nasal Cannula 2.00 03/28/23 19:38 36.5 03/28/23 19:00 81 03/28/23 19:00 86 12 182/85 (117) 94 Room Air 03/28/23 18:00 85 20 159/80 (100) 94 Room Air 03/28/23 17:00 88 16 170/92 (117) 94 Room Air 03/28/23 16:00 89 16 164/87 (114) 95 Room Air 03/28/23 15:50 96 Nasal Cannula 2.00 03/28/23 15:27 36.4 03/28/23 15:00 84 19 174/89 (114) 94 Room Air 03/28/23 14:00 88 12 154/76 (97) 91 Room Air 03/28/23 13:31 157/80 03/28/23 13:00 91 17 157/80 (105) 92 Room Air 03/28/23 12:16 86 03/28/23 12:00 36.5 03/28/23 12:00 89 16 157/76 (97) 95 Room Air 03/28/23 12:00 96 Nasal Cannula 2.00 03/28/23 11:00 85 19 140/72 (91) 92 Room Air 03/28/23 10:00 90 16 144/72 (93) 94 Room Air 03/28/23 09:00 87 16 206/107 (140) 93 Room Air 03/28/23 08:00 99 24 94 Room Air 03/28/23 08:00 96 Nasal Cannula 2.00 03/28/23 07:41 36.1 03/28/23 07:26 96 Nasal Cannula 2.00 I & O 03/29/23 07:00 Intake Total 100 ml Output Total 2735 ml Balance -2635 ml Capillary Refill : Less Than 3 SecondsLess Than 3 Seconds General Appearance: No Apparent Distress, WD/WN, Chronically ill, Obese HEENT: PERRL/EOMI, Normal ENT Inspection Neck: Non Tender, Supple Respiratory: Lungs Clear, Normal Breath Sounds Cardiovascular: Regular Rate, Rhythm Peripheral Pulses: 2+ Radial Pulses (R), 2+ Radial Pulses (L) Gastrointestinal: soft, tenderness (mild incisional tenderness), other (ANDREA serosang) Extremity: Non Tender, Pedal Edema (1+, swollen) Neurologic/Psychiatric: Alert, Oriented x3 Skin: Normal Color, Warm/Dry Lymphatic: No Adenopathy Results Lab Laboratory Tests 03/28/23 11:56: Glucometer 121H 03/28/23 18:15: Glucometer 113H 03/29/23 04:35: White Blood Count 18.5H, Red Blood Count 4.37, Hemoglobin 13.5, Hematocrit 41, Mean Corpuscular Volume 93, Mean Corpuscular Hemoglobin 31, Mean Corpuscular Hemoglobin Concent 33, Red Cell Distribution Width 12.8, Platelet Count 162, Mean Platelet Volume 10.8, Immature Granulocyte % (Auto) 1, Neutrophils (%) (Aut o) 86H, Lymphocytes (%) (Auto) 7L, Monocytes (%) (Auto) 6, Eosinophils (%) (Auto) 0, Basophils (%) (Auto) 0, Neutrophils # (Auto) 16.0H, Lymphocytes # (Auto) 1.3, Monocytes # (Auto) 1.1H, Eosinophils # (Auto) 0.0, Basophils # (Auto) 0.0, Immature Granulocyte # (Auto) 0.1, Sodium Level 142, Potassium Level 3.6, Chloride Level 112H, Carbon Dioxide Level 24, Anion Gap 6, Blood Urea Nitrogen 18, Creatinine 0.68, Estimat Glomerular Filtration Rate 96, BUN/Creatinine Ratio 26, Glucose Level 114H, Calcium Level 8.5, Corrected Calcium 9.6, Phosphorus Level 2.1L, Magnesium Level 1.9, Total Bilirubin 0.6, Aspartate Amino Transf (AST/SGOT) 13, Alanine Aminotransferase (ALT/SGPT) 8, Alkaline Phosphatase 38L, Total Protein 5.5L, Albumin 2.6L Microbiology 03/26/23 MRSA Screen - Final, Complete MRSA not isolated Assessment/Plan Assessment/Plan Assessment/Plan S/P diagnostic laparoscopy to open with small bowel resection, bilateral component separation with incisional hernia 15 cm defect, partial omentectomy small bowel obstruction upper abdominal pain hypertensive urgency incisional hernia x 2 strangulated 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 ischemic bowel headache Pain control Advance diet as tolerated IV hydration clamp NG tube IV abx IS SCDs for DVT prophylaxis Ambulation as tolerated renal ultrasound due to hx of htn urgency accurate urine output. Repeat labs in am. MARILUZ ARENAS DO 03/30/23 1611: Subjective Subjective/Events-last exam Continues to improve. No bowel function yet. Tolerating ice chips. Denies n/v fever sweats chills shortness of breath or chest pain. Objective Exam General Appearance: No Apparent Distress, Chronically ill, Obese HEENT: PERRL/EOMI, Normal ENT Inspection Neck: Non Tender, Supple Respiratory: Chest Non Tender, Normal Breath Sounds Cardiovascular: Regular Rate, Rhythm, No JVD Gastrointestinal: soft, tenderness (mild incisional tenderness), other (ANDREA serosang) Extremity: Non Tender, Pedal Edema (1+, swollen) Neurologic/Psychiatric: Alert, Oriented x3 Skin: Normal Color, Warm/Dry Lymphatic: No Adenopathy Assessment/Plan Assessment/Plan Assessment/Plan S/P diagnostic laparoscopy to open with small bowel resection, bilateral component separation with incisional hernia 15 cm defect, partial omentectomy small bowel obstruction upper abdominal pain hypertensive urgency incisional 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 ischemic bowel headache Pain control Advance diet as tolerated IV hydration remove ng IV abx IS SCDs for DVT prophylaxis Ambulation as tolerated renal ultrasound due to hx of htn urgency accurate urine output. Repeat labs in am. Supervisory-Addendum Brief Verification & Attestation Participated in pt care: history, MDM, physical Personally performed: exam, history, MDM, supervision of care Care discussed with: Medical Student Procedures: n/a Results interpretation: Verified all documentation Verification and Attestation of Medical Student E/M Service A medical student performed and documented this service in my presence. I reviewed and verified all information documented by the medical student and made modifications to such information, when appropriate. I personally performed the physical exam and medical decision making. Mariluz Arenas, Mar 29, 2023,12:11 RODERICK HERNANDEZ Mar 29, 2023 07:15 MARILUZ ARENAS DO Mar 30, 2023 16:11
[2023-03-29] MEDS: RT-ALBUTEROL SULF 2.5 MG/3 ML PRE-MIX VIAL INH SCH (08:41)
[2023-03-29] MEDS: metroNIDAZOLE 500MG/100ML IVPB 100 ML IV SCH ×3 (08:58→23:57)
[2023-03-29] MEDS: PANTOPRAZOLE INJECTION 40 MG VIAL IV SCH (09:02)
[2023-03-29] MEDS: morphine INJ 4 MG/ML 1 ML (VIAL/SYRINGE) IV PRN ×3 (10:03→20:44)
[2023-03-29] MEDS ORDERED: amLODIPine 5 MG TABLET PO NR (10:30)
[2023-03-29] MEDS ORDERED: hydrALAZINE INJECTION 20 MG/ML VIAL IV PRN (10:45)
[2023-03-29] MEDS ORDERED: cloNIDine 0.1 MG TABLET PO PRN (10:45)
[2023-03-29] MEDS: hydrALAZINE 25 MG TABLET PO SCH ×2 (13:39→20:44)
[2023-03-29 16:00] VITALS: BP 160/79
[2023-03-29 18:30] VITALS: BP 160/79
[2023-03-29 19:29] VITALS: BP 179/90
[2023-03-29] MEDS: amLODIPine 5 MG TABLET PO SCH (20:44)
[2023-03-29 20:58] VITALS: BP 184/96
[2023-03-30] VITALS (7 sets, daily range): BP systolic 142–165; BP diastolic 66–87
[2023-03-30] MEDS: ceFAZolin INJECTION 2,000 MG in NS (IVPB) 50 ML 50 ML IV SCH ×3 (04:03→17:56)
[2023-03-30 05:39] LABS: BASOPHILS % (AUTO) 0 % (0-10); EOSINOPHILS % (AUTO) 0 % (0-10); HEMATOCRIT 41 % (35-52); LYMPHOCYTES % (AUTO) 14 % (12-44); MEAN CORPUSCULAR HEMOGLOBIN 31 pg (25-34); MEAN CORPUSCULAR HGB CONC 34 g/dL (32-36); MEAN CORPUSCULAR VOLUME 91 fL (80-99); MEAN PLATELET VOLUME 10.5 fL (9.0-12.2); MONOCYTES # (AUTO) 0.8 10^3/uL (0.0-1.0); MONOCYTES % (AUTO) 6 % (0-12); NEUTROPHILS # (AUTO) 10.9 10^3/uL (1.8-7.8); NEUTROPHILS % (AUTO) 79 % (42-75); PLATELET COUNT 173 10^3/uL (130-400); WHITE BLOOD COUNT 13.8 10^3/uL (4.3-11.0)
[2023-03-30 05:51] LABS: ALBUMIN 2.6 GM/DL (3.2-4.5); POTASSIUM 3.4 MMOL/L (3.6-5.0)
[2023-03-30 05:53] LABS: CALCIUM 8.3 MG/DL (8.5-10.1)
[2023-03-30 05:54] LABS: TOTAL PROTEIN 5.6 GM/DL (6.4-8.2)
[2023-03-30 05:56] LABS: BILIRUBIN,TOTAL 0.6 MG/DL (0.1-1.0)
[2023-03-30 05:57] LABS: CREATININE SERUM 0.62 MG/DL (0.60-1.30)
[2023-03-30 06:01] LABS: MAGNESIUM 1.8 MG/DL (1.6-2.4)
--- NOTE | 2023-03-30 07:27 | Progress Note - Surgery ---
RODERICK HERNANDEZ 03/30/23 0727: Subjective Date Seen by a Provider: Mar 30, 2023 Time Seen by a Provider: 07:00 Subjective/Events-last exam Nena had a good night. Flatulence 2x at 2:30am. [place] like she might have a bowel movement, but nothing yet. Pt ambulating to bathroom on own. Incision looks clean, dry and healing well. ARTURO drain had 80ml of serosanguinous fluid out last night and 10ml this morning. She is using IS 1x every hour when she is awake. Tolerating clears - no N/V. No pain. BUN elevated from 18 (03/29) to 23 (03/30). ROS: Pt denies fever, CP, SOB, N/V, hematuria Review of Systems General: No Chills, No Night Sweats HEENT: No Head Aches, No Visual Changes Pulmonary: No Dyspnea, No Cough Cardiovascular: No: Chest Pain, Palpitations Gastrointestinal: No: Nausea, Vomiting, Diarrhea Genitourinary: No Dysuria, No Frequency, No Hematuria Musculoskeletal: No: neck pain, shoulder pain Neurological: No: Weakness, Numbness Objective Exam Vital Signs Date Time Temp Pulse Resp B/P (MAP) Pulse Ox O2 Delivery O2 Flow Rate FiO2 03/30/23 03:46 36.0 71 14 147/80 (102) 95 Room Air 2.00 2.00 03/30/23 01:30 74 03/30/23 00:15 36.0 76 14 142/66 (91) 92 Room Air 03/29/23 20:58 184/96 (125) 03/29/23 20:00 Room Air 03/29/23 19:59 75 03/29/23 19:29 36.0 76 16 179/90 (119) 94 Room Air 03/29/23 18:30 36.6 80 93 21 03/29/23 16:00 36.6 80 18 160/79 (106) 93 Room Air 03/29/23 12:32 67 03/29/23 12:00 36.8 03/29/23 12:00 75 20 108/94 (99) Room Air 03/29/23 10:37 176/83 03/29/23 10:00 81 25 176/83 (122) 95 Room Air 03/29/23 09:00 71 20 165/89 (111) 94 Room Air 03/29/23 08:41 95 Nasal Cannula 2.00 03/29/23 08:00 69 19 169/87 (119) 95 Room Air 03/29/23 08:00 96 Nasal Cannula 2.00 03/29/23 08:00 36.0 I & O 03/30/23 07:00 Intake Total 2030 ml Output Total 810 ml Balance 1220 ml Capillary Refill : Less Than 3 SecondsLess Than 3 Seconds General Appearance: No Apparent Distress, WD/WN, Chronically ill HEENT: PERRL/EOMI, Normal ENT Inspection Neck: Non Tender, Supple Respiratory: Lungs Clear, Normal Breath Sounds Cardiovascular: Regular Rate, Rhythm Peripheral Pulses: 2+ Radial Pulses (R), 2+ Radial Pulses (L) Gastrointestinal: non tender, soft, other (ARTURO serosang) Extremity: Non Tender, Pedal Edema (1+, swollen) Neurologic/Psychiatric: Alert, Oriented x3 Skin: Normal Color, Warm/Dry Lymphatic: No Adenopathy Results Lab Laboratory Tests 03/30/23 05:09: White Blood Count 13.8H, Red Blood Count 4.53, Hemoglobin 14.0, Hematocrit 41, Mean Corpuscular Volume 91, Mean Corpuscular Hemoglobin 31, Mean Corpuscular Hemoglobin Concent 34, Red Cell Distribution Width 12.7, Platelet Count 173, Mean Platelet Volume 10.5, Immature Granulocyte % (Auto) 1, Neutrophils (%) (Auto) 79H, Lymphocytes (%) (Auto) 14, Monocytes (%) (Auto) 6, Eosinophils (%) (Auto) 0, Basophils (%) (Auto) 0, Neutrophils # (Auto) 10.9H, Lymphocytes # (Auto) 2.0, Monocytes # (Auto) 0.8, Eosinophils # (Auto) 0.0, Basophils # (Auto) 0.0, Immature Granulocyte # (Auto) 0.1, Sodium Level 141, Potassium Level 3.4L, Chloride Level 109H, Carbon Dioxide Level 25, Anion Gap 7, Blood Urea Nitrogen 23H, Creatinine 0.62, Estimat Glomerular Filtration Rate 98, BUN/Creatinine Ratio 37, Glucose Level 96, Calcium Level 8.3L, Corrected Calcium 9.4, Magnesium Level 1.8, Total Bilirubin 0.6, Aspartate Amino Transf (AST/SGOT) 15, Alanine Aminotransferase (ALT/SGPT) 8, Alkaline Phosphatase 42, Total Protein 5.6L, Albumin 2.6L Microbiology 03/26/23 MRSA Screen - Final, Complete MRSA not isolated Assessment/Plan Assessment/Plan Assessment/Plan S/P diagnostic laparoscopy to open with small bowel resection, bilateral component separation with incisional hernia 15 cm defect, partial omentectomy small bowel obstruction upper abdominal pain hypertensive urgency 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 ischemic bowel headache Pain control Advance diet to solids as tolerated IV hydration IV abx IS SCDs for DVT prophylaxis start eliquis Ambulation as tolerated renal ultrasound due to hx of htn urgency Repeat labs in am. MARILUZ ARENAS DO 03/30/23 1613: Subjective Subjective/Events-last exam Doing well. Having bowel function. Arturo serosang drainage. Using IS some. Denies n/v fever sweats chills shortness of breath or chest pain. Objective Exam General Appearance: No Apparent Distress, WD/WN, Chronically ill, Obese HEENT: PERRL/EOMI, Normal ENT Inspection Neck: Non Tender, Supple Respiratory: Chest Non Tender, No Accessory Muscle Use, No Respiratory Distress Cardiovascular: Regular Rate, Rhythm, No JVD Gastrointestinal: non tender, soft, other (ARTURO serosang) Extremity: Non Tender, Pedal Edema (1+, swollen) Neurologic/Psychiatric: Alert, Oriented x3 Skin: Normal Color, Warm/Dry Lymphatic: No Adenopathy Assessment/Plan Assessment/Plan Assessment/Plan S/P diagnostic laparoscopy to open with small bowel resection, bilateral c omponent separation with incisional hernia 15 cm defect, partial omentectomy small bowel obstruction upper abdominal pain hypertensive urgency 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 ischemic bowel headache Pain control Advance diet IV hydration IV abx IS SCDs for DVT prophylaxis start eliquis Ambulation as tolerated renal ultrasound due to hx of htn urgency Repeat labs in am. Supervisory-Addendum Brief Verification & Attestation Participated in pt care: history, MDM, physical Personally performed: exam, history, MDM, supervision of care Care discussed with: Medical Student Procedures: n/a Results interpretation: Verified all documentation Verification and Attestation of Medical Student E/M Service A medical student performed and documented this service in my presence. I rev iewed and verified all information documented by the medical student and made modifications to such information, when appropriate. I personally performed the physical exam and medical decision making. Mariluz Arenas, Mar 30, 2023,16:13 RODERICK HERNANDEZ Mar 30, 2023 07:27 MARILUZ ARENAS DO Mar 30, 2023 16:13
[2023-03-30] MEDS: metroNIDAZOLE 500MG/100ML IVPB 100 ML IV SCH ×2 (08:26→16:37)
[2023-03-30] MEDS: amLODIPine 5 MG TABLET PO SCH ×2 (08:26→20:26)
[2023-03-30] MEDS: PANTOPRAZOLE INJECTION 40 MG VIAL IV SCH (08:26)
[2023-03-30] MEDS: hydrALAZINE 25 MG TABLET PO SCH ×3 (08:26→20:26)
--- NOTE | 2023-03-30 10:15 | Diagnostic Imaging Report ---
PROCEDURE: US Renal Bilateral. TECHNIQUE: Multiple Real-time grayscale images were obtained over the kidneys in various projections bilaterally. INDICATION: Hypertension. FINDINGS: The right kidney measures 12.2 x 5.1 x 5.5 cm and the left kidney measures 13.8 x 5.1 x 5.9 cm. The cortical thickness and echogenicity are normal bilaterally. No calculi are seen. There is no hydronephrosis. There is a cyst in the mid left kidney measuring approximately 17 mm in size. The bladder was not able to be evaluated due to recent surgical bandages overlying the pelvis. IMPRESSION: Small left renal cyst. The study is otherwise unremarkable. Dictated by: Dictated on workstation # [id number]
--- NOTE | 2023-03-30 11:04 | Progress Note ---
Subjective Subjective/Events-last exam Patient states that she is feeling better this AM. She is tolerating CLD. Has not been out of room to walk but has walked around her room. Review of Systems General: Fatigue Pulmonary: Dyspnea Gastrointestinal: Abdominal Pain Neurological: Weakness, Incoordination Objective Exam Last Set of Vital Signs Vital Signs Date Time Temp Pulse Resp B/P (MAP) Pulse Ox O2 Delivery O2 Flow Rate FiO2 03/30/23 08:00 35.0 70 20 159/77 (104) 96 Room Air 03/30/23 03:46 2.00 2.00 03/29/23 18:30 21 Capillary Refill : Less Than 3 SecondsLess Than 3 Seconds I&O Intake and Output 03/30/23 00:00 Intake Total 1830 ml Output Total 1690 ml Balance 140 ml Intake Oral 630 ml IV Total 1200 ml Output Urine Total 1575 ml Drainage Total 115 ml # Voids 2 General: Alert, Oriented X3, No Acute Distress Lungs: Clear to Auscultation, Normal Air Movement Heart: Regular Rate, No Murmurs Abdomen: Soft Extremities: Other (1+ edema bilaterally) Results/Procedures Lab Laboratory Tests 03/30/23 05:09: White Blood Count 13.8H, Red Blood Count 4.53, Hemoglobin 14.0, Hematocrit 41, Mean Corpuscular Volume 91, Mean Corpuscular Hemoglobin 31, Mean Corpuscular Hemoglobin Concent 34, Red Cell Distribution Width 12.7, Platelet Count 173, Mean Platelet Volume 10.5, Immature Granulocyte % (Auto) 1, Neutrophils (%) (Auto) 79H, Lymphocytes (%) (Auto) 14, Monocytes (%) (Auto) 6, Eosinophils (%) (Auto) 0, Basophils (%) (Auto) 0, Neutrophils # (Auto) 10.9H, Lymphocytes # (Auto) 2.0, Monocytes # (Auto) 0.8, Eosinophils # (Auto) 0.0, Basophils # (Auto) 0.0, Immature Granulocyte # (Auto) 0.1, Sodium Level 141, Potassium Level 3.4L, Chloride Level 109H, Carbon Dioxide Level 25, Anion Gap 7, Blood Urea Nitrogen 23H, Creatinine 0.62, Estimat Glomerular Filtration Rate 98, BUN/Creatinine Ratio 37, Glucose Level 96, Calcium Level 8.3L, Corrected Calcium 9.4, Magnesium Level 1.8, Total Bilirubin 0.6, Aspartate Amino Transf (AST/SGOT) 15, Alanine Aminotransferase (ALT/SGPT) 8, Alkaline Phosphatase 42, Total Protein 5.6L, Albumin 2.6L Microbiology 03/26/23 MRSA Screen - Final, Complete MRSA not isolated Assessment/Plan Assessment/Plan Assessment & Plan Incarcerated Hernia repair Partial small bowel resection SBO HTN - Restarted Losartan as blood pressure is trending up - Tolerating CLD - Encouraged ambulation MARTHA TORRES MD Mar 30, 2023 11:04
[2023-03-31] VITALS (7 sets, daily range): BP systolic 136–184; BP diastolic 65–88
[2023-03-31] MEDS: metroNIDAZOLE 500MG/100ML IVPB 100 ML IV SCH ×3 (00:22→16:07)
[2023-03-31] MEDS: ceFAZolin INJECTION 2,000 MG in NS (IVPB) 50 ML 50 ML IV SCH ×3 (02:53→18:43)
[2023-03-31 05:32] LABS: BASOPHILS % (AUTO) 0 % (0-10); EOSINOPHILS # (AUTO) 0.2 10^3/uL (0.0-0.3); EOSINOPHILS % (AUTO) 2 % (0-10); HEMATOCRIT 41 % (35-52); HEMOGLOBIN 14.1 g/dL (11.5-16.0); LYMPHOCYTES # (AUTO) 2.7 10^3/uL (1.0-4.0); LYMPHOCYTES % (AUTO) 28 % (12-44); MEAN CORPUSCULAR HEMOGLOBIN 31 pg (25-34); MEAN CORPUSCULAR HGB CONC 34 g/dL (32-36); MEAN CORPUSCULAR VOLUME 91 fL (80-99); MEAN PLATELET VOLUME 10.2 fL (9.0-12.2); MONOCYTES # (AUTO) 0.9 10^3/uL (0.0-1.0); MONOCYTES % (AUTO) 9 % (0-12); NEUTROPHILS # (AUTO) 5.9 10^3/uL (1.8-7.8); NEUTROPHILS % (AUTO) 60 % (42-75); PLATELET COUNT 185 10^3/uL (130-400); WHITE BLOOD COUNT 9.8 10^3/uL (4.3-11.0)
[2023-03-31 05:43] LABS: ALBUMIN 2.5 GM/DL (3.2-4.5)
[2023-03-31 05:44] LABS: POTASSIUM 3.2 MMOL/L (3.6-5.0)
[2023-03-31 05:45] LABS: CALCIUM 7.9 MG/DL (8.5-10.1)
[2023-03-31 05:46] LABS: TOTAL PROTEIN 5.2 GM/DL (6.4-8.2)
[2023-03-31 05:48] LABS: BILIRUBIN,TOTAL 0.7 MG/DL (0.1-1.0)
[2023-03-31] MEDS: APIXABAN 5 MG TABLET PO SCH (05:49)
[2023-03-31 05:50] LABS: CREATININE SERUM 0.59 MG/DL (0.60-1.30)
[2023-03-31 05:53] LABS: MAGNESIUM 1.6 MG/DL (1.6-2.4)
--- NOTE | 2023-03-31 07:05 | Progress Note - Surgery ---
RODERICK HERNANDEZ 03/31/23 0705: Subjective Date Seen by a Provider: Mar 31, 2023 Time Seen by a Provider: 06:45 Subjective/Events-last exam Nena slept well last night. Lots of flatulence but no BM yet. 150ml serosang fluid out of ANDREA drain. Ambulating to bathroom but not in halls. IS 1x/hour. Tolerated small bites of food last night. Incisional tenderness. Incision clean and dry. Pt. denies N/V, SOP, CP Renal US from 03/30/23 showed small L renal cyst otherwise unremarkable. Review of Systems General: No Chills, No Night Sweats HEENT: No Head Aches, No Visual Changes Pulmonary: No Dyspnea, No Cough Cardiovascular: No: Chest Pain, Palpitations Gastrointestinal: Abdominal Pain (mild tenderness); No: Nausea, Vomiting Genitourinary: No Dysuria, No Frequency Neurological: No: Weakness, Numbness Objective Exam Vital Signs Date Time Temp Pulse Resp B/P (MAP) Pulse Ox O2 Delivery O2 Flow Rate FiO2 03/31/23 03:54 36.5 75 20 139/75 (96) 94 Room Air 03/31/23 01:00 83 03/31/23 00:18 37.0 67 20 146/78 (100) 94 Room Air 03/30/23 20:25 36.8 83 20 157/87 (110) 96 Room Air 03/30/23 20:00 Room Air 03/30/23 19:00 82 03/30/23 15:51 36.5 73 20 165/77 (106) 96 Room Air 03/30/23 14:13 35.0 71 20 159/77 (104) 96 Room Air 2.00 2.00 03/30/23 13:23 71 03/30/23 12:00 35.6 65 18 161/74 (103) 98 Nasal Cannula 2.00 03/30/23 08:00 35.0 70 20 159/77 (104) 96 Room Air 03/30/23 08:00 Room Air I & O0 03/31/23 07:00 Intake Total 1600 ml Output Total 600 ml Balance 1000 ml Capillary Refill : Less Than 3 SecondsLess Than 3 Seconds General Appearance: No Apparent Distress, WD/WN, Chronically ill, Obese HEENT: PERRL/EOMI, Normal ENT Inspection Neck: Non Tender, Supple Respiratory: Chest Non Tender, No Accessory Muscle Use, No Respiratory Distress Cardiovascular: Regular Rate, Rhythm, No JVD Peripheral Pulses: 2+ Radial Pulses (R), 2+ Radial Pulses (L) Gastrointestinal: non tender, soft, other (ANDREA serosang) Extremity: Non Tender, Pedal Edema (1+, swollen) Neurologic/Psychiatric: Alert, Oriented x3 Skin: Normal Color, Warm/Dry Lymphatic: No Adenopathy Results Lab Laboratory Tests 03/31/23 05:24: White Blood Count 9.8, Red Blood Count 4.54, Hemoglobin 14.1, Hematocrit 41, Mean Corpuscular Volume 91, Mean Corpuscular Hemoglobin 31, Mean Corpuscular Hemoglobin Concent 34, Red Cell Distribution Width 12.5, Platelet Count 185, Mean Platelet Volume 10.2, Immature Granulocyte % (Auto) 0, Neutrophils (%) (Auto) 60, Lymphocytes (%) (Auto) 28, Monocytes (%) (Auto) 9, Eosinophils (%) (Auto) 2, Basophils (%) (Auto) 0, Neutrophils # (Auto) 5.9, Lymphocytes # (Auto) 2.7, Monocytes # (Auto) 0.9, Eosinophils # (Auto) 0.2, Basophils # (Auto) 0.0, Immature Granulocyte # (Auto) 0.0, Sodium Level 143, Potassium Level 3.2L, Chloride Level 108H, Carbon Dioxide Level 25, Anion Gap 10, Blood Urea Nitrogen 18, Creatinine 0.59L, Estimat Glomerular Filtration Rate 99, BUN/Creatinine Ratio 31, Glucose Level 91, Calcium Level 7.9L, Corrected Calcium 9.1, Magnesium Level 1.6, Total Bilirubin 0.7, Aspartate Amino Transf (AST/SGOT) 16, Alanine Aminotransferase (ALT/SGPT) 8, Alkaline Phosphatase 37L, Total Protein 5.2L, Albumin 2.5L Microbiology 03/26/23 MRSA Screen - Final, Complete MRSA not isolated Assessment/Plan Assessment/Plan Assessment/Plan S/P diagnostic laparoscopy to open with small bowel resection, bilateral component separation with incisional hernia 15 cm defect, partial omentectomy small bowel obstruction upper abdominal pain hypertensive urgency incisional hernia x 2 strangulated long-term anticoagulation hx afib. ischemic bowel headache Pain control Advance diet IV hydration IV abx IS SCDs for DVT prophylaxis PT order for ambulation in [place] Repeat labs in am. MARILUZ ARENAS DO 04/01/23 1028: Subjective Subjective/Events-last exam Passing flatus. Pain controlled. Using IS. Tolerating diet. Denies n/v fever sweats chills shortness of breath or chest pain. Objective Exam General Appearance: No Apparent Distress, Obese HEENT: PERRL/EOMI, Normal ENT Inspection Neck: Non Tender, Supple Respiratory: Chest Non Tender, No Accessory Muscle Use, No Respiratory Distress Cardiovascular: Regular Rate, Rhythm, No JVD Gastrointestinal: soft, tenderness (minimal incisional tenderness, no signs of infection), other (ANDREA serosang) Extremity: Non Tender, Pedal Edema (1+, swollen) Neurologic/Psychiatric: Alert, Oriented x3 Skin: Normal Color, Warm/Dry Lymphatic: No Adenopathy Assessment/Plan Assessment/Plan Assessment/Plan S/P diagnostic laparoscopy to open with small bowel resection, bilateral component separation with incisional hernia 15 cm defect, partial omentectomy small bowel obstruction upper abdominal pain hypertensive urgency 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 ischemic bowel headache Pain control Diet as tolerated IV hydration IV abx IS SCDs for DVT prophylaxis, anticoagulation PT order for ambulation in [place] Repeat labs in am. likely home tomorrow Supervisory-Addendum Brief Verification & Attestation Participated in pt care: history, MDM, physical Personally performed: exam, history, MDM, supervision of care Care discussed with: Medical Student Procedures: n/a Results interpretation: Verified all documentation Verification and Attestation of Medical Student E/M Service A medical student performed and documented this service in my presence. I reviewed and verified all information documented by the medical student and made modifications to such information, when appropriate. I personally performed the physical exam and medical decision making. Mariluz Arenas, Mar 31, 2023,10:28 RODERICK HERNANDEZ Mar 31, 2023 07:05 MARILUZ ARENAS DO Apr 01, 2023 10:28
[2023-03-31] MEDS: PANTOPRAZOLE INJECTION 40 MG VIAL IV SCH (08:37)
[2023-03-31] MEDS: hydrALAZINE 25 MG TABLET PO SCH ×3 (08:37→20:30)
[2023-03-31] MEDS: amLODIPine 5 MG TABLET PO SCH ×2 (08:37→20:30)
[2023-03-31] MEDS ORDERED: POTASSIUM CHLORIDE 20 MEQ TABLET PO NR (10:00)
[2023-03-31] MEDS ORDERED: HYDROcodone/ACETAMINOPHEN 5 MG/325 MG TABLET PO PRN (14:00)
--- NOTE | 2023-03-31 14:17 | Physical Therapy Evaluation ---
PT Evaluation-General Medical Diagnosis Admission Date Mar 26, 2023 at 00:40 Medical Diagnosis: SBO Onset Date: Mar 26, 2023 Therapy Diagnosis Therapy Diagnosis: Gait deficit Height/Weight Height (Feet): 5 Height (Inches): 7.00 Weight (Pounds): 298 Weight (Ounces): 0.0 Precautions Precautions/Isolations: Fall Prevention, Standard Precautions Weight Bear Status Right Lower Extremity: Right Full Weight Bearing Left Lower Extremity: Left Full Weight Bearing Referral Physician: Dr. Arenas Reason for Referral: Evaluation/Treatment Medical History Pertinent Medical History: Atrial Fib, HTN, OA Social History Home: Single Level Current Living Status: Alone Entry Into Home: Stairs With Railing PT Steps Into Home: 3 Prior Prior Level of Function SCALE: Activities may be completed with or without assistive devices. 5-Seluyydvsz-wptlqap completes the activity by him/herself with no assistance from a helper. 5-Set-up or Clean-up Assistance-helper sets up or cleans up; patient completes activity. [place] assists only prior to or following the activity. 4-Supervision or Touching Assistance-helper provides verbal cues and/or touching/steadying and/or contact guard assistance as patient completes activity. Assistance may be provided throughout the activity or intermittently. 3-Partial/Moderate Assistance-helper does LESS THAN HALF the effort. [place] lift s, holds or supports trunk or limbs, but provides less than half the effort. 2-Substantial/Maximal Assistance-helper does MORE THAN HALF the effort. [place] lifts or holds trunk or limbs and provides more than half the effort. 1-Qboddamcv-zcnwhk does ALL the effort. Patient does none of the effort to complete the activity. Or, the assistance of 2 or more helpers is required for the patient to complete the activity. If activity was not attempted, code reason: 7-Patient Refused. 9-Not Applicable-not attempted and the patient did not perform the activity before the current illness, exacerbation or injury. 10-Not Attempted due to Environmental Limitations-(lack of equipment, weather restraints, etc.). 88-Not Attempted due to Medical Conditions or Safety Concerns. Bed Mobility: 6 Transfers (B,C,W/C): 6 Gait: 6 Stairs: 6 Indoor Mobility (Ambulation): Independent Stairs: Independent Prior Devices Use: None Has FWW at home PT Evaluation-Current Subjective Patient lying supine in bed upon PT arrival, agreeable to treatment. Patient rates pain at 0/10 currently. Objective Patient Orientation: Person, Place, Time, Situation ROM/Strength ROM Lower Extremities WFLs BLEs all planes Strength Lower Extremities 5/5 BLEs all planes Sensory Vision: Functional Hearing: Functional Sensation Right Lower Extremit: Intact Sensation Left Lower Extremity: Intact Transfers Roll Left to Right (QC): 6 Sit to Lying (QC): 6 Lying to Sitting/Side of Bed(Q: 6 Sit to Stand (QC): 6 Chair/Taj-sv-Gtilr Xfer(QC): 6 Toilet Transfer (QC): 6 Gait Does the Patient Walk?: Yes Mode of Locomotion: Walk Anticipated Mode of Locomotion: Walk Walk 10 feet (QC): 6 Walk 50 ft with 2 Turns(QC): 6 Walk 150 ft (QC): 6 Distance: 250' Gait Assistive Device: None Stairs #of Steps: 3 1 Step (curb) (QC): 4 Balance Sitting Static: Normal Sitting Dynamic: Normal Standing Static: Good Standing Dynamic: Good Assessment/Needs Patient Independent with all bed mobility and transfers. Ambulates around the room with no AD. Patient was advised to contact nursing staff if to walk in the halls and to use the FWW if she was feeling tired or hurting. Patient ascended/descended 3 steps with 1 handrail with SBA. No further PT treatment needed at this time. Patient may benefit from outpatient PT upon discharge for improved strengthening, improved gait and balance. Rehab Potential: Good PT Plan Treatment/Plan Treatment Plan: Discontinue PT Treatment Duration: Mar 31, 2023 Frequency: Safety Risks/Education Patient Education: Gait Training, Transfer Techniques, Steps Teaching Recipient: Patient Teaching Methods: Demonstration, Discussion Response to Teaching: Verbalize Understanding, Return Demonstration Time Time In: 1350 Time Out: 1410 DATE: Mar 31, 2023 Total Billed Treatment Time: 20 Total Billed Treatment Visit, LISSETH BLACKMON PT Mar 31, 2023 14:17
--- NOTE | 2023-03-31 18:15 | Progress Note ---
Subjective Subjective/Events-last exam Patient feeling much better this AM. Tolerating CLD. + flatus Review of Systems General: Fatigue Pulmonary: No Dyspnea, No Cough Cardiovascular: Edema; No: Chest Pain, Palpitations Gastrointestinal: Abdominal Pain (incisional); No: Nausea Neurological: Weakness Objective Exam Last Set of Vital Signs Vital Signs Date Time Temp Pulse Resp B/P (MAP) Pulse Ox O2 Delivery O2 Flow Rate FiO2 03/31/23 15:20 36.1 77 18 166/82 (110) 95 Room Air 03/30/23 14:13 2.00 2.00 03/29/23 18:30 21 Capillary Refill : Less Than 3 SecondsLess Than 3 Seconds I&O Intake and Output 03/31/23 00:00 Intake Total 1300 ml Output Total 600 ml Balance 700 ml Intake Oral 1300 ml Output Urine Total 540 ml Drainage Total 60 ml # Voids 4 # Bowel Movements 2 General: Alert, Oriented X3, No Acute Distress Lungs: Clear to Auscultation, Normal Air Movement Heart: Regular Rate, No Murmurs Abdomen: Soft, Other (mild incisional pain, C/D/I) Neuro: Normal Speech, Strength at 5/5 X4 Ext Results/Procedures Lab Laboratory Tests 03/31/23 05:24: White Blood Count 9.8, Red Blood Count 4.54, Hemoglobin 14.1, Hematocrit 41, Mean Corpuscular Volume 91, Mean Corpuscular Hemoglobin 31, Mean Corpuscular Hemoglobin Concent 34, Red Cell Distribution Width 12.5, Platelet Count 185, Mean Platelet Volume 10.2, Immature Granulocyte % (Auto) 0, Neutrophils (%) (Auto) 60, Lymphocytes (%) (Auto) 28, Monocytes (%) (Auto) 9, Eosinophils (%) (Auto) 2, Basophils (%) (Auto) 0, Neutrophils # (Auto) 5.9, Lymphocytes # (Auto) 2.7, Monocytes # (Auto) 0.9, Eosinophils # (Auto) 0.2, Basophils # (Auto) 0.0, Immature Granulocyte # (Auto) 0.0, Sodium Level 143, Potassium Level 3.2L, Chloride Level 108H, Carbon Dioxide Level 25, Anion Gap 10, Blood Urea Nitrogen 18, Creatinine 0.59L, Estimat Glomerular Filtration Rate 99, BUN/Creatinine Ratio 31, Glucose Level 91, Calcium Level 7.9L, Corrected Calcium 9.1, Magnesium Level 1.6, Total Bilirubin 0.7, Aspartate Amino Transf (AST/SGOT) 16, Alanine Aminotransferase (ALT/SGPT) 8, Alkaline Phosphatase 37L, Total Protein 5.2L, Albumin 2.5L Microbiology 03/26/23 MRSA Screen - Final, Complete MRSA not isolated Assessment/Plan Assessment/Plan Assessment & Plan Incarcerated Hernia repair Partial small bowel resection SBO HTN - Restarted Losartan as blood pressure is trending up - Tolerating CLD - Encouraged ambulation - Getting closer for d/c MARTHA TORRES MD Mar 31, 2023 18:15
[2023-03-31] MEDS: LOSARTAN 50 MG TABLET PO SCH (18:43)
[2023-04-01] MEDS: ceFAZolin INJECTION 2,000 MG in NS (IVPB) 50 ML 50 ML IV SCH ×2 (02:07→11:57)
[2023-04-01] MEDS: metroNIDAZOLE 500MG/100ML IVPB 100 ML IV SCH ×2 (02:07→08:15)
[2023-04-01 03:31] VITALS: BP 138/66
[2023-04-01] MEDS: APIXABAN 5 MG TABLET PO SCH (05:39)
[2023-04-01 05:54] LABS: BASOPHILS % (AUTO) 0 % (0-10); EOSINOPHILS # (AUTO) 0.3 10^3/uL (0.0-0.3); EOSINOPHILS % (AUTO) 3 % (0-10); HEMATOCRIT 41 % (35-52); LYMPHOCYTES # (AUTO) 2.7 10^3/uL (1.0-4.0); LYMPHOCYTES % (AUTO) 29 % (12-44); MEAN CORPUSCULAR HEMOGLOBIN 31 pg (25-34); MEAN CORPUSCULAR HGB CONC 34 g/dL (32-36); MEAN CORPUSCULAR VOLUME 90 fL (80-99); MEAN PLATELET VOLUME 10.2 fL (9.0-12.2); MONOCYTES % (AUTO) 10 % (0-12); NEUTROPHILS # (AUTO) 5.4 10^3/uL (1.8-7.8); NEUTROPHILS % (AUTO) 58 % (42-75); PLATELET COUNT 197 10^3/uL (130-400); WHITE BLOOD COUNT 9.4 10^3/uL (4.3-11.0)
[2023-04-01 06:22] LABS: ALBUMIN 2.6 GM/DL (3.2-4.5); BILIRUBIN,TOTAL 0.8 MG/DL (0.1-1.0); CALCIUM 8.1 MG/DL (8.5-10.1); CREATININE SERUM 0.63 MG/DL (0.60-1.30); MAGNESIUM 1.7 MG/DL (1.6-2.4); POTASSIUM 3.4 MMOL/L (3.6-5.0); TOTAL PROTEIN 5.2 GM/DL (6.4-8.2)
--- NOTE | 2023-04-01 07:16 | Progress Note - Surgery ---
RODERICK HERNANDEZ 04/01/23 0716: Subjective Date Seen by a Provider: Apr 01, 2023 Time Seen by a Provider: 07:00 Subjective/Events-last exam Nena was at the door starting for a walk in hallway. Said she had a good night. Lots of flatulence, still no BM. No N/V. Using incentive spirometer 1x/hr. ANDREA drained 40ml serosanguinous fluid overnight. K is still low. Pt denies CP, SOB, N/V, dysuria Review of Systems General: No Chills, No Night Sweats HEENT: No Head Aches, No Eye Pain Pulmonary: No Dyspnea, No Cough Cardiovascular: No: Chest Pain, Palpitations Gastrointestinal: Abdominal Pain (incisional pain); No: Nausea, Vomiting Genitourinary: No Dysuria, No Frequency Musculoskeletal: No: neck pain, shoulder pain Neurological: No: Weakness, Change in speech Objective Exam Vital Signs Date Time Temp Pulse Resp B/P (MAP) Pulse Ox O2 Delivery O2 Flow Rate FiO2 04/01/23 03:31 36.2 77 18 138/66 (90) 95 Room Air 2.00 2.00 04/01/23 01:00 88 03/31/23 23:32 36.2 87 18 136/65 (88) 94 Room Air 2.00 2.00 03/31/23 21:02 94 Room Air 03/31/23 20:46 36.5 79 18 () 98 Room Air 03/31/23 20:00 Room Air 03/31/23 19:00 82 03/31/23 15:20 36.1 77 18 166/82 (110) 95 Room Air 03/31/23 13:11 77 03/31/23 11:40 36.0 71 18 150/86 (107) 95 Room Air 03/31/23 08:00 Room Air 03/31/23 07:34 71 03/31/23 07:28 36.2 78 18 156/78 (104) 94 Room Air I & O 04/01/23 07:00 Intake Total 1360 ml Output Total 100 ml Balance 1260 ml Capillary Refill : Less Than 3 SecondsLess Than 3 Seconds General Appearance: No Apparent Distress, WD/WN, Chronically ill, Obese HEENT: PERRL/EOMI, Normal ENT Inspection Neck: Non Tender, Supple Respiratory: Chest Non Tender, No Accessory Muscle Use, No Respiratory Distress Cardiovascular: Regular Rate, Rhythm, No JVD Peripheral Pulses: 2+ Radial Pulses (R), 2+ Radial Pulses (L) Gastrointestinal: soft, tenderness (mild incisional pain), other (ANDREA serosang, ) Extremity: Non Tender, Pedal Edema (1+, swollen) Neurologic/Psychiatric: Alert, Oriented x3 Skin: Normal Color, Warm/Dry, Other (midline abdominal incision clean and dry) Lymphatic: No Adenopathy Results Lab Laboratory Tests 04/01/23 05:40: White Blood Count 9.4, Red Blood Count 4.57, Hemoglobin 14.0, Hematocrit 41, Mean Corpuscular Volume 90, Mean Corpuscular Hemoglobin 31, Mean Corpuscular Hemoglobin Concent 34, Red Cell Distribution Width 12.2, Platelet Count 197, Mean Platelet Volume 10.2, Immature Granulocyte % (Auto) 1, Neutrophils (%) (Auto) 58, Lymphocytes (%) (Auto) 29, Monocytes (%) (Auto) 10, Eosinophils (%) (Auto) 3, Basophils (%) (Auto) 0, Neutrophils # (Auto) 5.4, Lymphocytes # (Auto) 2.7, Monocytes # (Auto) 1.0, Eosinophils # (Auto) 0.3, Basophils # (Auto) 0.0, Immature Granulocyte # (Auto) 0.1, Sodium Level 142, Potassium Level 3.4L, Chloride Level 109H, Carbon Dioxide Level 23, Anion Gap 10, Blood Urea Nitrogen 12, Creatinine 0.63, Estimat Glomerular Filtration Rate 98, BUN/Creatinine Ratio 19, Glucose Level 100, Calcium Level 8.1L, Corrected Calcium 9.2, Magnesium Level 1.7, Total Bilirubin 0.8, Aspartate Amino Transf (AST/SGOT) 19, Alanine Aminotransferase (ALT/SGPT) 9, Alkaline Phosphatase 41, Total Protein 5.2L, Albumin 2.6L Microbiology 03/26/23 MRSA Screen - Final, Complete MRSA not isolated Assessment/Plan Assessment/Plan Assessment/Plan S/P diagnostic laparoscopy to open with small bowel resection, bilateral component separation with incisional hernia 15 cm defect, partial omentectomy small bowel obstruction upper abdominal pain hypertensive urgency incisional hernia x 2 strangulated [facility] anticoagulation hx afib. ischemic bowel headache Pain control Advance diet Potassium Chloride Replacement IV hydration IV abx IS SCDs for DVT prophylaxis PT order for ambulation in hall Repeat labs in am. MARILUZ ARENAS DO 04/01/23 1032: Subjective Subjective/Events-last exam Feeling well. Had bm. ANDREA serosang. Using IS. Tolerating diet. Wanting to go home. Denies n/v fever sweats chills shortness of breath or chest pain. Objective Exam General Appearance: No Apparent Distress, Chronically ill, Obese HEENT: PERRL/EOMI, Normal ENT Inspection Neck: Non Tender, Supple Respiratory: Chest Non Tender, No Accessory Muscle Use Cardiovascular: Regular Rate, Rhythm, No JVD Gastrointestinal: soft, tenderness (mild incisional pain, no signs of infection), other (ANDREA serosang, ) Extremity: Non Tender, Pedal Edema (1+, swollen) Neurologic/Psychiatric: Alert, Oriented x3 Skin: Normal Color, Warm/Dry Lymphatic: No Adenopathy Assessment/Plan Assessment/Plan Assessment/Plan S/P diagnostic laparoscopy to open with small bowel resection, bilateral component separation with incisional hernia 15 cm defect, partial omentectomy small bowel obstruction upper abdominal pain hypertensive urgency incisional hernia x 2 strangulated [facility] anticoagulation hx afib. ischemic bowel Pain control diet as tolerates IV hydration IV abx IS SCDs for DVT prophylaxis. anticoagulation PT order for ambulation in [place] D[place] home today. Given drain instructions. Outpatient follow up. Supervisory-Addendum Brief Verification & Attestation Participated in pt care: history, MDM, physical Personally performed: exam, history, MDM, supervision of care Care discussed with: Medical Student Procedures: n/a Results interpretation: Verified all documentation Verification and Attestation of Medical Student E/M Service A medical student performed and documented this service in my presence. I reviewed and verified all information documented by the medical student and made modifications to such information, when appropriate. I personally performed the physical exam and medical decision making. Mariluz Arenas, Apr 01, 2023,10:32 RODERICK HERNANDEZ Apr 01, 2023 07:16 MARILUZ ARENAS DO Apr 01, 2023 10:32
[2023-04-01 07:17] VITALS: BP 164/88
[2023-04-01] MEDS: hydrALAZINE 25 MG TABLET PO SCH ×2 (08:15→13:43)
[2023-04-01] MEDS: amLODIPine 5 MG TABLET PO SCH (08:15)
[2023-04-01] MEDS: PANTOPRAZOLE INJECTION 40 MG VIAL IV SCH (08:15)
[2023-04-01] MEDS: LOSARTAN 50 MG TABLET PO SCH (08:15)
--- NOTE | 2023-04-01 10:14 | Discharge Inst-Simple/Standard ---
Discharge Inst-Standard Discharge Medications New, Converted or Re-Newed RX: Transmitted to Pharmacy Patient Instructions/Follow Up Plan of Care/Instructions/FU: Deepa 2 weeks. Henok 2 weeks. Arturo drain keep to bulb suction. Keep log of drain output per 24 hrs. When drain is less than 30 mL in 24 hours for 2 days in a row, call the office and have it removed. Activity as Tolerated: No Discharge Diet: Regular Diet Other Inst to Patient Follow up Appt: Make appointment for [address] Arenas and Henok. Instructions: No lifting greater than 10 pounds. No strenuous activity. May shower in 24 hours, no tub bath or soaking. Use incentive spirometer at home as directed. No Smoking Skin/Wound Care: Keep incisions clean and dry. Arturo drain keep to bulb suction. Keep log of drain output per 24 hrs. When drain is less than 30 mL in 24 hours for 2 days in a row, call the office and have it removed. Symptoms to Report: Appetite Changes, Extremity Discoloration, Numbness/Tingling, Swelling Increased, Bleeding Excessive, Eyesight Changes, Pain Increased, Urine Color Change, Constipation(Persistent), Fever over 101 degree F, Pain/Pressure in chest, Urinating Difficulty, Cough Up/Vomit Blood, Heart Beat Irreg/Pounding, Pain/Pressure in jaw, Vaginal Bleeding Increase, Cramps in feet or legs, Lightheadedness, Pain/Pressure in shoulder, Diarrhea(Persistent), Memory Changes Suddenly, Questions/Concerns, Weight gain consecutive days, Dizziness/Fainting, Nausea/Vomiting, Shortness of Breath, Weight gain over 2 pounds If questions or concerns contact your physician Or seek help at emergency department. MARILUZ ARENAS DO Apr 01, 2023 10:10
[2023-04-01] MEDS ORDERED: ACHD5005 PO ×2 (10:15→10:16)
[2023-04-01 11:07] VITALS: BP 157/77
--- NOTE | 2023-04-01 12:34 | Progress Note ---
Subjective Subjective/Events-last exam Patient feeling well this AM. Had small BM this AM. Passing Flatus. Tolerating PO diet Review of Systems Pulmonary: No Dyspnea, No Cough Cardiovascular: No: Chest Pain, Palpitations, Edema Gastrointestinal: Abdominal Pain (incisional); No: Nausea, Vomiting Neurological: No: Weakness, Incoordination Objective Exam Last Set of Vital Signs Vital Signs Date Time Temp Pulse Resp B/P (MAP) Pulse Ox O2 Delivery O2 Flow Rate FiO2 04/01/23 11:07 36.4 78 17 157/77 (103) 95 Room Air 04/01/23 03:31 2.00 2.00 03/29/23 18:30 21 Capillary Refill : Less Than 3 SecondsLess Than 3 Seconds I&O Intake and Output 04/01/23 00:00 Intake Total 1560 ml Output Total 100 ml Balance 1460 ml Intake Oral 1410 ml IV Total 150 ml Drainage Total 100 ml # Voids 12 General: Alert, Oriented X3, No Acute Distress Lungs: Clear to Auscultation, Normal Air Movement Heart: Regular Rate, No Murmurs Abdomen: Normal Bowel Sounds, Soft, Other (mild incisional ttp) Extremities: Other (1+ edema bilaterally) Results/Procedures Lab Laboratory Tests 04/01/23 05:40: White Blood Count 9.4, Red Blood Count 4.57, Hemoglobin 14.0, Hematocrit 41, Mean Corpuscular Volume 90, Mean Corpuscular Hemoglobin 31, Mean Corpuscular Hemoglobin Concent 34, Red Cell Distribution Width 12.2, Platelet Count 197, Mean Platelet Volume 10.2, Immature Granulocyte % (Auto) 1, Neutrophils (%) (Auto) 58, Lymphocytes (%) (Auto) 29, Monocytes (%) (Auto) 10, Eosinophils (%) (Auto) 3, Basophils (%) (Auto) 0, Neutrophils # (Auto) 5.4, Lymphocytes # (Auto) 2.7, Monocytes # (Auto) 1.0, Eosinophils # (Auto) 0.3, Basophils # (Auto) 0.0, Immature Granulocyte # (Auto) 0.1, Sodium Level 142, Potassium Level 3.4L, Chloride Level 109H, Carbon Dioxide Level 23, Anion Gap 10, Blood Urea Nitrogen 12, Creatinine 0.63, Estimat Glomerular Filtration Rate 98, BUN/Creatinine Ratio 19, Glucose Level 100, Calcium Level 8.1L, Corrected Calcium 9.2, Magnesium Level 1.7, Total Bilirubin 0.8, Aspartate Amino Transf (AST/SGOT) 19, Alanine Aminotransferase (ALT/SGPT) 9, Alkaline Phosphatase 41, Total Protein 5.2L, Albumin 2.6L Microbiology 03/26/23 MRSA Screen - Final, Complete MRSA not isolated Assessment/Plan Assessment/Plan Assessment & Plan Incarcerated Hernia repair Partial small bowel resection SBO HTN - Restarted Losartan as blood pressure is trending up - Tolerating CLD - Encouraged ambulation - Getting closer for d/c 04/01 - Had small BM and passing flatus, ok to d/c - Scripts for bp meds sent to pharm - F.u 2 weeks with MARTHA Justin MD Apr 01, 2023 12:34
== END 2023-04-01 14:25 | disposition home or self-care (01) | DRG 330 ==
LOC: EDUNIT# 19:51 → ER 19:53 → ICU 03-26 00:40 → 4TH 03-29 15:37
PROVIDERS: ADMIT Surgery; ATTEND Surgery
PROC: 0DB80ZZ Excision of Small Intestine, Open Approach (ICD-10-PCS; 2023-03-27)
PROC: 0KNL0ZZ Release Left Abdomen Muscle, Open Approach (ICD-10-PCS; 2023-03-27)
PROC: 0KNK0ZZ Release Right Abdomen Muscle, Open Approach (ICD-10-PCS; 2023-03-27)
PROC: 0DBU0ZZ Excision of Omentum, Open Approach (ICD-10-PCS; 2023-03-27)
PROC: 0WJF4ZZ Inspection of Abdominal Wall, Percutaneous Endoscopic Approach (ICD-10-PCS; 2023-03-27)
PROC: 0WUF0JZ Supplement Abdominal Wall with Synthetic Substitute, Open Approach (ICD-10-PCS; principal; 2023-03-27 10:56)
DX: K43.0 Incisional hernia with obstruction, without gangrene (principal); K55.8 Other vascular disorders of intestine; Z68.41 Body mass index [BMI] 40.0-44.9, adult; E86.0 Dehydration; I16.0 Hypertensive urgency; Z53.31 Laparoscopic surgical procedure converted to open procedure; I10 Essential (primary) hypertension; F41.9 Anxiety disorder, unspecified; I48.0 Paroxysmal atrial fibrillation; E87.6 Hypokalemia; E66.9 Obesity, unspecified; R51.9 Headache, unspecified; Z91.148 Patient's other noncompliance with medication regimen for other reason; Z96.653 Presence of artificial knee joint, bilateral; Z79.01 Long term (current) use of anticoagulants; Z79.899 Other long term (current) drug therapy
CPT/HCPCS: 36410; 36415; 74177; 76770; 76937; 80048; 80053; 81000; 82947; 83605; 83735; 84100; 85007; 85025; 85027; 87081; 94640; 96361; 96374; 96375; 96376

== ENCOUNTER → 2023-05-21 | Outpatient (CLI) | payer MEDICARE, OTHER ==
[~2023-05-21] MED LIST changes: +DOCU100C37 PO; +DRON400T6 PO
[2023-05-21 15:19] LABS: BASOPHILS % (AUTO) 0 % (0-10); EOSINOPHILS # (AUTO) 0.2 10^3/uL (0.0-0.3); EOSINOPHILS % (AUTO) 2 % (0-10); HEMATOCRIT 36 % (35-52); HEMOGLOBIN 11.9 g/dL (11.5-16.0); LYMPHOCYTES # (AUTO) 3.1 X 10^3 (1.0-4.0); LYMPHOCYTES % (AUTO) 29 % (12-44); MEAN CORPUSCULAR HEMOGLOBIN 30 pg (25-34); MEAN CORPUSCULAR HGB CONC 33 g/dL (32-36); MEAN CORPUSCULAR VOLUME 90 fL (80-99); MEAN PLATELET VOLUME 8.9 fL (9.0-12.2); MONOCYTES # (AUTO) 0.5 X 10^3 (0.0-1.0); MONOCYTES % (AUTO) 5 % (0-12); NEUTROPHILS # (AUTO) 6.8 X 10^3 (1.8-7.8); NEUTROPHILS % (AUTO) 64 % (42-75); PLATELET COUNT 352 10^3/uL (130-400); WHITE BLOOD COUNT 10.6 10^3/uL (4.3-11.0)
[2023-05-21 15:27] LABS: ERYTHROCYTE SEDIMENTATION RATE 43 MM/HR (0-30)
[2023-05-21 15:37] LABS: ALBUMIN 3.3 GM/DL (3.2-4.5); BILIRUBIN,TOTAL 0.5 MG/DL (0.1-1.0); CALCIUM 8.9 MG/DL (8.5-10.1); CREATININE SERUM 0.73 MG/DL (0.60-1.30); POTASSIUM 3.3 MMOL/L (3.6-5.0); TOTAL PROTEIN 7.4 GM/DL (6.4-8.2)
== END ==
LOC: WOUNDCARE 13:38
PROVIDERS: ATTEND Family Medicine
DX: I96 Gangrene, not elsewhere classified (principal); T81.31XA Disruption of external operation (surgical) wound, not elsewhere classified, initial encounter; A49.9 Bacterial infection, unspecified; E66.01 Morbid (severe) obesity due to excess calories; E44.0 Moderate protein-calorie malnutrition; Z68.41 Body mass index [BMI] 40.0-44.9, adult
CPT/HCPCS: 11042; 80053; 84134; 85025; 85652; 86141; A6212; A6260; G0463; 36415

== ENCOUNTER → 2023-05-22 | Outpatient (CLI) | payer MEDICARE, OTHER ==
[~2023-05-22] MED LIST changes: +HOLD METFORMIN - RECEIVED CONTRAST 20 ML VIAL IV SCH; +IOHEXOL 350 MG/ML 100 ML (OMNIPAQUE 350) VIAL IV ONE; +NS 100 ML (IVPB) BAG IV ONE
--- NOTE | 2023-05-22 08:57 | Diagnostic Imaging Report ---
EXAMINATION: CT abdomen and pelvis with intravenous contrast. TECHNIQUE: Multiple contiguous axial images were obtained through the abdomen and pelvis after the uneventful administration of intravenous contrast. All CT scans use one or more of the following dose optimizing techniques: automated exposure control, MA and/or KvP adjustment based on patient size and exam type or iterative reconstruction. HISTORY: Postoperative wound. COMPARISON: 03/25/2023 FINDINGS: Limited views of the lower thorax are unremarkable. The liver is normal without focal lesion. There is no biliary ductal dilation. Gallbladder is normal. Pancreas is normal. Spleen is normal. Adrenal glands are normal. There is a simple cyst in left kidney. No suspicious renal lesion. There is no hydronephrosis. Urinary bladder is normal. Bowel is normal in caliber without obstruction or inflammation. There has been a ventral abdominal hernia repair. There is soft tissue thickening in the anterior abdominal wall. There is a wound in the right lower quadrant with packing material. No drainable fluid collection is seen. There is a small amount of gas in the anterior abdominal wall. No recurrent hernia. No free fluid or air. No abdominal or pelvic lymphadenopathy. Aorta is normal in caliber without aneurysm. There are no suspicious osseus lesions. IMPRESSION: 1. Right lower quadrant wound with packing material but no underlying fluid collection or recurrent hernia. Dictated by: Dictated on workstation # [id number]
== END ==
LOC: RAD 07:14
PROVIDERS: ATTEND Family Medicine
DX: T81.31XA Disruption of external operation (surgical) wound, not elsewhere classified, initial encounter (principal)
CPT/HCPCS: 74177

== ENCOUNTER → 2023-05-27 | Outpatient (CLI) | payer MEDICARE, OTHER ==
[~2023-05-27] MED LIST changes: -HOLD METFORMIN - RECEIVED CONTRAST 20 ML VIAL IV SCH; -IOHEXOL 350 MG/ML 100 ML (OMNIPAQUE 350) VIAL IV ONE; -NS 100 ML (IVPB) BAG IV ONE
== END ==
LOC: WOUNDCARE 14:20
PROVIDERS: ATTEND Family Medicine
DX: I96 Gangrene, not elsewhere classified (principal); T81.31XA Disruption of external operation (surgical) wound, not elsewhere classified, initial encounter; A49.9 Bacterial infection, unspecified; E44.0 Moderate protein-calorie malnutrition; E66.01 Morbid (severe) obesity due to excess calories; Z68.41 Body mass index [BMI] 40.0-44.9, adult
CPT/HCPCS: 11042; 97605; G0463

== ENCOUNTER → 2023-05-29 | Outpatient (CLI) | payer MEDICARE, OTHER | LOC: WOUNDCARE 09:29 | PROVIDERS: ATTEND Family Medicine | DX: I96 Gangrene, not elsewhere classified (principal); T81.31XA Disruption of external operation (surgical) wound, not elsewhere classified, initial encounter; A49.9 Bacterial infection, unspecified; E66.01 Morbid (severe) obesity due to excess calories; Z68.41 Body mass index [BMI] 40.0-44.9, adult | CPT/HCPCS: 97605; G0463 ==

== ENCOUNTER → 2023-06-01 | Outpatient (CLI) | payer MEDICARE, OTHER | LOC: WOUNDCARE 09:21 | PROVIDERS: ATTEND Family Medicine | DX: I96 Gangrene, not elsewhere classified (principal); T81.31XA Disruption of external operation (surgical) wound, not elsewhere classified, initial encounter; E66.01 Morbid (severe) obesity due to excess calories; E44.0 Moderate protein-calorie malnutrition; B37.2 Candidiasis of skin and nail; A49.9 Bacterial infection, unspecified; Z68.41 Body mass index [BMI] 40.0-44.9, adult | CPT/HCPCS: 11042; 87070; 87205; 97605; G0463; 87077; 87186 ==

== ENCOUNTER → 2023-06-03 | Outpatient (CLI) | payer MEDICARE, OTHER | LOC: WOUNDCARE 09:22 | PROVIDERS: ATTEND Family Medicine | DX: S31.600A Unspecified open wound of abdominal wall, right upper quadrant with penetration into peritoneal cavity, initial encounter (principal); X58.XXXA Exposure to other specified factors, initial encounter; I10 Essential (primary) hypertension | CPT/HCPCS: 97605; G0463 ==

== ENCOUNTER → 2023-06-05 | Outpatient (CLI) | payer MEDICARE, OTHER | LOC: WOUNDCARE 09:14 | PROVIDERS: ATTEND Family Medicine | DX: S31.600A Unspecified open wound of abdominal wall, right upper quadrant with penetration into peritoneal cavity, initial encounter (principal); X58.XXXA Exposure to other specified factors, initial encounter; I10 Essential (primary) hypertension | CPT/HCPCS: 97605; A6234; G0463 ==

== ENCOUNTER → 2023-06-08 | Outpatient (CLI) | payer MEDICARE, OTHER | LOC: WOUNDCARE 09:22 | PROVIDERS: ATTEND Family Medicine | DX: T81.31XA Disruption of external operation (surgical) wound, not elsewhere classified, initial encounter (principal); A49.9 Bacterial infection, unspecified; E66.01 Morbid (severe) obesity due to excess calories; E44.0 Moderate protein-calorie malnutrition; Z68.41 Body mass index [BMI] 40.0-44.9, adult | CPT/HCPCS: 11042; 97605; A6234; G0463 ==

== ENCOUNTER → 2023-06-10 | Outpatient (CLI) | payer MEDICARE, OTHER | LOC: WOUNDCARE 09:21 | PROVIDERS: ATTEND Family Medicine | DX: S31.103A Unspecified open wound of abdominal wall, right lower quadrant without penetration into peritoneal cavity, initial encounter (principal); X58.XXXA Exposure to other specified factors, initial encounter; I10 Essential (primary) hypertension | CPT/HCPCS: 97605; A6234; G0463 ==

== ENCOUNTER → 2023-06-12 | Outpatient (CLI) | payer MEDICARE, OTHER | LOC: WOUNDCARE 09:15 | PROVIDERS: ATTEND Family Medicine | DX: S31.103A Unspecified open wound of abdominal wall, right lower quadrant without penetration into peritoneal cavity, initial encounter (principal); I10 Essential (primary) hypertension; X58.XXXA Exposure to other specified factors, initial encounter | CPT/HCPCS: 97605; A6234; G0463 ==

== ENCOUNTER → 2023-06-15 | Outpatient (CLI) | payer MEDICARE, OTHER | LOC: WOUNDCARE 08:47 | PROVIDERS: ATTEND Family Medicine | DX: T81.31XA Disruption of external operation (surgical) wound, not elsewhere classified, initial encounter (principal); E66.01 Morbid (severe) obesity due to excess calories; E44.0 Moderate protein-calorie malnutrition; Z68.41 Body mass index [BMI] 40.0-44.9, adult; I96 Gangrene, not elsewhere classified | CPT/HCPCS: 11042; 97605; A6234; G0463 ==

== ENCOUNTER → 2023-06-19 | Outpatient (CLI) | payer MEDICARE, OTHER | LOC: WOUNDCARE 09:19 | PROVIDERS: ATTEND Family Medicine | DX: S31.103A Unspecified open wound of abdominal wall, right lower quadrant without penetration into peritoneal cavity, initial encounter (principal); I10 Essential (primary) hypertension; X58.XXXA Exposure to other specified factors, initial encounter | CPT/HCPCS: 97605; A6234; G0463 ==

== ENCOUNTER → 2023-06-22 | Outpatient (CLI) | payer MEDICARE, OTHER | LOC: WOUNDCARE 09:20 | PROVIDERS: ATTEND Family Medicine | DX: T81.31XA Disruption of external operation (surgical) wound, not elsewhere classified, initial encounter (principal); I96 Gangrene, not elsewhere classified; B37.2 Candidiasis of skin and nail; E66.01 Morbid (severe) obesity due to excess calories; E44.0 Moderate protein-calorie malnutrition; Z68.41 Body mass index [BMI] 40.0-44.9, adult | CPT/HCPCS: 11042; 97605; A6234; G0463 ==

== ENCOUNTER → 2023-06-24 | Outpatient (CLI) | payer MEDICARE, OTHER | LOC: WOUNDCARE 09:17 | PROVIDERS: ATTEND Family Medicine | DX: I96 Gangrene, not elsewhere classified (principal); S31.103A Unspecified open wound of abdominal wall, right lower quadrant without penetration into peritoneal cavity, initial encounter; B99.9 Unspecified infectious disease; I10 Essential (primary) hypertension; I49.9 Cardiac arrhythmia, unspecified | CPT/HCPCS: 97605; G0463 ==

== ENCOUNTER → 2023-06-29 | Outpatient (CLI) | payer MEDICARE, OTHER | LOC: WOUNDCARE 09:19 | PROVIDERS: ATTEND Family Medicine | DX: T81.31XA Disruption of external operation (surgical) wound, not elsewhere classified, initial encounter (principal); I96 Gangrene, not elsewhere classified; E44.0 Moderate protein-calorie malnutrition; E66.01 Morbid (severe) obesity due to excess calories; B37.2 Candidiasis of skin and nail; Z68.41 Body mass index [BMI] 40.0-44.9, adult | CPT/HCPCS: 11042; A6212; G0463 ==

== ENCOUNTER → 2023-07-01 | Outpatient (CLI) | payer MEDICARE, OTHER | LOC: LAB 10:05 | PROVIDERS: ATTEND Family Medicine | DX: E44.0 Moderate protein-calorie malnutrition (principal) | CPT/HCPCS: 36415; 84134 ==

== ENCOUNTER → 2023-07-06 | Outpatient (CLI) | payer MEDICARE, OTHER | LOC: WOUNDCARE 09:17 | PROVIDERS: ATTEND Family Medicine | DX: I96 Gangrene, not elsewhere classified (principal); T81.31XA Disruption of external operation (surgical) wound, not elsewhere classified, initial encounter; E66.01 Morbid (severe) obesity due to excess calories; E44.0 Moderate protein-calorie malnutrition; Z68.41 Body mass index [BMI] 40.0-44.9, adult | CPT/HCPCS: 11042; A6212; G0463 ==

== ENCOUNTER → 2023-07-13 | Outpatient (CLI) | payer MEDICARE, OTHER | LOC: WOUNDCARE 09:19 | PROVIDERS: ATTEND Family Medicine | DX: T81.31XA Disruption of external operation (surgical) wound, not elsewhere classified, initial encounter (principal); I96 Gangrene, not elsewhere classified; E66.01 Morbid (severe) obesity due to excess calories; E44.0 Moderate protein-calorie malnutrition; Z68.41 Body mass index [BMI] 40.0-44.9, adult | CPT/HCPCS: 11042; A6212; G0463 ==